=== PATIENT | male | born 1960 | race Caucasian/White ===

== ENCOUNTER 2024-02-22 17:42 | Inpatient (IN) | payer OTHER, SELFPAY ==
[2024-02-22] VITALS (59 sets, daily range): BP systolic 108–216; BP diastolic 56–121; PULSE 2–118; BMI 32.8; BMI 32.9
[2024-02-22 15:05] LABS: % Basophils 0.9 % (0-2); % Eosinophils 3.1 % (0-6); % Immature Granulocytes 0.3 % (0-0.5); % Lymphocytes 18.8 % (20.5-51.1); % Monocytes 10.2 % (1.7-9.3); % Neutrophils 66.7 % (42.2-75.2); Absolute Basophils 0.1 10^3/uL (0-0.2); Absolute Eosinophils 0.4 10^3/uL (0-0.7); Absolute Lymphocytes 2.4 10^3/uL (1.2-3.4); Absolute Monocytes 1.3 10^3/uL (0.1-0.6); Absolute Neutrophils 8.5 10^3/uL (1.4-6.5); Hematocrit 36.4 % (39.0-52.0); Hemoglobin 12.7 g/dL (13.0-18.0); Mean Corp Hgb Conc. 34.9 g/dL (33.0-37.0); Mean Corpuscular Hgb 29.1 pg (27.0-31.0); Mean Corpuscular Volume 83.3 fL (80.0-94.0); Mean Platelet Volume 10.8 fL (7.4-10.4); Nucleated Red Blood Cells % 0 % (-); Platelet Count 254 10^3/uL (130-400); Red Blood Cell Count 4.37 10^6/uL (4.70-6.10); Red Cell Dist. Width 13.8 % (11.5-14.5); White Blood Cell Count 12.8 10^3/uL (4.8-10.8)
[2024-02-22 15:17] LABS: D-Dimer 1.61 ug/mlFEU (0.00-0.50)
[2024-02-22 15:22] LABS: ALT (SGPT) 36 U/L (0-50); AST (SGOT) 43 U/L (17-59); Albumin 4.3 g/dl (3.5-5.0); Alkaline Phosphatase 93 U/L (38-126); Blood Urea Nitrogen 28 mg/dl (9-20); Calcium 9.1 mg/dl (8.4-10.2); Carbon Dioxide 27 mmol/L (22-30); Chloride 103 mmol/L (98-107); Glucose 140 mg/dl (70-99); Potassium 4.9 mmol/L (3.5-5.1); Sodium 142 mmol/L (135-145); Total Protein 6.9 g/dl (6.3-8.2); eGFR > 60.00
[2024-02-22 15:44] LABS: NT-proBNP 363 pg/ml; Troponin I 0.079 ng/ml
[2024-02-22] MEDS: LASIX 40 MG IV (15:50)
[2024-02-22] MEDS: NITROGLYCERIN PREMIX 250 IV (15:57)
--- NOTE | 2024-02-22 16:10 | ED.GENMED ---
History of Present Illness
General
Chief Complaint: Breathing Problem
Time Seen by Provider: 02/22/24 14:38
History of Present Illness
History of Present Illness:
63-year-old male presents to the emergency department for evaluation of sudden onset dyspnea that began this morning. States he was carrying groceries when he suddenly felt short of breath. Symptoms have worsened and he feels significant air
hunger. Denies any chest pain. No recent fevers or chills. Denies any recent coughing. Denies alcohol or tobacco use, denies illicit substance use. No leg swelling or unilateral calf pain. Did travel to [place] by car recently
Past History
Past History
ED Past Medical History: Arrthythmia (SVT), HTN, Hypercholesterolemia, NIDDM and Other (Kidney stone)
ED Past Surgical History: Cardiac (SVT ablation), Cholecystectomy, Orthopedic and Tonsilectomy
Social History
Tobacco: Non-smoker
Alcohol: Occasional
Personal:
Living: with family
Family History
Family History: Diabetes and Hypertension
Review of Systems
Review of Systems
Allergies reviewed?: Yes
All Other Systems: ROS reviewed and negative except as documented in HPI and ROS
Phy Exam
Physical Exam
Physical Exam:
GEN: Ill-appearing, in acute respiratory distress with conversational dyspnea
Eyes: PERRLA, EOMs intact, no scleral icterus
HENT: NCAT, oral mucosa moist, unable to assess for JVD secondary to body habitus
Lungs: Respiratory distress with conversational dyspnea, no obvious rhonchi or rales low-grade diminished bibasilar breath sounds noted
Cardiac: RRR, no M/R/G, no peripheral edema. Radial pulses 2+ bilat
Abdomen: S, NT, ND, NABS, no masses or hepatosplenomegaly
Neuro: AO x 3
MSK: No gross deformity or ecchymosis. No edema. No digital clubbing
Skin: No rashes, petechiae. Normal color, no pallor or jaundice.
Psych: Calm, cooperative, proper hygiene
Scores
Heart Failure Risk
Heart Failure Risk Score: Yes
History of Stroke or TIA: No
History of intubation for respiratory distress: No
Heart rate on ED arrival >/= 110: No
SaO2 <90% on arrival on room air: Yes
HR >/=110 during 3min walk test (or too ill to perform test): Yes
ECG has acute ischemic changes: No
Urea >/=12mmol/L (BUN 33.6mg/dL): No
Serum CO2>/=35mmol/L: No
Troponin I or T elevated to [place] Level (0.4mg/dL): Yes
NT-proBNP >/=5,000ng/L (5,000pg/ml): No
HF Risk Score: 5
Admission Status: VERY HIGH RISK 39.8% Consider admission to hospital
Course
Orders/Labs/Results
Orders:
Orders
02/22/24 14:30
Electrocardiogram (*1) Urgent
Reason for Study: Shortness of Breath
02/22/24 14:31
EKG- Treatment ONCE
02/22/24 14:50
CR Chest Portable - 1 View Urgent
Comment:
Reason For Exam: SOB
Reason Study Needs to be Portable: Patient Unstable
02/22/24 14:57
Complete Blood Count/With Diff Urgent
Comprehensive Metabolic Panel Urgent
D-Dimer Urgent
NT-proBNP Urgent
Troponin I Urgent
02/22/24 15:10
CT Chest Pe Study Urgent
Comment:
Reason For Exam: SOB
02/22/24 15:41
Furosemide [Lasix] 40 mg IV ONCE ONE
02/22/24 15:45
Nitroglycerin 100 mg/250 ml [Nitroglycerin Premix] 100 mg in 250 ml IV PER PROTOCOL
Initial dose in mcg/min, then titrate:: 40
Titrate to keep:: SBP < 160 mmHg
Titrate by mcg/min:: 5 mcg/min, may increase by 10 mcg/min if dose > 20 mcg/min
Frequency of titrations (minutes):: every 3-5 minutes
Maximum dose in mcg/min:: 200
Begin to taper infusion when:: Remained at goal for 2hrs
Taper by mcg/min:: 5 mcg/min
Frequency of taper (minutes) if patient maintains goal:: 30
Taper to off?: Yes
If infusion off & no longer maintaining goal:: Contact Provider
02/22/24 16:13
Arterial Blood Gas Urgent
%Oxygen/Room Air: 87
02/22/24 16:53
Admit/Transfer Patient As Directed
Co-Sign Provider:
Level of Care: Inpatient admission
Assign to:: IMU- Intermediate Care
Physician / Group: merna
Diagnosis: chf exacerbation
Reason for Hospitalization: chf exacerbation
Expected length of stay greater than two midnights?: Yes
ELOS- Estimated Length of Stay in days: 2
I certify the patient meets the requirements for IP care: Yes
PRN Pain Medication Management As Directed
May give lesser potent ordered pain med per pt: Yes
preference::
Protocol:: Medication orders for pain may be administered in a
manner that supports deferring to patient preference
when the pt is:
- Requesting an ordered lesser potent pain medication.
Least to most potent pain medications are defined
as: acetaminophen < NSAID < tramadol < opioids
(morphine, oxycodone, hydromorphone).
- Requesting a lesser dose of the same medication IF
ORDERED.
- Requesting a less intrusive route of administration
if both routes are prescribed by the provider (PO <
IV).
02/22/24 16:54
Code Status As Directed
Resuscitation Status: Full Code
02/22/24 17:00
Flush (0.9% Sodium Chloride) [Flush (Nss)] See Dose Instructions IV PER PROTOCOL
02/25/24 11:00
DC Protocol for Telemetry ONCE
Abnormal Lab Results
02/22/24 02/22/24
14:57 16:13
WBC 12.8 H 10^3/uL
(4.8-10.8)
RBC 4.37 L 10^6/uL
(4.70-6.10)
Hgb 12.7 L g/dL
(13.0-18.0)
Hct 36.4 L %
(39.0-52.0)
MPV 10.8 H fL
(7.4-10.4)
Absolute Neuts (auto) 8.5 H 10^3/uL
(1.4-6.5)
Absolute Monos (auto) 1.3 H 10^3/uL
(0.1-0.6)
Lymphocytes % 18.8 L %
(20.5-51.1)
Monocytes % 10.2 H %
(1.7-9.3)
D-Dimer 1.61 H ug/mlFEU
(0.00-0.50)
pO2 110 H mmHg
(83-108)
ABG O2 Sat (Measured) 99.3 H %
(94-98)
BUN 28 H mg/dl
(9-20)
Glucose 140 H mg/dl
(70-99)
Troponin I 0.079 H* ng/ml
02/22/24 14:57
02/22/24 14:57
Vital Signs
Initial and Last Documented VS:
Initial Vital Signs
Temp Pulse Resp BP Pulse Ox
97.9 F 91 18 181/85 89
02/22/24 14:25 02/22/24 14:25 02/22/24 14:25 02/22/24 14:25 02/22/24 14:25
Last Documented Vital Signs
Temp Pulse Resp BP Pulse Ox
97.9 F 95 22 159/84 92
02/22/24 14:25 02/22/24 16:30 02/22/24 16:30 02/22/24 16:30 02/22/24 16:30
MDM/Problems Addressed
MDM/Problems Addressed:
63-year-old male presents with acute respiratory distress. Required escalating amounts of supplemental oxygen, despite clear lungs his chest x-ray is suggestive of acute CHF. Sent for stat PE study due to clinical appearance and this showed no
evidence for acute PE. Despite his proBNP being somewhat normal I still suspect acute congestive heart failure based on his imaging appearance and clinical presentation. He was started on a nitro drip and ultimately due to worsening respiratory
function BiPAP was initiated. Suspect his troponin elevation is a nonmyocardial infarction elevation in the setting of hypoxia/CHF as he has no chest pain and nonischemic EKG. Patient will be admitted to the hospitalist service for further
management.
Comment
Comment:
EKG independently interpreted by me shows normal sinus rhythm at a rate of [address] changes concerning for ischemia, there is some patient motion artifact in the inferior leads however no gross ST changes are seen
*Critical Care Note
Total Time (30-74mins, 75-104mins- exclusive of procedures): 50 minutes
comment:
Critical care time: 50 minutes
Critical care time was exclusive of: Separately billable procedures, treating other patients, and teaching time
Critical care was necessary to treat or prevent imminent or life-threatening deterioration of the following conditions: Acute respiratory failure/CHF
Critical care time spent personally by me on the following activities:
[x] Review of old charts
[x] Obtaining history from patient or surrogate
[x] Ordering and review of the laboratory studies
[x] Ordering and review of radiographic studies
[x] Ordering and performing treatments and interventions
[x] Patient patient's response to treatment
[x] Development of treatment plan with patient or surrogate
Update Note
Update Note:
1601: Pt indicating severe air hunger despite 6L NC, sats low 90s. Respiratory contacted for ABG, will start bipap
ED Attending Note
-
Portions of this chart may have been created with voice recognition software.� Occasional wrong word or��sound alike� substitutions may have occurred due to the inherent limitations of voice recognition software.
Discharge Plan
Departure
Patient Disposition: Admit
Date of Disposition: 02/22/24
Time of Disposition: 16:31
Admit to: IMU
Presentation/result/management discussed w/ accepting MD/DO: Hospitalist
Discharge Problem:
Acute CHF
Prescriptions:
No Action
sitagliptin phosphate [Januvia] 100 MG tablet
100 mg PO DAILY
lisinopril 10 MG tablet
10 mg PO DAILY
diphenhydramine-acetaminophen [Tylenol PM Extra Strength] 1 EACH tablet
1 ea PO HS
propranolol 20 MG tablet
20 mg PO DAILY
eszopiclone [Lunesta] 3 MG tablet
3 mg PO HS
rotigotine [Neupro] 2 MG patch 24 hour
1 ea topical PRN PRN (Reason: restless leg)
insulin glargine U-300 conc [Toujeo SoloStar U-300 Insulin] 300 UNIT/ML insulin pen
132 unit SC DAILY
atorvastatin 10 MG tablet
40 mg PO DAILY@0800
metformin 500 MG tablet extended release 24 hr
1,000 mg PO BID
meloxicam 7.5 MG tablet
15 mg PO DAILY
duloxetine 60 MG capsule,delayed release(DR/EC)
60 mg PO HS
pregabalin 75 MG capsule
150 mg PO BID
multivitamin with folic acid [Tab-A-Christian] 1 TABLET tablet
1 tab PO DAILY
ketorolac 10 MG tablet
10 mg PO Q8HPRN PRN (Reason: Pain) Qty: 12 0RF
diazepam 5 MG tablet
5 mg PO TIDPRN PRN (Reason: Pain, spasm) Qty: 12 0RF
aspirin 81 MG tablet,delayed release (DR/EC)
81 mg PO DAILY
cyclobenzaprine 10 MG tablet
10 mg PO TIDPRN PRN (Reason: spasm) Qty: 9 0RF
prednisone 10 MG tablet
10 mg PO .TAPER Qty: 30 0RF
Rx Instructions:
Take 40mg daily x3days, 30mg daily x3days,
20mg daily x3days, 10mg daily x3days.
hydrocodone-acetaminophen 1 TABLET tablet
1 tab PO Q4HPRN PRN (Reason: pain) Qty: 8 0RF
prednisone 10 mg Tablet
See Rx Instructions .ROUTE .COMPLEX Qty: 45 0RF
Rx Instructions:
Take By Mouth:
50 mg daily x3 days, 40 mg daily x3 days,
30 mg daily x3 days, 20 mg daily x3 days,
10 mg daily x3 days
hydrocodone-acetaminophen 5-325 mg tablet
2 tab PO Q6H PRN (Reason: Pain) Qty: 14 0RF
Interventions
Interventions:
*Risk Screen - Suicide Last Done: 02/22/24 15:02
ED- Cardiac Assessment Last Done: 02/22/24 15:06
ED- Pulmonary Assessment Last Done: 02/22/24 15:02
Discharge Date and Time
Print Language: MARTINIQUAIS
[2024-02-22 16:21] LABS: O2 Saturation % 99.3 % (94-98); PCO2 42 mmHg (35-48); PO2 110 mmHg (83-108)
--- NOTE | 2024-02-22 17:02 | HPS.HSE ---
Family Physician
-
Family Physician: Alfie Marlow
Chief Complaint
-
shortness of breath
History of Present Illness
63-year-old male past medical history of SVT status post ablation, obstructive sleep apnea, hypertension, hypercholesteremia, diabetes, kidney stones, restless leg syndrome, presenting for sudden onset shortness of breath that started this morning.
He was carrying groceries when he suddenly felt shortness of breath. He feels significant air hunger. He denies chest pain. He denies fevers or chills. He denies any cough. He denies any leg swelling. He did recently travel to [place]
by car. He denies any history of CHF.
He has recently been taking Mounjaro so he lost significant amount of weight however he was having GI problems so Mounjaro was stopped and he was regaining weight.
Denies any history of smoking or alcohol use.
Medical History
Past Medical History
Past Medical History: Reports Other (SVT status post ablation, obstructive sleep apnea, hypertension, hypercholesteremia, diabetes, kidney stones, restless leg syndrome)
Past Surgical History: Reports Other (cardiac ablation, choley, tonsillectomy, left hand surgery, right elbow surgery, right shoulder surgery, right knee surgery, left knee surgery, sinus surgery, circumcision 2019, right eye surgery )
Social History
Tobacco: Non-smoker
Alcohol: None
Drug: None
Family History
Family History: Not pertinent
Allergies / Home Medications
Allergies reflects when Allergies were last updated in [employer].
Home Medications with original date entered in [employer]
Allergy/Medication List:
Allergies
Allergy/AdvReac Type Severity Reaction Status Date / Time
No Known Allergies Allergy Verified 04/13/23 11:27
Home Medications
sitagliptin phosphate 100 mg tablet (Januvia) 100 mg PO DAILY 06/30/12
atorvastatin 10 mg tablet 40 mg PO DAILY@0800 04/23/19
diphenhydramine 25 mg-acetaminophen 500 mg tablet (Tylenol PM Extra Strength) 1 ea PO HS 04/23/19
duloxetine 60 mg capsule,delayed release 60 mg PO HS 04/23/19
eszopiclone 3 mg tablet (Lunesta) 3 mg PO HS 04/23/19
insulin glargine U-300 conc 300 unit/mL (1.5 mL) subcutaneous pen (Toujeo SoloStar U-300 Insulin) 132 unit SC DAILY 04/23/19
lisinopril 10 mg tablet 10 mg PO DAILY 04/23/19
meloxicam 7.5 mg tablet 15 mg PO DAILY 04/23/19
metformin 500 mg tablet,extended release 24 hr 1,000 mg PO BID 04/23/19
multivitamin with folic acid 400 mcg tablet (Tab-A-Christian) 1 tab PO DAILY 04/23/19
pregabalin 75 mg capsule 150 mg PO BID 04/23/19
propranolol 20 mg tablet 20 mg PO DAILY 04/23/19
rotigotine 2 mg/24 hour transdermal 24 hour patch (Neupro) 1 ea topical PRN PRN restless leg 04/23/19
diazepam 5 mg tablet 5 mg PO TIDPRN PRN Pain, spasm #12 tabs 08/13/20
ketorolac 10 mg tablet 10 mg PO Q8HPRN PRN Pain #12 tabs 08/13/20
aspirin 81 mg tablet,delayed release 81 mg PO DAILY 08/18/20
cyclobenzaprine 10 mg tablet 10 mg PO TIDPRN PRN spasm #9 tabs 01/22/21
hydrocodone 5 mg-acetaminophen 325 mg tablet 1 tab PO Q4HPRN PRN pain #8 tabs 01/22/21
prednisone 10 mg tablet 10 mg PO .TAPER #30 tabs 01/22/21
hydrocodone 5 mg-acetaminophen 325 mg tablet 2 tab PO Q6H PRN Pain #14 tabs 04/13/23
prednisone 10 mg tablet See Rx Instructions .Route .COMPLEX #45 tabs 04/13/23
Review of Systems
-
History Source: Patient
A 12 point ROS was completed and negative except as noted: Yes
Constitutional: Reports No Symptoms
EENT: Reports No Symptoms
Respiratory: Reports See HPI
Cardiac: Reports See HPI
Abdomen/GI: Reports No Symptoms
: Reports No Symptoms
Musculoskeletal: Reports No Symptoms
Skin: Reports No Symptoms
Neurological: Reports No Symptoms
Endocrine: Reports No Symptoms
Hematologic/Lymphatic: Reports No Symptoms
Psych: Reports No Symptoms
Physical Exam
Vital Signs
Vital Signs
Temp Pulse Resp BP Pulse Ox
97.9 F 95 22 159/84 92
02/22/24 14:25 02/22/24 16:30 02/22/24 16:30 02/22/24 16:30 02/22/24 16:30
Physical Exam
General: Well Developed, Well Nourished and No Apparent Distress
HEENT: NormoCephalic, Moist mucous membranes and Atraumatic
Respiratory: Clear
Cardiac: S1/S2 and Regular Rhythm; No Murmur or Rub
GI: Soft, Non Tender, Non Distended and Normal Bowel Sounds; No Organomegaly
Rectal: Deferred by Provider
Musculoskeletal: No Clubbing, No Cyanosis and No Edema
Skin: No Rash
Neuro: Nonfocal/grossly intact
Laboratory Results
-
02/22/24 14:57
02/22/24 14:57
Laboratory Results
pH 7.40 (7.35-7.45) 02/22/24 16:13
pCO2 42 mmHg (35-48) 02/22/24 16:13
pO2 110 mmHg (83-108) H 02/22/24 16:13
HCO3 26.0 mmol/L (21-28) 02/22/24 16:13
Total Bilirubin 1.0 mg/dl (0.2-1.3) 02/22/24 14:57
AST 43 U/L (17-59) 02/22/24 14:57
ALT 36 U/L (0-50) 02/22/24 14:57
Alkaline Phosphatase 93 U/L (38-126) 02/22/24 14:57
Troponin I 0.079 ng/ml H* 02/22/24 14:57
Data Reviewed
-
Lab Data: Labs Reviewed by me
Old Records: Reviewed
Impression/Plan
-
IMPRESSION:
PLAN:
# Acute CHF exacerbation
# Hypertensive emergency
-CT chest shows no evidence of pulm embolism, findings suggesting mild pulm interstitial/alveolar edema, possible superimposed pneumonia in the bilateral upper lobes, small bilateral pleural effusions
-Cardiac BNP of 363 however obese
-Clinically no signs of pneumonia
-Check I's and O's, daily weights
-40 IV Lasix daily
-Nitroglycerin drip
-BiPAP started
-Check echocardiogram
-Continue prophylactic aspirin
-Cardiology consulted
SVT status post ablation
Obstructive sleep apnea
-Uses CPAP at night
Essential hypertension
-Continue lisinopril
Hypercholesterolemia
-Continue statin
Type 2 diabetes
-Hold metformin
-Insulin sliding scale
-Continue Lantus
History of kidney stones
Restless leg syndrome
-Continue diazepam, Neupro, pregabalin, cyclobenzaprine
Full code
DVT prophylaxis�heparin
Cardiac diet
--- NOTE | 2024-02-22 20:15 | PTCARENOTE ---
Pt arrived to floor on stretcher from ED. Ambulated to bed from stretcher with steady gait. Pt on BiPAP 10/5 and 10L O2, SpO2 ~ 96%. Pt denies SOB; Nitro gtts infusing into R wrist INT at 50mg/hr, BP = 153/73. BP at goal for > 2 hrs, will
start to wean if BP allows. AAO x 4; NSR on monitor; Skin C/D/I; Oriented to room, call bliss within reach. Will continue to monitor and assess.
[2024-02-22 21:40] LABS: Glucose - Point of Care 146 mg/dl (70-99)
[2024-02-22] MEDS: HEPARIN 5000 UNITS SC (22:01)
[2024-02-22 22:47] LABS: Troponin I 0.108 ng/ml
[2024-02-23] VITALS (40 sets, daily range): BP systolic 119–169; BP diastolic 49–97; PULSE 92; BMI 32.4
[2024-02-23 04:20] LABS: % Basophils 0.6 % (0-2); % Eosinophils 1.9 % (0-6); % Immature Granulocytes 0.5 % (0-0.5); % Lymphocytes 10.8 % (20.5-51.1); % Neutrophils 76.2 % (42.2-75.2); Absolute Basophils 0.1 10^3/uL (0-0.2); Absolute Eosinophils 0.2 10^3/uL (0-0.7); Absolute Immature Granulocytes 0.1 10^3/uL (0-0.05); Absolute Lymphocytes 1.4 10^3/uL (1.2-3.4); Absolute Monocytes 1.3 10^3/uL (0.1-0.6); Absolute Neutrophils 9.7 10^3/uL (1.4-6.5); Hematocrit 33.8 % (39.0-52.0); Hemoglobin 11.8 g/dL (13.0-18.0); Mean Corp Hgb Conc. 34.9 g/dL (33.0-37.0); Mean Corpuscular Hgb 28.9 pg (27.0-31.0); Mean Corpuscular Volume 82.6 fL (80.0-94.0); Mean Platelet Volume 10.7 fL (7.4-10.4); Nucleated Red Blood Cells % 0 % (-); Platelet Count 218 10^3/uL (130-400); Red Blood Cell Count 4.09 10^6/uL (4.70-6.10); Red Cell Dist. Width 13.6 % (11.5-14.5); White Blood Cell Count 12.8 10^3/uL (4.8-10.8)
[2024-02-23 04:49] LABS: ALT (SGPT) 32 U/L (0-50); AST (SGOT) 32 U/L (17-59); Albumin 3.9 g/dl (3.5-5.0); Alkaline Phosphatase 86 U/L (38-126); Blood Urea Nitrogen 25 mg/dl (9-20); Calcium 9.1 mg/dl (8.4-10.2); Carbon Dioxide 29 mmol/L (22-30); Chloride 99 mmol/L (98-107); Estimated Creatinine Clearance 94 ml/min; Glucose 237 mg/dl (70-99); Potassium 4.3 mmol/L (3.5-5.1); Sodium 138 mmol/L (135-145); Total Bilirubin 1.6 mg/dl (0.2-1.3); Total Protein 6.3 g/dl (6.3-8.2); eGFR > 60.00
[2024-02-23 04:57] LABS: Troponin I 0.075 ng/ml
[2024-02-23 08:07] LABS: Glycohemoglobin (HgbA1c) 6.1 % (4.0-5.6)
--- NOTE | 2024-02-23 08:35 | CON.CAR ---
Addendum entered and electronically signed by Jessica Miranda DO 02/23/24 16:22:
I saw and examined the patient.
The Immunology Specialist's note was reviewed and I agree with the note.
Comment: I had the pleasure to see Michael Wu for abnormal CTNI and SOB. He is accompanied by his at bedside. Michael is a 63-year-old male with past medical history of SVT status post ablation 1995, obstructive sleep apnea on CPAP,
hypertension, hyperlipidemia, diabetes mellitus, kidney stones, restless leg syndrome. He had previously followed with [place] [facility] years ago but has not seen a biodiesel production associate in over 20 years. He reports over the weekend that he ran out of
his long-acting insulin as well as his lisinopril; he does admit to having a salt rich meal on Friday evening. He has not been checking his blood pressures at home. Patient's and daughter report that he was wheezing Friday evening but he
denies URI symptoms, fevers or chest pain. He had an acute onset of shortness of breath while carrying groceries associated with diaphoresis and presented to the ER for further evaluation. He denies associated chest pain/pressure. He was found to
be hypertensive with BP 181/85 upon arrival and was started on a nitro drip. D-dimer was 1.61, chest CT was negative for PE with findings suggestive of mild interstitial and alveolar edema with possible pneumonia in bilateral upper lobes and small
bilateral pleural effusions. Chest x-ray also showed mild pulmonary interstitial edema/borderline CHF. proBNP was 363. Troponin 0.079�0 0.108�0.075, with fourth troponin pending. He required escalated amounts of supplemental oxygen with BiPAP
initiated. He received IV Lasix with improved symptoms; nitroglycerin drip was just turned off.
GEN: No distress, awake, Ox3
HEENT: mmm
LUNGS: CTA, no wheezes/rales
CV: Reg, S1/S2,no murmur
ABD: soft, BS+, NT/ND
EXT: No edema
NEURO: Gross non-focal
Plan:
HFpEF in the setting of hypertensive urgency
-Blood pressures improved now off nitroglycerin drip
-Lisinopril increased to 20 mg daily.
-Patient has been on propranolol due to an essential tremor and will continue at outpatient dose for now
-2D echocardiogram with vigorous LV size and systolic function and no significant valve disease although there is some mild hypokinesis of the apical septum
-IV Lasix another 24 hours; will likely not need continued IV Lasix
-Wean O2 as able
-Given exertional symptoms including diaphoresis and multiple cardiac risk factors, would pursue ischemic evaluation
-goal LDL <70 in setting of h/o DM
-DM mgmt per primary team
-History of obstructive sleep apnea on CPAP
Original Note:
Consultation
Consultation Request
Date/Time Consultation Requested: 02/22/2024, 5
Date/Time Consultation Performed: 02/23/2024, 08 40
Requesting Provider: Gordon Garvey MD
Performing Provider: HOSSEIN Villagran for Marcelo Miranda DO
Reason for Consultation: Heart failure
Medical History
-
Chief Complaint: Shortness of breath
History of Present Illness:
63-year-old male with past medical history of SVT status post ablation 1995, obstructive sleep apnea on CPAP, hypertension, hyperlipidemia, diabetes mellitus, kidney stones, restless leg syndrome who presented to ED yesterday after sudden onset
of shortness of breath when carrying groceries. No associated chest pain. No cough, fever, chills. He was found to be hypertensive with BP 181/85 upon arrival and was started on a nitro drip. D-dimer was 1.61, chest CT was negative for PE with
findings suggestive of mild interstitial and alveolar edema with possible pneumonia in bilateral upper lobes and small bilateral pleural effusions. Chest x-ray also showed mild pulmonary interstitial edema/borderline CHF. proBNP was 363. Troponin
0.079�0 0.108�0.075, with fourth troponin pending. He required escalated amounts of supplemental oxygen with BiPAP initiated.
He was started on furosemide 40 mg IV daily. An echocardiogram was ordered. Cardiology is consulted for further evaluation.
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 On Friday he had to walk 9.2 miles during his day at work, which was unusual. He did not have shortness of breath with walking. He did have leg fatigue. Over the weekend he had a cheese steak
but this is not an unusual diet for him.
He denies edema, PND, orthopnea. He has had no palpitations, lightheadedness, syncope. No recent illnesses. Had recent car ride to [place].
Past medical history:
SVT status post ablation 1995 at [place]
Hypertension on Lisinopril on propranolol
Hyperlipidemia
Diabetes mellitus-treated with metformin, insulin. Was previously on Mounjaro but stopped 1 month ago due to GI issues.
Obstructive sleep apnea on CPAP
Kidney stones
Restless leg syndrome
Past Medical History
Past Medical History: Other (As above)
Past Surgical History: Cholecystectomy and Orthopedic (multiple back surgeries 2021)
Social History
Tobacco: Non-Smoker
Alcohol: None
Personal:
Living: With Family
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
Family History
Family History: Reviewed & Not Pertinent
Allergies / Home Medications
Allergy/AdvReac Type Severity Reaction Status Date / Time
No Known Allergies Allergy Verified 04/13/23 11:27
�Medication �Instructions �Recorded �Confirmed �Type
diphenhydramine 25 1 ea PO HS Sleep 04/23/19 02/22/24 History
mg-acetaminophen 500 mg tablet
(Tylenol PM Extra Strength)
duloxetine 60 mg capsule,delayed 60 mg PO HS Depression 04/23/19 02/22/24 History
release
eszopiclone 3 mg tablet (Lunesta) 3 mg PO HS Sleep 04/23/19 02/22/24 History
insulin glargine U-300 conc 300 90 unit SC DAILY Diabetes 04/23/19 02/22/24 History
unit/mL (1.5 mL) subcutaneous pen
(Toucruzo SoloStar U-300 Insulin)
lisinopril 10 mg tablet 10 mg PO DAILY Blood Pressure 04/23/19 02/22/24 History
meloxicam 7.5 mg tablet 15 mg PO DAILY Pain 04/23/19 02/22/24 History
metformin 500 mg tablet,extended 1,000 mg PO BID Diabetes 04/23/19 02/22/24 History
release 24 hr
multivitamin with folic acid 400 1 tab PO DAILY Supplement 04/23/19 02/22/24 History
mcg tablet (Tab-A-Christian)
pregabalin 75 mg capsule 150 mg PO BID Neurological 04/23/19 02/22/24 History
Condition
propranolol 20 mg tablet 20 mg PO BID Blood Pressure 04/23/19 02/22/24 History
aspirin 81 mg tablet,delayed 81 mg PO DAILY Blood Clot 08/18/20 02/22/24 History
release Prevention/Tx
atorvastatin 40 mg tablet (Lipitor) 40 mg PO HS High Cholesterol 02/22/24 02/22/24 History
insulin aspart U-100 100 unit/mL 4 sliding scale dose SC AC Diabetes 02/22/24 02/22/24 History
subcutaneous cartridge (Novolog
PenFill U-100 Insulin aspart)
omeprazole 20 mg tablet,delayed 20 mg PO DAILY Gastrointestinal 02/22/24 02/22/24 History
release Issue
Review of Systems
-
History Source: Patient
All other systems: Negative unless noted
Physical Exam
Vital Signs
Temp Pulse Resp BP Pulse Ox
98.0 F 81 21 155/80 95
02/23/24 04:31 02/23/24 06:00 02/23/24 06:00 02/23/24 06:00 02/23/24 06:00
GEN: No distress, awake, Ox3
HEENT: supple, anicteric, mmm
LUNGS: CTA, no wheezes/rales
CV: Reg, S1/S2,no murmur
ABD: soft, BS+, NT/ND
EXT: No edema
NEURO: Gross non-focal
SKIN: No rash
Lab Results
02/23/24 03:59
02/23/24 03:59
Troponin I 0.075 ng/ml H* D 02/23/24 03:59
Wcp-B-Hnygnaxsdmd Pept 363 pg/ml 02/22/24 14:57
Impression / Plan
-
PCP:Alfie Cano
Previous biodiesel production associate: none
Impression:
Acute heart failure
Hypertensive emergency
Shortness of breath
Hypoxia
Elevated troponin
obstructive sleep apnea on CPAP
h/o HTN
Hyperlipidemia
SVT s/p ablation
EKG 02/22/2024: Normal sinus rhythm, normal ST segments
Echo 04/30/2019: Normal LV size, EF 60 to 65%, no valvular heart disease
Plan:
-restart outpt antihypertensives -he's on Lisinopril 10 mg daily and Propranolol 20 mg bid. Nitro gtt already weaning per parameters, hopefully to stop by mid-day 02/23/24. Outpt Lisinopril 10 mg daily not ordered yet this admission, will uptitrate
and start Lisinopril 20 mg now. Also, med rec from this hospitalization notes propranlol 20 mg daily. Checked ECW-per pt last note with PCP 02/06, he is on 20 mg bid. Ordered now dose to start this morning.
-troponin peaked at 0.108 and trending down. No chest pain, no ischemic EKG changes. Can cancel additional troponins. Troponin elevation likely non ischemic myocardial injury due to acute heart failure in setting of hypertensive emergency.
-continue diuresis with IV Lasix
-continue O2 as needed
-echo today - pending
-Telemetry personally reviewed by me: NSR HRs 70s-80s. No symptoms suggestive of recurrent SVT, continue telemetry
-goal LDL <70 in setting of h/o DM
-DM mgmt per primary team
Data Reviewed
-
EKG: Tracing Personally Visualized and interpreted
Labs: Labs Reviewed by me
[2024-02-23 08:45] LABS: Glucose - Point of Care 237 mg/dl (70-99)
--- NOTE | 2024-02-23 08:50 | PTCARENOTE ---
received pt from shift production supervisor. AAOx3. 95% on 3L. nitro gtt currently 30 mg running @ 4.5 mL/hr at change of shift. Titrating based on SBP (see worklist). resting in bed with call bliss in reach.
[2024-02-23] MEDS: HEPARIN 5000 UNITS SC ×2 (09:06→19:48)
[2024-02-23] MEDS: LASIX 40 MG IV (09:06)
[2024-02-23] MEDS: NOVOLOG FLEXPEN-LOW RESISTANCE 2 UNITS SC ×3 (09:22→18:24)
[2024-02-23] MEDS: ASPIR LOW (ENTERIC COATED) 81 MG PO (10:17)
[2024-02-23] MEDS: INDERAL 20 MG PO ×2 (10:17→19:48)
[2024-02-23] MEDS: ZESTRIL 20 MG PO (10:18)
[2024-02-23] MEDS: LANTUS 0.64 UNITS SC (10:18)
[2024-02-23 10:36] LABS: Procalcitonin < 0.05 ng/ml (0.0-0.25)
[2024-02-23] MEDS: NOVOLOG FLEXPEN 4 UNITS SC ×2 (11:14→18:25)
[2024-02-23 11:23] LABS: Glucose - Point of Care 238 mg/dl (70-99)
--- NOTE | 2024-02-23 15:08 | W.PN.HOSP.TC ---
Today's Communication/Plan
-
Monitor vital signs
see plan
Wean oxygen as tolerated
CPAP at night
Continue with IV Lasix
Assessment / Plan
Assessment / Plan
General: Well Developed, Well Nourished and No Apparent Distress
HEENT: NormoCephalic, Moist mucous membranes and Atraumatic
Respiratory: Clear
Cardiac: S1/S2 and Regular Rhythm; No Murmur or Rub
GI: Soft, Non Tender, Non Distended and Normal Bowel Sounds
Musculoskeletal: No Clubbing, No Cyanosis and No Edema
Skin: No Rash
Neuro: Nonfocal/grossly intact
Acute CHF exacerbation
# Hypertensive emergency
-CT chest shows no evidence of pulm embolism, findings suggesting mild pulm interstitial/alveolar edema, possible superimposed pneumonia in the bilateral upper lobes, small bilateral pleural effusions
-Cardiac BNP of 363 however obese
Continue with IV Lasix
Wean off nitro drip
Restart lisinopril, propranolol
Weaned off BiPAP and now on nasal cannula, CPAP at night
Echocardiogram with preserved EF
Aspirin
Cardiology follow
-Cardiology consulted
SVT status post ablation
Obstructive sleep apnea
-Uses CPAP at night
Essential hypertension
-Continue lisinopril
Hypercholesterolemia
-Continue statin
Type 2 diabetes
-Hold metformin
-Insulin sliding scale
-Continue Lantus
A1c 6.1
History of kidney stones
Restless leg syndrome
-Continue diazepam, Neupro, pregabalin, cyclobenzaprine
Full code
DVT prophylaxis�heparin
I spent a total of 52 minutes with the patient or on the floor. More than 50% of this time involved counseling and coordination of care.
Anticipated Discharge: 24 - 48 hours
Subjective/Interval History
-
Date of Service: February 23, 2024
Denies pain
Objective Data
-
Labs:
Laboratory Results
02/23/24
03:59
WBC 12.8 H
Hgb 11.8 L
Hct 33.8 L
Plt Count 218
Sodium 138
Potassium 4.3
Chloride 99
Carbon Dioxide 29
BUN 25 H
Creatinine 1.1
Glucose 237 H
Calcium 9.1
Total Bilirubin 1.6 H
AST 32
ALT 32
Alkaline Phosphatase 86
Vital Signs:
Vital Signs
Temp Pulse Resp BP Pulse Ox
98.4 F 73 29 129/64 94
02/23/24 11:50 02/23/24 12:00 02/23/24 12:00 02/23/24 12:00 02/23/24 12:00
I&O
02/22/24 02/23/24 02/24/24
06:59 06:59 06:59
Output Total 2049 300 / 300
Balance -2049 / -2049 -300 / -300
--- NOTE | 2024-02-23 17:12 | CM ---
Patient with Dx CHF, Hypertensive emergency. O2 4L. Per nurse, Nitro gtt weaned off. Receiving IV Lasix.
Met with patient and Paulette.
Th patient resides with his in a 1 story house with 1 [address] and stairs to laundry in basement.
The patient has been independent in ADLs and ambulation.
DME - CPAP, glucometer
VN - [facility]
SNF - none
PCP - Matt Marlow
Pharmacy - [facility]
Offered VN for HF Education and patient & declined.
Plan home.
[2024-02-23] MEDS: TYLENOL 650 MG PO (18:21)
[2024-02-23] MEDS: LYRICA 150 MG PO (19:48)
--- NOTE | 2024-02-23 20:57 | PTCARENOTE ---
Received pt from hubert SANTANA. Pt is AAOx3. NSR on the monitor. On 2L NC, lungs diminished, CPAP HS. Pt uses the urinal. Pt is laying in bed with call bliss in reach.
[2024-02-23 22:02] LABS: Glucose - Point of Care 142 mg/dl (70-99)
[2024-02-23] MEDS: NON-FORMULARY ITEM 3 MG PO (22:21)
[2024-02-23] MEDS: CYMBALTA DELAYED RELEASE 60 MG PO (22:23)
[2024-02-23] MEDS: LIPITOR 40 MG PO (22:23)
[2024-02-24] VITALS (12 sets, daily range): BP systolic 101–159; BP diastolic 61–87; BMI 31.9
[2024-02-24 04:50] LABS: % Basophils 0.7 % (0-2); % Eosinophils 3.2 % (0-6); % Immature Granulocytes 0.4 % (0-0.5); % Lymphocytes 19.3 % (20.5-51.1); % Monocytes 11.5 % (1.7-9.3); % Neutrophils 64.9 % (42.2-75.2); Absolute Basophils 0.1 10^3/uL (0-0.2); Absolute Eosinophils 0.4 10^3/uL (0-0.7); Absolute Lymphocytes 2.1 10^3/uL (1.2-3.4); Absolute Monocytes 1.3 10^3/uL (0.1-0.6); Hematocrit 37.8 % (39.0-52.0); Hemoglobin 13.4 g/dL (13.0-18.0); Mean Corp Hgb Conc. 35.4 g/dL (33.0-37.0); Mean Corpuscular Volume 84.6 fL (80.0-94.0); Mean Platelet Volume 10.4 fL (7.4-10.4); Nucleated Red Blood Cells % 0 % (-); Platelet Count 211 10^3/uL (130-400); Red Blood Cell Count 4.47 10^6/uL (4.70-6.10); Red Cell Dist. Width 13.2 % (11.5-14.5); White Blood Cell Count 10.9 10^3/uL (4.8-10.8)
[2024-02-24 05:14] LABS: ALT (SGPT) 30 U/L (0-50); AST (SGOT) 30 U/L (17-59); Alkaline Phosphatase 79 U/L (38-126); Blood Urea Nitrogen 25 mg/dl (9-20); Calcium 9.6 mg/dl (8.4-10.2); Carbon Dioxide 25 mmol/L (22-30); Chloride 99 mmol/L (98-107); Estimated Creatinine Clearance 102 ml/min; Glucose 158 mg/dl (70-99); Potassium 4.2 mmol/L (3.5-5.1); Sodium 140 mmol/L (135-145); Total Bilirubin 1.3 mg/dl (0.2-1.3); Total Protein 6.6 g/dl (6.3-8.2); eGFR > 60.00
[2024-02-24] MEDS: NOVOLOG FLEXPEN-LOW RESISTANCE 1 UNITS SC ×2 (09:54→17:49)
[2024-02-24] MEDS: ASPIR LOW (ENTERIC COATED) 81 MG PO (09:55)
[2024-02-24] MEDS: LYRICA 150 MG PO ×2 (09:55→20:59)
[2024-02-24] MEDS: NOVOLOG FLEXPEN 4 UNITS SC ×3 (09:55→17:49)
[2024-02-24] MEDS: HEPARIN 5000 UNITS SC ×2 (09:56→20:59)
[2024-02-24] MEDS: LASIX 40 MG IV (09:56)
[2024-02-24] MEDS: INDERAL 20 MG PO ×2 (09:56→20:59)
[2024-02-24] MEDS: NORVASC 5 MG PO (09:56)
[2024-02-24] MEDS: PROTONIX 20 MG PO (09:56)
[2024-02-24] MEDS: ZESTRIL 20 MG PO (09:56)
[2024-02-24 10:04] LABS: Glucose - Point of Care 161 mg/dl (70-99)
--- NOTE | 2024-02-24 10:11 | PTCARENOTE ---
Patient OOB to bathroom with supervision. Patient is ARVIZU, 2L NC 90-93% with ambulation. Patient sitting in chair, eating breakfast. Physician into see patient and patient is for a cardiac cath tomorrow 02/24. Patient has no c/o pain, call bliss in
reach.
[2024-02-24] MEDS: LANTUS 0.64 UNITS SC (10:25)
--- NOTE | 2024-02-24 11:14 | W.PN.CARDCBS ---
Addendum entered and electronically signed by Conrad Jaeger MD 02/24/24 12:06:
Check lipid profile
Addendum entered and electronically signed by Conrad Jaeger MD 02/24/24 12:04:
I saw and examined the patient.
The NOC ENGINEER or PA's note was reviewed and I agree with the note.
Comment: General: Well developed, well nourished in NAD.
Neck: Supple, no JVD, HJR, carotids +2 B/L, no bruits bilaterally.
Heart: Non displaced PMI, RRR, no murmurs, No S3, S4, no rubs.
Lungs: Scattered rhonchi
Extremities: No clubbing, cyanosis or edema bilaterally.
Neuro: Grossly nonfocal, awake, alert and oriented x3.
Continue IV Lasix for now. Blood pressure remains suboptimal and amlodipine has been added. For left heart catheterization in a.m. to further evaluate coronary arteries in light of elevated troponin and CHF with cardiac risk factors
Original Note:
Today's Communication / Plan
-
Left heart cath tomorrow, NPO after MN
Started amlodipine today for hypertension
Switch to oral Lasix tomorrow
Impression / Plan
-
PCP:Alfie Cano
Previous special needs nanny: none
Impression:
Acute heart failure preserved EF
Hypertensive emergency
Acute shortness of breath
Hypoxia
Elevated troponin
Diabetes mellitus
obstructive sleep apnea on CPAP
h/o HTN
Hyperlipidemia
SVT s/p ablation
essential tremor
EKG 02/22/2024: Normal sinus rhythm, normal ST segments
Echo 04/30/2019: Normal LV size, EF 60 to 65%, no valvular heart disease
Echo 02/23/2024: Vigorous LV systolic function with mild cLVH, EF 65 to 70%, mild hypokinesis of apical septum, normal RV size and systolic function
Plan:
-Echocardiogram 02/23/2024 normal LV size and function with mild hypokinesis of apical septum
-Continues IV diuretics, weight down 7 pounds since admission. Symptomatically feels shortness of breath has improved. Remains on oxygen, switch to oral Lasix tomorrow.
-Blood pressure remains elevated despite up titration of home lisinopril to 20 mg daily and restarting propranolol. BPs 150s/70s-80. Was started on amlodipine 5 mg daily, first dose today 02/24/2024. Continue to monitor blood pressure with
addition of amlodipine.
-troponin peaked at 0.108 and trending down. No chest pain, no ischemic EKG changes. Given risk factors for CAD (diabetes, hypertension), presenting symptoms of exertional diaphoresis and ARVIZU, as well as hypokinesis on echo, will proceed with
cardiac catheterization for ischemic evaluation. Scheduled for tomorrow. N.p.o. after midnight
-continue O2 as needed, currently on 2 L
-Telemetry personally reviewed by me: NSR HRs 70s-80s. No symptoms suggestive of recurrent SVT, continue telemetry
-goal LDL <70 in setting of h/o DM
-DM mgmt per primary team
-Continue CPAP
-discussed plan with pt and nurse
Progress Note - Brazing Machine Tender
Subjective
Date of Service: February 24, 2024
Out of bed in chair
Denies shortness of breath, weight down 7 pounds since admission on 02/22/2024
Off nitro drip, started amlodipine in addition to his usual lisinopril and propranolol
No chest pain
Objective
Labs:
02/24/24 04:41
02/24/24 04:41
Labs
Hgb 13.4 g/dL (13.0-18.0) 02/24/24 04:41
Hct 37.8 % (39.0-52.0) L 02/24/24 04:41
Plt Count 211 10^3/uL (130-400) 02/24/24 04:41
Sodium 140 mmol/L (135-145) 02/24/24 04:41
Potassium 4.2 mmol/L (3.5-5.1) 02/24/24 04:41
BUN 25 mg/dl (9-20) H 02/24/24 04:41
Creatinine 1.0 mg/dL (0.7-1.3) 02/24/24 04:41
Glucose 158 mg/dl (70-99) H 02/24/24 04:41
Troponins
02/22/24 02/22/24 02/23/24
14:57 22:04 03:59
Troponin I 0.079 H* 0.108 H* D 0.075 H* D
02/23/24 02/23/24
08:30 14:30
Troponin I Cancelled Cancelled
Vital Signs and I&O:
Vital Signs
Temp Pulse Resp BP Pulse Ox
97.5 F 70 20 157/72 94
02/24/24 07:50 02/24/24 06:00 02/24/24 06:00 02/24/24 06:00 02/24/24 06:00
Vital Signs
Temp Pulse Resp BP Pulse Ox
97.5 F 70 20 157/72 94
02/24/24 07:50 02/24/24 06:00 02/24/24 06:00 02/24/24 06:00 02/24/24 06:00
Intake & Output
02/22/24 02/23/24 02/24/24 02/25/24
06:59 06:59 06:59 06:59
Intake Total /
Output Total 2049 850 / 850 525 / 525
Balance -2049 -2049 40 40 -525 / -525
Physical Exam
Physical Exam
GEN: No distress, awake, Ox3
HEENT: supple, anicteric, mmm
LUNGS: CTA, no wheezes/rales
CV: Reg, S1/S2, no murmur
ABD: soft, BS+, NT/ND
EXT: No edema
NEURO: Gross non-focal
SKIN: No rash
--- NOTE | 2024-02-24 12:44 | W.PN.HOSP.TC ---
Today's Communication/Plan
-
Monitor vital signs see plan
Continue with Lasix
N.p.o. for cath tomorrow
Adjust insulin tomorrow
Wean oxygen as tolerated
CPAP at bedtime
Assessment / Plan
Assessment / Plan
General: Well Developed, Well Nourished and No Apparent Distress
HEENT: NormoCephalic, Moist mucous membranes and Atraumatic
Respiratory: Clear
Cardiac: S1/S2 and Regular Rhythm; No Murmur or Rub
GI: Soft, Non Tender, Non Distended and Normal Bowel Sounds
Musculoskeletal: No Clubbing, No Cyanosis and No Edema
Skin: No Rash
Neuro: Nonfocal/grossly intact
Acute CHF exacerbation
# Hypertensive emergency
-CT chest shows no evidence of pulm embolism, findings suggesting mild pulm interstitial/alveolar edema, possible superimposed pneumonia in the bilateral upper lobes, small bilateral pleural effusions
-Cardiac BNP of 363 however obese
Continue with IV Lasix
Weaned off nitro drip
Restart lisinopril, propranolol
Weaned off BiPAP and now on nasal cannula, CPAP at night
Echocardiogram with preserved EF
Aspirin
Cardiology following; plan for cath 02/24
SVT status post ablation
Obstructive sleep apnea
-Uses CPAP at night
Essential hypertension
-Continue lisinopril
Hypercholesterolemia
-Continue statin
Type 2 diabetes
-Hold metformin
-Insulin sliding scale
-Continue Lantus; lower the dose for tomorrow AM due to NPO for cath
A1c 6.1
History of kidney stones
Restless leg syndrome
-Continue diazepam, Neupro, pregabalin, cyclobenzaprine
Full code
DVT prophylaxis�heparin
I spent a total of 51 minutes with the patient or on the floor. More than 50% of this time involved counseling and coordination of care.
Anticipated Discharge: 24 - 48 hours
Subjective/Interval History
-
Date of Service: February 24, 2024
denies pain
Objective Data
-
Labs:
Laboratory Results
02/24/24
04:41
WBC 10.9 H
Hgb 13.4
Hct 37.8 L
Plt Count 211
Sodium 140
Potassium 4.2
Chloride 99
Carbon Dioxide 25
BUN 25 H
Creatinine 1.0
Glucose 158 H
Calcium 9.6
Total Bilirubin 1.3
AST 30
ALT 30
Alkaline Phosphatase 79
Vital Signs:
Vital Signs
Temp Pulse Resp BP Pulse Ox
97.5 F 67 22 101/87 90
02/24/24 07:50 02/24/24 12:00 02/24/24 12:00 02/24/24 12:00 02/24/24 12:00
I&O
02/23/24 02/24/24 02/25/24
06:59 06:59 06:59
Intake Total 890 / 890
Output Total 2049 850 / 850 525 / 525
Balance -2049 40 / 40 -525 / -525
[2024-02-24 13:25] LABS: Glucose - Point of Care 255 mg/dl (70-99)
[2024-02-24] MEDS: NOVOLOG FLEXPEN-LOW RESISTANCE 3 UNITS SC (13:28)
--- NOTE | 2024-02-24 15:29 | PTCARENOTE ---
Report given to 3W RN. Patient being transferred to room 337-1. Patient made aware of transfer.
[2024-02-24 16:21] LABS: Glucose - Point of Care 198 mg/dl (70-99)
[2024-02-24] MEDS: CYMBALTA DELAYED RELEASE 60 MG PO (21:00)
[2024-02-24] MEDS: LIPITOR 40 MG PO (21:00)
[2024-02-24] MEDS: NON-FORMULARY ITEM 3 MG PO (21:01)
[2024-02-24 21:13] LABS: Glucose - Point of Care 160 mg/dl (70-99)
[2024-02-25] VITALS (12 sets, daily range): BP systolic 112–139; BP diastolic 61–108; PULSE 64; BMI 31.5
[2024-02-25 05:39] LABS: % Eosinophils 4.2 % (0-6); % Immature Granulocytes 0.4 % (0-0.5); % Lymphocytes 23.3 % (20.5-51.1); % Monocytes 10.6 % (1.7-9.3); % Neutrophils 60.5 % (42.2-75.2); Absolute Basophils 0.1 10^3/uL (0-0.2); Absolute Eosinophils 0.5 10^3/uL (0-0.7); Absolute Lymphocytes 2.6 10^3/uL (1.2-3.4); Absolute Monocytes 1.2 10^3/uL (0.1-0.6); Absolute Neutrophils 6.7 10^3/uL (1.4-6.5); Hematocrit 39.4 % (39.0-52.0); Hemoglobin 13.7 g/dL (13.0-18.0); Mean Corp Hgb Conc. 34.8 g/dL (33.0-37.0); Mean Corpuscular Hgb 29.1 pg (27.0-31.0); Mean Corpuscular Volume 83.7 fL (80.0-94.0); Mean Platelet Volume 10.2 fL (7.4-10.4); Nucleated Red Blood Cells % 0 % (-); Platelet Count 248 10^3/uL (130-400); Red Blood Cell Count 4.71 10^6/uL (4.70-6.10); Red Cell Dist. Width 13.3 % (11.5-14.5); White Blood Cell Count 11.1 10^3/uL (4.8-10.8)
[2024-02-25 06:08] LABS: ALT (SGPT) 31 U/L (0-50); AST (SGOT) 32 U/L (17-59); Alkaline Phosphatase 79 U/L (38-126); Blood Urea Nitrogen 30 mg/dl (9-20); Calcium 9.5 mg/dl (8.4-10.2); Carbon Dioxide 29 mmol/L (22-30); Chloride 97 mmol/L (98-107); Estimated Creatinine Clearance 79 ml/min; Glucose 162 mg/dl (70-99); HDL Cholesterol 36 mg/dl; LDL Cholesterol, Calculated 73 mg/dl; Potassium 4.3 mmol/L (3.5-5.1); Sodium 140 mmol/L (135-145); Total Bilirubin 0.9 mg/dl (0.2-1.3); Total Cholesterol 142 mg/dl (50-199); Total Protein 6.6 g/dl (6.3-8.2); Triglyceride 165 mg/dl (10-149); Very Low Density Lipoprotein 33 mg/dl (0-30); eGFR > 60.00
[2024-02-25 06:26] LABS: Glucose - Point of Care 151 mg/dl (70-99)
[2024-02-25] MEDS: NOVOLOG FLEXPEN-LOW RESISTANCE 1 UNITS SC (06:41)
[2024-02-25] MEDS: NORVASC 5 MG PO (08:10)
[2024-02-25] MEDS: ASPIR LOW (ENTERIC COATED) 81 MG PO (08:10)
[2024-02-25] MEDS: PROTONIX 20 MG PO (08:10)
[2024-02-25] MEDS: LYRICA 150 MG PO ×2 (08:11→20:00)
[2024-02-25] MEDS: ZESTRIL 20 MG PO (08:11)
[2024-02-25] MEDS: INDERAL 20 MG PO ×2 (08:11→20:09)
[2024-02-25] MEDS: LASIX 40 MG PO (08:11)
[2024-02-25] MEDS: LANTUS 0.32 UNITS SC (08:15)
[2024-02-25] MEDS: HEPARIN SC (10:08)
[2024-02-25 11:22] LABS: ACT-LR - POC 263 Seconds (116-155)
[2024-02-25 11:35] LABS: ACT-LR - POC 332 Seconds (116-155)
--- NOTE | 2024-02-25 11:56 | W.PN.HOSP.TC ---
Today's Communication/Plan
-
Monitor vital signs see plan
CT surgery evaluation
Discussed with spouse at bedside
Continue aspirin
Lantus
Assessment / Plan
Assessment / Plan
General: Well Developed, Well Nourished and No Apparent Distress
HEENT: NormoCephalic, Moist mucous membranes and Atraumatic
Respiratory: Clear
Cardiac: S1/S2 and Regular Rhythm; No Murmur or Rub
GI: Soft, Non Tender, Non Distended and Normal Bowel Sounds
Musculoskeletal: No Clubbing, No Cyanosis and No Edema
Skin: No Rash
Neuro: Nonfocal/grossly intact
Acute CHF exacerbation
# Hypertensive emergency
-CT chest shows no evidence of pulm embolism, findings suggesting mild pulm interstitial/alveolar edema, possible superimposed pneumonia in the bilateral upper lobes, small bilateral pleural effusions
-Cardiac BNP of 363 however obese
Continue with IV Lasix
Weaned off nitro drip
lisinopril, propranolol
Weaned off BiPAP and now on nasal cannula, CPAP at night
Echocardiogram with preserved EF
Aspirin
Cardiology following; s/p cath 02/24 with significant multivessel coronary artery disease. CT surgery consulted.
SVT status post ablation
Obstructive sleep apnea
-Uses CPAP at night
Essential hypertension
-Continue lisinopril
Hypercholesterolemia
-Continue statin
Type 2 diabetes
-Hold metformin
-Insulin sliding scale
-cw lantus
A1c 6.1
History of kidney stones
Restless leg syndrome
-Continue diazepam, Neupro, pregabalin, cyclobenzaprine
Full code
DVT prophylaxis�heparin
I spent a total of 51 minutes with the patient or on the floor. More than 50% of this time involved counseling and coordination of care.
Anticipated Discharge: > 48 hours
Subjective/Interval History
-
Date of Service: February 25, 2024
Denies chest pain
Objective Data
-
Labs:
Laboratory Results
02/25/24
05:23
WBC 11.1 H
Hgb 13.7
Hct 39.4
Plt Count 248
Sodium 140
Potassium 4.3
Chloride 97 L
Carbon Dioxide 29
BUN 30 H
Creatinine 1.3
Glucose 162 H
Calcium 9.5
Total Bilirubin 0.9
AST 32
ALT 31
Alkaline Phosphatase 79
Vital Signs:
Vital Signs
Temp Pulse Resp BP Pulse Ox
97.9 F 80 16 139/64 95
02/25/24 07:39 02/25/24 07:39 02/25/24 07:39 02/25/24 07:39 02/25/24 07:39
I&O
02/24/24 02/25/24 02/26/24
06:59 06:59 06:59
Intake Total 890 / 890 240 / 240
Output Total 850 / 850 1525 / 1525
Balance 40 / 40 -1285 / -1285
--- NOTE | 2024-02-25 12:01 | CM ---
CM continues to follow for discharge planning needs. VN has been declined by patient and .
Plan: Return home with no needs.
[2024-02-25 12:24] LABS: Glucose - Point of Care 143 mg/dl (70-99)
--- NOTE | 2024-02-25 12:51 | CONSULT.CT ---
Consultation
-
Date/Time Consultation Requested: 02/25/24
Date/Time Consultation Performed: 02/25/24
Requesting Provider: Jenny Gatica
Performing Provider: Charu CATALAN for Dr. Kaushal Rodriguez
Reason for Consultation: CABG evaluation
Patient History
Physicians
Family Physician: Alfie Gandhi
Outpatient Medical Dir: none
Inpatient Medical Dir: Jenny Gatica
History of Present Illness
63-year-old , right hand dominant male, with past medical history significant for SVT s/p ablation 1995, obstructive sleep apnea on CPAP, hypertension, hyperlipidemia, diabetes mellitus, kidney stones, restless leg syndrome, presented to
[facility] ED on 02/21 for acute onset of exertional dyspnea. Patient experienced acute shortness of breath, associated with diaphoresis while carry groceries from a truck to house on a surface. Patient recounts an earlier episode of
shortness of breath that morning when bending over to tie his shoes. Denied chest pressure. Nitroglycerin infusion was initiated for BP 185/85 and troponins 0.07>0.108>0.075. CT was negative for PE with findings suggestive of mild interstitial and
alveolar edema with possible pneumonia in bilateral upper lobes and small bilateral pleural effusions. Chest x-ray also showed mild pulmonary interstitial edema/borderline CHF. proBNP was 363. O2 sat 89%, required BiPAP and IV Lasix with symptom
improvement. Patient was initially followed by [facility] after his ablation in 1995, but has not seen a software development engineer in over 20 years. Of note, patient had been taking Mounjaro but stopped approximately 3 weeks ago after experiencing
recurrent diarrhea and reflux. He reports over the weekend that he ran out of his long-acting insulin as well as his lisinopril.
TTE on 02/22 reported an EF of 65-70% and mild mitral regurgitation
[facility] 02/24 (R radial):
LEFT MAIN: Mild diffuse atherosclerotic plaque.
LEFT ANTERIOR DESCENDIN-70% proximal LAD. Verrata wire was then carefully manipulated across the stenosis in the proximal LAD with the iFR below the ischemic threshold serially measuring 0.80, 0.80, 0.82
CIRCUMFLEX: OM1 has an ostial 60 to 70% stenosis and is small to medium in caliber. OM 2 is medium in caliber. There are 3 serial lesions in the mid left circumflex extending into proximal portion of OM 2 up to 90%.
RIGHT CORONARY ARTERY (Dominant): 70% focal proximal and up to 80% mid RCA stenosis.
Past Medical History
Past Medical History: Arrhythmias (SVT), HTN, Hypercholesterolemia, NIDDM (dx'd age 41 on insulin), COLE, Psychiatric (anxiety/depression) and Other (nephrolithiasis-remote, restless leg syndrome, B/L carpel tunnel, L Dupuytren's contracture,
cervical herniated disc)
Past Surgical History
Past Surgical History: Cholecystectomy, Orthopedic (B/L knee, R shoulder, R elbow arthroscopies, L carpal tunnel release, L Dupuytren's contracture release, cervical fusion), Tonsilectomy, Urological (remote ureteral stent-removed) and Other (sinus
surgery, SVT ablation 1995)
Family History
Mother: at Age (87 (3 weeks ago)-CVA, hx PAD)
Social History
Alcohol: Occasional
Drug: None
Tobacco: Non-Smoker
Personal:
Living: With Spouse
Employment: Retired
Covid Vaccination History:
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
Allergies
Allergy/AdvReac Type Severity Reaction Status Date / Time
No Known Allergies Allergy Verified 04/13/23 11:27
Home Medications
�Medication �Instructions �Recorded �Confirmed �Type
diphenhydramine 25 1 ea PO HS Sleep 04/23/19 02/22/24 History
mg-acetaminophen 500 mg tablet
(Tylenol PM Extra Strength)
duloxetine 60 mg capsule,delayed 60 mg PO HS Depression 04/23/19 02/22/24 History
release
eszopiclone 3 mg tablet (Lunesta) 3 mg PO HS Sleep 04/23/19 02/22/24 History
insulin glargine U-300 conc 300 90 unit SC DAILY Diabetes 04/23/19 02/22/24 History
unit/mL (1.5 mL) subcutaneous pen
(Toujeo SoloStar U-300 Insulin)
lisinopril 10 mg tablet 10 mg PO DAILY Blood Pressure 04/23/19 02/22/24 History
meloxicam 7.5 mg tablet 15 mg PO DAILY Pain 04/23/19 02/22/24 History
metformin 500 mg tablet,extended 1,000 mg PO BID Diabetes 04/23/19 02/22/24 History
release 24 hr
multivitamin with folic acid 400 1 tab PO DAILY Supplement 04/23/19 02/22/24 History
mcg tablet (Tab-A-Christian)
pregabalin 75 mg capsule 150 mg PO BID Neurological 04/23/19 02/22/24 History
Condition
propranolol 20 mg tablet 20 mg PO BID Blood Pressure 04/23/19 02/22/24 History
aspirin 81 mg tablet,delayed 81 mg PO DAILY Blood Clot 08/18/20 02/22/24 History
release Prevention/Tx
atorvastatin 40 mg tablet (Lipitor) 40 mg PO HS High Cholesterol 02/22/24 02/22/24 History
insulin aspart U-100 100 unit/mL 4 sliding scale dose SC AC Diabetes 02/22/24 02/22/24 History
subcutaneous cartridge (Novolog
PenFill U-100 Insulin aspart)
omeprazole 20 mg tablet,delayed 20 mg PO DAILY Gastrointestinal 02/22/24 02/22/24 History
release Issue
Review of Systems
-
History Source: Patient
HEENT: Reports No Symptoms
Respiratory: Reports ARVIZU
Cardiac: Reports No Symptoms
Abdomen/GI: Reports No Symptoms
: Reports No Symptoms
Musculoskeletal: Reports No Symptoms
Skin: Reports No Symptoms
Neurological: Reports No Symptoms
Vascular: Reports No Symptoms
Physical Exam
Vital Signs
Temp 97.9 F 02/25/24 07:39
Temp route: Oral 02/25/24 07:39
Pulse 80 02/25/24 07:39
Rhythm: Normal sinus rhythm 02/25/24 09:43
With- Sinus tachycardia 02/23/24 11:50
Resp Rate 16 02/25/24 07:39
Blood pressure 139/64 02/25/24 07:39
Blood pressure extremity used: Left upper arm 02/25/24 07:39
Position: Lying 02/25/24 07:39
MAP (cuff-Stephen Monitor) 89 02/24/24 14:00
SaO2 95 02/25/24 07:39
Nasal Cannula flow liters per minute 2 02/24/24 07:45
Oxygen Mode of Delivery Room air 02/25/24 07:39
Flow liters per minute # 10 02/23/24 05:59
Acceptable pain level during hospitalization? 0 02/22/24 14:25
Can the patient verbally communicate their pain? Yes 02/25/24 09:43
Pain scale ratin 02/23/24 19:21
Actual Weight 111.187 kg 02/25/24 06:00
Body Mass Index (BMI) 31.5 02/25/24 06:00
Labs
02/25/24 05:23
02/25/24 05:23
Hemoglobin A1c 6.1 % (4.0-5.6) H 02/23/24 03:59
Troponin I Cancelled 02/23/24 14:30
Fvy-C-Qacsmoztqhf Pept 363 pg/ml 02/22/24 14:57
Arterial Blood Gases
pH 7.40 (7.35-7.45) 02/22/24 16:13
pCO2 42 mmHg (35-48) 02/22/24 16:13
pO2 110 mmHg (83-108) H 02/22/24 16:13
HCO3 26.0 mmol/L (21-28) 02/22/24 16:13
Base Excess 1.0 mmol/L 02/22/24 16:13
ABG O2 Sat (Measured) 99.3 % (94-98) H 02/22/24 16:13
O2 Delivery Level 02/22/24 16:13
Exam
General: Well Developed, Well Nourished and Comfortable
HEENT: Normocephalic, Anicteric, Moist Mucous Membranes and PERRLA
Neck: Trachea Midline
Respiratory: Clear
Cardiac: S1/S2 and Regular Rhythm
GI: Soft, Non Tender and Normal Bowel Sounds
Rectal: Deferred by Provider
Skin: Warm and Dry
Neuro: AO x 3, No Motor Deficits and Nonfocal/Grossly Intact
Extremities: Pulses (+2/4 B/L DP pulses) and Other (R radial TR band intact w/o bleeding)
Lymph: No Lymphadenopathy
Psych: Calm
Assessment / Plan
-
63 year old male admitted with hypertensive urgency, and anginal equivalent dyspnea due to triple-vessel coronary disease
Surgeon to review diagnostic testing and discuss risk-benefit of surgical procedure, and expected recovery trajectory with patient and his
Preop diagnostic testing ordered
JOSE to be held 2 days prior to surgery
Metformin to be held 48 hours after heart catheterization
Data Reviewed
-
EKG: Report Reviewed by me and Discussed with Physician
Civil Engineer In Training: Report Reviewed by me and Discussed with Physician
Echo: Report Reviewed by me and Discussed with Physician
Radiology: Report Reviewed by me and Discussed with Physician
CT Scan: Report Reviewed by me and Discussed with Physician
Labs: Labs Reviewed by me and Discussed with Physician
--- NOTE | 2024-02-25 13:39 | ITS.CL.CATH ---
Healthcare Project Manager - Catheterization
Cardiac Catheterization
Procedure Report:
LEFT HEART CATHETERIZATION
Date of Procedure: February 25, 2024
Referring: Jessica Miranda
PROCEDURES:
1. Left heart catheterization, coronary angiogram.
2. Ultrasound-guided access.
3. Functional physiologic testing with IFR of mid LAD
INDICATION: Concern for NSTEMI in the setting of hypertensive emergency, history of type 2 diabetes mellitus, morbid obesity and hyperlipidemia.
ACCESS: Right radial artery, 6 Frisian sheath, under ultrasound guidance
HEMODYNAMICS : (mmHg)
AO (s/d) : 103/61
LV (s/d) : 106/9
LVEDP : 20
CORONARY FINDINGS
DOMINANCE: Right
LEFT MAIN: Left main artery is a large-caliber vessel which gives rise to the left anterior descending artery and the left circumflex artery. There is mild diffuse atherosclerotic plaque.
LEFT ANTERIOR DESCENDING: The left anterior descending artery is a medium caliber vessel which gives rise to multiple small diagonal branches as it courses to the anterior interventricular groove and wraps around the apex. Proximal LAD has diffuse
up to 60-70 percent stenosis, IFR was performed here which was abnormal at 0.80.
CIRCUMFLEX: The left circumflex artery is a medium caliber vessel which gives rise to 2 major obtuse marginal branches. OM1 has an ostial 60 to 70% stenosis and is small to medium in caliber. OM 2 is medium in caliber. There are 3 serial lesions
in the mid left circumflex extending into proximal portion of OM 2 up to 90%.
RIGHT CORONARY ARTERY: The right coronary artery is a medium caliber, dominant vessel which gives rise to the right posterior descending artery and the right posterolateral system. There is a 70% proximal RCA stenosis which is focal. Mid RCA has
diffuse up to 80% stenosis.
HEMODYNAMIC ASSESSMENT OF THE PROXIMAL LAD WITH A VERRATA WIRE: The origin of the left coronary artery was cannulated with a 5 Fr JL 4 guide catheter. Intravenous heparin was administered and the ACT was followed during the procedure. Two hundred
micrograms of intracoronary nitroglycerin was given through the guide catheter. A Verrata wire was advanced to the guide catheter tip and normalized just outside the guide catheter tip. The Verrata wire was then carefully manipulated across the
stenosis in the proximal LAD with the iFR below the ischemic threshold serially measuring 0.80, 0.80, 0.82. The Verrata wire was then pulled back to the guide catheter where the Pd/Pa measured 1.0 confirming no baseline drift in pressure readings
SEDATION: 72 minutes of procedural sedation was utilized. An independent chief medical director was present to assist with and help manage the patient's level of consciousness and physiologic status.
RADIATION SUMMARY: Fluoro Time (min): 7.9, Dose (mGy): 644.57 DAP (Gy.cm2) : 43.7
Closure Device: Vascular band over right radial artery, 10 cc of air.
CONCLUSIONS
1. Significant multivessel coronary artery disease.
2. Elevated LVEDP at 20 mmHg.
RECOMMENDATIONS
1. Consult CT surgery for consideration for coronary artery bypass grafting with bypass grafts to LAD, OM2, possible to OM1 if feasible, and RPDA
2. Optimization of medical therapy and aggressive management of cardiovascular risk factors.
3. Wean radial band per protocol.
4. Eventual outpatient referral for cardiac rehab.
Copy to: Jessica Miranda
Jenny Gatica MD, FACC, [facility]
[2024-02-25] MEDS: NOVOLOG FLEXPEN-LOW RESISTANCE SC ×2 (13:46→18:06)
--- NOTE | 2024-02-25 14:22 | CM ---
Chart reviewed. Patient is independent of ADLS, lives with his in a 1 STH, 1 SUSIE, 0 DME. Patient received a [facility] with MVD. Consult placed to CT Surgery. CM to follow plan of care.
[2024-02-25 18:06] LABS: Glucose - Point of Care 114 mg/dl (70-99)
[2024-02-25] MEDS: NOVOLOG FLEXPEN 4 UNITS SC (18:09)
[2024-02-25] MEDS: HEPARIN 5000 UNITS SC (20:01)
[2024-02-25] MEDS: CYMBALTA DELAYED RELEASE 60 MG PO (22:25)
[2024-02-25] MEDS: LIPITOR 40 MG PO (22:25)
[2024-02-25] MEDS: NON-FORMULARY ITEM 3 MG PO (22:25)
[2024-02-26] VITALS (8 sets, daily range): BP systolic 104–148; BP diastolic 56–72; PULSE 65–70; BMI 31.2
[2024-02-26] MEDS: NOVOLOG FLEXPEN-LOW RESISTANCE SC ×3 (01:04→17:59)
--- NOTE | 2024-02-26 03:16 | PTCARENOTE ---
Pt received start of shift, HR SR. Pt ambulating independently in room. Educated pt on parts of what is to come in terms of open heart, post-op recovery, preop prep, and cardiac rehab. Pt also interested in heart failure and how long he will have to
be on lasix asfter discharge. Pt states they look forward to speaking to his surgeon more in-depth about the procedure. Pt denies any CP, SOB, or lightheadedness/dizziness. Informed to notify RN if any changes, call bliss within reach.
[2024-02-26 04:44] LABS: % Basophils 1.1 % (0-2); % Eosinophils 4.8 % (0-6); % Immature Granulocytes 0.3 % (0-0.5); % Lymphocytes 29.3 % (20.5-51.1); % Monocytes 9.2 % (1.7-9.3); % Neutrophils 55.3 % (42.2-75.2); Absolute Basophils 0.1 10^3/uL (0-0.2); Absolute Eosinophils 0.5 10^3/uL (0-0.7); Absolute Monocytes 0.9 10^3/uL (0.1-0.6); Absolute Neutrophils 5.7 10^3/uL (1.4-6.5); Hematocrit 39.2 % (39.0-52.0); Hemoglobin 13.8 g/dL (13.0-18.0); Mean Corp Hgb Conc. 35.2 g/dL (33.0-37.0); Mean Corpuscular Volume 85.2 fL (80.0-94.0); Mean Platelet Volume 10.3 fL (7.4-10.4); Nucleated Red Blood Cells % 0 % (-); Platelet Count 270 10^3/uL (130-400); Red Cell Dist. Width 13.3 % (11.5-14.5); White Blood Cell Count 10.2 10^3/uL (4.8-10.8)
[2024-02-26 05:01] LABS: ALT (SGPT) 38 U/L (0-50); AST (SGOT) 36 U/L (17-59); Alkaline Phosphatase 82 U/L (38-126); Blood Urea Nitrogen 30 mg/dl (9-20); Calcium 9.3 mg/dl (8.4-10.2); Carbon Dioxide 28 mmol/L (22-30); Chloride 98 mmol/L (98-107); Estimated Creatinine Clearance 78 ml/min; Glucose 121 mg/dl (70-99); Potassium 4.2 mmol/L (3.5-5.1); Sodium 139 mmol/L (135-145); Total Protein 6.7 g/dl (6.3-8.2); eGFR > 60.00
[2024-02-26 08:16] LABS: Glucose - Point of Care 148 mg/dl (70-99)
--- NOTE | 2024-02-26 08:45 | W.PN.UPDATE ---
Update Note
Progress Note Update
STS RISK SCORE
Procedure Type:�Isolated CABG
PERIOPERATIVE OUTCOME ESTIMATE %
Operative Mortality 0.787%
Morbidity & Mortality 5.05%
Stroke 0.886%
Renal Failure 1.1%
Reoperation 1.56%
Prolonged Ventilation 2.26%
Deep Sternal Wound Infection 0.298%
Long Hospital Stay (>14 days) 2.86%
Short Hospital Stay (<6 days)* 55.4%
Clinical Summary
Planned Surgery: Isolated CABG, Urgent, First cardiovascular surgery
Demographics: 63 year old, White, male, 110kg, 188cm, BMI: 31.1 kg/m�
Lab Values: Creatinine: 1.3 mg/dL, Hematocrit: 39.2%, WBC Count: 10.2 10�/�L, Platelet Count: 063335 cells/�L
PreOp Medications: Insulin diabetes control
Substance Abuse: Never smoker
Risk Factors / Comorbidities: Insulin-dependent Diabetes Mellitus, Hypertension
Cardiac Status: NYHA Class II, Ejection Fraction = 67%
Coronary Artery Disease: 3 vessels diseased, Unstable Angina
Valve Disease: Mild MR
[2024-02-26] MEDS: INDERAL 20 MG PO ×2 (09:40→20:28)
[2024-02-26] MEDS: PROTONIX 20 MG PO (09:40)
[2024-02-26] MEDS: HEPARIN 5000 UNITS SC ×2 (09:41→20:28)
[2024-02-26] MEDS: NORVASC 5 MG PO (09:41)
[2024-02-26] MEDS: ASPIR LOW (ENTERIC COATED) 81 MG PO (09:41)
[2024-02-26] MEDS: LANTUS 0.64 UNITS SC (09:41)
[2024-02-26] MEDS: LYRICA 150 MG PO ×2 (09:41→20:28)
[2024-02-26] MEDS: NOVOLOG FLEXPEN 4 UNITS SC ×3 (09:42→18:05)
--- NOTE | 2024-02-26 10:38 | W.PN.UPDATE ---
Update Note
Progress Note Update
Pt seen and examined
present by phone
Cath and CT scan reviewed
Pleasant 62 y/o admitted with ARVIZU, +enzymes for nstemi
hypertensive in the ED
Cath with 3vcad
Echo with preserved EF
I agree cabg with grafts to lad/ramus/om/pda would offer benefit in this pt with diabetes
Risks, complications, benefits and alternatives reveiwed in detail. Risks not limited to mortality, organ failure, bleeding, infection
Pt and family appear to understand and wish to proceed with cabg
All questions answered.
Plan cabg in am
--- NOTE | 2024-02-26 12:13 | W.PN.CARDCBS ---
Addendum entered and electronically signed by Khris Hernandez DO 02/26/24 13:38:
General: No acute distress, AAOX3
Neck: Negative JVD
Heart: Regular, Negative S3 positive S1/S2, Negative S4, No murmur
Lungs: CTA b/l, negative wheezes/rales/rhonchi
Abd: Positive BS, NT/ND, neg rebound/rigidity/guarding
Ext: Negative cyanosis/clubbing/edema
Neuro: nonfocal
Addendum entered and electronically signed by Khris Hernandez DO 02/26/24 12:46:
I saw and examined the patient.
The Tension Machine Operator's note was reviewed and I agree with the note.
Comment:
Plan:
Reviewed hosptial course, echo and cath with pt and son
Appreciate CT surgical input.
CABG tomorrow
Cont IV diuresis.
Hold ACEI in anticipation of CABG
Cont CPAP for COLE
Original Note:
Today's Communication / Plan
-
CABG tomorrow
JOSE-I on hold
NPO after midnight
Impression / Plan
-
PCP:Alfie Cano
Previous underwriting operations manager: none
Impression:
Acute heart failure preserved EF
Hypertensive emergency
CAD
Acute shortness of breath
Hypoxia
Elevated troponin
Diabetes mellitus
obstructive sleep apnea on CPAP
h/o HTN
Hyperlipidemia
SVT s/p ablation
essential tremor
EKG 02/22/2024: Normal sinus rhythm, normal ST segments
Echo 04/30/2019: Normal LV size, EF 60 to 65%, no valvular heart disease
Echo 02/23/2024: Vigorous LV systolic function with mild cLVH, EF 65 to 70%, mild hypokinesis of apical septum, normal RV size and systolic function
Cardiac catheterization: 02/25/2024: Left main: Mild diffuse plaque; LAD: Proximal 60-70% IFR 0.08; circumflex: OM1 ostial 60-70%, 3 serial lesions in mid circumflex extending into proximal OM 2 up to 90%; RCA: 70% proximal, 80% mid
Plan:
cardiac cath 02/25/24 showed significant CAD, CT surgery has been consulted and advises CABG 02/27/2024
-diuresing well, weight down 13 pounds since admission. Symptomatically feels shortness of breath has improved. Off oxygen. creatinine remains normal 1.3
-Blood pressure improved with uptitration of antihypertensives. Lisinopril on hold pre-op. Remains on amlodipine 5 mg daily and propranolol 20 mg bid.
-Telemetry personally reviewed by me: NSR HRs 60s-70s.
-goal LDL <70 in setting of h/o DM
-DM mgmt per primary team
-Continue CPAP-
cardiac rehab upon discharge
Progress Note - [employer]
Subjective
Date of Service: February 26, 2024
for CABG tomorrow
diuresing well
BPs better controlled
Objective
Labs:
02/26/24 04:17
02/26/24 04:17
Labs
Hgb 13.8 g/dL (13.0-18.0) 02/26/24 04:17
Hct 39.2 % (39.0-52.0) 02/26/24 04:17
Plt Count 270 10^3/uL (130-400) 02/26/24 04:17
Sodium 139 mmol/L (135-145) 02/26/24 04:17
Potassium 4.2 mmol/L (3.5-5.1) 02/26/24 04:17
BUN 30 mg/dl (9-20) H 02/26/24 04:17
Creatinine 1.3 mg/dL (0.7-1.3) 02/26/24 04:17
Glucose 121 mg/dl (70-99) H 02/26/24 04:17
Troponins
02/23/24 02/23/24
08:30 14:30
Troponin I Cancelled Cancelled
Vital Signs and I&O:
Vital Signs
Temp Pulse Resp BP Pulse Ox
98.8 F 69 18 104/56 96
02/26/24 11:33 02/26/24 08:08 02/26/24 11:33 02/26/24 08:08 02/26/24 11:33
Vital Signs
Temp Pulse Resp BP Pulse Ox
98.8 F 69 18 104/56 96
02/26/24 11:33 02/26/24 08:08 02/26/24 11:33 02/26/24 08:08 02/26/24 11:33
Intake & Output
02/24/24 02/25/24 02/26/24 02/27/24
06:59 06:59 06:59 06:59
Intake Total 890 / 890 240 / 240 960 / 960
Output Total 850 / 850 1525 / 1525 800 / 800
Balance 40 / 40 -1285 / -1285 160 / 160
[2024-02-26 12:51] LABS: Glucose - Point of Care 170 mg/dl (70-99)
--- NOTE | 2024-02-26 12:53 | CM ---
Preoperative teaching done with the patient. Reviewed preoperative and postoperative instructions and restrictions, along with showering guidelines. Patient is agreeable to a home visit by CT Transitional RN. Plan is for the patient to return
home by CT Transitional RN. CM to follow
--- NOTE | 2024-02-26 12:58 | W.PN.HOSP.TC ---
Today's Communication/Plan
-
monitor vitals
see plan
in anticipation of possible CABG 02/26, will decrease Lantus to 32 units tomorrow
carotid US
cw lasix
Assessment / Plan
Assessment / Plan
General: Well Developed, Well Nourished and No Apparent Distress
HEENT: NormoCephalic, Moist mucous membranes and Atraumatic
Respiratory: Clear
Cardiac: S1/S2 and Regular Rhythm; No Murmur or Rub
GI: Soft, Non Tender, Non Distended and Normal Bowel Sounds
Musculoskeletal: No Clubbing, No Cyanosis and No Edema
Skin: No Rash
Neuro: Nonfocal/grossly intact
Acute CHF exacerbation
# Hypertensive emergency
-CT chest shows no evidence of pulm embolism, findings suggesting mild pulm interstitial/alveolar edema, possible superimposed pneumonia in the bilateral upper lobes, small bilateral pleural effusions
-Cardiac BNP of 363 however obese
Continue with IV Lasix
Weaned off nitro drip
lisinopril, propranolol
Weaned off BiPAP and now on nasal cannula, CPAP at night
Echocardiogram with preserved EF
Aspirin
Cardiology following; s/p cath 02/24 with significant multivessel coronary artery disease. CT surgery consulted. Hopeful plan for CABG 02/26. preop imaging pending
SVT status post ablation
Obstructive sleep apnea
-Uses CPAP at night
Essential hypertension
-Continue lisinopril
Hypercholesterolemia
-Continue statin
Type 2 diabetes
-Hold metformin
-Insulin sliding scale
-cw lantus; in anticipation of possible CABG 02/26, will decrease Lantus to 32 units tomorrow
A1c 6.1
History of kidney stones
Restless leg syndrome
-Continue diazepam, Neupro, pregabalin, cyclobenzaprine
Full code
DVT prophylaxis�heparin
I spent a total of 51 minutes with the patient or on the floor. More than 50% of this time involved counseling and coordination of care.
Anticipated Discharge: > 48 hours
Subjective/Interval History
-
Date of Service: February 26, 2024
denies pain
Objective Data
-
Labs:
Laboratory Results
02/26/24
04:17
WBC 10.2
Hgb 13.8
Hct 39.2
Plt Count 270
Sodium 139
Potassium 4.2
Chloride 98
Carbon Dioxide 28
BUN 30 H
Creatinine 1.3
Glucose 121 H
Calcium 9.3
Total Bilirubin 1.0
AST 36
ALT 38
Alkaline Phosphatase 82
Vital Signs:
Vital Signs
Temp Pulse Resp BP Pulse Ox
98.8 F 64 18 124/64 96
02/26/24 11:33 02/26/24 12:00 02/26/24 11:33 02/26/24 11:37 02/26/24 11:33
I&O
02/25/24 02/26/24 02/27/24
06:59 06:59 06:59
Intake Total 240 / 240 960 / 960
Output Total 1525 / 1525 800 / 800
Balance -1285 / -1285 160 / 160
[2024-02-26] MEDS: NOVOLOG FLEXPEN-LOW RESISTANCE 1 UNITS SC (13:14)
[2024-02-26] MEDS: LASIX 40 MG IV (14:46)
[2024-02-26] MEDS: FLUSH (NSS) 2 FLUSH IV (14:47)
[2024-02-26 14:50] LABS: Urine Albumin Trace (Neg - Trace); Urine Bilirubin 1+ (Negative); Urine Character Clear (Clear); Urine Color Yellow; Urine Glucose Negative (Negative); Urine Ketone Trace (Negative); Urine Leukocyte Negative (Negative); Urine Nitrite Negative (Negative); Urine Occult Blood Negative (Negative); Urine Urobilinogen 1+ (Neg - 1+)
[2024-02-26 17:49] LABS: Glucose - Point of Care 128 mg/dl (70-99)
[2024-02-26 21:20] LABS: Glucose - Point of Care 181 mg/dl (70-99)
[2024-02-26] MEDS: NON-FORMULARY ITEM 3 MG PO (22:04)
[2024-02-26] MEDS: LIPITOR 40 MG PO (22:04)
[2024-02-26] MEDS: CYMBALTA DELAYED RELEASE 60 MG PO (22:04)
--- NOTE | 2024-02-26 23:52 | PTCARENOTE ---
CVOR prep completed. clipped/CHG shower. independent in the room. denies any cp/sob. SR on tele 60s. bp stable. answered all questions. reviewed plan of care with patient and verbalized understanding. call bliss within reach.
[2024-02-27] VITALS (10 sets, daily range): BP systolic 123–150; BP diastolic 66–71; PULSE 77; BMI 31.0
[2024-02-27 04:12] LABS: % Basophils 1.2 % (0-2); % Immature Granulocytes 0.1 % (0-0.5); % Lymphocytes 29.9 % (20.5-51.1); % Monocytes 10.3 % (1.7-9.3); % Neutrophils 54.5 % (42.2-75.2); Absolute Basophils 0.1 10^3/uL (0-0.2); Absolute Eosinophils 0.4 10^3/uL (0-0.7); Absolute Lymphocytes 2.9 10^3/uL (1.2-3.4); Absolute Neutrophils 5.2 10^3/uL (1.4-6.5); Hematocrit 38.3 % (39.0-52.0); Hemoglobin 13.4 g/dL (13.0-18.0); Mean Corpuscular Hgb 29.9 pg (27.0-31.0); Mean Corpuscular Volume 85.5 fL (80.0-94.0); Mean Platelet Volume 10.2 fL (7.4-10.4); Nucleated Red Blood Cells % 0 % (-); Platelet Count 259 10^3/uL (130-400); Red Blood Cell Count 4.48 10^6/uL (4.70-6.10); Red Cell Dist. Width 13.2 % (11.5-14.5); White Blood Cell Count 9.6 10^3/uL (4.8-10.8)
[2024-02-27 04:31] LABS: ALT (SGPT) 34 U/L (0-50); AST (SGOT) 32 U/L (17-59); Alkaline Phosphatase 82 U/L (38-126); Blood Urea Nitrogen 37 mg/dl (9-20); Calcium 9.3 mg/dl (8.4-10.2); Carbon Dioxide 28 mmol/L (22-30); Chloride 98 mmol/L (98-107); Estimated Creatinine Clearance 72 ml/min; Glucose 139 mg/dl (70-99); Sodium 140 mmol/L (135-145); Total Bilirubin 0.7 mg/dl (0.2-1.3); Total Protein 6.7 g/dl (6.3-8.2); eGFR 56.83
[2024-02-27] MEDS: LOPRESSOR 25 MG PO (06:03)
[2024-02-27] MEDS: MAGNESIUM OXIDE 500 MG PO (06:03)
[2024-02-27] MEDS: PROTONIX 40 MG PO (06:03)
[2024-02-27] MEDS: BACTROBAN 2% OINTMENT 1 APPLIC NASAL (06:04)
[2024-02-27 06:08] LABS: Glucose - Point of Care 139 mg/dl (70-99)
--- NOTE | 2024-02-27 07:09 | W.PN.UPDATE ---
Update Note
Progress Note Update
pt without complaints
vss
lab work this am reveals Creat of 1.4
Trend is continuing up from admission of 0.9
Unfortunately his surgery will be delayed until this trend reverses
Fortunately he is stable and can wait
Long discussion with family this am
Will reschedule for early next week
Consideration for discharge and readmit
--- NOTE | 2024-02-27 08:00 | PTCARENOTE ---
Assumed care of pt from prev nsg shift; Pt AAox3 w/no c/o CP or SOB. Pt states he 'is disappointed, but understands why his surgery was postponed this AM'. Emotional support provided by this RN. Pt's VS stable w/HR in the 60's BP this AM 128/65. Pt
is SR w/1st deg AVB on telemetry monitoring. Pt w/spouse at bedside & no addtl needs at this time. Plan of care ongoing.
[2024-02-27] MEDS: NORVASC 5 MG PO (09:19)
[2024-02-27] MEDS: INDERAL 20 MG PO ×2 (09:19→19:36)
[2024-02-27] MEDS: ASPIR LOW (ENTERIC COATED) 81 MG PO (09:19)
[2024-02-27] MEDS: HEPARIN 5000 UNITS SC ×2 (09:19→19:36)
[2024-02-27] MEDS: PROTONIX 20 MG PO (09:19)
[2024-02-27] MEDS: LYRICA 150 MG PO ×2 (09:20→19:36)
--- NOTE | 2024-02-27 10:01 | W.PN.CARDCBS ---
Addendum entered and electronically signed by Silverio Shanks MD 02/27/24 12:39:
I saw and examined the patient.
The Wafer Polishing Lead Worker's note was reviewed and I agree with the note.
Comment:
GEN: No distress, awake, Ox3
HEENT: supple, anicteric, mmm
LUNGS: CTA, no wheezes/rales
CV: Reg, S1/S2, 1/6 syst LSB, no gallop
ABD: soft, BS+, NT/ND
EXT: No edema
NEURO: Gross non-focal
SKIN: No rash
plan:
Creatinine up to 1.4. CABG postponed to early next week.
Continue to hold Lasix and lisinopril.
Continue medical therapy for multivessel coronary artery disease.
Cont ASA, Atorvastatin, Propranolol, amlodipine.
Original Note:
Today's Communication / Plan
-
-hold Lasix
-monitor wts/ creatinine
-CABG postponed to 03/02/24
Impression / Plan
-
PCP:Alfie Cano
Previous fire management specialist: none
Impression:
Acute heart failure preserved EF
Hypertensive emergency
multivessel CAD
acute kidney injury
Acute shortness of breath
Hypoxia
Elevated troponin
Diabetes mellitus
obstructive sleep apnea on CPAP
h/o HTN
Hyperlipidemia
SVT s/p ablation
essential tremor
EKG 02/22/2024: Normal sinus rhythm, normal ST segments
Echo 04/30/2019: Normal LV size, EF 60 to 65%, no valvular heart disease
Echo 02/23/2024: Vigorous LV systolic function with mild cLVH, EF 65 to 70%, mild hypokinesis of apical septum, normal RV size and systolic function
Cardiac catheterization: 02/25/2024: Left main: Mild diffuse plaque; LAD: Proximal 60-70% IFR 0.08; circumflex: OM1 ostial 60-70%, 3 serial lesions in mid circumflex extending into proximal OM 2 up to 90%; RCA: 70% proximal, 80% mid
Plan:
-CABG scheduled for today has been postponed due to bump in creatinine to 1.4. Creatinine 1.1 on admission 02/23/2024. CABG now scheduled for 03/02/2024. Patient will remain inpatient over weekend.
-cardiac cath 02/25/24 showed significant CAD, pt without anginal symptoms
-diuresed 15 pounds since admission. Off oxygen. Stopping Lasix.
-Blood pressure improved with uptitration of antihypertensives. Lisinopril on hold pre-op. Remains on amlodipine 5 mg daily and propranolol 20 mg bid.
-Telemetry personally reviewed by me: NSR HRs 50-60s
-goal LDL <70 in setting of h/o DM
-DM mgmt per primary team
-Continue CPAP-
cardiac rehab upon discharge
Progress Note - Inside Sales Associate
Subjective
Date of Service: February 27, 2024
-CABG postponed today due to bump in creatinine to 1.4, rescheduled for 03/02/24.
-feels well - no SOB, CP, edema, palpitations, lightheadedness
-BPs controlled
-NSR on telemetry
Objective
Labs:
02/27/24 03:50
02/27/24 03:50
Labs
Hgb 13.4 g/dL (13.0-18.0) 02/27/24 03:50
Hct 38.3 % (39.0-52.0) L 02/27/24 03:50
Plt Count 259 10^3/uL (130-400) 02/27/24 03:50
Sodium 140 mmol/L (135-145) 02/27/24 03:50
Potassium 4.0 mmol/L (3.5-5.1) 02/27/24 03:50
BUN 37 mg/dl (9-20) H 02/27/24 03:50
Creatinine 1.4 mg/dL (0.7-1.3) H 02/27/24 03:50
Glucose 139 mg/dl (70-99) H 02/27/24 03:50
Vital Signs and I&O:
Vital Signs
Temp Pulse Resp BP Pulse Ox
97.8 F 56 20 128/66 95
02/27/24 07:50 02/27/24 08:00 02/27/24 07:50 02/27/24 07:52 02/27/24 07:50
Vital Signs
Temp Pulse Resp BP Pulse Ox
97.8 F 56 20 128/66 95
02/27/24 07:50 02/27/24 08:00 02/27/24 07:50 02/27/24 07:52 02/27/24 07:50
Intake & Output
02/25/24 02/26/24 02/27/24 02/28/24
06:59 06:59 06:59 06:59
Intake Total 240 / 240 960 / 960 960 / 960
Output Total 1525 / 1525 800 / 800 1700 / 1700
Balance -1285 / -1285 160 / 160 -740 / -740
Physical Exam
Physical Exam
GEN: No distress, awake, Ox3
HEENT: supple, anicteric, mmm
LUNGS: CTA, no wheezes/rales
CV: Reg, S1/S2, no murmur
ABD: soft, BS+, NT/ND
EXT: No edema
NEURO: Gross non-focal
SKIN: No rash
[2024-02-27] MEDS: LANTUS 0.64 UNITS SC (10:25)
[2024-02-27 10:26] LABS: Glucose - Point of Care 142 mg/dl (70-99)
[2024-02-27] MEDS: NOVOLOG FLEXPEN-LOW RESISTANCE SC ×2 (10:26→17:01)
[2024-02-27] MEDS: NOVOLOG FLEXPEN 4 UNITS SC ×3 (10:26→16:59)
--- NOTE | 2024-02-27 11:04 | CM ---
Chart reviewed. Patient is independent of ADLS, lives with his in a [address], 1 [facility], 0 DME. CABG has been postponed until 03/02. Plan is for the patient to return home with CT Transitional RN. CM to follow
[2024-02-27 13:36] LABS: Glucose - Point of Care 172 mg/dl (70-99)
--- NOTE | 2024-02-27 13:41 | W.PN.HOSP.TC ---
Today's Communication/Plan
-
Monitor vital signs
see plan
Continue to monitor renal function closely
CABG now early next week
Hold Lasix, lisinopril
Assessment / Plan
Assessment / Plan
General: Well Developed, Well Nourished and No Apparent Distress
HEENT: NormoCephalic, Moist mucous membranes and Atraumatic
Respiratory: Clear
Cardiac: S1/S2 and Regular Rhythm; No Murmur or Rub
GI: Soft, Non Tender, Non Distended and Normal Bowel Sounds
Musculoskeletal: No Clubbing, No Cyanosis and No Edema
Skin: No Rash
Neuro: Nonfocal/grossly intact
Acute CHF exacerbation
# Hypertensive emergency
-CT chest shows no evidence of pulm embolism, findings suggesting mild pulm interstitial/alveolar edema, possible superimposed pneumonia in the bilateral upper lobes, small bilateral pleural effusions
-Cardiac BNP of 363 however obese
Now Lasix on hold
Weaned off nitro drip
lisinopril, propranolol
Weaned off BiPAP and now on nasal cannula, CPAP at night
Echocardiogram with preserved EF
Aspirin
Cardiology following; s/p cath 02/24 with significant multivessel coronary artery disease. CT surgery consulted. Initial plan was for CABG 02/26 which is now postponed to next week due to elevated creatinine.
SVT status post ablation
NIRANJAN likely secondary to overdiuresis
Hold Lasix and lisinopril
Continue to monitor
UA without UTI
Obstructive sleep apnea
-Uses CPAP at night
Essential hypertension
-Hold lisinopril due to elevated creatinine
Hypercholesterolemia
-Continue statin
Type 2 diabetes
-Hold metformin
-Insulin sliding scale
-Lantus 64 units
A1c 6.1
History of kidney stones
Restless leg syndrome
-Continue diazepam, Neupro, pregabalin, cyclobenzaprine
Full code
DVT prophylaxis�heparin
Anticipated Discharge: > 48 hours
Subjective/Interval History
-
Date of Service: February 27, 2024
denies pain
Objective Data
-
Labs:
Laboratory Results
02/27/24
03:50
WBC 9.6
Hgb 13.4
Hct 38.3 L
Plt Count 259
Sodium 140
Potassium 4.0
Chloride 98
Carbon Dioxide 28
BUN 37 H
Creatinine 1.4 H
Glucose 139 H
Calcium 9.3
Total Bilirubin 0.7
AST 32
ALT 34
Alkaline Phosphatase 82
Vital Signs:
Vital Signs
Temp Pulse Resp BP Pulse Ox
98.4 F 62 20 123/68 97
02/27/24 10:59 02/27/24 11:02 02/27/24 10:59 02/27/24 11:02 02/27/24 10:59
I&O
02/26/24 02/27/24 02/28/24
06:59 06:59 06:59
Intake Total 960 / 960 960 / 960
Output Total 800 / 800 1700 / 1700
Balance 160 / 160 -740 / -740
[2024-02-27] MEDS: NOVOLOG FLEXPEN-LOW RESISTANCE 1 UNITS SC (13:53)
[2024-02-27 16:59] LABS: Glucose - Point of Care 131 mg/dl (70-99)
[2024-02-27 21:09] LABS: Glucose - Point of Care 135 mg/dl (70-99)
--- NOTE | 2024-02-27 21:28 | PTCARENOTE ---
Pt received start of shift, HR SR. Pt appears in good spirits despite having surgery moved back. Pt states understanding as to why surgery was delayed. Pt ambulating in unit hallways and in room. Pt remains CP free and denies any SOB. Informed to
notify RN if any changes, call bliss within reach.
[2024-02-27] MEDS: LIPITOR 40 MG PO (22:27)
[2024-02-27] MEDS: CYMBALTA DELAYED RELEASE 60 MG PO (22:28)
[2024-02-27] MEDS: NON-FORMULARY ITEM 3 MG PO (22:28)
[2024-02-28] VITALS (8 sets, daily range): BP systolic 127–148; BP diastolic 66–80; PULSE 79–85; BMI 31.0
--- NOTE | 2024-02-28 01:02 | W.PN.CT ---
Today's Communication / Plan
-
Plan:
-No chest pain/SOB overnight
-Cont. to hold Lisinopril
-Will place Norvasc on future hold, hold 48hrs prior to OR
-Creatinine improving, 1.2 today, was 1.4 yesterday
-May need to hold Lyrica if NIRANJAN continues
-Lasix is on hold
-Ongoing preop optimization
-For CABG by Dr. Rodriguez likely Friday 03/02
-Will cont. to closely monitor
Assessment / Plan
-
Assessment:
-Severe 3v CAD
-NSTEMI (peak trop 0.108)
-Exertional angina
-Acute diastolic CHF
-LVEF 65-70% per echo 02/23/24
-Preop NIRANJAN (cr 1.4 from 0.9)
-Hypertensive emergency
-Hyperlipidemia
-T2DM (A1C 6.1)
-Class 1 obesity (BMI 30.9)
-COLE (uses CPAP)
-Renal calculi
-Restless leg syndrome (on Lyrica)
-Anxiety/Depression
-SVT S/P , 1995
-S/p B/L knee surgery
-S/p R shoulder surgery
-S/P R elbow arthroscopies
-S/P L carpal tunnel release
-S/P L Dupuytren's contracture release
-S/P cervical spine fusion
-S/P Ureteral stent
-S/P B/L carpal tunnel
-S/P Tonsillectomy
-S/P Cholecystectomy
Discussed patient care with: Cardiology, Nursing, Respiratory Therapy, Pharmacy and Care Team
Subjective
-
Date of Service: February 28, 2024
No major issues overnight. Denies CP/SOB
Objective Data
Vital Signs
Vital Signs
Temp Pulse Resp BP Pulse Ox
98.4 F 63 18 136/71 94
02/27/24 22:27 02/27/24 22:27 02/27/24 22:27 02/27/24 22:27 02/27/24 22:27
CT Intake/Output/Weight
02/27/24 02/27/24 02/28/24
06:59 18:59 06:59
Intake Total 960 / 1440 480 / 1440
Output Total 600 / 1700
Balance -600 / -740 960 / 1440 480 / 1440
SaO2: 94 (RA)
Physical Exam
-
General: Awake and AOx3
Cardiovascular: Regular rate & rhythm and No Murmurs
Respiratory: Clear
Extremities: No Edema
Data Reviewed
-
Lab Results: Results Reviewed
Medications: Active Meds Reviewed
Chest X-Ray: Report Reviewed and Image Reviewed
ECG: Report Reviewed and Image Reviewed
[2024-02-28 05:16] LABS: % Basophils 1.4 % (0-2); % Eosinophils 3.9 % (0-6); % Immature Granulocytes 0.3 % (0-0.5); % Lymphocytes 28.9 % (20.5-51.1); % Monocytes 8.5 % (1.7-9.3); Absolute Basophils 0.1 10^3/uL (0-0.2); Absolute Eosinophils 0.4 10^3/uL (0-0.7); Absolute Lymphocytes 2.9 10^3/uL (1.2-3.4); Absolute Monocytes 0.8 10^3/uL (0.1-0.6); Absolute Neutrophils 5.6 10^3/uL (1.4-6.5); Hematocrit 40.4 % (39.0-52.0); Hemoglobin 14.3 g/dL (13.0-18.0); Mean Corp Hgb Conc. 35.4 g/dL (33.0-37.0); Mean Corpuscular Hgb 29.3 pg (27.0-31.0); Mean Corpuscular Volume 82.8 fL (80.0-94.0); Mean Platelet Volume 9.9 fL (7.4-10.4); Nucleated Red Blood Cells % 0 % (-); Platelet Count 280 10^3/uL (130-400); Red Blood Cell Count 4.88 10^6/uL (4.70-6.10); Red Cell Dist. Width 13.1 % (11.5-14.5); White Blood Cell Count 9.9 10^3/uL (4.8-10.8)
[2024-02-28 05:39] LABS: ALT (SGPT) 47 U/L (0-50); AST (SGOT) 43 U/L (17-59); Albumin 4.3 g/dl (3.5-5.0); Alkaline Phosphatase 89 U/L (38-126); Blood Urea Nitrogen 33 mg/dl (9-20); Calcium 9.8 mg/dl (8.4-10.2); Carbon Dioxide 27 mmol/L (22-30); Chloride 99 mmol/L (98-107); Estimated Creatinine Clearance 84 ml/min; Glucose 123 mg/dl (70-99); Potassium 4.5 mmol/L (3.5-5.1); Sodium 140 mmol/L (135-145); Total Bilirubin 0.9 mg/dl (0.2-1.3); Total Protein 7.1 g/dl (6.3-8.2); eGFR > 60.00
[2024-02-28 08:25] LABS: Glucose - Point of Care 147 mg/dl (70-99)
[2024-02-28] MEDS: NOVOLOG FLEXPEN-LOW RESISTANCE SC ×2 (08:36→17:01)
[2024-02-28] MEDS: INDERAL 20 MG PO ×2 (08:37→19:21)
[2024-02-28] MEDS: ASPIR LOW (ENTERIC COATED) 81 MG PO (08:37)
[2024-02-28] MEDS: NORVASC 5 MG PO (08:37)
[2024-02-28] MEDS: PROTONIX 20 MG PO (08:37)
[2024-02-28] MEDS: LYRICA 150 MG PO ×2 (08:37→19:22)
[2024-02-28] MEDS: LANTUS 0.64 UNITS SC (08:38)
[2024-02-28] MEDS: HEPARIN 5000 UNITS SC ×2 (08:38→19:22)
[2024-02-28] MEDS: NOVOLOG FLEXPEN 4 UNITS SC ×3 (08:39→17:12)
--- NOTE | 2024-02-28 10:22 | W.PN.CARDCBS ---
Today's Communication / Plan
-
CABG postponed due to bump in creatinine to 1.4. Creatinine 1.1 on admission 02/23/2024. Cr improved on Feb 28 2024.
CABG now scheduled for 03/02/2024. Patient will remain inpatient over weekend.
He has diuresed 15 pounds since admission. Lasix stopped
Blood pressure improved with uptitration of antihypertensives.
Lisinopril on hold pre-op.
Remains on amlodipine 5 mg daily and propranolol 20 mg bid.
goal LDL <70 in setting of h/o DM and CAD
DM mgmt per primary team
Impression / Plan
-
.
PCP:Alfie Cano
Previous caterpillar operator: none
Impression:
Acute heart failure preserved EF
Hypertensive emergency
multivessel CAD
acute kidney injury
Acute shortness of breath
Hypoxia
Elevated troponin
Diabetes mellitus
obstructive sleep apnea on CPAP
h/o HTN
Hyperlipidemia
SVT s/p ablation
essential tremor
EKG 02/22/2024: Normal sinus rhythm, normal ST segments
Echo 04/30/2019: Normal LV size, EF 60 to 65%, no valvular heart disease
Echo 02/23/2024: Vigorous LV systolic function with mild cLVH, EF 65 to 70%, mild hypokinesis of apical septum, normal RV size and systolic function
Cardiac catheterization: 02/25/2024: Left main: Mild diffuse plaque; LAD: Proximal 60-70% IFR 0.08; circumflex: OM1 ostial 60-70%, 3 serial lesions in mid circumflex extending into proximal OM 2 up to 90%; RCA: 70% proximal, 80% mid
Plan:
CABG postponed due to bump in creatinine to 1.4. Creatinine 1.1 on admission 02/23/2024. Cr improved on Feb 28 2024.
CABG now scheduled for 03/02/2024. Patient will remain inpatient over weekend.
He has diuresed 15 pounds since admission. Lasix stopped
Blood pressure improved with uptitration of antihypertensives.
Lisinopril on hold pre-op.
Remains on amlodipine 5 mg daily and propranolol 20 mg bid.
goal LDL <70 in setting of h/o DM and CAD
DM mgmt per primary team
Continue CPAP
Discussed with family, Matthew at bedside.
Progress Note - Press Operator
Subjective
Date of Service: February 28, 2024
Pt seen and examined. No complaints. No chest pain or shortness of breath.
Objective
Labs:
02/28/24 04:51
02/28/24 04:51
Labs
Hgb 14.3 g/dL (13.0-18.0) 02/28/24 04:51
Hct 40.4 % (39.0-52.0) 02/28/24 04:51
Plt Count 280 10^3/uL (130-400) 02/28/24 04:51
Sodium 140 mmol/L (135-145) 02/28/24 04:51
Potassium 4.5 mmol/L (3.5-5.1) 02/28/24 04:51
BUN 33 mg/dl (9-20) H 02/28/24 04:51
Creatinine 1.2 mg/dL (0.7-1.3) 02/28/24 04:51
Glucose 123 mg/dl (70-99) H 02/28/24 04:51
Vital Signs and I&O:
Vital Signs
Temp Pulse Resp BP Pulse Ox
98.2 F 60 18 127/73 98
02/28/24 09:04 02/28/24 08:37 02/28/24 09:04 02/28/24 08:37 02/28/24 09:04
Vital Signs
Temp Pulse Resp BP Pulse Ox
98.2 F 60 18 127/73 98
02/28/24 09:04 02/28/24 08:37 02/28/24 09:04 02/28/24 08:37 02/28/24 09:04
Intake & Output
02/26/24 02/27/24 02/28/24 02/29/24
06:59 06:59 06:59 06:59
Intake Total 960 / 960 960 / 960 1440 / 1440
Output Total 800 / 800 1700 / 1700 1250 / 1250 350 / 350
Balance 160 / 160 -740 / -740 190 / 190 -350 / -350
Physical Exam
Physical Exam
General: No acute distress, AAOX3
Neck: Negative JVD
Heart: Regular, Negative S3 positive S1/S2, Negative S4, No murmur
Lungs: CTA b/l, negative wheezes/rales/rhonchi
Abd: Positive BS, NT/ND, neg rebound/rigidity/guarding
Ext: Negative cyanosis/clubbing/edema
Neuro: nonfocal
[2024-02-28 12:47] LABS: Glucose - Point of Care 201 mg/dl (70-99)
[2024-02-28] MEDS: NOVOLOG FLEXPEN-LOW RESISTANCE 2 UNITS SC (12:54)
--- NOTE | 2024-02-28 13:16 | W.PN.HOSP.TC ---
Today's Communication/Plan
-
Pain monitor vital signs
see plan
Continue to hold lisinopril
Monitor renal function
Continue insulin
Plan for CABG Friday
Assessment / Plan
Assessment / Plan
General: Well Developed, Well Nourished and No Apparent Distress
HEENT: NormoCephalic, Moist mucous membranes and Atraumatic
Respiratory: Clear
Cardiac: S1/S2 and Regular Rhythm; No Murmur or Rub
GI: Soft, Non Tender, Non Distended and Normal Bowel Sounds
Musculoskeletal: No Clubbing, No Cyanosis and No Edema
Skin: No Rash
Neuro: Nonfocal/grossly intact
Acute CHF exacerbation
# Hypertensive emergency
-CT chest shows no evidence of pulm embolism, findings suggesting mild pulm interstitial/alveolar edema, possible superimposed pneumonia in the bilateral upper lobes, small bilateral pleural effusions
-Cardiac BNP of 363 however obese
Now Lasix on hold
Weaned off nitro drip
hold lisinopril, cw propranolol
Weaned off BiPAP and now on nasal cannula, CPAP at night
Echocardiogram with preserved EF
Aspirin
Cardiology following; s/p cath 02/24 with significant multivessel coronary artery disease. CT surgery consulted. Initial plan was for CABG 02/26 which is now postponed to next week due to elevated creatinine.
SVT status post ablation
NIRANJAN likely secondary to overdiuresis
cr 1.2 today; baseline around 1
Hold Lasix and lisinopril
Continue to monitor
UA without UTI
Obstructive sleep apnea
-Uses CPAP at night
Essential hypertension
-Hold lisinopril due to elevated creatinine
Hypercholesterolemia
-Continue statin
Type 2 diabetes
-Hold metformin
-Insulin sliding scale
-Lantus 64 units
A1c 6.1
History of kidney stones
Restless leg syndrome
-Continue diazepam, Neupro, pregabalin, cyclobenzaprine
Full code
DVT prophylaxis�heparin
Anticipated Discharge: > 48 hours
Subjective/Interval History
-
Date of Service: February 28, 2024
Denies chest pain
Objective Data
-
Labs:
Laboratory Results
02/28/24
04:51
WBC 9.9
Hgb 14.3
Hct 40.4
Plt Count 280
Sodium 140
Potassium 4.5
Chloride 99
Carbon Dioxide 27
BUN 33 H
Creatinine 1.2
Glucose 123 H
Calcium 9.8
Total Bilirubin 0.9
AST 43
ALT 47
Alkaline Phosphatase 89
Vital Signs:
Vital Signs
Temp Pulse Resp BP Pulse Ox
97.8 F 60 18 127/73 94
02/28/24 12:42 02/28/24 08:37 02/28/24 12:42 02/28/24 08:37 02/28/24 12:42
I&O
02/27/24 02/28/24 02/29/24
06:59 06:59 06:59
Intake Total 960 / 960 1440 / 1440
Output Total 1700 / 1700 1250 / 1250 350 / 350
Balance -740 / -740 190 / 190 -350 / -350
[2024-02-28 16:58] LABS: Glucose - Point of Care 118 mg/dl (70-99)
--- NOTE | 2024-02-28 17:16 | PTCARENOTE ---
Patient in the chair most of day. NSR on tele, denies pain, VSS, call bliss in reach
[2024-02-28 21:34] LABS: Glucose - Point of Care 180 mg/dl (70-99)
[2024-02-28] MEDS: NON-FORMULARY ITEM 3 MG PO (22:26)
[2024-02-28] MEDS: CYMBALTA DELAYED RELEASE 60 MG PO (22:26)
[2024-02-28] MEDS: LIPITOR 40 MG PO (22:26)
[2024-02-29] VITALS (8 sets, daily range): BP systolic 124–144; BP diastolic 70–87; PULSE 78–80; BMI 30.9
--- NOTE | 2024-02-29 02:21 | PTCARENOTE ---
Pt received start of shift, HR SB/SR w/ occasional PVCs. VSS. Pt continues to deny CP or SOB. Pt continues to use CPAP at night. Pt remains in good spirits.
[2024-02-29 05:42] LABS: Blood Urea Nitrogen 32 mg/dl (9-20); Carbon Dioxide 30 mmol/L (22-30); Chloride 98 mmol/L (98-107); Estimated Creatinine Clearance 84 ml/min; Glucose 124 mg/dl (70-99); Magnesium 2.1 mg/dl (1.6-2.3); Potassium 4.5 mmol/L (3.5-5.1); Sodium 139 mmol/L (135-145); eGFR > 60.00
--- NOTE | 2024-02-29 06:33 | W.PN.CT ---
Today's Communication / Plan
-
Plan:
-No chest pain/SOB overnight
-Cont. to hold Lisinopril
-Will place Norvasc on future hold, hold 48hrs prior to OR
-Creatinine improved, 1.4 -> 1.2 ->1.2 today
-May need to hold Lyrica if NIRANJAN continues
-Lasix is on hold
-Ongoing preop optimization
-For CABG by Dr. Rodriguez likely Friday 03/02
-Will cont. to closely monitor
Assessment / Plan
-
Assessment:
-Severe 3v CAD
-NSTEMI (peak trop 0.108)
-Exertional angina
-Acute diastolic CHF
-LVEF 65-70% per echo 02/23/24
-Preop NIRANJAN (cr 1.4 from 0.9)
-Hypertensive emergency
-Hyperlipidemia
-T2DM (A1C 6.1)
-Class 1 obesity (BMI 30.9)
-COLE (uses CPAP)
-Renal calculi
-Restless leg syndrome (on Lyrica)
-Anxiety/Depression
-SVT S/P , 1995
-S/p B/L knee surgery
-S/p R shoulder surgery
-S/P R elbow arthroscopies
-S/P L carpal tunnel release
-S/P L Dupuytren's contracture release
-S/P cervical spine fusion
-S/P Ureteral stent
-S/P B/L carpal tunnel
-S/P Tonsillectomy
-S/P Cholecystectomy
Discussed patient care with: Cardiology, Nursing, Pharmacy and Care Team
Subjective
-
Date of Service: February 29, 2024
No CP/SOB overnight
Objective Data
-
Lab Results
02/28/24 04:51
02/29/24 05:00
Vital Signs
Vital Signs
Temp Pulse Resp BP Pulse Ox
97.7 F 62 20 124/87 97
02/29/24 04:56 02/29/24 04:56 02/29/24 04:56 02/29/24 04:56 02/29/24 04:[address]
CT Intake/Output/Weight
02/28/24 02/28/24 02/29/24
06:59 18:59 06:59
Intake Total 480 / 1440 900 / 900
Output Total 1250 / 1250 350 / 1725 1375 / 1725
Balance -770 / 190 550 / -825 -1375 / -825
SaO2: 97 (RA)
Physical Exam
-
General: Awake, Oriented and AOx3
Cardiovascular: Regular rate & rhythm and No Murmurs
Respiratory: Clear
Extremities: No Edema
Data Reviewed
-
Lab Results: Results Reviewed
Medications: Active Meds Reviewed
Chest X-Ray: Report Reviewed and Image Reviewed
ECG: Report Reviewed and Image Reviewed
[2024-02-29 07:24] LABS: Glucose - Point of Care 119 mg/dl (70-99)
[2024-02-29] MEDS: PROTONIX 20 MG PO (08:58)
[2024-02-29] MEDS: INDERAL 20 MG PO ×2 (08:58→19:18)
[2024-02-29] MEDS: LYRICA 150 MG PO ×2 (08:59→19:19)
[2024-02-29] MEDS: LANTUS 0.64 UNITS SC (08:59)
[2024-02-29] MEDS: ASPIR LOW (ENTERIC COATED) 81 MG PO (08:59)
[2024-02-29] MEDS: FLUSH (NSS) 1 FLUSH IV (09:00)
[2024-02-29] MEDS: NOVOLOG FLEXPEN-LOW RESISTANCE SC ×2 (09:01→17:54)
[2024-02-29] MEDS: NOVOLOG FLEXPEN 4 UNITS SC ×3 (09:01→17:55)
[2024-02-29] MEDS: HEPARIN 5000 UNITS SC ×2 (09:08→19:18)
--- NOTE | 2024-02-29 09:41 | PTCARENOTE ---
Received patient at change of shift. Patient awake, alert, and oriented. Right radial site intact and open to air. Extremity warm and pink, palpable pulse. BP 132/71, BS-NSR 50s-60s, 97% on room air. Patient ambulating around room and to bathroom.
Discussed care plan and patient verbalized understanding. Call bliss within reach.
--- NOTE | 2024-02-29 10:06 | W.PN.CARDCBS ---
Today's Communication / Plan
-
CABG postponed due to bump in creatinine to 1.4. Creatinine 1.1 on admission 02/23/2024. Cr improved on Feb 28 2024 and remains stable.
CABG now scheduled for 03/02/2024.
He has diuresed 15 pounds since admission. Lasix stopped
Blood pressure improved with uptitration of antihypertensives.
Lisinopril on hold pre-op.
Remains on amlodipine 5 mg daily and propranolol 20 mg bid.
Impression / Plan
-
.
PCP:Alfie Cano
Previous youth services specialist: none
Impression:
Acute heart failure preserved EF
Hypertensive emergency
multivessel CAD
acute kidney injury
Acute shortness of breath
Hypoxia
Elevated troponin
Diabetes mellitus
obstructive sleep apnea on CPAP
h/o HTN
Hyperlipidemia
SVT s/p ablation
essential tremor
EKG 02/22/2024: Normal sinus rhythm, normal ST segments
Echo 04/30/2019: Normal LV size, EF 60 to 65%, no valvular heart disease
Echo 02/23/2024: Vigorous LV systolic function with mild cLVH, EF 65 to 70%, mild hypokinesis of apical septum, normal RV size and systolic function
Cardiac catheterization: 02/25/2024: Left main: Mild diffuse plaque; LAD: Proximal 60-70% IFR 0.08; circumflex: OM1 ostial 60-70%, 3 serial lesions in mid circumflex extending into proximal OM 2 up to 90%; RCA: 70% proximal, 80% mid
Plan:
CABG postponed due to bump in creatinine to 1.4. Creatinine 1.1 on admission 02/23/2024. Cr improved on Feb 28 2024 and remains stable.
CABG now scheduled for 03/02/2024.
He has diuresed 15 pounds since admission. Lasix stopped
Blood pressure improved with uptitration of antihypertensives.
Lisinopril on hold pre-op.
Remains on amlodipine 5 mg daily and propranolol 20 mg bid.
goal LDL <70 in setting of h/o DM and CAD
DM mgmt per primary team
Continue CPAP
Progress Note - Autoglazier
Subjective
Date of Service: February 29, 2024
Pt seen and examined. No complaints. No chest pain or shortness of breath.
Objective
Labs:
02/28/24 04:51
02/29/24 05:00
Labs
Hgb 14.3 g/dL (13.0-18.0) 02/28/24 04:51
Hct 40.4 % (39.0-52.0) 02/28/24 04:51
Plt Count 280 10^3/uL (130-400) 02/28/24 04:51
Sodium 139 mmol/L (135-145) 02/29/24 05:00
Potassium 4.5 mmol/L (3.5-5.1) 02/29/24 05:00
BUN 32 mg/dl (9-20) H 02/29/24 05:00
Creatinine 1.2 mg/dL (0.7-1.3) 02/29/24 05:00
Glucose 124 mg/dl (70-99) H 02/29/24 05:00
Vital Signs and I&O:
Vital Signs
Temp Pulse Resp BP Pulse Ox
97.9 F 59 20 132/71 97
02/29/24 07:50 02/29/24 08:00 02/29/24 07:50 02/29/24 08:58 02/29/24 07:50
Vital Signs
Temp Pulse Resp BP Pulse Ox
97.9 F 59 20 132/71 97
02/29/24 07:50 02/29/24 08:00 02/29/24 07:50 02/29/24 08:58 02/29/24 07:50
Intake & Output
02/27/24 02/28/24 02/29/24 03/01/24
06:59 06:59 06:59 06:59
Intake Total 960 / 960 1440 / 1440 900 / 900
Output Total 1700 / 1700 1250 / 1250 1725 / 1725 275 / 275
Balance -740 / -740 190 / 190 -825 / -825 -275 / -275
Physical Exam
Physical Exam
General: No acute distress, AAOX3
Neck: Negative JVD
Heart: Regular, Negative S3 positive S1/S2, Negative S4, No murmur
Lungs: CTA b/l, negative wheezes/rales/rhonchi
Abd: Positive BS, NT/ND, neg rebound/rigidity/guarding
Ext: Negative cyanosis/clubbing/edema
Neuro: nonfocal
--- NOTE | 2024-02-29 12:29 | W.PN.HOSP.TC ---
Today's Communication/Plan
-
Monitor vital signs
see plan
Plan for CABG Friday
Monitor renal function
Continue to hold lisinopril
Assessment / Plan
Assessment / Plan
General: Well Developed, Well Nourished and No Apparent Distress
HEENT: NormoCephalic, Moist mucous membranes and Atraumatic
Respiratory: Clear
Cardiac: S1/S2 and Regular Rhythm; No Murmur or Rub
GI: Soft, Non Tender, Non Distended and Normal Bowel Sounds
Musculoskeletal: No Clubbing, No Cyanosis and No Edema
Skin: No Rash
Neuro: Nonfocal/grossly intact
Acute CHF exacerbation
# Hypertensive emergency
-CT chest shows no evidence of pulm embolism, findings suggesting mild pulm interstitial/alveolar edema, possible superimposed pneumonia in the bilateral upper lobes, small bilateral pleural effusions
-Cardiac BNP of 363 however obese
Now Lasix on hold
Weaned off nitro drip
hold lisinopril, cw propranolol
Weaned off BiPAP and now on nasal cannula, CPAP at night
Echocardiogram with preserved EF
Aspirin
Cardiology following; s/p cath 02/24 with significant multivessel coronary artery disease. CT surgery consulted. Initial plan was for CABG 02/26 which is now postponed to friday due to elevated creatinine
SVT status post ablation
NIRANJAN likely secondary to overdiuresis
cr 1.2 today; baseline around 1
Hold Lasix and lisinopril
Continue to monitor
UA without UTI
Obstructive sleep apnea
-Uses CPAP at night
Essential hypertension
-Hold lisinopril due to elevated creatinine
Hypercholesterolemia
-Continue statin
Type 2 diabetes
-Hold metformin
-Insulin sliding scale
-cw Lantus 64 units
A1c 6.1
History of kidney stones
Restless leg syndrome
-Continue diazepam, Neupro, pregabalin, cyclobenzaprine
Full code
DVT prophylaxis�heparin
Anticipated Discharge: > 48 hours
Subjective/Interval History
-
Date of Service: February 29, 2024
Denies pain
Objective Data
-
Labs:
Laboratory Results
02/29/24
05:00
Sodium 139
Potassium 4.5
Chloride 98
Carbon Dioxide 30
BUN 32 H
Creatinine 1.2
Glucose 124 H
Calcium 10.0
Vital Signs:
Vital Signs
Temp Pulse Resp BP Pulse Ox
98.4 F 65 20 131/70 98
02/29/24 10:50 02/29/24 10:52 02/29/24 10:50 02/29/24 10:52 02/29/24 10:50
I&O
02/28/24 02/29/24 03/01/24
06:59 06:59 06:59
Intake Total 1440 / 1440 900 / 900
Output Total 1250 / 1250 1725 / 1725 400 / 400
Balance 190 / 190 -825 / -825 -400 / -400
[2024-02-29 12:36] LABS: Glucose - Point of Care 161 mg/dl (70-99)
[2024-02-29] MEDS: NOVOLOG FLEXPEN-LOW RESISTANCE 1 UNITS SC (12:46)
[2024-02-29 17:59] LABS: Glucose - Point of Care 111 mg/dl (70-99)
[2024-02-29 21:20] LABS: Glucose - Point of Care 141 mg/dl (70-99)
[2024-02-29] MEDS: LIPITOR 40 MG PO (22:06)
[2024-02-29] MEDS: NON-FORMULARY ITEM 3 MG PO (22:06)
[2024-02-29] MEDS: CYMBALTA DELAYED RELEASE 60 MG PO (22:06)
[2024-03-01] VITALS (8 sets, daily range): BP systolic 123–150; BP diastolic 69–82; PULSE 81; BMI 30.7
--- NOTE | 2024-03-01 05:24 | PTCARENOTE ---
Pt HR SR/SB. CP free overnight. Denies SOB. Pt ambulating in room and unit hallways. Incentive spirometer given to pt.
[2024-03-01 05:45] LABS: Hematocrit 42.6 % (39.0-52.0); Hemoglobin 14.8 g/dL (13.0-18.0); Mean Corp Hgb Conc. 34.7 g/dL (33.0-37.0); Mean Corpuscular Hgb 29.7 pg (27.0-31.0); Mean Corpuscular Volume 85.4 fL (80.0-94.0); Mean Platelet Volume 10.4 fL (7.4-10.4); Platelet Count 289 10^3/uL (130-400); Red Blood Cell Count 4.99 10^6/uL (4.70-6.10); Red Cell Dist. Width 12.9 % (11.5-14.5); White Blood Cell Count 11.5 10^3/uL (4.8-10.8)
[2024-03-01 06:03] LABS: Blood Urea Nitrogen 32 mg/dl (9-20); Calcium 9.9 mg/dl (8.4-10.2); Carbon Dioxide 31 mmol/L (22-30); Chloride 96 mmol/L (98-107); Estimated Creatinine Clearance 84 ml/min; Glucose 140 mg/dl (70-99); Potassium 4.6 mmol/L (3.5-5.1); Sodium 139 mmol/L (135-145); eGFR > 60.00
--- NOTE | 2024-03-01 06:06 | W.PN.CT ---
Today's Communication / Plan
-
Plan:
-No chest pain/SOB overnight
-Cont. to hold Lisinopril/Norvasc
-Creatinine improved, 1.4 -> 1.2 ->1.2 today
-May need to hold Lyrica if NIRANJAN continues
-Lasix is on hold
-Ongoing preop optimization
-For CABG by Dr. Rodriguez Friday 03/02
-Will cont. to closely monitor
Assessment / Plan
-
Assessment:
-Severe 3v CAD
-NSTEMI (peak trop 0.108)
-Exertional angina
-Acute diastolic CHF
-LVEF 65-70% per echo 02/23/24
-Preop NIRANJAN (cr 1.4 from 0.9)
-Hypertensive emergency
-Hyperlipidemia
-T2DM (A1C 6.1)
-Class 1 obesity (BMI 30.9)
-COLE (uses CPAP)
-Renal calculi
-Restless leg syndrome (on Lyrica)
-Anxiety/Depression
-SVT S/P , 1995
-S/p B/L knee surgery
-S/p R shoulder surgery
-S/P R elbow arthroscopies
-S/P L carpal tunnel release
-S/P L Dupuytren's contracture release
-S/P cervical spine fusion
-S/P Ureteral stent
-S/P B/L carpal tunnel
-S/P Tonsillectomy
-S/P Cholecystectomy
Discussed patient care with: Cardiology, Nursing, Pharmacy and Care Team
Subjective
-
Date of Service: March 01, 2024
No issues overnight. Denies CP/SOB
Objective Data
-
Lab Results
03/01/24 05:07
03/01/24 05:07
Vital Signs
Vital Signs
Temp Pulse Resp BP Pulse Ox
97.7 F 72 16 150/82 99
03/01/24 05:01 03/01/24 05:01 03/01/24 05:01 03/01/24 05:01 03/01/24 05:01
CT Intake/Output/Weight
02/29/24 02/29/24 03/01/24
06:59 18:59 06:59
Output Total 1375 / 1725 400 / 1750 1350 / 1750
Balance -1375 / -825 -400 / -1750 -1350 / -1750
SaO2: 99 (RA)
Physical Exam
-
General: Awake and AOx3
Cardiovascular: Regular rate & rhythm, No Murmurs and No Gallop
Respiratory: Clear
Extremities: No Edema
Data Reviewed
-
Lab Results: Results Reviewed
Medications: Active Meds Reviewed
Chest X-Ray: Report Reviewed and Image Reviewed
ECG: Report Reviewed and Image Reviewed
[2024-03-01 07:41] LABS: Glucose - Point of Care 124 mg/dl (70-99)
[2024-03-01] MEDS: PROTONIX 20 MG PO (07:44)
[2024-03-01] MEDS: ASPIR LOW (ENTERIC COATED) 81 MG PO (07:44)
[2024-03-01] MEDS: INDERAL 20 MG PO ×2 (07:44→19:19)
[2024-03-01] MEDS: LYRICA 150 MG PO ×2 (07:44→19:19)
[2024-03-01] MEDS: HEPARIN 5000 UNITS SC (07:45)
[2024-03-01] MEDS: LANTUS 0.64 UNITS SC (07:45)
[2024-03-01] MEDS: NOVOLOG FLEXPEN-LOW RESISTANCE SC ×2 (07:46→17:55)
[2024-03-01] MEDS: NOVOLOG FLEXPEN 4 UNITS SC ×3 (08:58→17:55)
--- NOTE | 2024-03-01 09:27 | W.PN.HOSP.TC ---
Today's Communication/Plan
-
pending CABG
Assessment / Plan
Assessment / Plan
63yo M with PMHx of SVT s/p ablasion @1999, HLD, insomnia, DM, HTN, GERD came with sudden onset of SOB overnight, found in CHF exacerbation, HTN emergency and NSTEMI, had cardiac cath on 02/25/24 with multivessel disease, started on diuresis and lost
15lbs, however developed elevation of Cr, so planned CABG was postponed to 03/02/24
A/P:
#Dyspnea 2/2 acute HFpEF exacerbation
#NSTEMI
#HTN emergency on admission
#Hx of SVT s/p ablation
Echo with preserved EF
s/p cardiac cath, CTS planning for CABG
Lasix and ACEi on hold 2/2 NIRAJNAN
daily weight and follow electrolytes
#NIRANJAN
Cr baseline 0.9
most likely 2/2 diuresis
improving off ACEi and Lasixx
#DM type 2 with neuropathy
Insulin SS, basal/bolus, accuchecks, DM diet
hold metformin
#RLS
#COLE on CPAP
#HLD
cont home meds
DVT ppx on hep
FUll code
I have spent at least 37min reviewing chart, test results, communication with consultants and direct patient care
Anticipated Discharge: > 48 hours
Subjective/Interval History
-
Date of Service: March 01, 2024
Objective Data
-
Labs:
Laboratory Results
03/01/24
05:07
WBC 11.5 H
Hgb 14.8
Hct 42.6
Plt Count 289
Sodium 139
Potassium 4.6
Chloride 96 L
Carbon Dioxide 31 H
BUN 32 H
Creatinine 1.2
Glucose 140 H
Calcium 9.9
Vital Signs:
Vital Signs
Temp Pulse Resp BP Pulse Ox
97.9 F 64 16 148/76 95
03/01/24 07:30 03/01/24 08:00 03/01/24 07:30 03/01/24 07:44 03/01/24 09:18
I&O
02/29/24 03/01/24 03/02/24
06:59 06:59 06:59
Intake Total 900 / 900
Output Total 1725 / 1725 1750 / 1750
Balance -825 / -825 -1750 / -1750
Review of Systems
-
History Source: Patient
All other systems: Reviewed and negative
Physical Exam
-
General: No Apparent Distress
HEENT: Normocephalic
Respiratory: Clear to Auscultation
Cardiac: Regular Rhythm
GI: Soft, Nontender and Nondistended
Musculoskeletal: No Clubbing, No Cyanosis and No Edema
Neuro: Awake, Alert, Oriented and AO x 3
Psych: Calm
--- NOTE | 2024-03-01 11:27 | W.PN.CARDCBS ---
Addendum entered and electronically signed by Khris Hernandez DO 03/01/24 12:35:
I saw and examined the patient.
The Envelope Folding Machine Adjuster's note was reviewed and I agree with the note.
Comment:
Plan:
Cr stable
He has diuresed 17 pounds since admission. Lasix stopped. Wt stable and continues to trend down.
For CABG tomorrow
HR and bp stable.
Original Note:
Today's Communication / Plan
-
-creatinine stable at 1.2
-for CABG 03/02/24
Impression / Plan
-
.
PCP:Alfie Cano
Previous fryline attendant: none
Impression:
Multivessel CAD
Acute heart failure preserved EF
Hypertensive emergency
acute kidney injury-creatinine to 1.4 after IV diuresis, creatinine 1.2 since 02/28/24
Acute shortness of breath
Hypoxia
Elevated troponin
Diabetes mellitus
obstructive sleep apnea on CPAP
h/o HTN
Hyperlipidemia
SVT s/p ablation
essential tremor
EKG 02/22/2024: Normal sinus rhythm, normal ST segments
Echo 04/30/2019: Normal LV size, EF 60 to 65%, no valvular heart disease
Echo 02/23/2024: Vigorous LV systolic function with mild cLVH, EF 65 to 70%, mild hypokinesis of apical septum, normal RV size and systolic function
Cardiac catheterization: 02/25/2024: Left main: Mild diffuse plaque; LAD: Proximal 60-70% IFR 0.08; circumflex: OM1 ostial 60-70%, 3 serial lesions in mid circumflex extending into proximal OM 2 up to 90%; RCA: 70% proximal, 80% mid
telemetry personally reviewed: NSR 60-80s, occ PVC
Plan:
CABG postponed due to bump in creatinine to 1.4. Creatinine 1.1 on admission 02/23/2024. Cr improved on Feb 28 2024 and remains stable at 1.2.
CABG now scheduled for 03/02/2024.
He has diuresed 17 pounds since admission. Lasix stopped. Wt stable and continues to trend down.
Blood pressure improved since admission with uptitration of antihypertensives.
Lisinopril on hold pre-op.
Remains on amlodipine 5 mg daily and propranolol 20 mg bid.
goal LDL <70 in setting of h/o DM and CAD
DM mgmt per primary team
Continue CPAP
Progress Note - Animal Shelter Clerk
Subjective
Date of Service: March 01, 2024
No complaints
walking in hallway without SOB/CP
for CABG 03/02/24
Objective
Labs:
03/01/24 05:07
03/01/24 05:07
Labs
Hgb 14.8 g/dL (13.0-18.0) 03/01/24 05:07
Hct 42.6 % (39.0-52.0) 03/01/24 05:07
Plt Count 289 10^3/uL (130-400) 03/01/24 05:07
Sodium 139 mmol/L (135-145) 03/01/24 05:07
Potassium 4.6 mmol/L (3.5-5.1) 03/01/24 05:07
BUN 32 mg/dl (9-20) H 03/01/24 05:07
Creatinine 1.2 mg/dL (0.7-1.3) 03/01/24 05:07
Glucose 140 mg/dl (70-99) H 03/01/24 05:07
Vital Signs and I&O:
Vital Signs
Temp Pulse Resp BP Pulse Ox
97.9 F 64 16 148/76 97
03/01/24 07:30 03/01/24 08:00 03/01/24 07:30 03/01/24 07:44 03/01/24 09:25
Vital Signs
Temp Pulse Resp BP Pulse Ox
97.9 F 64 16 148/76 97
03/01/24 07:30 03/01/24 08:00 03/01/24 07:30 03/01/24 07:44 03/01/24 09:25
Intake & Output
02/28/24 02/29/24 03/01/24 03/02/24
06:59 06:59 06:59 06:59
Intake Total 1440 / 1440 900 / 900 240 / 240
Output Total 1250 / 1250 1725 / 1725 1750 / 1750
Balance 190 / 190 -825 / -825 -1750 / -1750 240 / 240
Physical Exam
Physical Exam
GEN: No distress, awake, Ox3
HEENT: supple, anicteric, mmm
LUNGS: CTA, no wheezes/rales
CV: Reg, S1/S2, no murmur
ABD: soft, BS+, NT/ND
EXT: No edema
NEURO: Gross non-focal
SKIN: No rash
[2024-03-01 11:59] LABS: Glucose - Point of Care 165 mg/dl (70-99)
--- NOTE | 2024-03-01 12:30 | PTCARENOTE ---
Rec'd pt at change of shift. Pt on TELE monitor in NSR with bradycardic periods, VSS, and AAAO*3. Pt aware of CABG preparation and NPO status tomorrow morning. Pt denies pain or discomfort and sitting at bedside with call bliss in reach.
[2024-03-01] MEDS: NOVOLOG FLEXPEN-LOW RESISTANCE 1 UNITS SC (12:34)
[2024-03-01 17:22] LABS: Glucose - Point of Care 107 mg/dl (70-99)
--- NOTE | 2024-03-01 20:51 | PTCARENOTE ---
Pt. received at change of shift. Pt. seen and assessed in room. VS WNL. Tele reading NSR. Pt. verbalizes understanding of plan of care. Pt. scheduled for CABG 03/[address] Rodriguez. CABG prep initiated.
[2024-03-01] MEDS: LIPITOR 40 MG PO (22:32)
[2024-03-01] MEDS: CYMBALTA DELAYED RELEASE 60 MG PO (22:32)
[2024-03-01] MEDS: NON-FORMULARY ITEM 3 MG PO (22:32)
[2024-03-01 22:33] LABS: Glucose - Point of Care 142 mg/dl (70-99)
[2024-03-02] VITALS (8 sets, daily range): BP systolic 107–148; BP diastolic 66–76; PULSE 90; BMI 30.5
[2024-03-02 04:05] LABS: % Basophils 1.2 % (0-2); % Eosinophils 2.3 % (0-6); % Immature Granulocytes 0.2 % (0-0.5); % Lymphocytes 30.1 % (20.5-51.1); % Monocytes 8.8 % (1.7-9.3); % Neutrophils 57.4 % (42.2-75.2); Absolute Basophils 0.1 10^3/uL (0-0.2); Absolute Eosinophils 0.3 10^3/uL (0-0.7); Absolute Lymphocytes 3.3 10^3/uL (1.2-3.4); Absolute Neutrophils 6.4 10^3/uL (1.4-6.5); Hematocrit 43.1 % (39.0-52.0); Hemoglobin 15.3 g/dL (13.0-18.0); Mean Corp Hgb Conc. 35.5 g/dL (33.0-37.0); Mean Corpuscular Hgb 30.2 pg (27.0-31.0); Mean Corpuscular Volume 85.2 fL (80.0-94.0); Mean Platelet Volume 10.2 fL (7.4-10.4); Nucleated Red Blood Cells % 0 % (-); Platelet Count 302 10^3/uL (130-400); Red Blood Cell Count 5.06 10^6/uL (4.70-6.10); Red Cell Dist. Width 12.9 % (11.5-14.5); White Blood Cell Count 11.1 10^3/uL (4.8-10.8)
[2024-03-02] MEDS: BACTROBAN 2% OINTMENT 1 APPLIC NASAL ×2 (05:12→20:07)
[2024-03-02] MEDS: LOPRESSOR 25 MG PO (05:12)
[2024-03-02] MEDS: MAGNESIUM OXIDE 500 MG PO (05:13)
[2024-03-02] MEDS: PROTONIX 40 MG PO (05:13)
--- NOTE | 2024-03-02 06:33 | W.CVOR.SURPR ---
CVOR Surgeon Immed Pre Op
-
I have examined this patient prior to performance of the scheduled procedure.
The patient's condition is unchanged from the time of the dictated/written History and
Physical and the patient is able to undergo the scheduled procedure.
[2024-03-02 07:48] LABS: ACT+ - POC 96 Seconds (82-134)
[2024-03-02 08:17] LABS: Urine Albumin Negative (Neg - Trace); Urine Bilirubin 1+ (Negative); Urine Character Clear (Clear); Urine Color Yellow; Urine Glucose Negative (Negative); Urine Ketone Negative (Negative); Urine Leukocyte Negative (Negative); Urine Nitrite Negative (Negative); Urine Occult Blood Negative (Negative); Urine Specific Gravity 1.015 (<1.030); Urine Urobilinogen Negative (Neg - 1+)
[2024-03-02 10:48] LABS: B.E. - POC 1.7 mmol/L; Glucose - POC 134 mg/dl (70-99); HCO3 - POC 27 mmol/L (21-29); Hematocrit - POC 43 % PCV (42-52); Hemodilution- POC No; Hemoglobin Calculated - POC 14.7; Ionized Calcium - POC 1.23 mmol/L (1.12-1.27); PCO2 - POC 43 mmHg (35-45); PO2 - POC 91 mmHg (80-100); POC Comment PRE; Potassium - POC 4.3 mmol/L (3.6-5.0); Sodium - POC 138 mmol/L (135-145)
[2024-03-02 11:03] LABS: ACT+ - POC 533 Seconds (82-134)
[2024-03-02 11:25] LABS: B.E. - POC 2.4 mmol/L; Glucose - POC 126 mg/dl (70-99); HCO3 - POC 27 mmol/L (21-29); Hematocrit - POC 33 % PCV (42-52); Hemodilution- POC Yes; Hemoglobin Calculated - POC 11.3; Ionized Calcium - POC 0.99 mmol/L (1.12-1.27); PCO2 - POC 43 mmHg (35-45); PO2 - POC 375 mmHg (80-100); POC Comment CPB; Potassium - POC 6.9 mmol/L (3.6-5.0); Sodium - POC 136 mmol/L (135-145); pH - POC 7.41 (7.35-7.45)
--- NOTE | 2024-03-02 11:28 | CM ---
Chart reviewed. Patient is in the OR today. Patient is independent of ADLS, lives with his in a 1 STH, 1 SUSIE, 0 DME. Plan is for the patient to return home with CT Transitional RN. CM to follow
[2024-03-02 11:35] LABS: ACT+ - POC 612 Seconds (82-134)
[2024-03-02 11:43] LABS: B.E. - POC 3.8 mmol/L; Glucose - POC 223 mg/dl (70-99); HCO3 - POC 29 mmol/L (21-29); Hematocrit - POC 35 % PCV (42-52); Hemodilution- POC Yes; Hemoglobin Calculated - POC 11.8; Ionized Calcium - POC 1.03 mmol/L (1.12-1.27); O2 Saturation %Calculated-POC 99.9 5 (92-96); PCO2 - POC 46 mmHg (35-45); PO2 - POC 325 mmHg (80-100); POC Comment CPB; Potassium - POC 6.9 mmol/L (3.6-5.0); Sodium - POC 134 mmol/L (135-145); pH - POC 7.41 (7.35-7.45)
[2024-03-02 11:56] LABS: ACT+ - POC 641 Seconds (82-134)
[2024-03-02 12:01] LABS: ACT+ - POC > 1003 Seconds (82-134)
[2024-03-02 12:13] LABS: B.E. - POC 2.8 mmol/L; Glucose - POC 188 mg/dl (70-99); HCO3 - POC 29 mmol/L (21-29); Hematocrit - POC 34 % PCV (42-52); Hemodilution- POC Yes; Hemoglobin Calculated - POC 11.6; Ionized Calcium - POC 1.08 mmol/L (1.12-1.27); O2 Saturation %Calculated-POC 99.6 5 (92-96); PCO2 - POC 50 mmHg (35-45); PO2 - POC 182 mmHg (80-100); POC Comment WARM; Potassium - POC 5.9 mmol/L (3.6-5.0); Sodium - POC 138 mmol/L (135-145); pH - POC 7.37 (7.35-7.45)
[2024-03-02 12:19] LABS: ACT+ - POC 96 Seconds (82-134)
[2024-03-02 12:28] LABS: B.E. - POC -0.6 mmol/L; Glucose - POC 140 mg/dl (70-99); HCO3 - POC 24 mmol/L (21-29); Hematocrit - POC 32 % PCV (42-52); Hemodilution- POC Yes; Hemoglobin Calculated - POC 10.8; Ionized Calcium - POC 1.35 mmol/L (1.12-1.27); O2 Saturation %Calculated-POC 97.2 5 (92-96); PCO2 - POC 40 mmHg (35-45); PO2 - POC 94 mmHg (80-100); POC Comment POST; Potassium - POC 4.7 mmol/L (3.6-5.0); Sodium - POC 139 mmol/L (135-145); pH - POC 7.39 (7.35-7.45)
[2024-03-02] MEDS: NOVOLOG FLEXPEN-LOW RESISTANCE SC ×2 (12:28)
[2024-03-02] MEDS: INDERAL PO (12:28)
[2024-03-02] MEDS: ASPIR LOW (ENTERIC COATED) PO (12:28)
[2024-03-02] MEDS: NOVOLOG FLEXPEN SC ×4 (12:28→16:40)
[2024-03-02] MEDS: LANTUS SC (12:29)
[2024-03-02] MEDS: PROTONIX PO (12:29)
[2024-03-02] MEDS: LYRICA PO (12:29)
--- NOTE | 2024-03-02 13:02 | W.PN.CT.SURG ---
CT Surgery Operative Note
-
Pre-op Diagnosis: nstemi
CAD
hx/o svt
Post-op Diagnosis: Same
Procedure: Cabg x 5
pearce - lad
palomo- ramus/om
ao-svg- pvbr/pda
revh
jessi #40 clip
rsf
Primary Surgeon: Jennifer
Assisting Surgeons: MD Jin - [facility] fellow
Pack - endo vein harvest, assist at chest closure
Specimen: None
Cultures: None
Complications / Blood Loss: None
Findings: Umair with preserved hypertrophic LV
No new wma
Jessi without clot, completely occluded post clip
good conduits
fair targets
--- NOTE | 2024-03-02 13:05 | W.PN.HOSP.TC ---
Today's Communication/Plan
-
for CABG
Assessment / Plan
Assessment / Plan
63yo M with PMHx of SVT s/p ablasion @1999, HLD, insomnia, DM, HTN, GERD came with sudden onset of SOB overnight, found in CHF exacerbation, HTN emergency and NSTEMI, had cardiac cath on 02/25/24 with multivessel disease, started on diuresis and lost
15lbs, however developed elevation of Cr, so planned CABG was postponed to 03/02/24
A/P:
#Dyspnea 2/2 acute HFpEF exacerbation
#NSTEMI
#HTN emergency on admission
#Hx of SVT s/p ablation
Echo with preserved EF
s/p cardiac cath, CTS planning for CABG
Lasix and ACEi on hold 2/2 NIRANJAN
daily weight and follow electrolytes
#NIRANJAN
Cr baseline 0.9
most likely 2/2 diuresis
improving off ACEi and Lasixx
#DM type 2 with neuropathy
Insulin SS, basal/bolus, accuchecks, DM diet
hold metformin
#RLS
#COLE on CPAP
#HLD
cont home meds
DVT ppx on hep
FUll code
I have spent at least 37min reviewing chart, test results, communication with consultants and direct patient care
Anticipated Discharge: > 48 hours
Subjective/Interval History
-
Date of Service: March 02, 2024
Objective Data
-
Labs:
Laboratory Results
03/02/24 03/02/24 03/02/24
03:37 12:46 16:45
WBC 11.1 H
Hgb 15.3 Pending Pending
Hct 43.1 Pending Pending
Plt Count 302 Pending Pending
PT Pending
INR Pending
APTT Pending
HCO3 Pending
BUN Pending
Creatinine Pending
Glucose Pending
Vital Signs:
Vital Signs
Temp Pulse Resp BP Pulse Ox
98.6 F 60 18 143/66 96
03/01/24 23:07 03/02/24 06:00 03/01/24 19:34 03/02/24 05:12 03/01/24 23:07
I&O
03/01/24 03/02/24 03/03/24
06:59 06:59 06:59
Intake Total 440 / 440 0 / 0
Output Total 1750 / 1750 1725 / 1725
Balance -1750 / -1750 -1285 / -1285 0 / 0
Review of Systems
-
History Source: Patient
All other systems: Reviewed and negative
Physical Exam
-
General: No Apparent Distress
HEENT: Normocephalic
Neuro: Awake, Alert, Oriented and AO x 3
Psych: Calm
[2024-03-02 13:30] LABS: Glucose - Point of Care 114 mg/dl (70-99)
--- NOTE | 2024-03-02 13:30 | PTCARENOTE ---
received pt from CVOR. pt intubated and sedated, afebrile, NSR per tele, palpable radial and DP pulse, no edema, V wire set to VVI 50 3 3, +rub, BP supported by Levophed, pt intubated with 8.0 at 23 cm, SIMV TV 550 FiO2 60% RR 10 PEEP 5, pox 94%,
CTx3 1 med, L&R pleural, no air leak/tidaling/crepitus, to -20 suction draining red blood, oral suction with thin clear secretions, hypoactive bs, garsia draining clear yellow urine, sternal incision approx. with surgical skin glue marsha, R groin
approx. with surgical skin glue continuous process rotary drum tanner, R medial knee incision approx. surgical skin glue with JOSE bandage. RIJ cordis infusing KVO, RIJ Slic infusing NSS VIP, L radial A-line, #20 L AC infusing insulin, post op EKG, labs, CXR obtained. see MAR for
medication administration
--- NOTE | 2024-03-02 13:32 | CON.INTV ---
Consultation
Consultation Request
Date/Time Consultation Requested: 03/02/2024-1 40 5 PM
Date/Time Consultation Performed: 03/02/2024-2 PM
Requesting Provider: Cardiovascular surgery
Performing Provider: Dr. Cotton
Reason for Consultation: Postoperative ventilator/critical care management
Medical History
-
Chief Complaint: CAD
History of Present Illness:
63-year-old male with history of hypertension, hyperlipidemia, COLE, SVT status post ablation, diabetes, renal calculi and restless leg syndrome presented with sudden onset shortness of breath with workup revealing significant CAD and underwent
CABG-testing projects administrator consulted for postoperative ventilator/critical care management 03/02/2024.Patient is seen postoperatively on a ventilator sedated and review of systems was unobtainable. Operative records were reviewed.
Past Medical History
Past Medical History: None (Hypertension. Hyperlipidemia. COLE. Diabetes. Renal calculi. SVT/ablation. Restless leg syndrome. Cholecystectomy. Tonsillectomy. Left hand surgery. Right elbow surgery. Right shoulder surgery. Right knee
surgery. Sinus surgery. Circumcision. Right eye surgery.)
Social History
Tobacco: Non-smoker
Alcohol: None
Drug: None
Living: With Family
Occupational Exposures: No known asbestos exposure
Environmental Exposures: No known tuberculosis exposure
Family History
Family History: Reviewed & Not Pertinent
Allergies / Home Medications
Allergies
Allergy/AdvReac Type Severity Reaction Status Date / Time
No Known Allergies Allergy Verified 04/13/23 11:27
Home Medications
�Medication �Instructions �Recorded �Confirmed �Last Taken �Type
diphenhydramine 25 1 ea PO HS Sleep 04/23/19 02/22/24 02/21/24 History
mg-acetaminophen 500 mg tablet
(Tylenol PM Extra Strength)
duloxetine 60 mg capsule,delayed 60 mg PO HS Depression 04/23/19 02/22/24 02/21/24 History
release
eszopiclone 3 mg tablet (Lunesta) 3 mg PO HS Sleep 04/23/19 02/22/24 02/21/24 History
insulin glargine U-300 conc 300 90 unit SC DAILY Diabetes 04/23/19 02/22/24 02/19/24 History
unit/mL (1.5 mL) subcutaneous pen
(Toujeo SoloStar U-300 Insulin)
lisinopril 10 mg tablet 10 mg PO DAILY Blood Pressure 04/23/19 02/22/24 02/22/24 History
meloxicam 7.5 mg tablet 15 mg PO DAILY Pain 04/23/19 02/22/24 02/22/24 History
metformin 500 mg tablet,extended 1,000 mg PO BID Diabetes 04/23/19 02/22/24 02/22/24 History
release 24 hr
multivitamin with folic acid 400 1 tab PO DAILY Supplement 04/23/19 02/22/24 02/22/24 History
mcg tablet (Tab-A-Christian)
pregabalin 75 mg capsule 150 mg PO BID Neurological 04/23/19 02/22/24 02/22/24 History
Condition
propranolol 20 mg tablet 20 mg PO BID Blood Pressure 04/23/19 02/22/24 02/22/24 History
aspirin 81 mg tablet,delayed 81 mg PO DAILY Blood Clot 08/18/20 02/22/24 02/22/24 History
release Prevention/Tx
atorvastatin 40 mg tablet (Lipitor) 40 mg PO HS High Cholesterol 02/22/24 02/22/24 02/21/24 History
insulin aspart U-100 100 unit/mL 4 sliding scale dose SC AC Diabetes 02/22/24 02/22/24 02/21/24 History
subcutaneous cartridge (Novolog
PenFill U-100 Insulin aspart)
omeprazole 20 mg tablet,delayed 20 mg PO DAILY Gastrointestinal 02/22/24 02/22/24 02/22/24 History
release Issue
Review of Systems
-
Unable to Obtain full review of systems at this time due to: Patient Intubation
Vitals / Labs / Diagnostic Testing
Vital Signs
Temp Pulse Resp BP Pulse Ox
98.6 F 60 18 143/66 96
03/01/24 23:07 03/02/24 06:00 03/01/24 19:34 03/02/24 05:12 03/01/24 23:07
Diagnostic Testing:
Physical Exam
-
Exam:
Well-nourished and well-developed in no apparent distress
HEENT-atraumatic, normocephalic, oral tracheal intubation
Heart-regular rate and rhythm-no murmurs, rubs or gallops
Chest-clear to auscultation, no wheezes, crackles, median sternotomy bandage is not removed
Abdomen soft nondistended
Extremities-no cyanosis, clubbing, edema and good peripheral pulses
Integument-intact, no rashes, lesions or ecchymosis
Neurologically not alert, not oriented, not moving any of his extremities sedated on a ventilator
Assessment
-
63-year-old male with history of hypertension, hyperlipidemia, COLE, SVT status post ablation, diabetes, renal calculi and restless leg syndrome presented with sudden onset shortness of breath with workup revealing NSTEMI and significant CAD and
underwent CABG-testing projects administrator consulted for postoperative ventilator/critical care management 03/02/2024.
CAD-multivessel
Status post CABG x 5-REEVES-LAD, KELY-ramus/OM, ao-SVG-PVR/PDA-Dr. Rodriguez 03/02/2024
Mild leukocytosis-WBC 11.1
Mild hyperglycemia
Acute CHF with preserved EF
NIRANJAN after diuresis
Conditions present prior to admission:
Hypertension.
Hyperlipidemia.
COLE-compliant with CPAP
Insomnia on Eszopiclone 3 mg at night
Diabetes.
Renal calculi.
SVT/ablation.
Restless leg syndrome.
Essential tremor
Cholecystectomy. Tonsillectomy. Left hand surgery. Right elbow surgery. Right shoulder surgery. Right knee surgery. Sinus surgery. Circumcision. Right eye surgery.
Plan
Ventilator settings reviewed
FiO2 will be weaned
Minute ventilation will be adjusted
Arterial blood gases will be monitored
Spontaneous breathing trial will be attempted with hopeful extubation after anesthesia/sedation wear off
Pulmonary artery catheter parameters will be followed
Pressors/antihypertensive/inotropes/diuretics will be provided as needed
Monitor chest tube output
Monitor hemoglobin
Monitor platelet count and coags
Transfuse blood product if needed
CT surgery following chest tubes
Monitor blood sugar
Insulin drip per protocol
Aspiration precautions
VAP prevention protocol
DVT prophylaxis
Early nutrition
Early mobilization
The patient was last seen in the pulmonary office by Sharon Lombardi NP/ Dr Martinez 01/30/2023 for COLE/CPAP compliance-told to follow-up in 1 year
Critical care statement: A total of 50 minutes of critical care time was provided for this patient today. This includes management of ventilator, spontaneous breathing trial, arterial blood gases, pressors, of unstable vital signs, evaluation of the
patient at bedside, reviewing the patient's pertinent medical records including radiographs, microbiology, laboratory evaluations, and discussion with primary team and critical care nursing.
Diagnostic data:
Chest x-ray 02/22/2024-mild CHF
CT chest 02/22/2024-no evidence for pulm embolism, mild interstitial alveolar edema, possible superimposed pneumonia in the upper lobes
Echocardiogram 02/23/2024-EF 65-70%, no valvular disease
Cardiac catheterization 02/25/2024-Significant multivessel CAD, elevated left ventricular end-diastolic pressure 20
Sleep study 2012-[facility]I 40-120, desaturation lisha 91%
Data Reviewed
-
EKG: Report reviewed by me
Radiology: Report reviewed by me
CT Scan: Report reviewed by me
Medical Tests (Nuc Med, Echo etc): Report reviewed by me
Labs: Labs reviewed by me
Old Records: Reviewed
Critical Care Time (in minutes): 50
[2024-03-02 13:35] LABS: Hematocrit 37.3 % (39.0-52.0); Hemoglobin 13.1 g/dL (13.0-18.0); Platelet Count 258 10^3/uL (130-400)
[2024-03-02 13:37] LABS: B.E. -1.2 mmol/L; HCO3 25.7 mmol/L (21-28); Ionized Calcium 1.16 mMOL/L (1.15-1.33); O2 Saturation % 94.5 % (94-98); PCO2 51 mmHg (35-48); PO2 71 mmHg (83-108); Potassium 4.6 mMOL/L (3.5-5.1); Sodium 134 mMOL/L (136-145); pH 7.31 (7.35-7.45)
[2024-03-02 13:49] LABS: Blood Urea Nitrogen 25 mg/dl (9-20); Estimated Creatinine Clearance 83 ml/min; Glucose 120 mg/dl (70-99); Magnesium 2.4 mg/dl (1.6-2.3)
[2024-03-02 13:54] LABS: INR 1.44; PT 17.3 Sec (11.4-14.6)
[2024-03-02 13:55] LABS: APTT 32.6 Sec (23.4-35.0)
[2024-03-02] MEDS: ANCEF 10 IV ×2 (14:15→14:16)
[2024-03-02] MEDS: NSS 500 IV (14:16)
[2024-03-02] MEDS: CALCIUM CHLORIDE 10% SYRINGE 50 MG IV (14:16)
[2024-03-02] MEDS: CALCIUM CHLORIDE 10% SYRINGE 50 ML IV (14:16)
[2024-03-02] MEDS: TYLENOL PO (14:16)
[2024-03-02 14:28] LABS: Hepatitis B Surface Antigen Negative (Negative)
[2024-03-02 14:30] LABS: HIV Combo Negative (Negative)
[2024-03-02 14:45] LABS: Hepatitis B Surface Antibody Negative; Hepatitis C Antibody Negative (Negative)
--- NOTE | 2024-03-02 14:45 | PTCARENOTE ---
per CT WELT TRIMMING MACHINE OPERATOR not to draw ABGS with vent changes until CPAP ABG
--- NOTE | 2024-03-02 14:45 | W.PN.CARDCBS ---
Addendum entered and electronically signed by Conrad Jaeger MD 03/02/24 15:38:
I saw and examined the patient.
The LEAD DATA ARCHITECT or PA's note was reviewed and I agree with the note.
Comment: General: Sedate on the ventilator
Neck: Supple, no JVD, HJR, carotids +2 B/L, no bruits bilaterally.
Heart: Non displaced PMI, RRR, no murmurs, No S3, S4, no rubs.
Lungs: Scattered rhonchi
Extremities: No clubbing, cyanosis or edema bilaterally.
Neuro: Sedate on the ventilator
Patient seen immediately postop status post CABG. On low-dose Levophed at 2 mcg. Remains in sinus rhythm. Continue supportive care. Discussed with nursing. ECG sinus rhythm
Original Note:
Today's Communication / Plan
-
continue supportive post op care
Impression / Plan
-
.
PCP:Alfie Cano
Previous leather belt shaper: none
Impression:
Multivessel CAD s/p CABG x 5, REEVES�LAD, KELY�ramus/OM, aorta- SVG - PVBR/PDA, POD 0
Acute heart failure preserved EF
Hypertensive emergency
acute kidney injury-creatinine to 1.4 after IV diuresis (from baseline 1.0), creatinine 1.2 since 02/28/24, 1.2 03/02/24 postop
Acute shortness of breath
Hypoxia
Elevated troponin
Diabetes mellitus
obstructive sleep apnea on CPAP
h/o HTN
Hyperlipidemia
SVT s/p ablation
essential tremor
EKG 03/02/2024, 13:18: Normal sinus rhythm, normal ST segments
Echo 04/30/2019: Normal LV size, EF 60 to 65%, no valvular heart disease
Echo 02/23/2024: Vigorous LV systolic function with mild cLVH, EF 65 to 70%, mild hypokinesis of apical septum, normal RV size and systolic function
Cardiac catheterization: 02/25/2024: Left main: Mild diffuse plaque; LAD: Proximal 60-70% IFR 0.08; circumflex: OM1 ostial 60-70%, 3 serial lesions in mid circumflex extending into proximal OM 2 up to 90%; RCA: 70% proximal, 80% mid
telemetry personally reviewed 03/02/24: NSR 70s
Plan:
s/p CABG x 5 03/02/24
no blood products intraoperatively
on Levo 2 mcg/min
EKG 03/02/24 Normal sinus rhythm
remained intubated, sedated
creatinine 1.2-stable
Hgb 13.7
supportive postop care
wean as tolerated
eventual statin, beta martha
goal LDL <70 in setting of h/o DM and CAD
DM mgmt per primary team
Progress Note - Scientific Publications Editor
Subjective
Date of Service: March 02, 2024
s/p CABG x5
intubated, sedated
no blood products intaop
on Levo 2 mcg/min
in normal sinus rhythm
Objective
Labs:
03/02/24 13:25
Labs
Hgb 13.1 g/dL (13.0-18.0) 03/02/24 13:25
Hct 37.3 % (39.0-52.0) L 03/02/24 13:25
Plt Count 258 10^3/uL (130-400) 03/02/24 13:25
PT 17.3 Sec (11.4-14.6) H 03/02/24 13:25
INR 1.44 03/02/24 13:25
APTT 32.6 Sec (23.4-35.0) 03/02/24 13:25
Sodium 139 mmol/L (135-145) 03/01/24 05:07
Potassium 4.6 mmol/L (3.5-5.1) 03/01/24 05:07
BUN 25 mg/dl (9-20) H 03/02/24 13:25
Creatinine 1.2 mg/dL (0.7-1.3) 03/02/24 13:25
Glucose 120 mg/dl (70-99) H 03/02/24 13:25
Vital Signs and I&O:
Vital Signs
Temp Pulse Resp BP Pulse Ox
98.3 F 69 16 143/66 96
03/02/24 14:00 03/02/24 14:05 03/02/24 14:00 03/02/24 05:12 03/02/24 14:07
Vital Signs
Temp Pulse Resp BP Pulse Ox
98.3 F 69 16 143/66 96
03/02/24 14:00 03/02/24 14:05 03/02/24 14:00 03/02/24 05:12 03/02/24 14:07
Intake & Output
02/29/24 03/01/24 03/02/24 03/03/24
06:59 06:59 06:59 06:59
Intake Total 900 / 900 440 / 440 94.2 / 94.2
Output Total 1725 / 1725 1750 / 1750 1725 / 1725 340 / 340
Balance -825 / -825 -1750 / -1750 -1285 / -1285 -245.8 / -245.8
Physical Exam
Physical Exam
GEN: intubated, sedate
HEENT: supple, anicteric, mmm
LUNGS:
CV: Reg, S1/S2,+ rub
ABD: soft, BS+, NT/ND
EXT: No edema, LEs cool
SKIN: sternal incision well approximated
[2024-03-02 14:49] LABS: Glucose - Point of Care 143 mg/dl (70-99)
[2024-03-02 15:49] LABS: Glucose - Point of Care 141 mg/dl (70-99)
[2024-03-02 15:54] LABS: B.E. -0.6 mmol/L; HCO3 23.2 mmol/L (21-28); Ionized Calcium 1.26 mMOL/L (1.15-1.33); O2 Saturation % 98.2 % (94-98); PCO2 35 mmHg (35-48); PO2 103 mmHg (83-108); Potassium 5.2 mMOL/L (3.5-5.1); pH 7.43 (7.35-7.45)
--- NOTE | 2024-03-02 16:02 | PTCARENOTE ---
pt extubated by RT as per CT NEEDLE MAKER to CPAP 4L. pt able to state name and , drowsy but oriented x4. pt tolerated pox 94%
--- NOTE | 2024-03-02 16:07 | RESPNOTE ---
Respiratory: patient extubated to CPAP +11 cmH2O and oxygen 4 LPM, without incident @1602 no stridor no wheezes. SpO2 95%.
[2024-03-02] MEDS: PACERONE PO (16:40)
--- NOTE | 2024-03-02 17:00 | PTCARENOTE ---
Pt reassessed. Pt resting with cpap in place. Remains oriented, denies pain and nausea. NSR on tele with rates in the 60s. BP stable off levophed 122/57. POX 93% with 4L with cpap. Surgical sites stable. CT output WNL. All lines remain intact. Urine
output adequate. No other acute changes from previous assessment.
[2024-03-02 17:05] LABS: Glucose - Point of Care 129 mg/dl (70-99)
[2024-03-02 17:41] LABS: Hematocrit 38.1 % (39.0-52.0); Hemoglobin 13.4 g/dL (13.0-18.0); Platelet Count 263 10^3/uL (130-400)
[2024-03-02 18:10] LABS: Glucose - Point of Care 100 mg/dl (70-99)
[2024-03-02] MEDS: LOW STRENGTH ASPIRIN 81 MG PO (18:14)
[2024-03-02] MEDS: DILAUDID 0.25 MG IV (18:20)
--- NOTE | 2024-03-02 20:00 | PTCARENOTE ---
assumed care of pt from previous RN. pt drowsy, oriented x4. SR on tele-monitor. temp epicardial v-wires w/ backup settings 50/3/3. POX 91-94% on 4 L NC. CTx3 (mediastinal, R & L pleural) to -20cm wall suction, draining sanguineous drainage. no air
leaks noted. abd s/n, round. hypoactive BS. no c/o nausea. garsia catheter draining clear, yellow urine. all surgical sites stable. R IJ cordis w/ SLIC. L radial a-line. all lines leveled, zeroed, flushed. PIV intact. see worklist for complete
nursing assessment, interventions, VS, and I&Os.
[2024-03-02] MEDS: ANCEF 5 IV (20:07)
[2024-03-02] MEDS: LYRICA 150 MG PO (20:07)
[2024-03-02] MEDS: SENOKOT-S 1 TABLET PO (20:07)
[2024-03-02 20:21] LABS: Glucose - Point of Care 99 mg/dl (70-99)
[2024-03-02] MEDS: ROXICODONE 5 MG PO (20:22)
[2024-03-02 22:11] LABS: Glucose - Point of Care 112 mg/dl (70-99)
[2024-03-02] MEDS: PACERONE 200 MG PO (22:14)
[2024-03-02] MEDS: LIPITOR 40 MG PO (22:14)
[2024-03-02] MEDS: CYMBALTA DELAYED RELEASE 60 MG PO (22:14)
[2024-03-02] MEDS: TYLENOL 1000 MG PO (22:14)
[2024-03-02] MEDS: DILAUDID 0.5 MG IV (22:15)
[2024-03-03] VITALS (27 sets, daily range): BP systolic 89–149; BP diastolic 54–117; PULSE 69–86; O2SAT 95–99; BMI 31.1
--- NOTE | 2024-03-03 | PTCARENOTE ---
assessment remains unchanged. VSS. pt placed on CPAP w/ 6 L O2 by RT [place]. CT drainage WNL.
[2024-03-03 00:05] LABS: Glucose - Point of Care 99 mg/dl (70-99)
--- NOTE | 2024-03-03 00:55 | W.PN.CT ---
Today's Communication / Plan
-
Plan:
-No major issues overnight. Hemodynamically and neurologically intact
-Successfully extubated on 03/02/24 @ 2330
-Weaned of Levophed gtt, remains on insulin gtt per protocol
-U/O since OR 1015mL
-Monitor chest tube output: 2 meds 60/170, R/L pleurals 60/130. Will likely d/c med CTs and transition Pleurals to bulb suction
-Cont. current meds (ASA, Lipitor, Amiodarone, Lopressor; will add Plavix for vein graft)
-Telemetry phase tomorrow once of insulin gtt
-D/C'd a-line and [facility] this AM @ 0530
-No [place]
-D/C'd garsia this AM @ 0600
-Maintain temporary PW (will cut before d/c home), will insulate
-Maintain cordis (will d/c on POD#3)
-Wean off of O2 as tolerated
-Encourage use of IS
-OOB into chair/Ambulate
Assessment / Plan
-
Assessment:
-S/P Cabg x 5 (pearce - lad, palomo- ramus/om,ao-svg- pvbr/pda)/revh/ jessi (#40 clip)/rsf, by Dr. Rodriguez, 03/02/24, pod#1
-Severe 3v CAD
-NSTEMI (peak trop 0.108)
-Exertional angina
-Acute diastolic CHF
-LVEF 65-70% per echo 02/23/24
-Preop NIRANJAN (cr 1.4 from 0.9)
-Hypertensive emergency
-Hyperlipidemia
-T2DM (A1C 6.1)
-Class 1 obesity (BMI 30.9)
-COLE (uses CPAP)
-Renal calculi
-Restless leg syndrome (on Lyrica)
-Anxiety/Depression
-SVT S/P ablation, 1995
-S/p B/L knee surgery
-S/p R shoulder surgery
-S/P R elbow arthroscopies
-S/P L carpal tunnel release
-S/P L Dupuytren's contracture release
-S/P cervical spine fusion
-S/P Ureteral stent
-S/P B/L carpal tunnel
-S/P Tonsillectomy
-S/P Cholecystectomy
-Acute postop blood loss/anemia (stable without transfusion)
-Acute postop atelectasis
-Acute postop hypovolemia with subsequent hypervolemia
Discussed patient care with: Cardiology, Nursing, Respiratory Therapy, Pharmacy and Care Team
Subjective
Procedure
S/P Cabg x 5 (pearce - lad, palomo- ramus/om,ao-svg- pvbr/pda)/revh/ jessi (#40 clip)/rsf, by Dr. Rodriguez, 03/02/24
-
Date of Service: March 03, 2024
pt c/o incisional pain, otherwise feels well
Objective Data
-
PT 17.3 Sec (11.4-14.6) H 03/02/24 13:25
INR 1.44 03/02/24 13:25
APTT 32.6 Sec (23.4-35.0) 03/02/24 13:25
Vital Signs
Vital Signs
Temp Pulse Resp BP Pulse Ox
96.9 F L 70 20 119/73 91
03/03/24 00:00 03/03/24 00:30 03/03/24 00:30 03/03/24 00:00 03/03/24 00:30
CT Intake/Output/Weight
03/02/24 03/02/24 03/03/24
06:59 18:59 06:59
Intake Total 200 / 440 266.7 / 373.7 107.0 / 373.7
Output Total 750 / 1725 765 / 1045 280 / 1045
Balance -550 / -1285 -498.3 / -671.3 -173.0 / -671.3
SaO2: 92 (6L)
Physical Exam
-
General: Awake, Oriented and AOx3
Cardiovascular: Regular rate & rhythm, Rub and No Gallop
Respiratory: Decreased Breath Sounds
Sternum: Stable
Incision: Clean, Dry, Intact and Dressing Intact
Extremities: No Edema
Data Reviewed
-
Lab Results: Results Reviewed
Medications: Active Meds Reviewed
Chest X-Ray: Report Reviewed and Image Reviewed
ECG: Report Reviewed and Image Reviewed
[2024-03-03] MEDS: ANCEF 5 IV ×2 (04:05→12:26)
[2024-03-03 04:17] LABS: Glucose - Point of Care 103 mg/dl (70-99)
[2024-03-03 04:50] LABS: Hematocrit 35.6 % (39.0-52.0); Hemoglobin 12.5 g/dL (13.0-18.0); Mean Corp Hgb Conc. 35.1 g/dL (33.0-37.0); Mean Corpuscular Volume 82.6 fL (80.0-94.0); Mean Platelet Volume 10.7 fL (7.4-10.4); Platelet Count 289 10^3/uL (130-400); Red Blood Cell Count 4.31 10^6/uL (4.70-6.10); Red Cell Dist. Width 13.1 % (11.5-14.5); White Blood Cell Count 25.8 10^3/uL (4.8-10.8)
[2024-03-03 04:54] LABS: ALT (SGPT) 44 U/L (0-50); AST (SGOT) 78 U/L (17-59); Albumin 3.6 g/dl (3.5-5.0); Alkaline Phosphatase 65 U/L (38-126); Blood Urea Nitrogen 34 mg/dl (9-20); Calcium 9.2 mg/dl (8.4-10.2); Carbon Dioxide 22 mmol/L (22-30); Chloride 105 mmol/L (98-107); Estimated Creatinine Clearance 83 ml/min; Glucose 105 mg/dl (70-99); Magnesium 2.1 mg/dl (1.6-2.3); Potassium 5.1 mmol/L (3.5-5.1); Sodium 138 mmol/L (135-145); Total Bilirubin 1.2 mg/dl (0.2-1.3); Total Protein 6.1 g/dl (6.3-8.2); eGFR > 60.00
[2024-03-03 05:01] LABS: % Basophils 0.2 % (0-2); % Immature Granulocytes 0.8 % (0-0.5); % Lymphocytes 5.7 % (20.5-51.1); % Monocytes 8.4 % (1.7-9.3); % Neutrophils 84.9 % (42.2-75.2); Absolute Basophils 0.1 10^3/uL (0-0.2); Absolute Immature Granulocytes 0.2 10^3/uL (0-0.05); Absolute Lymphocytes 1.5 10^3/uL (1.2-3.4); Absolute Monocytes 2.2 10^3/uL (0.1-0.6); Absolute Neutrophils 21.9 10^3/uL (1.4-6.5); Nucleated Red Blood Cells % 0 % (-)
[2024-03-03] MEDS: TYLENOL 1000 MG PO ×3 (05:53→21:58)
[2024-03-03] MEDS: FLEXERIL 5 MG PO ×2 (05:54→16:59)
[2024-03-03] MEDS: ROXICODONE 5 MG PO ×3 (06:20→19:55)
[2024-03-03 06:23] LABS: Glucose - Point of Care 100 mg/dl (70-99)
--- NOTE | 2024-03-03 07:37 | W.PN.INTV ---
Today's Communication / Plan
Recommendations
Tolerated extubation
Wean FiO2
Wean norepinephrine
Continues on insulin drip-remains in ICU
Increase activity
Outpatient pulmonary follow-up
Assessment
-
63-year-old male with history of hypertension, hyperlipidemia, COLE, SVT status post ablation, diabetes, renal calculi and restless leg syndrome presented with sudden onset shortness of breath with workup revealing NSTEMI and significant CAD and
underwent CABG-tool adjuster consulted for postoperative ventilator/critical care management 03/02/2024.
CAD-multivessel
Status post CABG x 5-REEVES-LAD, KELY-ramus/OM, ao-SVG-PVR/PDA-Dr. Rodriguez 03/02/2024
Mild leukocytosis-WBC 11.1
Mild hyperglycemia
Acute CHF with preserved EF
NIRANJAN after diuresis
Conditions present prior to admission:
Hypertension.
Hyperlipidemia.
COLE-compliant with CPAP
Insomnia on Eszopiclone 3 mg at night
Diabetes.
Renal calculi.
SVT/ablation.
Restless leg syndrome.
Essential tremor
Cholecystectomy. Tonsillectomy. Left hand surgery. Right elbow surgery. Right shoulder surgery. Right knee surgery. Sinus surgery. Circumcision. Right eye surgery.
Plan
Tolerated extubation
Wean FiO2
Encourage incentive spirometry
Increase activity
Aspiration precautions
Pulmonary artery catheter and arterial line will be removed
Pressors have been weaned
Continue to monitor chest tube output
Follow hemoglobin
Continue to follow platelet count and coags
Transfuse blood product as needed
CT surgery following chest tubes as well
Follow blood sugar
Insulin supplementation continues as needed
Early nutrition
Early mobilization
DVT prophylaxis
The patient was last seen in the pulmonary office by Sharon Lombardi JACK SETTER/ Dr Martinez 01/30/2023 for COLE/CPAP compliance-told to follow-up in 1 year
Patient will be transferred to telemetry phase-call pulmonary if respiratory issues arise
Reviewed the patient's pertinent medical records including radiographs, microbiology, laboratory evaluations, and discussion with primary team, and critical care nursing.
Diagnostic data:
Chest x-ray 02/22/2024-mild CHF
CT chest 02/22/2024-no evidence for pulm embolism, mild interstitial alveolar edema, possible superimposed pneumonia in the upper lobes
Echocardiogram 02/23/2024-EF 65-70%, no valvular disease
Cardiac catheterization 02/25/2024-Significant multivessel CAD, elevated left ventricular end-diastolic pressure 20
Sleep study 2012-AHI 40-120, desaturation lisha 91%
Subjective Dataa
Subjective Data
Date of Service:
Date of Service: March 03, 2024
Chief Complaint: Electromechanic Follow Up, Pulmonary Follow Up and Vent Management Follow Up
Subjective:
Tolerated extubation, no complaints of shortness of breath, no chest pain, abdominal pain or leg swelling
Review of Systems
General: Other (Per HPI)
Objective Data
Data Reviewed
Vital Signs / I&O / Oxygen:
Vital Signs
Temp Pulse Resp BP Pulse Ox
97.6 F 77 15 121/64 91
03/03/24 05:00 03/03/24 07:00 03/03/24 05:00 03/03/24 07:00 03/03/24 07:00
Intake and Output
03/02/24 03/03/24 03/04/24
06:59 06:59 06:59
Intake Total 440 / 440 501.1 / 501.1
Output Total 1725 / 1725 1315 / 1315
Balance -1285 / -1285 -813.9 / -813.9
SaO2 [CPAP/PSV] 97
SaO2 [SIMV] 96
SaO2 91
Nasal Cannula flow liters per 6
minute
Physical Exam
General: Respiratory Distress (n) and Comfortable
HEENT: Normocephalic, Anicteric and Moist Mucous Membranes
Cardiovascular: Regular Rhythm
Respiratory: Crackles (n), Rhonchi (n), Non-Labored Respirations, Accessory Resp Muscle Use (n) and Stridor
GI: Soft, Non Distended and Non Tender
Neurology: Awake, Alert and No Motor Deficits
Skin: Warm, Good Color, Cyanosis (n), Jaundice (n) and Rash (n)
Labs/Micro/Reports
Lab Data
03/03/24 04:16
03/03/24 04:16
Laboratory Results
03/02/24 03/02/24 03/02/24
13:25 14:25 15:45
PT 17.3 H
INR 1.44
APTT 32.6
pH 7.31 L Cancelled 7.43
pCO2 51 H Cancelled 35
pO2 71 L Cancelled 103
HCO3 25.7 Cancelled 23.2
O2 Delivery Level Cancelled
[2024-03-03 07:48] LABS: Glucose - Point of Care 113 mg/dl (70-99)
[2024-03-03 07:48] LABS: Glucose - Point of Care 108 mg/dl (70-99)
--- NOTE | 2024-03-03 07:51 | W.PN.ANS.POP ---
Anesthesia Post Operative
- Anesthesia Post Op Note
Vital Signs Stable-See Nursing Note: Yes
Airway Patent: Yes
Adequate Pain Control: Yes
Change in Mental Status: No
Current Postoperative Nausea & Vomiting: No
Anesthesia Complications: No
General Anesthetic Recall: No
Unplanned Admission: No
Post Op Hydration Adequate: Yes
[2024-03-03] MEDS: NOVOLOG FLEXPEN SC (07:55)
--- NOTE | 2024-03-03 08:00 | PTCARENOTE ---
Patient received from night baker resting oob in chair, AAO X 3. NSR via cm, SaO2 @ 94% on 4lnc. RIJ Cordis w/kvo infusing. Epicardial V-wire to pulse generator, no spikes noted. Mediastinal, L and R pleural chest tubes (to separate pleurevacs) to
-20cm suction, no air leaks noted. Insulin infusing peripherally, titrating per glycemic protocol. All procedural sites stable. Patient updated to plan of care for the day, in agreement. See work list for full assessment and interventions performed.
[2024-03-03] MEDS: TORADOL 15 MG IV (08:27)
[2024-03-03] MEDS: PLAVIX 75 MG PO (08:30)
[2024-03-03] MEDS: PROTONIX 40 MG PO (08:30)
[2024-03-03] MEDS: LOW STRENGTH ASPIRIN 81 MG PO (08:30)
[2024-03-03] MEDS: LOPRESSOR 12.5 MG PO (08:31)
[2024-03-03] MEDS: SENOKOT-S 1 TABLET PO ×2 (08:31→19:55)
[2024-03-03] MEDS: LYRICA 150 MG PO ×2 (08:31→19:55)
[2024-03-03] MEDS: MAGNESIUM OXIDE 500 MG PO ×2 (08:31→19:55)
[2024-03-03] MEDS: PACERONE 200 MG PO ×3 (08:31→21:58)
[2024-03-03] MEDS: BACTROBAN 2% OINTMENT 1 APPLIC NASAL ×2 (08:32→19:56)
--- NOTE | 2024-03-03 09:25 | W.PN.CARDCBS ---
Addendum entered and electronically signed by Gab Albert MD 03/03/24 14:14:
I saw and examined the patient.
The Side Show Entertainer's note was reviewed and I agree with the note.
Comment: Briefly, 63-year-old man presenting with hypertensive emergency which precipitated decompensated heart failure and patient subsequently ruled in for NSTEMI with low level rising troponin.
Invasive coronary angiography revealed multivessel coronary disease and he underwent CABG x 5 on 03/02/2024.
Hemodynamically stable, not requiring inotrope or pressor support
Underwent IV diuresis with improvement in his volume status leading up to the OR. Appears euvolemic on exam today.
ST elevations noted on ECG, would monitor for symptoms of pericarditis
Agree with current cardiac meds
We will continue to follow
Original Note:
Today's Communication / Plan
-
continue post op care
in SR
Impression / Plan
-
.
PCP:Alfie Cano
Previous caseworker protective services: none
Impression:
Multivessel CAD s/p CABG x 5, REEVES�LAD, KELY�ramus/OM, aorta- SVG - PVBR/PDA 03/02/24
NSTEMI, peak trop 0.108
Acute heart failure preserved EF
Hypertensive emergency
acute kidney injury-creatinine to 1.4 after IV diuresis (from baseline 1.0), creatinine 1.2 since 02/28/24, 1.2 03/02/24 postop
Shortness of breath
Hypoxia
Diabetes mellitus
obstructive sleep apnea on CPAP
h/o HTN
Hyperlipidemia
SVT s/p ablation
essential tremor
EKG 03/02/2024, 13:18: Normal sinus rhythm, normal ST segments
Echo 04/30/2019: Normal LV size, EF 60 to 65%, no valvular heart disease
Echo 02/23/2024: Vigorous LV systolic function with mild cLVH, EF 65 to 70%, mild hypokinesis of apical septum, normal RV size and systolic function
Cardiac catheterization: 02/25/2024: Left main: Mild diffuse plaque; LAD: Proximal 60-70% IFR 0.08; circumflex: OM1 ostial 60-70%, 3 serial lesions in mid circumflex extending into proximal OM 2 up to 90%; RCA: 70% proximal, 80% mid
telemetry personally reviewed 03/02/24: NSR 70s
Plan:
-s/p CABG x 5 03/02/24
-off pressors
-post op EKG reviewed, SR with NSSTS
-wean supp O2
-hgb 12.5. on asa. plavix added today for VG
-continue statin. goal LDL <70
-OOB/IS as able
-pre-admission patient was on lisinopril 10mg daily and propranolol 20mg BID
-DM mgmt
-d/w nursing
Progress Note - Deicer Element Winder Machine
Subjective
Date of Service: March 03, 2024
reports pain controlled. some pain with deep breaths
Objective
Labs:
03/03/24 04:16
03/03/24 04:16
Labs
Hgb 12.5 g/dL (13.0-18.0) L 03/03/24 04:16
Hct 35.6 % (39.0-52.0) L 03/03/24 04:16
Plt Count 289 10^3/uL (130-400) 03/03/24 04:16
PT 17.3 Sec (11.4-14.6) H 03/02/24 13:25
INR 1.44 03/02/24 13:25
APTT 32.6 Sec (23.4-35.0) 03/02/24 13:25
Sodium 138 mmol/L (135-145) 03/03/24 04:16
Potassium 5.1 mmol/L (3.5-5.1) 03/03/24 04:16
BUN 34 mg/dl (9-20) H 03/03/24 04:16
Creatinine 1.2 mg/dL (0.7-1.3) 03/03/24 04:16
Glucose 105 mg/dl (70-99) H 03/03/24 04:16
Vital Signs and I&O:
Vital Signs
Temp Pulse Resp BP Pulse Ox
97.6 F 75 15 144/65 94
03/03/24 05:00 03/03/24 08:31 03/03/24 08:00 03/03/24 08:31 03/03/24 08:39
Vital Signs
Temp Pulse Resp BP Pulse Ox
97.6 F 75 15 144/65 94
03/03/24 05:00 03/03/24 08:31 03/03/24 08:00 03/03/24 08:31 03/03/24 08:39
Intake & Output
03/01/24 03/02/24 03/03/24 03/04/24
07:59 07:59 07:59 07:59
Intake Total 440 / 440 501.1 / 524.5 23.4 / 23.4
Output Total 1750 / 1750 1725 / 1725 1315 / 1335 20 / 20
Balance -1750 / -1750 -1285 / -1285 -813.9 / -810.5 3.4 / 3.4
Physical Exam
Physical Exam
GEN: No distress, awake, alert, oriented x3. sitting in chair. on supp O2
HEENT: supple, anicteric, mmm, eomi
LUNGS: Decreased BS B/L, no wheezes
CV: Reg, S1/S2, no murmur, +rub
ABD: soft, NT/ND
EXT: No cyanosis, clubbing, edema. RLE with kamran wrap in place
NEURO: Gross non-focal
SKIN: Warm, pink, dry. No rash. Sternotomy incision c/d/i. CTs in place. temp wire in place
[2024-03-03 10:14] LABS: Glucose - Point of Care 145 mg/dl (70-99)
--- NOTE | 2024-03-03 10:46 | PN.DE.MGMTRT ---
Insulin Management
- -
03/03/2024 Diabetes Management Consult
Patient admitted 02/21 sudden onset dyspnea, cardiac cath 02/24, OR 03/02 for CABG x 5. PMH SVT, HTN, HCL, diabetes. Patient did attend outpatient diabetes classes ~ 20 years ago. Prior to admission states he was taking 90 units of Toujeo in AM with
a sliding scale of insulin for meals (sliding scale starts at 70 to 99 = 14 units up to 399 = 29 units). A1C on admission 6.1% cr 1.2, eGFR > 60. Routinely sees Anjel Miller PA-C at [facility].
Since admission patient has received 64 units lantus in AM with novolog 4 units AC, with corrective insulin.
Patient is awake alert and oriented oob in chair, at bedside also. Able to discuss diabetes management. Patient states he did use DexCom but he felt it was too expensive now pricks his finger, not sure of name of meter. will research
insurance coverage to resume DexCom.
POD 1 s/p CABG x 5. Currently on glycemic protocol requiring 1.3 to 3 units of insulin per hour. Will remain on glycemic protocol today, assess for readiness to transition back to insulin with metformin and SGLT2 if affordable.
and patient request dietary consult to 'start Fresh'.
Discussed starting Farxiga or Jardiance, whichever is covered by insurance patient is agreeable to have CM check stanley.
Diabetes History
- -
Type of Diabetes: 2 requiring insulin
Pre-Admission Diabetes Regimen
03/02/24 03/03/24
13:25 04:16
Creatinine 1.2 1.2
Lab Results
Hemoglobin A1c 6.1 % (4.0-5.6) H 02/23/24 03:59
Insulin Pump Settings
IP Diabetes Regimen
03/02/24 03/02/24 03/02/24
13:24 13:25 14:48
Glucose 120 H
POC Glucose 114 H 143 H
03/02/24 03/02/24 03/02/24
15:47 17:04 18:09
Glucose
POC Glucose 141 H 129 H 100 H
03/02/24 03/02/24 03/03/24
20:19 22:09 00:05
Glucose
POC Glucose 99 112 H 99
03/03/24 03/03/24 03/03/24
02:06 04:15 04:16
Glucose 105 H
POC Glucose 108 H 103 H
03/03/24 03/03/24 03/03/24
06:22 07:47 10:12
Glucose
POC Glucose 100 H 113 H 145 H
Meal type: Breakfast
Amount consumed: 100%
Patient Education
--- NOTE | 2024-03-03 10:57 | CM ---
Addendum entered by Marily Whitaker RN 03/03/24 12:18:
Patient qualifies for the free copay card. I placed a $0 co pay card in the patient's red discharge folder.
Original Note:
Pricing on Farxiga 10mg for a 30 day supply is $25 a month
Jardiance 10mg for a 30 day supply is $35 a month.
Licensed Architect is placing patient on Farxiga, free 30 day coupon placed in patient's red discharge folder.
[2024-03-03 12:00] LABS: Glucose - Point of Care 123 mg/dl (70-99)
[2024-03-03] MEDS: NOVOLOG FLEXPEN 4 UNITS SC ×2 (12:00→17:33)
--- NOTE | 2024-03-03 12:05 | PTCARENOTE ---
VS obtained, assessment unchanged. Patient resting oob in recliner.
[2024-03-03] MEDS: NSS IV (12:06)
--- NOTE | 2024-03-03 12:19 | CM ---
Jenny reviewed. Patient is independent of ADLS, lives with his in a 1 S[address], 1 SUSIE, 0 DME. Plan is for the patient to return home with CT Transitional RN.
[2024-03-03 14:00] LABS: Glucose - Point of Care 164 mg/dl (70-99)
[2024-03-03 16:01] LABS: Glucose - Point of Care 167 mg/dl (70-99)
--- NOTE | 2024-03-03 16:05 | PTCARENOTE ---
VS obtained, assessment stable. Patient remains oob in chair, resting comfortably.
[2024-03-03 17:05] LABS: Glucose - Point of Care 148 mg/dl (70-99)
[2024-03-03 18:05] LABS: Glucose - Point of Care 125 mg/dl (70-99)
[2024-03-03 18:59] LABS: Glucose - Point of Care 230 mg/dl (70-99)
[2024-03-03] MEDS: LOPRESSOR 25 MG PO (19:55)
[2024-03-03 20:06] LABS: Glucose - Point of Care 174 mg/dl (70-99)
--- NOTE | 2024-03-03 21:00 | PTCARENOTE ---
Assumed care of pt from dayshift RN. Walking rounds completed. Pt AAOx3. SR on the tele monitor. HR 80s. Temporary epicardial v-wire intact and insulated. +Rub. Palpable pulses throughout. Trace edema. Pt on 3 L NC. POX 94%. Lung sounds diminished.
Deep breathing and IS encouraged. L/R pleural CT to -20 suction, no air-leak noted at this time, and output WNL. Abdomen round/nontender. +BS. Denies nausea. Pt was DTV post Espinal catheter removal. Pt able to stand and void 400 mL yellow urine in
the urinal w/o issue. Sternal incision approximated w/ surgical adhesive and and ENVIRONMENTAL SUSTAINABILITY MANAGER. Right leg SVG site approximated w/ surgical adhesive and ALCON. Left AC PIV and right IJ cordis CDI. Glycemic protocol followed. See MAR for pain med administration.
Pt assisted out of the chair w/ assist x2 and into the bathroom. Pt then repositioned in bed. See worklist for full nursing assessment and interventions. Call bliss within reach.
[2024-03-03 21:58] LABS: Glucose - Point of Care 156 mg/dl (70-99)
[2024-03-03] MEDS: LIPITOR 40 MG PO (21:58)
[2024-03-03] MEDS: CYMBALTA DELAYED RELEASE 60 MG PO (21:58)
[2024-03-04] VITALS (26 sets, daily range): BP systolic 108–186; BP diastolic 56–99; PULSE 76–80; O2SAT 90–96; BMI 31.7
[2024-03-04 00:10] LABS: Glucose - Point of Care 152 mg/dl (70-99)
--- NOTE | 2024-03-04 00:55 | PTCARENOTE ---
Previous assessment unchanged. Pt SR on the tele monitor. HR 80s. BP stable. Pt using CPAP machine. POX 92-94%. CT assessment unchanged from previous. All surgical sites stable. Glycemic protocol followed. Pt repositioned in bed. Call bliss within
reach.
[2024-03-04 01:07] LABS: Glucose - Point of Care 124 mg/dl (70-99)
[2024-03-04 02:05] LABS: Glucose - Point of Care 127 mg/dl (70-99)
[2024-03-04] MEDS: NOVOLIN R INSULIN INFUSION 100 IV (03:08)
[2024-03-04 03:17] LABS: Glucose - Point of Care 95 mg/dl (70-99)
--- NOTE | 2024-03-04 03:31 | PTCARENOTE ---
Pt reassessed. Remains SR on the tele monitor. HR 70s-80s. BP stable. Pt using CPAP machine. POX 97%. All surgical sites stable. CT assessment unchanged and output appropriate. Glycemic protocol followed. Labs drawn and sent. Pt states pain is
controlled at this time. Pt repositioned. Call bliss within reach.
[2024-03-04 03:54] LABS: Hematocrit 29.9 % (39.0-52.0); Hemoglobin 10.6 g/dL (13.0-18.0); Mean Corp Hgb Conc. 35.5 g/dL (33.0-37.0); Mean Corpuscular Hgb 29.4 pg (27.0-31.0); Mean Corpuscular Volume 83.1 fL (80.0-94.0); Mean Platelet Volume 11.1 fL (7.4-10.4); Platelet Count 249 10^3/uL (130-400); Red Cell Dist. Width 13.2 % (11.5-14.5); White Blood Cell Count 22.4 10^3/uL (4.8-10.8)
[2024-03-04 04:14] LABS: Glucose - Point of Care 101 mg/dl (70-99)
[2024-03-04 04:18] LABS: Blood Urea Nitrogen 48 mg/dl (9-20); Calcium 8.9 mg/dl (8.4-10.2); Carbon Dioxide 25 mmol/L (22-30); Chloride 98 mmol/L (98-107); Estimated Creatinine Clearance 72 ml/min; Glucose 93 mg/dl (70-99); Magnesium 2.2 mg/dl (1.6-2.3); Potassium 4.7 mmol/L (3.5-5.1); Sodium 135 mmol/L (135-145); eGFR 56.83
[2024-03-04] MEDS: TYLENOL 1000 MG PO ×3 (05:26→21:59)
--- NOTE | 2024-03-04 05:34 | W.PN.CT ---
Today's Communication / Plan
-
-pod #2
-no issues overnight
-drips: insulin
-CT output: b/l pleur 60/110 in 12/24 hrs
-continue current meds
-takes Lunesta and Cymbalta at night for over 10 yrs. Held Lunesta while getting narcotics
-encourage IS, OOB
Assessment / Plan
-
Assessment:
-S/P Cabg x 5 (pearce - lad, palomo- ramus/om,ao-svg- pvbr/pda)/revh/ jessi (#40 clip)/rsf, by Dr. Rodriguez, 03/02/24, pod#2
-Severe 3v CAD
-NSTEMI (peak trop 0.108)
-Exertional angina
-Acute diastolic CHF
-LVEF 65-70% per echo 02/23/24
-Preop NIRANJAN (cr 1.4 from 0.9)
-Hypertensive emergency
-Hyperlipidemia
-T2DM (A1C 6.1)
-Class 1 obesity (BMI 30.9)
-COLE (uses CPAP)
-Renal calculi
-Restless leg syndrome (on Lyrica)
-Anxiety/Depression
-SVT S/P ablation, 1995
-S/p B/L knee surgery
-S/p R shoulder surgery
-S/P R elbow arthroscopies
-S/P L carpal tunnel release
-S/P L Dupuytren's contracture release
-S/P cervical spine fusion
-S/P Ureteral stent
-S/P B/L carpal tunnel
-S/P Tonsillectomy
-S/P Cholecystectomy
-Acute postop blood loss/anemia (stable without transfusion)
-Acute postop atelectasis
-Acute postop hypovolemia with subsequent hypervolemia
Discussed patient care with: Nursing and Care Team
Subjective
Procedure
S/P Cabg x 5 (pearce - lad, palomo- ramus/om,ao-svg- pvbr/pda)/revh/ jessi (#40 clip)/rsf, by Dr. Rodriguez, 03/02/24
-
Date of Service: March 04, 2024
Objective Data
-
Lab Results
03/04/24 03:21
03/04/24 03:21
PT 17.3 Sec (11.4-14.6) H 03/02/24 13:25
INR 1.44 03/02/24 13:25
APTT 32.6 Sec (23.4-35.0) 03/02/24 13:25
Vital Signs
Vital Signs
Temp Pulse Resp BP Pulse Ox
98.5 F 78 20 128/69 94
03/04/24 04:00 03/04/24 05:00 03/04/24 05:00 03/04/24 05:00 03/04/24 05:00
CT Intake/Output/Weight
03/03/24 03/03/24 03/04/24
06:59 18:59 06:59
Intake Total 234.4 / 501.1 1045.1 / 1214.9 169.8 / 1214.9
Output Total 550 / 1315 60 / 870 810 / 870
Balance -315.6 / -813.9 985.1 / 344.9 -640.2 / 344.9
SaO2: 94
[2024-03-04 06:40] LABS: Glucose - Point of Care 105 mg/dl (70-99)
--- NOTE | 2024-03-04 07:35 | W.PN.INTV ---
Today's Communication / Plan
Recommendations
Wean oxygen
Increase activity
Monitor chest tube output
Insulin drip likely will be converted
Diabetic nurse practitioner following
Likely transferred to telemetry-sole tacker will sign off-call pulmonary if respiratory issues arise
Outpatient sleep disorders follow-up yearly-reminder placed on chart
Assessment
-
63-year-old male with history of hypertension, hyperlipidemia, COLE, SVT status post ablation, diabetes, renal calculi and restless leg syndrome presented with sudden onset shortness of breath with workup revealing NSTEMI and significant CAD and
underwent CABG-sole tacker consulted for postoperative ventilator/critical care management 03/02/2024.
CAD-multivessel
Status post CABG x 5-REEVES-LAD, KELY-ramus/OM, ao-SVG-PVR/PDA-Dr. Rodriguez 03/02/2024
Mild leukocytosis-WBC 11.1
Mild hyperglycemia
Acute CHF with preserved EF
NIRANJAN after diuresis
Conditions present prior to admission:
Hypertension.
Hyperlipidemia.
COLE-compliant with CPAP
Insomnia on Eszopiclone 3 mg at night
Diabetes.
Renal calculi.
SVT/ablation.
Restless leg syndrome.
Essential tremor
Cholecystectomy. Tonsillectomy. Left hand surgery. Right elbow surgery. Right shoulder surgery. Right knee surgery. Sinus surgery. Circumcision. Right eye surgery.
Plan
Respiratory and hemodynamic status stable
Wean FiO2 to room air if possible
Encourage incentive spirometry
Increase activity
Aspiration precautions
On CPAP at home
Also takes Lunesta at home-on hold while on narcotics
Patient has been declined and pressors are weaned
Continue to monitor chest tube output
Follow hemoglobin
Continue to follow platelet count and coags
Transfuse blood product as needed
CT surgery following chest tubes as well
Follow blood sugar
Insulin drip likely converted today
Diabetic nurse practitioner following-correspondence reviewed-possibly starting Farxiga or Jardiance
Early nutrition
Early mobilization
DVT prophylaxis
The patient was last seen in the pulmonary office by Sharon Lombardi NP/ Dr Martinez 01/30/2023 for COLE/CPAP compliance-told to follow-up in 1 year
Patient will be transferred to telemetry phase-call pulmonary if respiratory issues arise
Reviewed the patient's pertinent medical records including radiographs, microbiology, laboratory evaluations, and discussion with primary team, and critical care nursing.
Diagnostic data:
Chest x-ray 02/22/2024-mild CHF
CT chest 02/22/2024-no evidence for pulm embolism, mild interstitial alveolar edema, possible superimposed pneumonia in the upper lobes
Echocardiogram 02/23/2024-EF 65-70%, no valvular disease
Cardiac catheterization 02/25/2024-Significant multivessel CAD, elevated left ventricular end-diastolic pressure 20
Sleep study 2012-AHI 40-120, desaturation lisha 91%
Subjective Dataa
Subjective Data
Date of Service:
Date of Service: March 04, 2024
Chief Complaint: Die Turner Follow Up, Pulmonary Follow Up and Vent Management Follow Up
Subjective:
Out of bed, feels improved, less shortness of breath, pain controlled, no abdominal pain
Review of Systems
General: Other (Per HPI)
Objective Data
Data Reviewed
Vital Signs / I&O / Oxygen:
Vital Signs
Temp Pulse Resp BP Pulse Ox
98.5 F 75 20 108/58 94
03/04/24 04:00 03/04/24 07:00 03/04/24 05:00 03/04/24 07:00 03/04/24 06:11
Intake and Output
03/03/24 03/04/24 03/05/24
06:59 06:59 06:59
Intake Total 501.1 / 501.1 1227.3 / 1227.3
Output Total 1315 / 1315 900 / 900
Balance -813.9 / -813.9 327.3 / 327.3
SaO2 [CPAP/PSV] 97
SaO2 [SIMV] 96
SaO2 94
Nasal Cannula flow liters per 3
minute
Physical Exam
General: Respiratory Distress (n) and Comfortable
HEENT: Normocephalic, Anicteric and Moist Mucous Membranes
Cardiovascular: Regular Rhythm
Respiratory: Crackles (n), Rhonchi (n), Non-Labored Respirations, Accessory Resp Muscle Use (n) and Stridor
GI: Soft, Non Distended and Non Tender
Neurology: Awake, Alert and No Motor Deficits
Skin: Warm, Good Color, Cyanosis (n), Jaundice (n) and Rash (n)
Labs/Micro/Reports
Lab Data
03/04/24 03:21
03/04/24 03:21
[2024-03-04 07:38] LABS: Glucose - Point of Care 89 mg/dl (70-99)
[2024-03-04] MEDS: NOVOLOG FLEXPEN 4 UNITS SC (07:43)
[2024-03-04] MEDS: LOW STRENGTH ASPIRIN 81 MG PO (08:13)
[2024-03-04] MEDS: SENOKOT-S 1 TABLET PO ×2 (08:13→20:34)
[2024-03-04] MEDS: PLAVIX 75 MG PO (08:13)
[2024-03-04] MEDS: LYRICA 150 MG PO ×2 (08:13→20:34)
[2024-03-04] MEDS: LOPRESSOR 25 MG PO ×2 (08:13→20:34)
[2024-03-04] MEDS: PACERONE 200 MG PO ×3 (08:14→21:59)
[2024-03-04] MEDS: MAGNESIUM OXIDE 500 MG PO ×2 (08:14→20:34)
[2024-03-04] MEDS: PROTONIX 40 MG PO (08:14)
[2024-03-04] MEDS: BACTROBAN 2% OINTMENT 1 APPLIC NASAL ×2 (08:14→20:34)
--- NOTE | 2024-03-04 08:20 | PN.DE.MGMTRT ---
Insulin Management
- -
03/04/2024 Diabetes Management Consult Follow up
Patient admitted 02/21 sudden onset dyspnea, cardiac cath 02/24, OR 03/02 for CABG x 5. PMH SVT, HTN, HCL, diabetes. Patient did attend outpatient diabetes classes ~ 20 years ago. Prior to admission states he was taking 90 units of Toujeo in AM with
a sliding scale of insulin for meals (sliding scale starts at 70 to 99 = 14 units up to 399 = 29 units). A1C on admission 6.1% cr 1.2, eGFR > 60. Routinely sees Anjel Miller PA-C at [facility].
Since admission patient has received 64 units lantus in AM with novolog 4 units AC, with corrective insulin.
Patient is awake alert and oriented oob in chair, at bedside also. Able to discuss diabetes management. Patient states he did use DexCom but he felt it was too expensive now pricks his finger, not sure of name of meter. will research
insurance coverage to resume DexCom.
and patient request dietary consult to 'start Fresh', order placed 03/03.
POD 2 s/p CABG x 5. Currently on glycemic protocol requiring 1.3 to 9 units of insulin per hour. Will remain on glycemic protocol until after dinner. At 8pm will give 64 units lantus, insulin infusion off 2 hours later. Will start metformin 1000
mg BID this AM and Farxiga 10 mg daily first dose now. 03/05 to resume AC novolog at 5 units AC.
Diabetes History
- -
Type of Diabetes: 2 requiring insulin
Pre-Admission Diabetes Regimen
03/04/24
03:21
Creatinine 1.4 H
Lab Results
Hemoglobin A1c 6.1 % (4.0-5.6) H 02/23/24 03:59
Insulin Pump Settings
IP Diabetes Regimen
03/03/24 03/03/24 03/03/24
10:12 11:59 13:57
Glucose
POC Glucose 145 H 123 H 164 H
03/03/24 03/03/24 03/03/24
15:59 17:03 18:04
Glucose
POC Glucose 167 H 148 H 125 H
03/03/24 03/03/24 03/03/24
18:58 20:04 21:57
Glucose
POC Glucose 230 H 174 H 156 H
03/04/24 03/04/24 03/04/24
00:09 01:05 02:04
Glucose
POC Glucose 152 H 124 H 127 H
03/04/24 03/04/24 03/04/24
03:16 03:21 04:13
Glucose 93
POC Glucose 95 101 H
03/04/24 03/04/24
06:39 07:37
Glucose
POC Glucose 105 H 89
Meal type: Lunch
Meal type: Breakfast
Amount consumed: 90%
Amount consumed: 100%
Patient Education
--- NOTE | 2024-03-04 09:27 | PTCARENOTE ---
assumed care of pt from previous shift RN, sinus rhythm on tele, VSS, epicardial wires insulated, + peripheral pulses, no edema. Lungs diminished, pox 94% on 4L NC. Coughing and deep breathing encouraged. +bs, tolerating PO intake. Voids
spontaneously. Right IJ corids w KVO and insulin infusing, PIV flushes easily. CTs w minimal amount of drainage. Post op sites intact. Plan of care reviewed w the pt and questions encouraged.
[2024-03-04] MEDS: FARXIGA 10 MG PO (09:39)
[2024-03-04 09:45] LABS: Glucose - Point of Care 206 mg/dl (70-99)
[2024-03-04 10:39] LABS: Glucose - Point of Care 183 mg/dl (70-99)
--- NOTE | 2024-03-04 11:34 | CM ---
Chart reviewed. Patient is independent of ADLS, lives with his in a 1 SH, 1 SUSIE, 0 DME. Plan is for the patient to return home with CT Transitional RN. CM to follow
[2024-03-04 11:54] LABS: Glucose - Point of Care 225 mg/dl (70-99)
--- NOTE | 2024-03-04 11:56 | W.PN.CARDCBS ---
Addendum entered and electronically signed by Eloy Roldan MD 03/04/24 18:32:
Patient states he feels well postop day 2
PMH/PSH/SH/FH: Reviewed
No allergies
Current meds reviewed
ROS negative except as above
125/99, pulse 83, head neck exam unremarkable, lungs are clear, incision and endovascular vein harvest site intact, regular rate and rhythm, no murmurs no rub, abdomen benign, minimal edema, neuromusculoskeletal intact
chest x-ray chest tubes in place, limited inspiration, clip in place
Hemoglobin 10.6, white count 22.4, BUN/creatinine 48 and 1.4, creatinine had been 1.2
EKG yesterday: Likely pericarditis
Impression:
Multivessel CAD s/p CABG x 5, REEVES�LAD, KELY�ramus/OM, aorta- SVG - PVBR/PDA 03/02/24, POD 2 status post atrial clip
ACS
acute kidney injury-creatinine to 1.4 after IV diuresis (from baseline 1.0), 1.2 03/02/24, 1.4 03/04/24
Acute heart failure preserved EF
Hypertensive emergency
Shortness of breath
Hypoxia
Diabetes mellitus
obstructive sleep apnea on CPAP
h/o HTN
Hyperlipidemia
SVT s/p ablation
essential tremor
Plan:
Doing well postop day 2
Follow creatinine.
Appreciate efforts of CT surgery
Original Note:
Today's Communication / Plan
-
continue post op care
remains in NSR
watch creatinine
Impression / Plan
-
.
PCP:Alfie Cano
Previous jack frame tender: none
Impression:
Multivessel CAD s/p CABG x 5, REEVES�LAD, KELY�ramus/OM, aorta- SVG - PVBR/PDA 03/02/24, POD 2
acute postop blood loss anemia
NSTEMI, peak trop 0.108
acute kidney injury-creatinine to 1.4 after IV diuresis (from baseline 1.0), 1.2 03/02/24, 1.4 03/04/24
Acute heart failure preserved EF
Hypertensive emergency
Shortness of breath
Hypoxia
Diabetes mellitus
obstructive sleep apnea on CPAP
h/o HTN
Hyperlipidemia
SVT s/p ablation
essential tremor
EKG 03/03/2024, 0427: Normal sinus rhythm, nonspecific ST-T wave abnormality
Echo 04/30/2019: Normal LV size, EF 60 to 65%, no valvular heart disease
Echo 02/23/2024: Vigorous LV systolic function with mild cLVH, EF 65 to 70%, mild hypokinesis of apical septum, normal RV size and systolic function
Cardiac catheterization: 02/25/2024: Left main: Mild diffuse plaque; LAD: Proximal 60-70% IFR 0.08; circumflex: OM1 ostial 60-70%, 3 serial lesions in mid circumflex extending into proximal OM 2 up to 90%; RCA: 70% proximal, 80% mid
telemetry personally reviewed 03/04/24: NSR 70s
Plan:
-s/p CABG x 5, 03/02/24, POD 2
-off pressors
-cont I/S, wean supp O2
-increase activity
-hgb 10.6-trending down- on asa/plavix
-continue statin. goal LDL <70
-pre-admission patient was on lisinopril 10mg daily and propranolol 20mg BID-now on Metoprolol 25 mg bid. Hold on starting Lisinopril given creat 1.4. BPs controlled
-DM mgmt-continues on insulin gtt, had DM consult,started Farxiga.
Progress Note - Retail Stock Clerk
Subjective
Date of Service: March 04, 2024
POD 2 s/p CABG x 5
remains on oxygen
in NSR
pain controlled, some pain with deep breaths
Objective
Labs:
03/04/24 03:21
03/04/24 03:21
Labs
Hgb 10.6 g/dL (13.0-18.0) L 03/04/24 03:21
Hct 29.9 % (39.0-52.0) L 03/04/24 03:21
Plt Count 249 10^3/uL (130-400) 03/04/24 03:21
PT 17.3 Sec (11.4-14.6) H 03/02/24 13:25
INR 1.44 03/02/24 13:25
APTT 32.6 Sec (23.4-35.0) 03/02/24 13:25
Sodium 135 mmol/L (135-145) 03/04/24 03:21
Potassium 4.7 mmol/L (3.5-5.1) 03/04/24 03:21
BUN 48 mg/dl (9-20) H 03/04/24 03:21
Creatinine 1.4 mg/dL (0.7-1.3) H 03/04/24 03:21
Glucose 93 mg/dl (70-99) 03/04/24 03:21
Vital Signs and I&O:
Vital Signs
Temp Pulse Resp BP Pulse Ox
98.2 F 77 16 142/91 92
03/04/24 11:51 03/04/24 11:00 03/04/24 11:51 03/04/24 11:00 03/04/24 11:51
Vital Signs
Temp Pulse Resp BP Pulse Ox
98.2 F 77 16 142/91 92
03/04/24 11:51 03/04/24 11:00 03/04/24 11:51 03/04/24 11:00 03/04/24 11:51
Intake & Output
03/02/24 03/03/24 03/04/24 03/05/24
06:59 06:59 06:59 06:59
Intake Total 440 / 440 501.1 / 501.1 1227.3 / 1227.3 30.5 / 30.5
Output Total 1725 / 1725 1315 / 1315 900 / 900 40 / 40
Balance -1285 / -1285 -813.9 / -813.9 327.3 / 327.3 -9.5 / -9.5
Physical Exam
Physical Exam
GEN: No distress, awake, Ox3, sitting in chair, wearing O2
HEENT: supple, anicteric, mmm
LUNGS: CTA, decreased BS at bases B/L
CV: Reg, S1/S2, no murmur, no rub
ABD: soft, BS+, NT/ND
EXT: No edema
NEURO: Gross non-focal
SKIN: sternal incision well approximated C/D/I, one CT in place
--- NOTE | 2024-03-04 12:44 | PTCARENOTE ---
VSS, sinus rhythm on tele. pain well controlled.
[2024-03-04 12:58] LABS: Glucose - Point of Care 144 mg/dl (70-99)
[2024-03-04] MEDS: NSS 500 IV (13:05)
[2024-03-04] MEDS: NOVOLOG FLEXPEN 8 UNITS SC ×2 (13:05→17:33)
[2024-03-04 14:05] LABS: Glucose - Point of Care 120 mg/dl (70-99)
[2024-03-04] MEDS: ROXICODONE 5 MG PO ×2 (14:38→22:08)
--- NOTE | 2024-03-04 14:54 | PTCARENOTE ---
pleural CTs removed as ordered.
[2024-03-04 15:11] LABS: Glucose - Point of Care 108 mg/dl (70-99)
[2024-03-04 16:12] LABS: Glucose - Point of Care 93 mg/dl (70-99)
[2024-03-04 17:33] LABS: Glucose - Point of Care 103 mg/dl (70-99)
[2024-03-04] MEDS: GLUCOPHAGE 1000 MG PO (17:34)
[2024-03-04 19:43] LABS: Glucose - Point of Care 160 mg/dl (70-99)
--- NOTE | 2024-03-04 20:00 | PTCARENOTE ---
assumed care of pt from previous RN. pt A&Ox4, resting in chair at time of assessment. SR on tele-monitor. temp epicardial v-wires insulated. POX 90-91% on 2 L NC. abd s/n, +BS. pt confirmed passing flatus. voiding clear, yellow urine. all surgical
sites stable, CDI. R IJ cordis. PIV intact. see worklist for complete nursing assessment, interventions, VS, and I&Os.
[2024-03-04] MEDS: LANTUS 0.64 UNITS SC (20:36)
[2024-03-04 20:37] LABS: Glucose - Point of Care 116 mg/dl (70-99)
[2024-03-04] MEDS: CYMBALTA DELAYED RELEASE 60 MG PO (21:59)
[2024-03-04] MEDS: LIPITOR 40 MG PO (21:59)
[2024-03-04 22:03] LABS: Glucose - Point of Care 104 mg/dl (70-99)
[2024-03-05] VITALS (12 sets, daily range): BP systolic 82–146; BP diastolic 39–78; PULSE 70–82; O2SAT 93; BMI 31.6
--- NOTE | 2024-03-05 | PTCARENOTE ---
assessment remains unchanged. VSS. pt placed on CPAP w/ 4 L O2 by RT. POx 94-95%.
--- NOTE | 2024-03-05 04:00 | PTCARENOTE ---
assessment remains unchanged. VSS. SR on tele-monitor. CPAP w/ 4 L O2. AM labs collected and sent.
[2024-03-05 04:05] LABS: Hematocrit 29.8 % (39.0-52.0); Hemoglobin 10.5 g/dL (13.0-18.0); Mean Corp Hgb Conc. 35.2 g/dL (33.0-37.0); Mean Corpuscular Hgb 30.3 pg (27.0-31.0); Mean Corpuscular Volume 85.9 fL (80.0-94.0); Mean Platelet Volume 10.9 fL (7.4-10.4); Platelet Count 198 10^3/uL (130-400); Red Blood Cell Count 3.47 10^6/uL (4.70-6.10); Red Cell Dist. Width 13.2 % (11.5-14.5); White Blood Cell Count 20.4 10^3/uL (4.8-10.8)
[2024-03-05 04:28] LABS: Blood Urea Nitrogen 40 mg/dl (9-20); Calcium 8.4 mg/dl (8.4-10.2); Carbon Dioxide 25 mmol/L (22-30); Chloride 98 mmol/L (98-107); Estimated Creatinine Clearance 85 ml/min; Glucose 129 mg/dl (70-99); Magnesium 2.1 mg/dl (1.6-2.3); Sodium 134 mmol/L (135-145); eGFR > 60.00
[2024-03-05] MEDS: TYLENOL 1000 MG PO ×3 (06:39→20:07)
--- NOTE | 2024-03-05 07:27 | W.PN.CT ---
Addendum entered and electronically signed by Eitan Abraham MD 03/05/24 08:58:
I saw and examined the patient.
The PA's note was reviewed and I agree with the note.
Comment:
Postop day #3 status post coronary artery bypass grafting x 5
Doing well overall, remains on nasal cannula oxygen at 2 L nasal cannula, SpO2 92%
Chest x-ray with minor pulmonary edema and atelectasis without any significant effusions
Continue aspirin/Plavix, beta-martha, Amio, statin
Light diuresis today, wean O2 as tolerated
Out of bed, I-S, ambulate
Original Note:
Today's Communication / Plan
-
-pod #3
-doing well, no issues overnight
-wean off O2 as tolerated
-continue current meds
-encourage IS, OOB
Assessment / Plan
-
Assessment:
-S/P Cabg x 5 (pearce - lad, palomo- ramus/om,ao-svg- pvbr/pda)/revh/ jessi (#40 clip)/rsf, by Dr. Rodriguez, 03/02/24, pod#3
-Severe 3v CAD
-NSTEMI (peak trop 0.108)
-Exertional angina
-Acute diastolic CHF
-LVEF 65-70% per echo 02/23/24
-Preop NIRANJAN (cr 1.4 from 0.9)
-Hypertensive emergency
-Hyperlipidemia
-T2DM (A1C 6.1)
-Class 1 obesity (BMI 30.9)
-COLE (uses CPAP)
-Renal calculi
-Restless leg syndrome (on Lyrica)
-Anxiety/Depression
-SVT S/P ablation, 1995
-S/p B/L knee surgery
-S/p R shoulder surgery
-S/P R elbow arthroscopies
-S/P L carpal tunnel release
-S/P L Dupuytren's contracture release
-S/P cervical spine fusion
-S/P Ureteral stent
-S/P B/L carpal tunnel
-S/P Tonsillectomy
-S/P Cholecystectomy
-Acute postop blood loss/anemia (stable without transfusion)
-Acute postop atelectasis
-Acute postop hypovolemia with subsequent hypervolemia
Discussed patient care with: Nursing and Care Team
Subjective
Procedure
S/P Cabg x 5 (pearce - lad, palomo- ramus/om,ao-svg- pvbr/pda)/revh/ jessi (#40 clip)/rsf, by Dr. Rodriguez, 03/02/24
-
Date of Service: March 05, 2024
Objective Data
-
PT 17.3 Sec (11.4-14.6) H 03/02/24 13:25
INR 1.44 03/02/24 13:25
APTT 32.6 Sec (23.4-35.0) 03/02/24 13:25
Vital Signs
Vital Signs
Temp Pulse Resp BP Pulse Ox
99.2 F 80 16 123/63 94
03/05/24 00:00 03/05/24 00:00 03/05/24 00:00 03/05/24 00:00 03/05/24 00:00
CT Intake/Output/Weight
03/04/24 03/04/24 03/05/24
06:59 18:59 06:59
Intake Total 182.2 / 1227.3 30.5 / 104.5 74 / 104.5
Output Total 840 / 900 440 / 940 500 / 940
Balance -657.8 / 327.3 -409.5 / -835.5 -426 / -835.5
SaO2: 94
Physical Exam
-
General: Awake and AOx3
Cardiovascular: Regular rate & rhythm, No Murmurs and No Rub
Respiratory: Decreased Breath Sounds
Incision: Clean, Dry and Dressing Intact
Extremities: No Edema
Data Reviewed
-
Lab Results: Results Reviewed
Medications: Active Meds Reviewed
Chest X-Ray: Report Reviewed and Discussed w/ Radiology
CT Scan: Report Reviewed and Discussed w/ Radiology
ECG: Report Reviewed and Discussed w/ Cardiology
--- NOTE | 2024-03-05 07:35 | PN.DE.MGMTRT ---
Insulin Management
- -
03/05/2024 Diabetes Management F/U:
Patient admitted 02/21 sudden onset dyspnea, cardiac cath 02/24, OR 03/02 for CABG x 5.
PMH SVT, HTN, HCL, diabetes. Patient did attend outpatient diabetes classes ~ 20 years ago.
Prior to admission states he was taking 90 units of Toujeo in AM with a sliding scale of insulin for meals (sliding scale starts at 70 to 99 = 14 units up to 399 = 29 units). A1C on admission 6.1% cr 1.2, eGFR > 60. Routinely sees Anjel Miller
PAIraida at [facility]. Patient states he did use DexCom but he felt it was too expensive now pricks his finger, not sure of name of meter. will research insurance coverage to resume DexCom.
Since admission patient has received 64 units Lantus in AM with NovoLog 4 units AC, with corrective insulin.
Patient is awake, A/O x3, pleasant, able to discuss diabetes mgt. POD #3 s/p CABG x5. Doing well.
Transitioned off glycemic protocol 03/04@ 20:00 with Lantus 64 units.
Glucose has remained stable since transitioning off drip. HS glucose was 104 and 3AM venous glucose was 129, FBG 176 this AM
He is ordered Metformin 1000 mg BID this AM and Farxiga 10 mg daily and to resume AC NovoLog 5 units.
Will make no changes to current regimen; Lantus 64 units @ HS, NovoLog 5 units AC, Farxiga 10 mg, Metformin 1000mg BID and low SS insulin with meals.
Diabetes History
- -
Type of Diabetes: 2 requiring insulin
Pre-Admission Diabetes Regimen
03/05/24
03:46
Creatinine 1.2
Lab Results
Hemoglobin A1c 6.1 % (4.0-5.6) H 02/23/24 03:59
Insulin Pump Settings
IP Diabetes Regimen
03/04/24 03/04/24 03/04/24
07:37 09:42 10:37
Glucose
POC Glucose 89 206 H 183 H
03/04/24 03/04/24 03/04/24
11:50 12:56 14:04
Glucose
POC Glucose 225 H 144 H 120 H
03/04/24 03/04/24 03/04/24
15:10 16:11 17:32
Glucose
POC Glucose 108 H 93 103 H
03/04/24 03/04/24 03/04/24
19:42 20:36 22:02
Glucose
POC Glucose 160 H 116 H 104 H
03/05/24
03:46
Glucose 129 H
POC Glucose
Meal type: Breakfast
Patient Education
[2024-03-05] MEDS: NOVOLOG FLEXPEN-MODERATE RESISTANCE 1 UNITS SC ×3 (07:56→17:44)
[2024-03-05] MEDS: NOVOLOG FLEXPEN 5 UNITS SC ×3 (07:56→17:44)
[2024-03-05 07:59] LABS: Glucose - Point of Care 176 mg/dl (70-99)
[2024-03-05] MEDS: ROXICODONE 2.5 MG PO (08:10)
[2024-03-05] MEDS: FARXIGA 10 MG PO (08:11)
[2024-03-05] MEDS: PACERONE 200 MG PO ×3 (08:11→20:08)
[2024-03-05] MEDS: MAGNESIUM OXIDE 500 MG PO ×2 (08:11→20:08)
[2024-03-05] MEDS: GLUCOPHAGE 1000 MG PO ×2 (08:11→16:26)
[2024-03-05] MEDS: PROTONIX 40 MG PO (08:11)
[2024-03-05] MEDS: SENOKOT-S 1 TABLET PO ×2 (08:11→20:08)
[2024-03-05] MEDS: FLEXERIL 5 MG PO (08:11)
[2024-03-05] MEDS: LOPRESSOR 25 MG PO (08:12)
[2024-03-05] MEDS: PLAVIX 75 MG PO (08:12)
[2024-03-05] MEDS: LYRICA 150 MG PO ×2 (08:12→20:07)
[2024-03-05] MEDS: LOW STRENGTH ASPIRIN 81 MG PO (08:12)
[2024-03-05] MEDS: BACTROBAN 2% OINTMENT 1 APPLIC NASAL ×2 (08:13→20:08)
[2024-03-05] MEDS: LASIX 40 MG IV (08:16)
--- NOTE | 2024-03-05 08:48 | PTCARENOTE ---
Assumed care of patient from restaurant shift leader RN. AAO x 3 . C/o sternal pain. SR on monitor. 2 L NC 94%, Using Is to 750, needs encouragement. Lungs decreased and coarse in bilateral bases. abdomen soft and non tender. Passing flatus. Voiding in
urinal w/o issue. Surgical sites well approximated with surgical adhesive. Trace lower extremity edema appreciated. Pulses palpable. Plan for day discussed.
--- NOTE | 2024-03-05 10:27 | PTCARENOTE ---
While ambulating with cardiac rehab, pt became very weak, diaphoretic and needed a second person to assist back to chair. BP upon sitting 82 systolic. After sitting bp rechecked for 122/60. Dizziness subsided. Resting in chair. Discussed with
THOMAS YANEZ.
--- NOTE | 2024-03-05 11:54 | CM ---
Chart reviewed. Patient is independent of ADLS, lives with his in a 1 STH, 1 SUSIE, 0 DME. Plan is for the patient to return home with CT Transitional RN. CM to follow
--- NOTE | 2024-03-05 12:00 | PTCARENOTE ---
Resting in chair. Denies pain. VSS. Assessment unchanged from prior.
--- NOTE | 2024-03-05 12:28 | W.PN.CARDCBS ---
Addendum entered and electronically signed by Jessica Miranda DO 03/05/24 18:29:
I saw and examined the patient.
The Retail Zone Specialist's note was reviewed and I agree with the note.
Comment: Patient seen and examined sitting out of bed to chair. Feeling a little off with walking in the hallway although not lightheaded. Denies chest pain or pressure.
General: No acute distress, AAOX3
Heart: Regular, Negative S3 positive S1/S2, No murmur.
Lungs: CTA b/l, negative wheezes/rales/rhonchi
Abd: Positive BS, NT/ND, neg rebound/rigidity/guarding
Ext: Trace edema
Neuro: nonfocal
Plan:
Presented with acute heart failure with reserved ejection fraction found to have multivessel coronary artery disease by cardiac catheterization now s/p CABG x 5, 03/02/24, POD 3
-off pressors, CTs removed
-rec'd dose of Lasix 40 mg IV today for SOB, mild pulm edema on CXR
-remains in NSR
-cont I/S, wean supp O2
-increase activity as tolerated
-hgb 10.5-trending down- on asa/plavix
-continue statin. goal LDL <70
-pre-admission patient was on lisinopril 10mg daily and propranolol 20mg BID-now on Metoprolol which was decreased to 12.5 mg bid today. Hold on starting Lisinopril given lower BPs.
-DM mgmt-continues on insulin gtt, had DM consult,started Farxiga.
Original Note:
Today's Communication / Plan
-
gentle diuresis
increase ambulation
wean O2
Impression / Plan
-
.
PCP:Alfie Cano
Previous sourcing manager: none
Impression:
Multivessel CAD s/p CABG x 5, REEVES�LAD, KELY�ramus/OM, aorta- SVG - PVBR/PDA 03/02/24, POD 3
acute postop blood loss anemia
NSTEMI, peak trop 0.108
acute kidney injury-creatinine to 1.4 after IV diuresis (from baseline 1.0), 1.2 03/02/24, 1.4 03/04/24, 1.2 03/05/24
Acute heart failure preserved EF
Hypertensive emergency
Shortness of breath
Hypoxia
Diabetes mellitus
obstructive sleep apnea on CPAP
h/o HTN
Hyperlipidemia
SVT s/p ablation
essential tremor
EKG 03/03/2024, 0427: Normal sinus rhythm, nonspecific ST-T wave abnormality
Echo 04/30/2019: Normal LV size, EF 60 to 65%, no valvular heart disease
Echo 02/23/2024: Vigorous LV systolic function with mild cLVH, EF 65 to 70%, mild hypokinesis of apical septum, normal RV size and systolic function
Cardiac catheterization: 02/25/2024: Left main: Mild diffuse plaque; LAD: Proximal 60-70% IFR 0.08; circumflex: OM1 ostial 60-70%, 3 serial lesions in mid circumflex extending into proximal OM 2 up to 90%; RCA: 70% proximal, 80% mid
telemetry personally reviewed 03/05/24: NSR 60s-70s
Plan:
-s/p CABG x 5, 03/02/24, POD 3
-off pressors, CTs removed
-rec'd dose of Lasix 40 mg IV today for SOB, mild pulm edema on CXR
-remains in NSR
-cont I/S, wean supp O2
-increase activity as tolerated
-hgb 10.5-trending down- on asa/plavix
-continue statin. goal LDL <70
-pre-admission patient was on lisinopril 10mg daily and propranolol 20mg BID-now on Metoprolol which was decreased to 12.5 mg bid today. Hold on starting Lisinopril given lower BPs.
-DM mgmt-continues on insulin gtt, had DM consult,started Farxiga.
-creat 1.2
Progress Note - Veterinarian Helper
Subjective
Date of Service: March 05, 2024
felt a little off today after walking in hallway - not lightheaded - 'felt wobbly, just didn't feel myself' BP was 82/39, repeat 122/60
CTs removed
rec'd dose of Lasix 40 mg IV this morning 03/05/24
remains in NSR
Objective
Labs:
03/05/24 03:46
03/05/24 03:46
Labs
Hgb 10.5 g/dL (13.0-18.0) L 03/05/24 03:46
Hct 29.8 % (39.0-52.0) L 03/05/24 03:46
Plt Count 198 10^3/uL (130-400) D 03/05/24 03:46
PT 17.3 Sec (11.4-14.6) H 03/02/24 13:25
INR 1.44 03/02/24 13:25
APTT 32.6 Sec (23.4-35.0) 03/02/24 13:25
Sodium 134 mmol/L (135-145) L 03/05/24 03:46
Potassium 5.0 mmol/L (3.5-5.1) 03/05/24 03:46
BUN 40 mg/dl (9-20) H 03/05/24 03:46
Creatinine 1.2 mg/dL (0.7-1.3) 03/05/24 03:46
Glucose 129 mg/dl (70-99) H 03/05/24 03:46
Vital Signs and I&O:
Vital Signs
Temp Pulse Resp BP Pulse Ox
98.6 F 68 16 122/60 97
03/05/24 08:00 03/05/24 10:03 03/05/24 08:00 03/05/24 10:03 03/05/24 10:03
Vital Signs
Temp Pulse Resp BP Pulse Ox
98.6 F 68 16 122/60 97
03/05/24 08:00 03/05/24 10:03 03/05/24 08:00 03/05/24 10:03 03/05/24 10:03
Intake & Output
03/03/24 03/04/24 03/05/24 03/06/24
06:59 06:59 06:59 06:59
Intake Total 501.1 / 501.1 1227.3 / 1227.3 144.5 / 144.5 500 / 500
Output Total 1315 / 1315 900 / 900 1340 / 1340 950 / 950
Balance -813.9 / -813.9 327.3 / 327.3 -1195.5 / -1195.5 -450 / -450
Physical Exam
Physical Exam
GEN: No distress, awake, Ox3
HEENT: supple, anicteric, mmm
LUNGS:faint crackles bases
CV: Reg, S1/S2, no rub
ABD: soft, BS+, NT/ND
EXT: No edema
NEURO: Gross non-focal
SKIN: No rash
[2024-03-05 13:01] LABS: Glucose - Point of Care 152 mg/dl (70-99)
[2024-03-05] MEDS: NSS IV (14:06)
--- NOTE | 2024-03-05 15:42 | PTCARENOTE ---
Ambulated in hallway with RN. Approx 150 feet. Gait steady. Assisted to bed after. RT IJ cordis removed at this time. Pt tolerated w/o issue. Hemostasis achieved w/o issue. Assessment otherwise unchanged from prior.
[2024-03-05 17:46] LABS: Glucose - Point of Care 165 mg/dl (70-99)
[2024-03-05 20:07] LABS: Glucose - Point of Care 194 mg/dl (70-99)
[2024-03-05] MEDS: CYMBALTA DELAYED RELEASE 60 MG PO (20:07)
[2024-03-05] MEDS: LOPRESSOR 12.5 MG PO (20:07)
[2024-03-05] MEDS: LIPITOR 40 MG PO (20:08)
[2024-03-05] MEDS: LANTUS 0.64 UNITS SC (20:08)
--- NOTE | 2024-03-05 21:05 | PTCARENOTE ---
assumed care of patient @ 1900. received pt sitting in chair, Aox3. Assisted pt to walk down to waiting room, and back. Flat affect at times. VSS on RA. NSR in 80s, V wires insulated. Lungs clear, crackles present at bases. Pt with occasional cough
with thick clear secretions. Belly soft, obese, good appetite. Voiding adequate amounts in bathroom. Surgical incisions SENIOR BUSINESS DEVELOPMENT ANALYST CDI. PIV patent. assisted back to bed, resting comfortably with call bliss within reach .
[2024-03-06] VITALS (7 sets, daily range): BP systolic 112–140; BP diastolic 53–75; PULSE 93; O2SAT 92–97; BMI 31.3
--- NOTE | 2024-03-06 00:27 | PTCARENOTE ---
RT placed pt on CPAP with 2L at 2200. pt resting comfortably in bed with call bliss within reach, no change in assessment
--- NOTE | 2024-03-06 04:09 | W.PN.CT ---
Addendum entered and electronically signed by Eitan Abraham MD 03/06/24 08:29:
I saw and examined the patient.
The PA's note was reviewed and I agree with the note.
Comment:
Postop day #4 status post coronary artery bypass grafting x 5/bilateral DORA's
No major overnight events. Doing well. Hemodynamically stable on room air
Out of bed, I-S, ambulate
Check two-view chest x-ray
Aspirin/Plavix/beta-martha/Amio/statin
Discharge planning for hopefully later today
Original Note:
Today's Communication / Plan
-
-pod #4
-no issues overnight
-no further hypotension
-diuresed well with 40 iv Lasix 03/05 (uo 1550+)- continue
-labs pending
-weaned off O2 - pOx 94% on RA
-encourage IS, OOB, ambulate
-possible d/c soon
Assessment / Plan
-
Assessment:
-S/P Cabg x 5 (pearce - lad, palomo- ramus/om,ao-svg- pvbr/pda)/revh/ jessi (#40 clip)/rsf, by Dr. Rodriguez, 03/02/24, pod#4
-Severe 3v CAD
-NSTEMI (peak trop 0.108)
-Exertional angina
-Acute diastolic CHF
-LVEF 65-70% per echo 02/23/24
-Preop NIRANJAN (cr 1.4 from 0.9)
-Hypertensive emergency
-Hyperlipidemia
-T2DM (A1C 6.1)
-Class 1 obesity (BMI 30.9)
-COLE (uses CPAP)
-Renal calculi
-Restless leg syndrome (on Lyrica)
-Anxiety/Depression
-SVT S/P 1995
-S/p B/L knee surgery
-S/p R shoulder surgery
-S/P R elbow arthroscopies
-S/P L carpal tunnel release
-S/P L Dupuytren's contracture release
-S/P cervical spine fusion
-S/P Ureteral stent
-S/P B/L carpal tunnel
-S/P Tonsillectomy
-S/P Cholecystectomy
-Acute postop blood loss/anemia (stable without transfusion)
-Acute postop atelectasis
-Acute postop hypovolemia with subsequent hypervolemia
Discussed patient care with: Nursing and Care Team
Subjective
Procedure
S/P Cabg x 5 (pearce - lad, palomo- ramus/om,ao-svg- pvbr/pda)/revh/ jessi (#40 clip)/rsf, by Dr. Rodriguez, 03/02/24
-
Date of Service: March 06, 2024
Objective Data
-
PT 17.3 Sec (11.4-14.6) H 03/02/24 13:25
INR 1.44 03/02/24 13:25
APTT 32.6 Sec (23.4-35.0) 03/02/24 13:25
Vital Signs
Vital Signs
Temp Pulse Resp BP Pulse Ox
98.7 F 84 16 146/61 94
03/05/24 20:00 03/05/24 20:00 03/06/24 00:26 03/05/24 19:32 03/06/24 00:26
CT Intake/Output/Weight
03/05/24 03/05/24 03/06/24
06:59 18:59 06:59
Intake Total 114 / 144.5 1220 / 1700 480 / 1700
Output Total 900 / 1340 1550 / 1850 300 / 1850
Balance -786 / -1195.5 -330 / -150 180 / -150
SaO2: 94
Physical Exam
-
General: Awake and AOx3
Cardiovascular: Regular rate & rhythm, No Murmurs and No Rub
Respiratory: Rales and Decreased Breath Sounds
Sternum: Stable
Incision: Clean, Dry and Dressing Intact
Extremities: Other (trace edema b/l)
Data Reviewed
-
Lab Results: Results Reviewed
Medications: Active Meds Reviewed
Chest X-Ray: Report Reviewed and Image Reviewed
ECG: Report Reviewed and Image Reviewed
[2024-03-06] MEDS: TYLENOL 1000 MG PO (05:29)
[2024-03-06 05:43] LABS: Hematocrit 28.4 % (39.0-52.0); Hemoglobin 10.2 g/dL (13.0-18.0); Mean Corp Hgb Conc. 35.9 g/dL (33.0-37.0); Mean Corpuscular Hgb 30.4 pg (27.0-31.0); Mean Corpuscular Volume 84.8 fL (80.0-94.0); Mean Platelet Volume 10.8 fL (7.4-10.4); Platelet Count 241 10^3/uL (130-400); Red Blood Cell Count 3.35 10^6/uL (4.70-6.10); White Blood Cell Count 16.6 10^3/uL (4.8-10.8)
[2024-03-06 05:59] LABS: Blood Urea Nitrogen 38 mg/dl (9-20); Calcium 8.7 mg/dl (8.4-10.2); Carbon Dioxide 28 mmol/L (22-30); Chloride 97 mmol/L (98-107); Estimated Creatinine Clearance 92 ml/min; Glucose 112 mg/dl (70-99); Magnesium 2.1 mg/dl (1.6-2.3); Potassium 4.3 mmol/L (3.5-5.1); Sodium 135 mmol/L (135-145); eGFR > 60.00
--- NOTE | 2024-03-06 07:02 | PTCARENOTE ---
Pt received from outgoing RN, indy, in bed resting, vss, PIV, IS, ambulating, pending 2v xray today, potential dc home today waiting for am rounds.
[2024-03-06 09:00] LABS: Glucose - Point of Care 105 mg/dl (70-99)
[2024-03-06] MEDS: MAGNESIUM OXIDE 500 MG PO (09:00)
[2024-03-06] MEDS: LOW STRENGTH ASPIRIN 81 MG PO (09:00)
[2024-03-06] MEDS: FARXIGA 10 MG PO (09:00)
[2024-03-06] MEDS: GLUCOPHAGE 1000 MG PO (09:00)
[2024-03-06] MEDS: PLAVIX 75 MG PO (09:00)
[2024-03-06] MEDS: PACERONE 200 MG PO (09:00)
[2024-03-06] MEDS: LOPRESSOR 12.5 MG PO (09:00)
[2024-03-06] MEDS: SENOKOT-S 1 TABLET PO (09:01)
[2024-03-06] MEDS: PROTONIX 40 MG PO (09:01)
[2024-03-06] MEDS: NOVOLOG FLEXPEN 5 UNITS SC (09:01)
[2024-03-06] MEDS: LYRICA 150 MG PO (09:01)
[2024-03-06] MEDS: BACTROBAN 2% OINTMENT 1 APPLIC NASAL (09:02)
[2024-03-06] MEDS: NOVOLOG FLEXPEN-MODERATE RESISTANCE SC (09:02)
[2024-03-06] MEDS: MILK OF MAGNESIA 30 ML PO (10:07)
[2024-03-06] MEDS: NSS IV (10:13)
--- NOTE | 2024-03-06 11:06 | PTCARENOTE ---
Pt reassessment unchanged from previous, vss, ra, nsr, Vwire dced by Chilo YANEZ, pt assisted to the shower, all dressing removed. Pt will be dced this afternoon.
--- NOTE | 2024-03-06 11:38 | W.DCSUMMARY ---
Discharge Summary
Discharge Data
Date of Admission: 02/22/24
Date of Discharge: 03/06/24
-
Pending Results: No
Hospital Course
The patient was admitted on February 21 with dyspnea on exertion which was presumed to be an angina equivalent. Pulmonary embolus was ruled out by CTA of the chest. He ultimately underwent cardiac cath which confirmed the presence of multivessel
coronary artery disease. The patient did develop a mild acute kidney injury following cath for which surgery was delayed. He ultimately recovered from this issue and underwent coronary artery bypass grafting by Dr. Kaushal Rodriguez on February
. Please refer to his separately dictated operative report for complete details. Postoperatively the patient progressed well. He was extubated per usual protocol at 1600 on postoperative day 0. He was maintained on low-dose Levophed drip which
was weaned over the course of the night.
Postoperative day #1: Mediastinal chest tube was discontinued. Aspirin and Plavix were started. Low-dose beta-martha was initiated. The patient's invasive monitoring lines were discontinued. A single dose of Toradol was given for pain control.
Postoperative day #2: Diabetes educators were involved. Insulin drip was transitioned per the recommendations. Beta-martha again was titrated to effect. Remaining pleural chest tube was discontinued.
Postoperative day #3: Beta-martha was decreased due to dizziness. Narcotics and muscle relaxers were also decreased. Patient was given a single dose of IV Lasix. Again, diabetes educators titrated the patient's diabetic regimen as needed.
Central line was discontinued. Patient was weaned to room air. Patient continue to work with therapy and was able to meet expectations in terms of ambulation and activity. Postoperatively the patient's creatinine returned to his historic baseline.
Postoperative day #4: Patient appears well this morning and is ready for discharge home I reviewed his discharge instructions with him extensively and answered his questions to his satisfaction. He will be discharged to home on the diabetic
regimen that the diabetes nurse practitioner has recommended. He should follow-up with their office as well as his normal managing physicians for further titration of these medications.
Discharge Plan
-
Patient Disposition: Home (Routine Discharge)
Discharge Diagnosis/Procedures: -Status post coronary artery bypass grafting x 5 (left internal mammary artery-left anterior descending, right internal mammary artery- ramus/obtuse marginal, aorta-saphenous vein graft-posterolateral branch/posterior
descending artery)/right lower extremity endoscopic vein harvesting/left atrial appendage ligation (#40 clip), by Dr. Rodriguez, 03/02/24
-Multivessel coronary artery disease
-Non-ST elevated myocardial infarction (peak trop 0.108)
-Exertional angina
-Acute diastolic congestive heart failure
-Left ventricular ejection fraction 65-70% per echo 02/23/24
-Preoperative acute kidney injury (creatinine 1.4 from 0.9)
-Hypertensive emergency
-Hyperlipidemia
-Type 2 diabetes mellitus (A1C 6.1)
-Class 1 obesity (body mass index 30.9)
-Obstructive sleep apnea (uses continuous positive airway pressure)
-Renal calculi
-Restless leg syndrome (on Lyrica)
-Anxiety/Depression
-Supraventricular tachycardia status post , 1995
-Status post bilateral knee surgery
-Status post right shoulder surgery
-Status post right elbow arthroscopies
-Status post left carpal tunnel release
-Status post left Dupuytren's contracture release
-Status post cervical spine fusion
-Status post ureteral stent
-Status post bilateral carpal tunnel
-Status post tonsillectomy
-Status post cholecystectomy
-Acute postoperative blood loss/anemia (stable without transfusion)
-Acute postoperative atelectasis
-Acute postoperative hypovolemia with subsequent hypervolemia
Diet: Low Fat and Low Cholesterol
Activity: No strenuous activity
Driving Restrictions: Not until seen by your Dr
Bathing Restrictions: OK to Shower
Specialty Instructions: Weigh Daily- Call MD for wt gain/loss 3 lbs overnight/5 lbs in 1 week
Activity Restrictions/Additional Instructions:
ACTIVITY:
-No strenuous activity: no heavy lifting, pushing, pulling anything over 15 pounds for one month
-continue to use stairs as tolerated
DRIVING RESTRICTIONS:
-No driving for one month or until approved by your surgeon
WOUND CARE:
-Shower daily. Use soap & water.
-No lotions, creams or powders on incision area.
DIET:
-continue a low fat/low cholesterol diet.
-IF you are diabetic, continue carb controlled diet.
CARDIAC REHAB:
-Please make appointment to start in 5-6 weeks with your local hospital program. (See Cardiac Rehabilitation Discharge Booklet).
SPECIALTY INSTRUCTIONS:
-Weigh yourself daily. Call your physician for any weight gain/loss of 3 lbs overnight or 5 lbs in one week.
-REPORT any clicking noise or uneven appearance of your sternum to your surgeon immediately.
-If you smoke, you are instructed to quit. The [facility] smoking hotline phone number is [phone]
Instructions: *PCP/Other Healthcare Sales Representative Heart Failure Instructions
Referrals:
CT Transitional Care Nurse [Outside] (The Cardiothoracic Transitional Care Nurse will call you to set up a visit in 1-2 days.)
[facility]. Cardiac Rehab [Outside] - 04/02/24 8:30 am
(Cardiac Rehab Orientation appointment is on 04/02/24 at 8:30 AM
The Cardiac Rehab gym is located on the first floor of the [facility].)
Clau Molina PA-C [Specified Professional Personl] - 04/14/24 1:20 pm
Sharon Lombardi NP [Specified Professional Personl] - in four to six weeks
Scott Marlow MD [Family Provider] -
Kaushal Rodriguez MD [Active] - 03/29/24 9:30 am
Prescriptions:
New
dapagliflozin propanediol 10 mg Tablet
10 mg PO DAILY Qty: 30 2RF
metformin 1,000 mg Tablet
1,000 mg PO BID@0800,1700 Qty: 60 2RF
acetaminophen 325 mg Tablet
650 mg PO Q4HPRN PRN (Reason: mild pain,headache,temp >101F ) Qty: 60 0RF
clopidogrel 75 mg Tablet
75 mg PO DAILY 365 Days Qty: 30 2RF
oxycodone 5 mg Tablet
2.5 mg PO Q4HPRN PRN (Reason: mild pain) Qty: 30 0RF
metoprolol tartrate 25 mg Tablet
12.5 mg PO BID Qty: 60 2RF
pantoprazole 40 mg tablet,delayed release (DR/EC)
40 mg PO DAILY Qty: 30 2RF
Continued
eszopiclone [Lunesta] 3 MG tablet
3 mg PO HS
duloxetine 60 MG capsule,delayed release(DR/EC)
60 mg PO HS
pregabalin 75 MG capsule
150 mg PO BID
multivitamin with folic acid [Tab-A-Christian] 1 TABLET tablet
1 tab PO DAILY
aspirin 81 MG tablet,delayed release (DR/EC)
81 mg PO DAILY
insulin aspart U-100 [Novolog PenFill U-100 Insulin] 100 unit/mL Cartridge
4 sliding scale dose SC AC
atorvastatin [Lipitor] 40 mg Tablet
40 mg PO HS
Changed
insulin glargine U-300 conc [Toujeo SoloStar U-300 Insulin] 300 UNIT/ML insulin pen
64 unit SC DAILY Qty: 0 0RF
Discontinued
lisinopril 10 MG tablet
10 mg PO DAILY
diphenhydramine-acetaminophen [Tylenol PM Extra Strength] 1 EACH tablet
1 ea PO HS
propranolol 20 MG tablet
20 mg PO BID
metformin 500 MG tablet extended release 24 hr
1,000 mg PO BID
meloxicam 7.5 MG tablet
15 mg PO DAILY
omeprazole 20 mg Tablet,Delayed Release (Dr/Ec)
20 mg PO DAILY
Discharge Orders:
Discharge Patient (As Directed); Ordered 03/06/24
Ordered By: Papito Tierney
Care Plan Goals
Care Plan Goals:
Problem: Readiness for enhanced knowledge related to diagnosis and treatment plan
Goal: Understand your diagnosis and treatment plan needs, including medications if applicable.
Instructions: Know your diagnosis, underlying causes and treatment plan options, including medications if applicable. Consult with your health care team to learn about your diagnosis and treatment plan, including medications if applicable.
Discharge Date and Time
Print Language: PERSIAN
[2024-03-06 11:54] LABS: Glucose - Point of Care 154 mg/dl (70-99)
--- NOTE | 2024-03-06 12:36 | PTCARENOTE ---
Pt dced home, escorted by RN via wheelchair, dc instructions and medications reviewed with pt and pt spouse. All questions and concerns addressed prior to dc. IV and tele pack dced prior to going home.
--- NOTE | 2024-03-08 11:47 | W.HF.CON ---
Heart Failure
- LV Function
Left ventricular function study result: LV Ejection fraction >40%
Ejection Fraction Percentage: 60
- ARNI
Patient already on ARNI: No
Heart Failure ARNI Not Indicated: LV Ejection Fraction >/= 40%
- ACEI/ARB
Patient already on ACEI/ARB: No
Heart Failure ACEI/ARB Not Indicated: LV Ejection Fraction > 40%
- Beta Sejal
Patient already on Evidence Based Beta Sejal: No
Heart Failure Evidence Based Beta Sejal Not Indicated: LV Ejection Fraction > 40%
- Mineralocorticord Receptor Antagonist
Patient already on MRA: No
Heart Failure MRA Not Indicated: LV Ejection Fraction > 40%
- SGLT-2 Inhibitor
Patient already on SGLT-2 Inhibitor: Yes
- NYHA CHF Classification
NYHA CHF Classification Level: Class III - Symptoms w/ min exertion, interferes w/ nml daily activity
- ACC/AHA Stage
ACC/AHA Stage: Stage C: Symptomatic Heart Failure
== END 2024-03-06 12:38 | disposition home or self-care (01) | DRG 233 ==
LOC: CVICU 17:42
PROVIDERS: Anesthesiology; Internal Medicine; Internal Medicine Interventional Cardiology; Nurse Practitioner; Nurse Practitioner Gerontology; Physician Assistant; Physician Assistant Medical; ADMITTING PHYSICIAN Hospitalist; ATTENDING PHYSICIAN Thoracic Surgery (Cardiothoracic Vascular Surgery); CONSULT PHYSICIAN Internal Medicine Critical Care Medicine; EMERGENCY PHYSICIAN Emergency Medicine; FAMILY PHYSICIAN Internal Medicine; OTHER PHYSICIAN Internal Medicine Cardiovascular Disease
PROC: B2151ZZ Fluoroscopy of Left Heart using Low Osmolar Contrast (ICD-10-PCS; 2024-02-25)
PROC: 5A09357 Assistance with Respiratory Ventilation, Less than 24 Consecutive Hours, Continuous Positive Airway Pressure (ICD-10-PCS; 2024-02-25)
PROC: 4A023N7 Measurement of Cardiac Sampling and Pressure, Left Heart, Percutaneous Approach (ICD-10-PCS; 2024-02-25)
PROC: B2111ZZ Fluoroscopy of Multiple Coronary Arteries using Low Osmolar Contrast (ICD-10-PCS; 2024-02-25)
PROC: 4A033BC Measurement of Arterial Pressure, Coronary, Percutaneous Approach (ICD-10-PCS; 2024-02-25)
PROC: 02100Z9 Bypass Coronary Artery, One Artery from Left Internal Mammary, Open Approach (ICD-10-PCS; 2024-03-02)
PROC: 02L70CK Occlusion of Left Atrial Appendage with Extraluminal Device, Open Approach (ICD-10-PCS; 2024-03-02)
PROC: 02110Z8 Bypass Coronary Artery, Two Arteries from Right Internal Mammary, Open Approach (ICD-10-PCS; 2024-03-02)
PROC: 021109W Bypass Coronary Artery, Two Arteries from Aorta with Autologous Venous Tissue, Open Approach (ICD-10-PCS; 2024-03-02)
PROC: 06BP4ZZ Excision of Right Saphenous Vein, Percutaneous Endoscopic Approach (ICD-10-PCS; 2024-03-02)
PROC: B24BZZ4 Ultrasonography of Heart with Aorta, Transesophageal (ICD-10-PCS; 2024-03-02)
PROC: 5A1221Z Performance of Cardiac Output, Continuous (ICD-10-PCS; 2024-03-02)
DX: I21.4 Non-ST elevation (NSTEMI) myocardial infarction (principal); I50.31 Acute diastolic (congestive) heart failure; I16.1 Hypertensive emergency; N17.9 Acute kidney failure, unspecified; D62 Acute posthemorrhagic anemia; J98.11 Atelectasis; I25.10 Atherosclerotic heart disease of native coronary artery without angina pectoris; G47.33 Obstructive sleep apnea (adult) (pediatric); F32.A Depression, unspecified; F41.9 Anxiety disorder, unspecified; E86.1 Hypovolemia; I11.0 Hypertensive heart disease with heart failure; E78.00 Pure hypercholesterolemia, unspecified; G25.81 Restless legs syndrome; G25.0 Essential tremor; E66.01 Morbid (severe) obesity due to excess calories; E11.65 Type 2 diabetes mellitus with hyperglycemia; G47.00 Insomnia, unspecified; Z68.30 Body mass index [BMI] 30.0-30.9, adult; Z79.4 Long term (current) use of insulin; Z79.82 Long term (current) use of aspirin; Z79.899 Other long term (current) drug therapy; Z87.442 Personal history of urinary calculi; Z98.1 Arthrodesis status
CPT/HCPCS: 71045; 71046; 71275; 80048; 80053; 80061; 81003; 82330; 82565; 82805; 82947; 82962; 83036; 83735; 83880; 84132; 84145; 84302; 84484; 84520; 85014; 85018; 85025; 85027; 85049; 85347; 85379; 85610; 85730; 86706; 86803; 86850; 86900; 86901; 86920; 87340; 87389; 93005; 93306; 93312; 93320; 93325; 93458; 93799; 93880; 94002; 94660; 96374; 96375; 99152; 99153; 99291; C1769; C1894; P9047; Q9950; Q9967

== ENCOUNTER 2024-03-10 08:45 | Inpatient (IN) | payer OTHER, SELFPAY ==
[2024-03-08 21:54] VITALS: BP 140/63
[2024-03-08 22:13] LABS: % Basophils 1.1 % (0-2); % Eosinophils 7.6 % (0-6); % Immature Granulocytes 0.8 % (0-0.5); % Lymphocytes 15.9 % (20.5-51.1); % Monocytes 10.1 % (1.7-9.3); % Neutrophils 64.5 % (42.2-75.2); Absolute Basophils 0.2 10^3/uL (0-0.2); Absolute Eosinophils 1.3 10^3/uL (0-0.7); Absolute Immature Granulocytes 0.1 10^3/uL (0-0.05); Absolute Lymphocytes 2.6 10^3/uL (1.2-3.4); Absolute Monocytes 1.7 10^3/uL (0.1-0.6); Absolute Neutrophils 10.7 10^3/uL (1.4-6.5); Hematocrit 32.3 % (39.0-52.0); Hemoglobin 11.2 g/dL (13.0-18.0); Mean Corp Hgb Conc. 34.7 g/dL (33.0-37.0); Mean Corpuscular Hgb 29.9 pg (27.0-31.0); Mean Corpuscular Volume 86.4 fL (80.0-94.0); Mean Platelet Volume 9.7 fL (7.4-10.4); Nucleated Red Blood Cells % 0 % (-); Platelet Count 402 10^3/uL (130-400); Red Blood Cell Count 3.74 10^6/uL (4.70-6.10); Red Cell Dist. Width 13.2 % (11.5-14.5); White Blood Cell Count 16.6 10^3/uL (4.8-10.8)
[2024-03-08 22:26] VITALS: BMI 34.1
[2024-03-08 22:27] VITALS: BP 149/61
[2024-03-08 22:29] LABS: ALT (SGPT) 23 U/L (0-50); AST (SGOT) 30 U/L (17-59); Albumin 3.5 g/dl (3.5-5.0); Alkaline Phosphatase 104 U/L (38-126); Blood Urea Nitrogen 46 mg/dl (9-20); Carbon Dioxide 25 mmol/L (22-30); Chloride 98 mmol/L (98-107); Estimated Creatinine Clearance 66 ml/min; Glucose 147 mg/dl (70-99); Potassium 4.7 mmol/L (3.5-5.1); Sodium 135 mmol/L (135-145); Total Bilirubin 0.5 mg/dl (0.2-1.3); Total Protein 6.2 g/dl (6.3-8.2); eGFR 48.41
[2024-03-08 23:00] VITALS: BP 139/61
--- NOTE | 2024-03-08 23:04 | ED.GENMED ---
History of Present Illness
General
Chief Complaint: Fainting/Passed Out
Source: patient and spouse
Exam Limitations: none
Time Seen by Provider: 03/08/24 23:01
Nursing documentation reviewed up to this point in time: agreed with
History of Present Illness
History of Present Illness:
63-year-old male presents emergency department complaining of multiple syncope and near syncope episodes since Friday night. He is walking and then falls to the ground without warning. He fell onto a table. He recently had a CABGx5. He denies
chest pain. He states he has had yellow drainage from the wound site. They called Dr. Ruben kelsey and were referred to the emergency department.
Past History
Past History
ED Past Medical History: Arrthythmia (SVT), HTN, Hypercholesterolemia, NIDDM and Other (Kidney stone)
ED Past Surgical History: Cardiac (SVT ablation), Cholecystectomy, Orthopedic and Tonsilectomy
Social History
Tobacco: Non-smoker
Alcohol: Occasional
Personal:
Living: with family
Family History
Family History: Diabetes and Hypertension
Review of Systems
Review of Systems
Allergies reviewed?: Yes
All Other Systems: Not applicable
Constitutional: Reports no symptoms
EENT: Reports no symptoms
Respiratory: Reports no symptoms
Cardiac: Reports syncope; Denies chest pain
ABD/GI: Reports no symptoms
: Reports no symptoms
Musculoskeletal: Reports no symptoms
Skin: Reports no symptoms
Neurological: Reports no symptoms
Endocrine: Reports no symptoms
Hematologic/Lymphatic: Reports no symptoms
Psychiatric: Reports no symptoms
Phy Exam
Physical Exam
Physical Exam:
Physical Exam
General: no apparent distress, not acutely ill
Neck: supple. no meningeal signs. normal posterior pharynx
Heart: s1/s2 regular rate and rhythm, no murmur. equal radial
pulses. midline sternotomy scar healing
HEENT: Pupils equal round reactive to light, EOMI
Lungs: no acute respiratory distress. clear bilaterally
Abdomen: normal bowel sounds. not tender. no CVAT
Neuro: alert and oriented. no focal neurological deficits cranial nerves II through XII intact
Skin: no rash
Psychiatric: well kept. interactive and cooperative
Extremities: no edema. no calf tenderness. negative homans. good distal pulses
Course
Orders/Labs/Results
Orders:
Orders
03/08/24 21:53
Electrocardiogram (*1) Urgent
Reason for Study: Syncope
EKG- Treatment ONCE
03/08/24 22:08
CMP [Comprehensive Metabolic Panel] Urgent
Complete Blood Count/With Diff Urgent
03/08/24 23:17
CT Head W/o Iv Contrast Urgent
Comment:
Reason For Exam: fall, syncope
CR Chest - 2 Views Urgent
Comment:
Reason For Exam: fall, recent cabg
03/08/24 23:20
Troponin I Urgent
03/08/24 23:44
Orthostatic VS- Treatment ONCE
03/09/24 00:43
Admit/Transfer Patient As Directed
Co-Sign Provider:
Level of Care: Observation services
Assign to:: Telemetry
Physician / Group: Jey
Diagnosis: Fall / Ataxia
Reason for Telemetry: Arrhythmia
Date to Stop Telemetry: 03/12/24
Time to Stop Telemetry: 11:00
PRN Pain Medication Management As Directed
May give lesser potent ordered pain med per pt: Yes
preference::
Protocol:: Medication orders for pain may be administered in a
manner that supports deferring to patient preference
when the pt is:
- Requesting an ordered lesser potent pain medication.
Least to most potent pain medications are defined
as: acetaminophen < NSAID < tramadol < opioids
(morphine, oxycodone, hydromorphone).
- Requesting a lesser dose of the same medication IF
ORDERED.
- Requesting a less intrusive route of administration
if both routes are prescribed by the provider (PO <
IV).
03/09/24 00:46
Code Status As Directed
Resuscitation Status: Full Code
03/12/24 11:00
DC Protocol for Telemetry ONCE
Abnormal Lab Results
03/08/24 03/08/24
22:08 23:20
WBC 16.6 H 10^3/uL
(4.8-10.8)
RBC 3.74 L 10^6/uL
(4.70-6.10)
Hgb 11.2 L g/dL
(13.0-18.0)
Hct 32.3 L %
(39.0-52.0)
Plt Count 402 H D 10^3/uL
(130-400)
Abs Immat Gran (auto) 0.1 H 10^3/uL
(0-0.05)
Absolute Neuts (auto) 10.7 H 10^3/uL
(1.4-6.5)
Absolute Monos (auto) 1.7 H 10^3/uL
(0.1-0.6)
Absolute Eos (auto) 1.3 H 10^3/uL
(0-0.7)
Immature Gran % 0.8 H %
(0-0.5)
Lymphocytes % 15.9 L %
(20.5-51.1)
Monocytes % 10.1 H %
(1.7-9.3)
Eosinophils % 7.6 H %
(0-6)
BUN 46 H mg/dl
(9-20)
Creatinine 1.6 H mg/dL
(0.7-1.3)
Glucose 147 H mg/dl
(70-99)
Troponin I 0.545 H* ng/ml
Total Protein 6.2 L g/dl
(6.3-8.2)
03/08/24 22:08
03/08/24 22:08
Vital Signs
Initial and Last Documented VS:
Initial Vital Signs
Temp Pulse Resp BP Pulse Ox
98.3 F 68 18 140/63 95
03/08/24 21:54 03/08/24 21:54 03/08/24 21:54 03/08/24 21:54 03/08/24 21:54
Last Documented Vital Signs
Temp Pulse Resp BP Pulse Ox
98.3 F 75 16 148/94 95
03/08/24 21:54 03/09/24 01:45 03/09/24 02:01 03/09/24 01:40 03/09/24 01:30
MDM/Problems Addressed
Differential Diagnosis Includes:
Dysrhythmia, orthostatic hypotension
MDM/Problems Addressed:
63-year-old male with multiple syncope episodes, unclear etiology. Normal rhythm in ED. Troponin elevated, but likely due to recent CABG.
Chronic conditions affecting care: HTN and CAD
Acute Exacerbation and/or Progression of Chronic Illness: HTN and CAD
*Radiology
Radiology exam reviewed: radiology read reviewed (CT head no acute findings, chest x-ray no acute findings)
*Pulse Oximetry
Patient hypoxic: no
*EKG
Interpreted by ED Provider?: Yes
EKG Intrepretation Date: 03/08/24
EKG Intrepretation Time: 21:56
Interpretation: abnormal
Comparison EKG: no comparison EKG present
Heart Rate: 68
Rate: normal
Rhythm: sinus
[place]: normal axis
Interval: normal interval
QRS Pattern: normal QRS
Ischemia: non-specific ST changes
*Non Garment Sewing Machine Operator Interpretation
Rate: normal
Interpretation: normal
Heart Rate: 74
Rhythm: sinus
*Critical Care Note
Total Time (30-74mins, 75-104mins- exclusive of procedures): Not Applicable
Data Reviewed
Review of Other/Old Records Reveals: Operative Reports (CABG x [address] Kaushal Rodriguez on 03/02/2024)
Source: records
Patient Management
Social determinants of health affecting care: Living situation
Discussion with other providers: Hospitalist and Life Sciences Instructor (Dr. Costello, cardiology)
Escalation/DeEscalation of care consider admission/obs:
Admit indicated
ED Attending Note
-
Portions of this chart may have been created with voice recognition software.� Occasional wrong word or��sound alike� substitutions may have occurred due to the inherent limitations of voice recognition software.
Discharge Plan
Departure
Patient Disposition: Admit
Date of Disposition: 03/09/24
Time of Disposition: 00:20
Admit to: Telemetry
Presentation/result/management discussed w/ accepting MD/DO: Hospitalist
Condition: Good
Discharge Problem:
Syncope
Interventions
Interventions:
*Risk Screen - Suicide Last Done: 03/08/24 21:54
*General Assessment Last Done: 03/08/24 21:54
*Neglect/Abuse Screening Last Done: 03/08/24 21:54
ED- Fall Risk Assessment Last Done: 03/09/24 02:02
*Nursing Disposition Last Done: 03/09/24 02:02
ED- Cardiac Assessment Last Done: 03/08/24 22:28
ED- Neurological Assessment Last Done: 03/08/24 22:28
Discharge Date and Time
Discharge Date/Time: 03/09/24 02:09
[2024-03-08 23:55] LABS: Troponin I 0.545 ng/ml
[2024-03-09] VITALS (21 sets, daily range): BP systolic 119–160; BP diastolic 54–94; PULSE 72–81; O2SAT 92; BMI 31.1
--- NOTE | 2024-03-09 00:51 | HPS.HSE ---
Family Physician
-
Family Physician: Alfie Malrow
Chief Complaint
-
Falls
History of Present Illness
Patient is a 63y M with PMH significant for hypertension, DM-II and ASCVD s/p recent CABG who presents to ED complaining of repeated falls at home. Patient was recently admitted to for angina and underwent CABG on 03/02/24. He was discharged
to home on 03/06/24 and states that he was feeling fairly well at that time. He denies any interim complaints of dyspnea, fevers / chills, cough, etc.
On Friday AM, patient stood from his chair - he waited there a few moments as he has been advised and notes that he did not feel lightheaded, dizzy, etc. He began to walk and few steps later he fell - landing on his coffee table. He struck his
chest on the coffee table which was - of course - quite uncomfortable. Patient denies any prodrome of dizziness, lightheadedness, chest pain, dyspnea, palpitations, etc. He did not lose consciousness.
Patient notes an additional 5 falls (6 total) since that time. Each fall is similar in its absence of lightheadedness / prodrome / syncope / LOC. Patient states that he feels he is losing his balance and then 'rushes to catch up' which results in
him falling. He has had additional episodes wherein he loses his balance but does not fall as he is able to catch himself.
His most recent episode was this evening. He was in the kitchen and lost his balance and fell to the floor. He states that he struck the front of the cabinets as he fell. He denies any head injury - with any of his falls.
He states he did not lose consciousness; however, he also states that he was 'petting' a kitchen towel that he thought was his dog.
After this most recent episode, he presented to the ED for further evaluation.
In the ED, patient is resting comfortably. He denies any dyspnea or palpitations. He has expected chest discomfort s/p recent surgery (and subsequent injury / trauma on Friday AM).
There is some serous drainage from the sternotomy incision and patient notes that he has been changing this dressing daily.
Patient also notes that he has had numbness and weakness in the R hand since his surgery. He specifically cites numbness of the 3rd-5th digits. He states he has had difficulty using utensils due to these symptoms.
No asymmetric / apparent leg weakness or numbness.
Patient admits to a degree of balance issue even prior to his recent surgery. He states that it had never been to the point of falling before. He has an essential tremor as well which is also chronic.
Medical History
Past Medical History
Past Medical History: Reports Other
Additional Past Medical History:
ASCVD
DM-II with Peripheral Neuropathy
Hypertension
Nephrolithiasis
Restless Leg Syndrome
Lumbar Spinal Stenosis
Essential Tremor
Obesity
Past Surgical History: Reports Other
Additional Past Surgical History:
CABG x 5, Left Atrial Appendage Occlusion
Cholecystectomy
L4-5 Laminectomy
SVT Ablation
T&A
Multiple Orthopedic / Joint Surgeries
Social History
Tobacco: Non-smoker
Alcohol: None
Drug: None
Family History
Family History: Not pertinent
Allergies / Home Medications
Allergies reflects when Allergies were last updated in [facility].
Home Medications with original date entered in [facility]
Allergy/Medication List:
Allergies
Allergy/AdvReac Type Severity Reaction Status Date / Time
No Known Allergies Allergy Verified 04/13/23 11:27
Home Medications
duloxetine 60 mg capsule,delayed release 60 mg PO HS Depression 04/23/19
eszopiclone 3 mg tablet (Lunesta) 3 mg PO HS Sleep 04/23/19
multivitamin with folic acid 400 mcg tablet (Tab-A-Christian) 1 tab PO DAILY Supplement 04/23/19
pregabalin 75 mg capsule 150 mg PO BID Neurological Condition 04/23/19
aspirin 81 mg tablet,delayed release 81 mg PO DAILY Blood Clot Prevention/Tx 08/18/20
atorvastatin 40 mg tablet (Lipitor) 40 mg PO HS High Cholesterol 02/22/24
insulin aspart U-100 100 unit/mL subcutaneous cartridge (Novolog PenFill U-100 Insulin aspart) 4 sliding scale dose SC AC Diabetes 02/22/24
acetaminophen 325 mg tablet 650 mg (2 x 325 mg) PO Q4HPRN PRN mild pain,headache,temp >101F #60 tabs 03/06/24
clopidogrel 75 mg tablet 75 mg PO DAILY 365 days #30 tabs 03/06/24
dapagliflozin propanediol 10 mg tablet 10 mg PO DAILY #30 tabs 03/06/24
insulin glargine U-300 conc 300 unit/mL (1.5 mL) subcutaneous pen (Toujeo SoloStar U-300 Insulin) 64 unit (0.2133 mL) SC DAILY Diabetes #0 mL 03/06/24
metformin 1,000 mg tablet 1,000 mg PO BID@0800,1700 #60 tabs 03/06/24
metoprolol tartrate 25 mg tablet 12.5 mg (1/2 x 25 mg) PO BID #60 tabs 03/06/24
oxycodone 5 mg tablet 2.5 mg (1/2 x 5 mg) PO Q4HPRN PRN mild pain #30 tabs 03/06/24
pantoprazole 40 mg tablet,delayed release 40 mg PO DAILY #30 tabs 03/06/24
Review of Systems
-
History Source: Patient and Family
A 12 point ROS was completed and negative except as noted: Yes
Constitutional: Reports Fatigue; Denies Fever or Chills
EENT: Denies Sore Throat
Respiratory: Denies Cough or Trouble Breathing
Cardiac: Reports Diaphoresis; Denies Chest Pain, Palpitations or Syncope
Abdomen/GI: Denies Abdominal Pain, Nausea, Vomiting or Diarrhea
: Denies Dysuria, Frequency or Flank Pain
Musculoskeletal: Denies Joint Pain or Edema
Neurological: Reports Weakness and Numbness; Denies Dizzy or Headache
Psych: Denies Depression or Anxiety
Physical Exam
Vital Signs
Vital Signs
Temp Pulse Resp BP Pulse Ox
98.3 F 73 21 147/65 92
03/08/24 21:54 03/09/24 00:15 03/09/24 00:15 03/09/24 00:04 03/09/24 00:15
Physical Exam
General: Other (63y M in no acute distress.)
HEENT: Moist mucous membranes and PERRLA
Respiratory: Other (Few faint rales at L base. Otherwise clear.)
Cardiac: S1/S2, Regular Rhythm and Murmur (II/ HARDY)
GI: Soft, Non Tender, Non Distended and Normal Bowel Sounds
Musculoskeletal: No Clubbing, No Cyanosis, No Edema and Other (Incisions from RLE vein harvest healing well.)
Neuro: AO x 3 and Other (Mild tremor of the bilateral UEs with intent. No focal weakness. Normal [id number].)
Laboratory Results
-
03/08/24 22:08
03/08/24 22:08
Laboratory Results
Total Bilirubin 0.5 mg/dl (0.2-1.3) 03/08/24 22:08
AST 30 U/L (17-59) 03/08/24 22:08
ALT 23 U/L (0-50) 03/08/24 22:08
Alkaline Phosphatase 104 U/L (38-126) 03/08/24 22:08
Troponin I 0.545 ng/ml H* 03/08/24 23:20
Impression/Plan
-
A/P: Patient is a 63y M with PMH significant for ASCVD s/p recent CABG, HTN and DM-II who presents to ED c/p multiple falls since recent discharge.
Recurrent Falls at Home
Gait Dysfunction
- Observe overnight for further evaluation and treatment.
- Potential contributing factors including recent med changes (metoprolol added), deconditioning, hypoglycemia, neurologic event, etc.
- History does not sound c/w orthostatic symptoms. No syncope or near-syncope by patient description / report.
- Baseline ambulatory dysfunction noted and now s/p major surgery / hospitalization.
- Monitor on tele for any arrhythmia.
- Follow orthostatic signs (unimpressive in the ED).
- PT / OT evaluations.
- CT head as unremarkable in the ED. ? additional imaging if symptoms worsen or persist.
ASCVD
- Stable. s/p CABG x 5 on 03/02/24.
- No new / worsened chest pain, dyspnea, etc.
- Continue current CV med regimen - including newly added metoprolol.
- Monitor on tele as noted above. Follow for any significant bradycardia, hypotension, etc.
- Cardiology consulted.
- Continue local care to sternotomy site - some serous drainage appreciated.
- Troponin was elevated in the ED - likely expected s/p recent open heart surgery. Repeat in the AM to ensure improvement / stability.
NIRANJAN
- SCr = 1.6 compared to recent baseline of 1.1
- ? mild degree of hypovolemia - which may be contributing to gait issues / falls.
- Hold Farxiga acutely. Gentle IVFs overnight and follow for improvement in renal function.
Benign Hypertension
- Stable. Continue current med regimen with holding parameters.
DM-II
Peripheral Neuropathy secondary to the above
- Stable. Well-controlled on current med regimen.
- Continue basal : bolus insulin at somewhat decreased dose for now.
- Follow glucose and cover with SSI as needed.
- Chronic DM neuropathy likely contributes to / cause of pre-existing gait abnormality.
- PT / OT as noted above.
- Continue Lyrica.
Obesity due to excess calories
- Affects all aspects of care.
- Encourage healthy diet and increased activity as tolerated with goal of weight loss.
DVT Prophylaxis: SCDs
Code Status: Full
[2024-03-09 02:49] LABS: Glucose - Point of Care 104 mg/dl (70-99)
[2024-03-09] MEDS: NSS 1000 IV ×2 (03:10→17:37)
[2024-03-09] MEDS: TYLENOL 650 MG PO (03:12)
--- NOTE | 2024-03-09 05:05 | PTCARENOTE ---
Received pt from ED. Pt able to turn and pivot from stretcher to bed w/ x1 assist and using heart pillow from CVICU recent CABG admission. Pt c/o no dizziness/lightheadedness. Oriented pt to room. Pt w/ sternal incision site approx and draining
small amt serous drainage. Annette Meléndez made aware. Incision site redressed w/ 4x4 sterile gauze and tape. Pt c/o L lower back pain. Tylenol ordered as administered. Pt made aware to use call bliss to make needs known and not to get OOB w/o assistance.
Verbalizes understanding. Currently in bed; call bliss w/in reach.
[2024-03-09 05:19] LABS: Hematocrit 31.2 % (39.0-52.0); Mean Corp Hgb Conc. 35.3 g/dL (33.0-37.0); Mean Corpuscular Hgb 30.1 pg (27.0-31.0); Mean Corpuscular Volume 85.2 fL (80.0-94.0); Mean Platelet Volume 9.8 fL (7.4-10.4); Platelet Count 370 10^3/uL (130-400); Red Blood Cell Count 3.66 10^6/uL (4.70-6.10); Red Cell Dist. Width 13.1 % (11.5-14.5); White Blood Cell Count 17.1 10^3/uL (4.8-10.8)
[2024-03-09 05:30] LABS: Blood Urea Nitrogen 41 mg/dl (9-20); Calcium 8.7 mg/dl (8.4-10.2); Carbon Dioxide 20 mmol/L (22-30); Chloride 101 mmol/L (98-107); Estimated Creatinine Clearance 81 ml/min; Glucose 122 mg/dl (70-99); Potassium 4.2 mmol/L (3.5-5.1); Sodium 136 mmol/L (135-145); eGFR > 60.00
[2024-03-09 05:51] LABS: Troponin I 0.491 ng/ml
[2024-03-09] MEDS: ROXICODONE 2.5 MG PO ×3 (05:59→19:34)
--- NOTE | 2024-03-09 06:02 | PTCARENOTE ---
Pt c/o lower back pain 09/23. Cedric Mabry FIBER D[employer]ER OPERATOR notified and orders placed. 2.5 mg PO Roxicodone ordered and administered. See AUG.
[2024-03-09 07:10] LABS: Glucose - Point of Care 113 mg/dl (70-99)
[2024-03-09] MEDS: PLAVIX 75 MG PO (08:05)
[2024-03-09] MEDS: ASPIR LOW (ENTERIC COATED) 81 MG PO (08:05)
[2024-03-09] MEDS: LOPRESSOR 12.5 MG PO ×2 (08:05→19:34)
[2024-03-09] MEDS: LYRICA 150 MG PO ×2 (08:05→19:34)
[2024-03-09] MEDS: PROTONIX 40 MG PO (08:05)
[2024-03-09 08:06] LABS: Glucose - Point of Care 86 mg/dl (70-99)
[2024-03-09] MEDS: LANTUS 0.32 UNITS SC (08:06)
[2024-03-09] MEDS: NOVOLOG FLEXPEN-MODERATE RESISTANCE SC ×2 (08:10→12:21)
--- NOTE | 2024-03-09 09:00 | CON.CAR ---
Addendum entered and electronically signed by Conrad Jaeger MD 03/09/24 10:51:
I saw and examined the patient.
The COPYRIGHT EXPERT or PA's note was reviewed and I agree with the note.
Comment: General: Well developed, well nourished in NAD.
Neck: Supple, no JVD, HJR, carotids +2 B/L, no bruits bilaterally.
Heart: Non displaced PMI, RRR, no murmurs, No S3, S4, no rubs.
Lungs: Scattered rhonchi at the bases
Sternal dressings noted
Extremities: No clubbing, cyanosis or edema bilaterally.
Neuro: There is no dysmetria muscle strength is 4 out of 5 throughout
Michael has history of CAD status post 5 vessel CABG on 03/02/24, diabetes, chronic diastolic CHF, sleep apnea on CPAP, hypertension, hyperglycemia, SVT status post ablation, essential tremor. He was discharged on 03/06. He presents after 6 falls. He
does not recall being dizzy or chest pain or shortness of breath. He has hit his chest on the table as well. He is brought to the ER and admitted for further workup. He has had some drainage from his sternal wound as well.
Etiology of falls is unclear. Could be an element of volume depletion but does not give symptoms of dizziness. Need to consider possible neurologic cause even though CAT scan was negative.? Cerebellar infarct. He reportedly did well with
physical therapy however. Recommend neurologic examination. Will check orthostatics. Will hold Farxiga and give IV fluids. CT surgery evaluation regarding drainage and elevated white count. Discussed with primary care who will consult neurology
as well.
Original Note:
Consultation
Consultation Request
Date/Time Consultation Performed: 03/09/24
Requesting Provider: Dr. Khanna
Performing Provider: Iona Cason PA-C for Dr. Jaeger
Reason for Consultation: falls, recent CABG
Medical History
-
Chief Complaint: falls
History of Present Illness:
Patient is a 63 yo M with recent admission to 02/21-03/06/24. He reports then Friday evening he got up and walked to the door he had the feeling as though he was going to fall and did not want to fall on the floor, so states he 'sort of go back
to his chair'. He reports since that episode he has had 4-5 additional episodes of falls, 1 of which he reports going 'chest first into the coffee table'. He denies feelings of lightheadedness or dizziness associated with his falling episodes and
denies feeling as though he was going to pass out. He reports Farxiga and Lopressor are new medications for him. He was not discharged on standing Lasix dose. He also reports some drainage from his sternal wound. On arrival creatinine 1.6. Of
note he did have NIRANJAN in the setting of diuresis last admission with subsequent improvement. Head CT in ER negative for acute abnormality. Cardiology consulted for evaluation
PMH:
NSTEMI with Multivessel CAD s/p CABG x 5, REEVES�LAD, KELY�ramus/OM, aorta- SVG - PVBR/PDA 03/02/24
NIRANJAN and acute CHF during last admission
Diabetes mellitus
obstructive sleep apnea on CPAP
h/o HTN
Hyperlipidemia
SVT s/p ablation
essential tremor
Past Medical History
Past Medical History: Other (in HPI)
Social History
Tobacco: Non-Smoker
Alcohol: None
Personal:
Living: With Family
Employment: Employed
Family History
Family History: Reviewed & Not Pertinent
Allergies / Home Medications
Allergy/AdvReac Type Severity Reaction Status Date / Time
No Known Allergies Allergy Verified 04/13/23 11:27
�Medication �Instructions �Recorded �Confirmed �Type
duloxetine 60 mg capsule,delayed 60 mg PO HS Depression 04/23/19 03/09/24 History
release
eszopiclone 3 mg tablet (Lunesta) 3 mg PO HS Sleep 04/23/19 03/09/24 History
multivitamin with folic acid 400 1 tab PO DAILY Supplement 04/23/19 03/09/24 History
mcg tablet (Tab-A-Christian)
pregabalin 75 mg capsule 150 mg PO BID Neurological 04/23/19 03/09/24 History
Condition
aspirin 81 mg tablet,delayed 81 mg PO DAILY Blood Clot 08/18/20 03/09/24 History
release Prevention/Tx
atorvastatin 40 mg tablet (Lipitor) 40 mg PO HS High Cholesterol 02/22/24 03/09/24 History
insulin aspart U-100 100 unit/mL 4 sliding scale dose SC AC Diabetes 02/22/24 03/09/24 History
subcutaneous cartridge (Novolog
PenFill U-100 Insulin aspart)
acetaminophen 325 mg tablet 650 mg (2 x 325 mg) PO Q4HPRN PRN 03/06/24 03/09/24 Rx
mild pain,headache,temp >101F #60
tabs
clopidogrel 75 mg tablet 75 mg PO DAILY 365 days #30 tabs 03/06/24 03/09/24 Rx
dapagliflozin propanediol 10 mg 10 mg PO DAILY #30 tabs 03/06/24 03/09/24 Rx
tablet
insulin glargine U-300 conc 300 64 unit (0.2133 mL) SC DAILY 03/06/24 03/09/24 Rx
unit/mL (1.5 mL) subcutaneous pen Diabetes #0 mL
(Toujeo SoloStar U-300 Insulin)
metformin 1,000 mg tablet 1,000 mg PO BID@0800,1700 #60 tabs 03/06/24 03/09/24 Rx
metoprolol tartrate 25 mg tablet 12.5 mg (1/2 x 25 mg) PO BID #60 03/06/24 03/09/24 Rx
tabs
oxycodone 5 mg tablet 2.5 mg (1/2 x 5 mg) PO Q4HPRN PRN 03/06/24 03/09/24 Rx
mild pain #30 tabs
pantoprazole 40 mg tablet,delayed 40 mg PO DAILY #30 tabs 09/21/24 09/24/24 Rx
release
Review of Systems
-
History Source: Patient
All other systems: Negative unless noted
Physical Exam
Vital Signs
Temp Pulse Resp BP Pulse Ox
98.4 F 78 18 148/59 94
03/09/24 07:03 03/09/24 07:15 03/09/24 07:03 03/09/24 07:06 03/09/24 07:03
Lab Results
03/09/24 04:55
03/09/24 04:54
Troponin I 0.491 ng/ml H* 03/09/24 04:55
Physical Exam
General: No Apparent Distress and Comfortable
HEENT: Normocephalic, Anicteric and Moist Mucous Membranes
Respiratory: Crackles (at bases) and Non Labored Respirations
Cardiac: S1/S2 and Regular Rhythm
GI: Soft, Non Tender, Non Distended and Normal Bowel Sounds
Musculoskeletal: No Clubbing, No Cyanosis and No Edema
Skin: Warm, Dry and Other (Sternotomy moist appearing with serosanguinous drainage on dressing)
Neuro: AO x 3
Impression / Plan
-
PCP: Dr. Marlow
Primary Engineering And Operations Director: Dr. Miranda
Assessment:
Recurrent falls
Sternotomy drainage
Leukocytosis
NIRANJAN
Elevated troponin, suspected nonischemic myocardial injury secondary to recent CABG
Recent admission for HTN emergency, acute HFpEF, NIRANJAN, MV CAD/NSTEMI
NSTEMI with Multivessel CAD s/p CABG x 5, REEVES�LAD, KELY�ramus/OM, aorta- SVG - PVBR/PDA 03/02/24
Diabetes mellitus
obstructive sleep apnea on CPAP
HTN
Hyperlipidemia
SVT s/p ablation
essential tremor
Echo 04/30/2019: Normal LV size, EF 60 to 65%, no valvular heart disease
Echo 02/23/2024: Vigorous LV systolic function with mild cLVH, EF 65 to 70%, mild hypokinesis of apical septum, normal RV size and systolic function
Cardiac catheterization: 02/25/2024: Left main: Mild diffuse plaque; LAD: Proximal 60-70% IFR 0.08; circumflex: OM1 ostial 60-70%, 3 serial lesions in mid circumflex extending into proximal OM 2 up to 90%; RCA: 70% proximal, 80% mid
Plan:
-Patient presents after prolonged admission 02/21 - 03/06/2024 for hypertensive emergency, CHF, MV CAD/NSTEMI status post CABG x 5 with recurrent falls.
-He presents with NIRANJAN, creatinine of 1.6, improving status post IV fluid, however his story does not appear consistent with orthostasis/dehydration. States has been eating and drinking well. Denies lightheadedness, dizziness, presyncope or syncope
with episodes. No hypotension noted
-Check orthostatic vital signs
-Ordered follow up echo in setting of recent CABG
-EKG NSR. no pauses/bradycardia on my review of tele overnight
-Would consider neurology evaluation. head CT negative
-PT evaluation
-Hold Farxiga. IV fluid continues at this time.
-Follow volume status. weight up from discharge, however suspect inaccurate, follow. Chest x-ray with small bilateral pleural effusions. Patient without shortness of breath and is not requiring supplemental oxygen
-With leukocytosis and drainage from sternotomy, discussed with and consulted CT surgery. continue wound care.
-trop elevation felt to secondary to recent CABG, nonischemic myocardial injury
-hgb stable at 11. continue asa, plavix
-d/w hospitalist via TT
Data Reviewed
-
EKG: Tracing Personally Visualized and interpreted
Radiology: Report Reviewed by me
CT Scan: Report Reviewed by me
Medical Tests (Nuc Med, Echo etc): Report Reviewed by me
Labs: Labs Reviewed by me
Old Records: Reviewed
--- NOTE | 2024-03-09 09:36 | CONSULT.CT ---
Consultation
-
Date/Time Consultation Requested: 03/09/24
Date/Time Consultation Performed: 03/09/24
Performing Provider: Katerine Ramirez PA-C for Dr. Kaushal Rodriguez
Reason for Consultation: recent CABG; falls, sternal drainage
Patient History
Physicians
Family Physician: Alfie Gandhi
Outpatient Milieu Counselor: En
Inpatient Milieu Counselor: MARY
History of Present Illness
Patient is a 63-year-old male well-known to our service, recently discharged from the hospital 03/06/2024 after CABG x 5 with exclusion of left atrial appendage by Dr. Rodriguez on 03/02/2024. Postoperative course was uncomplicated, but patient did
experience an episode of diaphoresis and dizziness on postop day 3. At that time beta-martha was decreased from 25 twice daily to 12.5 twice daily. Symptoms had improved and he was discharged to home the following day.
Patient now reporting that since discharge he has had multiple falls at home, without preceding lightheadedness or dizziness. Orthostatic vital signs in the ED were unremarkable. Blood pressure has been on the high side ranging in 140s to 150s
systolic. currently being seen by physical therapy for full assessment. On admission patient was also noted to have some sternal wound drainage. Patient denies fevers at home, feels like he has been 'hit by a truck', but denies worsening chest
pain shortness of breath or palpitations.
Past Medical History
-Multivessel coronary artery disease
-Non-ST elevated myocardial infarction (peak trop 0.108)
-Acute diastolic congestive heart failure
-Preoperative acute kidney injury (creatinine 1.4 on 02/27/24 from 0.9)
-hx Hypertensive emergency
-Hyperlipidemia
-Type 2 diabetes mellitus (A1C 6.1)
-Class 1 obesity (body mass index 30.9)
-Obstructive sleep apnea (uses continuous positive airway pressure)
-Renal calculi
-Restless leg syndrome (on Lyrica)
-Anxiety/Depression
-Supraventricular tachycardia status post ablation, 1995
Past Surgical History
-Status post bilateral knee surgery
-Status post right shoulder surgery
-Status post right elbow arthroscopies
-Status post left carpal tunnel release
-Status post left Dupuytren's contracture release
-Status post cervical spine fusion
-Status post ureteral stent
-Status post bilateral carpal tunnel
-Status post tonsillectomy
-Status post cholecystectomy
Family History
Mother: N/A
Father: N/A
Social History
Alcohol: Occasional
Tobacco: Non-Smoker
Allergies
Allergy/AdvReac Type Severity Reaction Status Date / Time
No Known Allergies Allergy Verified 04/13/23 11:27
Home Medications
�Medication �Instructions �Recorded �Confirmed �Type
duloxetine 60 mg capsule,delayed 60 mg PO HS Depression 04/23/19 03/09/24 History
release
eszopiclone 3 mg tablet (Lunesta) 3 mg PO HS Sleep 04/23/19 03/09/24 History
multivitamin with folic acid 400 1 tab PO DAILY Supplement 04/23/19 03/09/24 History
mcg tablet (Tab-A-Christian)
pregabalin 75 mg capsule 150 mg PO BID Neurological 04/23/19 03/09/24 History
Condition
aspirin 81 mg tablet,delayed 81 mg PO DAILY Blood Clot 08/18/20 03/09/24 History
release Prevention/Tx
atorvastatin 40 mg tablet (Lipitor) 40 mg PO HS High Cholesterol 02/22/24 03/09/24 History
insulin aspart U-100 100 unit/mL 4 sliding scale dose SC AC Diabetes 02/22/24 03/09/24 History
subcutaneous cartridge (Novolog
PenFill U-100 Insulin aspart)
acetaminophen 325 mg tablet 650 mg (2 x 325 mg) PO Q4HPRN PRN 03/06/24 03/09/24 Rx
mild pain,headache,temp >101F #60
tabs
clopidogrel 75 mg tablet 75 mg PO DAILY 365 days #30 tabs 03/06/24 03/09/24 Rx
dapagliflozin propanediol 10 mg 10 mg PO DAILY #30 tabs 03/06/24 03/09/24 Rx
tablet
insulin glargine U-300 conc 300 64 unit (0.2133 mL) SC DAILY 03/06/24 03/09/24 Rx
unit/mL (1.5 mL) subcutaneous pen Diabetes #0 mL
(Toujeo SoloStar U-300 Insulin)
metformin 1,000 mg tablet 1,000 mg PO BID@0800,1700 #60 tabs 03/06/24 03/09/24 Rx
metoprolol tartrate 25 mg tablet 12.5 mg (1/2 x 25 mg) PO BID #60 03/06/24 03/09/24 Rx
tabs
oxycodone 5 mg tablet 2.5 mg (1/2 x 5 mg) PO Q4HPRN PRN 03/06/24 03/09/24 Rx
mild pain #30 tabs
pantoprazole 40 mg tablet,delayed 40 mg PO DAILY #30 tabs 03/06/24 03/09/24 Rx
release
Review of Systems
-
History Source: Patient
General: Denies Fever
HEENT: Denies Visual Changes or Dysphagia
Respiratory: Denies SOB, ARVIZU or Cough
Cardiac: Denies Chest Pain or Diaphoresis
Abdomen/GI: Denies Abdominal Pain
Musculoskeletal: Reports Myalgias (generalized muscle pains)
Neurological: Reports Syncope; Denies CVA or Weakness
Physical Exam
Vital Signs
Temp 98.4 F 03/09/24 07:03
Temp route: Oral 03/09/24 07:03
Pulse 78 03/09/24 07:15
Rhythm: Normal sinus rhythm 03/09/24 03:26
Resp Rate 18 03/09/24 07:03
Blood pressure 148/59 03/09/24 07:06
Blood pressure extremity used: Right upper arm 03/09/24 07:03
Position: Lying 03/09/24 07:03
MAP (cuff-Stephen Monitor) 83 03/09/24 07:06
SaO2 94 03/09/24 07:03
Oxygen Mode of Delivery Room air 03/09/24 07:03
Can the patient verbally communicate their pain? Yes 03/09/24 06:59
Pain scale ratin 03/09/24 06:59
Actual Weight 120.5 kg 03/08/24 22:26
Body Mass Index (BMI) 34.1 03/08/24 22:26
Supine- Blood Pressure 160/65 03/09/24 00:51
Supine- Pulse 76 03/09/24 00:51
Sitting- Blood Pressure 146/70 03/09/24 00:51
Sitting- Pulse 79 03/09/24 00:51
Standing- Blood Pressure 158/71 03/09/24 00:51
Standing- Pulse 81 03/09/24 00:51
Labs
03/09/24 04:55
03/09/24 04:54
Troponin I 0.491 ng/ml H* 03/09/24 04:55
Exam
General: Well Developed, Well Nourished and No Apparent Distress
HEENT: Normocephalic and Anicteric
Respiratory: Crackles (L base)
Cardiac: Regular Rhythm; Negative Murmur
Skin: Warm, Dry and Other (MSI with cloudy/yellowish drainage; moderate amount of discharge)
Neuro: Nonfocal/Grossly Intact
Assessment / Plan
-
Recent CABG x5 with ELAA by Dr. Rodriguez 03/02/24
Superficial sternal wound infection, WBC 17 this am
- will send blood cultures x2
- start IV ancef 2G H1U--mtj convert to PO keflex at time of discharge
- no plans for further imaging at this time, will follow clinically
- continue dry dressings change BID and PRN saturation
NIRANJAN with admission Cr 1.6, now 1.3 with some IV fluids
Falls at home-- unclear etiology, orthostatics OK, no prodromal symptoms or hypotension noted. PT/OT evaluating now, medicine/cards continuing workup-- OK For MRI
we will continue to follow.
Data Reviewed
-
Radiology: Image Personally Visualized and interpreted and Report Reviewed by me
--- NOTE | 2024-03-09 10:14 | CM ---
Reviewed chart. Met with Mr. Wu to review discharge plans. He states prior to admission he reside with his spouse and 34 year old daughter in a one story home with one step to enter. He states he has a full flight of steps to get to laundry
room. He states prior to admission he was independent with ambulation and adls. He states he has a glucometer and CPAP Machine. He states he has a prescription plan and and uses [facility]. He states his spouse works outside the home. Will
need to see his current functional level to see if he will have any skilled care needs. Medical work-up in progress. The discharge plan is to return home with his spouse and daughter when medically stable.
--- NOTE | 2024-03-09 10:47 | PTCARENOTE ---
Blood cultures times 2 collected. Ancef IV will be given after cultures and urine is obtained. Afebrile, denies chills. Sternal dressing changed at 0730 this morning, last changed at 0330. The dressing moist with moderate amount of yellow purulent
drainage.
--- NOTE | 2024-03-09 11:10 | CON.NEURO ---
Consultation
Order
Date of Consultation: 03/09/24
Requesting Provider: Justin Fernandes M.D.
Reason for Consult: Recurrent fall
Neurology consultation note
CC: falls
HPI: This is a 63-year-old RH man who presented to [facility] on March 08, 2024 with recurrent falls. According to the patient he has had recurrent falls due to imbalance was not associated head trauma or loss of consciousness
since 03/06/2024. No reports of headaches, change in vision, motor strength or new sensory deficits. Mr. Barksdale has a history of cervical myelopathy with associated right hand weakness and numbness in the R III-V digits. He feels that his
sensory symptoms have worsened since the new imbalance onset.
ER VS: 140/63, 68, afebrile
EKG-NSR, QTc Int : 435 ms
PDMP:Hydrocodone-Homatropine filled in 02/09/2024; Pregabalin 150 Mg�60 capsules filled in on 02/06/2024, 12/29/2023, 10/09/2023
Eszopiclone 3 Mg 30 tabs filled in on 02/23/2024, 01/21/2024, 12/23/2023, 11/20/2023, 10/19/2023
Labs: WBCs�16.6�17.1, hemoglobin�11.2, platelets 402, creatinine 1.6, glucose�147, unremarkable urinalysis
PMH: Essential Tremor, ASCVD, SVT (ablation 1995), HTN, DLP, DM, GERD, insomnia, neuropathy, fibromyalgia, COLE, BMI 34, MDD, nephrolithiasis
PSH:cervical laminectomy and L4-5 Laminectomy, R shoulder arthroplasty, R elbow repair, Watchman�procedure, CABG(03/02/24), strabismus surgery
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
FH: mother at 87 from stroke; father-hand tremor
All:NKDA
ROS:Constitutional: Negative. Negative for chills, fever and unexpected weight change.
HENT: Negative for ear pain, hearing loss, tinnitus and trouble swallowing.
Eyes: Negative. Negative for photophobia, pain and visual disturbance.
Respiratory: Negative for cough, choking and shortness of breath.
Cardiovascular: Negative for chest pain, palpitations and leg swelling.
Gastrointestinal: Negative for abdominal pain and vomiting.
Endocrine: Negative. Negative for cold intolerance.
Genitourinary: Positive intermittent urgency and urinary incontinence
Musculoskeletal: Negative for back pain, neck pain and neck stiffness.
Skin: Negative for rash.
Allergic/Immunologic: Negative. Negative for immunocompromised state.
Neurological: Positive for chronic hand tremor, numbness in R III-V digits, imbalance
Psychiatric/Behavioral: Positive for insomnia
General: Well developed. In no acute distress.
Cardio: Regular rate and rhythm without murmur. Extremities are without cyanosis or edema.
Neuro:
Mental Status: Alert, oriented to person, place, and date. Normal attention and recall. Good fund of knowledge. Follows complex requests across the midline. Comprehension, naming, and repetition intact. Immediate and delayed recall 3/3.
Cranial Nerves: . Pupils are equally round and reactive to light. EOMs full. Visual curiel full to confrontation. No ptosis. No nystagmus. V1-V3 intact to light touch and pinprick bilaterally, symmetric. Face symmetric. Normal hearing AU.
The palate elevated well. SCMs and traps 5/5. Tongue midline. No dysarthria. Mild hypophonia
Motor: Normal bulk and tone. No pronator or arm drift. Strength 5/5 throughout, except for R IO 4/5. No clonus.
Reflexes: 3+ in patellars
Sensory: Absent vibration at the toes ankles and reduced the knees
Coordination: right greater than left action hand tremor. Chin tremor no dysmetria
Gait: deferred
Assessment and Plan:
I. Frequent falls
II. Essential Tremor
III. Chronic cervical myelopathy with C7-Th1 radiculopathy
IV. Polyneuropathy
-Fall precautions
-Brain MRI without britany to rule out embolic infarcts
-Utilize weighted utensils
-Switch metoprolol to propranolol if no objections from cardiology perspective for hand tremor control
-Continue aspirin 81 mg once a day
-PT/OT
-DVT prophylaxis
I personally reviewed all radiology and labs along with past medical records pertinent to current medical problems. Total time spent in patient care is 60 minutes.
Thank you for allowing us to participate in the care of this patient. We will continue to follow. Please do not hesitate to contact us with any questions or concerns.
Subjective/Objective
Subjective Data
Date of Service: March 09, 2024
Objective Data
Vital Signs
Temp Pulse Resp BP Pulse Ox
36.9 C 78 18 148/59 94
03/09/24 07:03 03/09/24 07:15 03/09/24 07:03 03/09/24 07:06 03/09/24 07:03
Lab Results
03/09/24 04:55
03/09/24 04:54
Sodium 136 mmol/L (135-145) 03/09/24 04:54
Potassium 4.2 mmol/L (3.5-5.1) 03/09/24 04:54
BUN 41 mg/dl (9-20) H 03/09/24 04:54
Glucose 122 mg/dl (70-99) H 03/09/24 04:54
Calcium 8.7 mg/dl (8.4-10.2) 03/09/24 04:54
Patient Allergies
No Known Allergies Allergy (Verified 04/13/23 11:27)
Medications
-
Active Medications
Generic Name Dose Route Start Last Admin
Trade Name Freq PRN Reason Stop Dose Admin
Acetaminophen 650 mg 03/09/24 02:19 03/09/24 03:12
Acetaminophen 325 Mg Tablet PO 04/06/24 02:18 650 mg
Q4HPRN PRN Administration
mild pain,headache,temp >101F
Aspirin 81 mg 03/09/24 08:00 03/09/24 08:05
Aspirin 81 Mg (Enteric Coated) Tablet PO 04/06/24 07:59 81 mg
DAILY ZANDRA Administration
Atorvastatin Calcium 40 mg 03/09/24 22:00
Atorvastatin (Lipitor) 40 Mg Tablet PO 04/06/24 21:59
HS ZANDRA
Clopidogrel Bisulfate 75 mg 03/09/24 08:00 03/09/24 08:05
Clopidogrel 75 Mg Tablet PO 04/06/24 07:59 75 mg
DAILY ZANDRA Administration
Dextrose 12.5 grams 03/09/24 02:19
Dextrose 50% (0.5 Grams/Ml) 50 Ml Syringe IV 04/06/24 02:18
[id number] PRN
hypoglycemia
Protocol
Duloxetine HCl 60 mg 03/09/24 22:00
Duloxetine Delayed Release 60 Mg Capsule PO 04/06/24 21:59
HS ZANDRA
Glucagon 1 mg 03/09/24 02:19
Glucagon 1 Mg Vial IM 04/06/24 02:18
PRN PRN
hypoglycemia
Protocol
Sodium Chloride 1,000 mls @ 80 mls/hr 03/09/24 02:19 03/09/24 03:10
Nss IV 1,000 mls
[id number] ZANDRA Administration
Insulin Glargine 32 units/ 0.32 mls @ 0 mls/hr 03/09/24 08:00 03/09/24 08:06
Device SC 04/06/24 07:59 0.32 mls
DAILY ZANDRA Administration
As Directed
Cefazolin Sodium 2 grams in 10 mls @ 120 mls/hr 03/09/24 10:00
Ancef IV
Q8H ZANDRA
Insulin Aspart 0 units 03/09/24 07:30 03/09/24 08:10
Insulin Aspart Moderate Resistance 300 Units/3 Ml Pen.Injctr SC 04/06/24 07:29 Not Given
AC ZANDRA
Protocol
Metoprolol Tartrate 12.5 mg 03/09/24 08:00 03/09/24 08:05
Metoprolol 25 Mg Regular Release Tablet PO 04/06/24 07:59 12.5 mg
BID ZANDRA Administration
Oxycodone HCl 2.5 mg 03/09/24 05:10 03/09/24 05:59
Oxycodone 5 Mg Regular Release Tablet PO 03/23/24 05:09 2.5 mg
Q4HPRN PRN Administration
mod pain
Pantoprazole Sodium 40 mg 03/09/24 08:00 03/09/24 08:05
Pantoprazole 40 Mg Delayed Release Tablet PO 04/06/24 07:59 40 mg
DAILY ZANDRA Administration
Pregabalin 150 mg 03/09/24 08:00 03/09/24 08:05
Pregabalin 75 Mg Capsule PO 04/06/24 07:59 150 mg
BID ZANDRA Administration
Sodium Chloride 0 flush 03/09/24 04:00
Sodium Chloride 0.9% (Flush) Syringe IV 04/06/24 03:59
PER PROTOCOL ZANDRA
Home Medications
�Medication �Instructions �Recorded
duloxetine 60 mg capsule,delayed 60 mg PO HS Depression 04/23/19
release
eszopiclone 3 mg tablet (Lunesta) 3 mg PO HS Sleep 04/23/19
multivitamin with folic acid 400 1 tab PO DAILY Supplement 04/23/19
mcg tablet (Tab-A-Christian)
pregabalin 75 mg capsule 150 mg PO BID Neurological 04/23/19
Condition
aspirin 81 mg tablet,delayed 81 mg PO DAILY Blood Clot 08/18/20
release Prevention/Tx
atorvastatin 40 mg tablet (Lipitor) 40 mg PO HS High Cholesterol 02/22/24
insulin aspart U-100 100 unit/mL 4 sliding scale dose SC AC Diabetes 02/22/24
subcutaneous cartridge (Novolog
PenFill U-100 Insulin aspart)
acetaminophen 325 mg tablet 650 mg (2 x 325 mg) PO Q4HPRN PRN 03/06/24
mild pain,headache,temp >101F #60
tabs
clopidogrel 75 mg tablet 75 mg PO DAILY 365 days #30 tabs 03/06/24
dapagliflozin propanediol 10 mg 10 mg PO DAILY #30 tabs 03/06/24
tablet
insulin glargine U-300 conc 300 64 unit (0.2133 mL) SC DAILY 03/06/24
unit/mL (1.5 mL) subcutaneous pen Diabetes #0 mL
(Toujeo SoloStar U-300 Insulin)
metformin 1,000 mg tablet 1,000 mg PO BID@0800,1700 #60 tabs 03/06/24
metoprolol tartrate 25 mg tablet 12.5 mg (1/2 x 25 mg) PO BID #60 03/06/24
tabs
oxycodone 5 mg tablet 2.5 mg (1/2 x 5 mg) PO Q4HPRN PRN 03/06/24
mild pain #30 tabs
pantoprazole 40 mg tablet,delayed 40 mg PO DAILY #30 tabs 03/06/24
release
Vital Signs and Labs
-
Vital Signs and Labs:
Vital Signs
Temp Pulse Resp BP Pulse Ox
36.9 C 69 16 148/59 91
03/09/24 11:34 03/09/24 11:34 03/09/24 11:34 03/09/24 07:06 03/09/24 11:34
Lab Results
03/09/24 04:55
03/09/24 04:54
Sodium 136 mmol/L (135-145) 03/09/24 04:54
Potassium 4.2 mmol/L (3.5-5.1) 03/09/24 04:54
BUN 41 mg/dl (9-20) H 03/09/24 04:54
Glucose 122 mg/dl (70-99) H 03/09/24 04:54
Calcium 8.7 mg/dl (8.4-10.2) 03/09/24 04:54
Medications
-
Medications:
Generic Name Dose Route Start Last Admin
Trade Name Freq PRN Reason Stop Dose Admin
Acetaminophen 650 mg 03/09/24 02:19 03/09/24 03:12
Acetaminophen 325 Mg Tablet PO 04/06/24 02:18 650 mg
Q4HPRN PRN Administration
mild pain,headache,temp >101F
Aspirin 81 mg 03/09/24 08:00 03/09/24 08:05
Aspirin 81 Mg (Enteric Coated) Tablet PO 04/06/24 07:59 81 mg
DAILY ZANDRA Administration
Atorvastatin Calcium 40 mg 03/09/24 22:00
Atorvastatin (Lipitor) 40 Mg Tablet PO 04/06/24 21:59
HS ZANDRA
Clopidogrel Bisulfate 75 mg 03/09/24 08:00 03/09/24 08:05
Clopidogrel 75 Mg Tablet PO 04/06/24 07:59 75 mg
DAILY ZANDRA Administration
Dextrose 12.5 grams 03/09/24 02:19
Dextrose 50% (0.5 Grams/Ml) 50 Ml Syringe IV 04/06/24 02:18
[id number] PRN
hypoglycemia
Protocol
Duloxetine HCl 60 mg 03/09/24 22:00
Duloxetine Delayed Release 60 Mg Capsule PO 04/06/24 21:59
HS ZANDRA
Glucagon 1 mg 03/09/24 02:19
Glucagon 1 Mg Vial IM 04/06/24 02:18
PRN PRN
hypoglycemia
Protocol
Sodium Chloride 1,000 mls @ 80 mls/hr 03/09/24 02:19 03/09/24 03:10
Nss IV 1,000 mls
.[id number] ZANDRA Administration
Insulin Glargine 32 units/ 0.32 mls @ 0 mls/hr 03/09/24 08:00 03/09/24 08:06
Device SC 04/06/24 07:59 0.32 mls
DAILY ZANDRA Administration
As Directed
Cefazolin Sodium 2 grams in 10 mls @ 120 mls/hr 03/09/24 10:00 03/09/24 11:13
Ancef IV 10 mls
Q8H ZANDRA Administration
Insulin Aspart 0 units 03/09/24 07:30 03/09/24 12:21
Insulin Aspart Moderate Resistance 300 Units/3 Ml Pen.Injctr SC 04/06/24 07:29 Not Given
AC ZANDRA
Protocol
Metoprolol Tartrate 12.5 mg 03/09/24 08:00 03/09/24 08:05
Metoprolol 25 Mg Regular Release Tablet PO 04/06/24 07:59 12.5 mg
BID ZANDRA Administration
Oxycodone HCl 2.5 mg 03/09/24 05:10 03/09/24 11:17
Oxycodone 5 Mg Regular Release Tablet PO 03/23/24 05:09 2.5 mg
Q4HPRN PRN Administration
mod pain
Pantoprazole Sodium 40 mg 03/09/24 08:00 03/09/24 08:05
Pantoprazole 40 Mg Delayed Release Tablet PO 04/06/24 07:59 40 mg
DAILY ZANDRA Administration
Pregabalin 150 mg 03/09/24 08:00 03/09/24 08:05
Pregabalin 75 Mg Capsule PO 04/06/24 07:59 150 mg
BID ZANDRA Administration
Sodium Chloride 0 flush 03/09/24 04:00
Sodium Chloride 0.9% (Flush) Syringe IV 04/06/24 03:59
PER PROTOCOL ZANDRA
Home Medications
-
Home Medications
duloxetine 60 mg capsule,delayed release 60 mg PO HS Depression 04/23/19
eszopiclone 3 mg tablet (Lunesta) 3 mg PO HS Sleep 04/23/19
multivitamin with folic acid 400 mcg tablet (Tab-A-Christian) 1 tab PO DAILY Supplement 04/23/19
pregabalin 75 mg capsule 150 mg PO BID Neurological Condition 04/23/19
aspirin 81 mg tablet,delayed release 81 mg PO DAILY Blood Clot Prevention/Tx 08/18/20
atorvastatin 40 mg tablet (Lipitor) 40 mg PO HS High Cholesterol 02/22/24
insulin aspart U-100 100 unit/mL subcutaneous cartridge (Novolog PenFill U-100 Insulin aspart) 4 sliding scale dose SC AC Diabetes 02/22/24
acetaminophen 325 mg tablet 650 mg (2 x 325 mg) PO Q4HPRN PRN mild pain,headache,temp >101F #60 tabs 03/06/24
clopidogrel 75 mg tablet 75 mg PO DAILY 365 days #30 tabs 03/06/24
dapagliflozin propanediol 10 mg tablet 10 mg PO DAILY #30 tabs 03/06/24
insulin glargine U-300 conc 300 unit/mL (1.5 mL) subcutaneous pen (Toujeo SoloStar U-300 Insulin) 64 unit (0.2133 mL) SC DAILY Diabetes #0 mL 03/06/24
metformin 1,000 mg tablet 1,000 mg PO BID@0800,1700 #60 tabs 03/06/24
metoprolol tartrate 25 mg tablet 12.5 mg (1/2 x 25 mg) PO BID #60 tabs 03/06/24
oxycodone 5 mg tablet 2.5 mg (1/2 x 5 mg) PO Q4HPRN PRN mild pain #30 tabs 03/06/24
pantoprazole 40 mg tablet,delayed release 40 mg PO DAILY #30 tabs 03/06/24
[2024-03-09] MEDS: ANCEF 10 IV ×2 (11:13→17:37)
[2024-03-09 11:59] LABS: Urine Albumin Negative (Neg - Trace); Urine Bilirubin Negative (Negative); Urine Character Clear (Clear); Urine Color Yellow; Urine Glucose 2+ (Negative); Urine Ketone Negative (Negative); Urine Leukocyte Negative (Negative); Urine Nitrite Negative (Negative); Urine Occult Blood Negative (Negative); Urine Specific Gravity 1.015 (<1.030); Urine Urobilinogen Negative (Neg - 1+)
[2024-03-09 12:06] LABS: Glucose - Point of Care 141 mg/dl (70-99)
--- NOTE | 2024-03-09 12:48 | W.PN.HOSP.TC ---
Today's Communication/Plan
-
see outlined plan
Assessment / Plan
Assessment / Plan
Assessment:
Recurrent Falls at Home
Gait Dysfunction
- no obvious arrhythmia on tele, no orthostasis
- CT head negative. MRI ordered
- check Echo with recent CABG
- other potential contributing factors including recent med changes (metoprolol added), deconditioning, hypoglycemia, neurologic event, etc.
- consult Neurology
- PT/OT evaluations
ASCVD
- Stable. s/p CABG x 5 on 03/02/24.
- No new/worsened chest pain, dyspnea, etc.
- Continue current CV med regimen - including newly added metoprolol.
- Monitor on tele as noted above. Follow for any significant bradycardia, hypotension, etc.
- Cardiology following
Surgical site drainage
- CTS following; continue dressings. Started on IV Ancef, blood cultures ordered.
nonischemic myocardial injury post-CABG
- trop peaked at .545
NIRANJAN
- SCr = 1.6 on admission compared to recent baseline of 1.1, currently 1.3
- ? mild degree of hypovolemia - which may be contributing to gait issues / falls.
- Hold Farxiga acutely. continue gentle IVFs overnight and follow for improvement in renal function.
Benign Hypertension
- Stable. continue current med regimen with holding parameters.
DM-II
Peripheral Neuropathy secondary to the above
- Stable. Well-controlled on current med regimen.
- Continue basal:bolus insulin at somewhat decreased dose for now.
- Follow glucose and cover with SSI as needed.
- Chronic DM neuropathy likely contributes to/cause of pre-existing gait abnormality.
- PT/OT as noted above.
- Continue Lyrica.
Obesity due to excess calories
- Affects all aspects of care.
- Encourage healthy diet and increased activity as tolerated with goal of weight loss.
DVT Prophylaxis: SCDs
Code Status: Full
Non-billable note
Anticipated Discharge: 24 - 48 hours
Subjective/Interval History
-
Date of Service: March 09, 2024
no complaints presently
Objective Data
-
Labs:
Laboratory Results
03/09/24 03/09/24
04:54 04:55
WBC 17.1 H
Hgb 11.0 L
Hct 31.2 L
Plt Count 370
Sodium 136
Potassium 4.2
Chloride 101
Carbon Dioxide 20 L
BUN 41 H
Creatinine 1.3
Glucose 122 H
Calcium 8.7
Vital Signs:
Vital Signs
Temp Pulse Resp BP Pulse Ox
98.5 F 69 16 148/59 91
03/09/24 11:34 03/09/24 11:34 03/09/24 11:34 03/09/24 07:06 03/09/24 11:34
I&O
03/08/24 03/09/24 03/10/24
06:59 06:59 06:59
Output Total 750 / 750
Balance -750 / -750
Physical Exam
-
General: No Apparent Distress
HEENT: Normocephalic
Respiratory: Negative Wheezes
Cardiac: Regular Rhythm and S1/S2
GI: Soft
Genito-urinary: No Costovertebral Tender
Skin: Other (surgical site drainage, covered with gauze pads)
Neuro: AO x 3
Hematologic / Lymphatic: No Lymphadenopathy
Psych: Calm
Data Reviewed
-
Total Time Spent with Patient (in minutes): 44
Labs: Labs Reviewed by me
--- NOTE | 2024-03-09 14:28 | CARDSERVLU ---
Echocardiogram with Lumason completed after protocol screening completed. Allergies verified.
Patent IV site: __Right median antecubital 20 G PC site clear___
IV site flushed with 0.9% NaCl pre and post administration.
Diluted bolus method utilized to enhance visualization of ventricular purcell.
Total volume given: __4__ mL
Patient tolerated all procedures well without complications.
--- NOTE | 2024-03-09 16:20 | PTCARENOTE ---
sternal incision dressing changed, upper part of sternal incision draining rust color exudate
[2024-03-09 16:46] LABS: Folate 13.7 ng/ml (2.76-20); Vitamin B12 872 pg/ml (239-931)
[2024-03-09 17:53] LABS: Glucose - Point of Care 163 mg/dl (70-99)
[2024-03-09] MEDS: NOVOLOG FLEXPEN-MODERATE RESISTANCE 1 UNITS SC (18:34)
[2024-03-09 22:15] LABS: Glucose - Point of Care 245 mg/dl (70-99)
[2024-03-09] MEDS: CYMBALTA DELAYED RELEASE 60 MG PO (22:26)
[2024-03-09] MEDS: LIPITOR 40 MG PO (22:26)
--- NOTE | 2024-03-09 23:36 | PTCARENOTE ---
Received pt at handoff. AOx3 and pleasant. Tele- SR. HR 70-80s. Pt c/o L lower back pain. Oxycodone 2.5mg administered as ordered and pt states relief. Pt has no other complaints of lightheadedness/dizziness. Sternal dsg is c/d/i. Pt is currently in
bed; call bliss w/in reach.
[2024-03-10] VITALS (16 sets, daily range): BP systolic 103–178; BP diastolic 53–86; PULSE 69–83; O2SAT 94; BMI 30.8
--- NOTE | 2024-03-10 01:54 | W.PN.CT ---
Today's Communication / Plan
-
-on iv Ancef for superficial wound infection, afebrile, follow wbcs
-for head MRI today
-follow BPs, BG
-follow Cr
-Farxiga is held
Assessment / Plan
-
-admitted 03/08/24 after multiple falls at home - unclear etiology, negative orthostasis on 03/09/24, no prodromal symptoms or hypotension noted, no hypoglycemia noted (denies sweating, which is his sxs of hypoglycemia)
-Echo 03/09/24: small 1.2 cm pericardial effusion, nl EF 70-75%, no valve dz
-Head CT unremarkable
-Head MRI 03/10 pending
-evaluated by Neurology and Cardiology
-Superficial sternal wound infection, WBC 17.1 on 03/09 - started on iv Ancef 2g q8h
-s/p CABGx5 (pearce - lad, palomo- ramus/om,ao-svg- pvbr/pda)/revh/ jessi (#40 clip)/rsf, by Dr. Rodriguez on 03/02/24- discharged on 03/06/24
-NIRANJAN with admission Cr 1.6, improved to 1.3 with some IV fluids (Cr was 1.1 on 03/06/24)-follow Cr
-Severe 3v CAD
-NSTEMI (peak trop 0.108)
-Exertional angina
-Acute diastolic CHF
-LVEF 65-70% per echo 02/23/24
-Preop NIRANJAN (cr 1.4 from 0.9)
-Hypertensive emergency
-Hyperlipidemia
-T2DM (A1C 6.1)
-Class 1 obesity (BMI 30.9)
-COLE (uses CPAP)
-Renal calculi
-Restless leg syndrome (on Lyrica)
-Anxiety/Depression
-Insomnia - takes Lunesta
-SVT S/P , 1995
-S/p B/L knee surgery
-S/p R shoulder surgery
-S/P R elbow arthroscopies
-S/P L carpal tunnel release
-S/P L Dupuytren's contracture release
-S/P cervical spine fusion
-S/P Ureteral stent
-S/P B/L carpal tunnel
-S/P Tonsillectomy
-S/P Cholecystectomy
Echo 03/09/24:
Mild concentric left ventricular hypertrophy.
Left ventricular ejection fraction is 70-75% by visual assessment.
Normal right ventricular size and function.
No mitral regurgitation is seen.
No aortic regurgitation is seen.
No tricuspid regurgitation is seen.
Small (1.2cm) pericardial effusion along the left heart.
The IVC is of normal size and demonstrates normal respiratory variation.
Discussed patient care with: Nursing and Care Team
Subjective
-
Date of Service: March 09, 2024
Objective Data
-
Lab Results
03/09/24 04:55
03/09/24 04:54
Vital Signs
Vital Signs
Temp Pulse Resp BP Pulse Ox
98.4 F 83 20 133/78 95
03/09/24 22:54 03/09/24 21:30 03/09/24 22:54 03/09/24 18:59 03/09/24 22:54
CT Intake/Output/Weight
03/09/24 03/09/24 03/10/24
06:59 18:59 06:59
Intake Total 880 / 880
Output Total 2340 / 3140 800 / 3140
Balance -1460 / -2260 -800 / -2260
SaO2: 95
Physical Exam
-
General: Awake and AOx3
Cardiovascular: Regular rate & rhythm, No Murmurs and No Rub
Respiratory: Clear and Decreased Breath Sounds
Incision: Other (ABD dressing is on with some incisional discharge)
Extremities: No Edema (2+ DPs b/l)
Abdomen: soft, nontender, nondistended, + bowel sounds
Data Reviewed
-
Lab Results: Results Reviewed
Medications: Active Meds Reviewed
Chest X-Ray: Report Reviewed and Image Reviewed
CT Scan: Report Reviewed
ECG: Report Reviewed and Image Reviewed
[2024-03-10] MEDS: ANCEF 10 IV ×3 (02:06→17:22)
[2024-03-10] MEDS: ROXICODONE 2.5 MG PO ×3 (02:57→19:04)
[2024-03-10 03:07] LABS: % Basophils 1.1 % (0-2); % Lymphocytes 17.8 % (20.5-51.1); % Monocytes 9.3 % (1.7-9.3); % Neutrophils 62.8 % (42.2-75.2); Absolute Basophils 0.2 10^3/uL (0-0.2); Absolute Eosinophils 1.3 10^3/uL (0-0.7); Absolute Immature Granulocytes 0.2 10^3/uL (0-0.05); Absolute Monocytes 1.5 10^3/uL (0.1-0.6); Absolute Neutrophils 10.4 10^3/uL (1.4-6.5); Hematocrit 31.4 % (39.0-52.0); Hemoglobin 11.2 g/dL (13.0-18.0); Mean Corp Hgb Conc. 35.7 g/dL (33.0-37.0); Mean Corpuscular Volume 81.3 fL (80.0-94.0); Mean Platelet Volume 9.4 fL (7.4-10.4); Nucleated Red Blood Cells % 0 % (-); Platelet Count 420 10^3/uL (130-400); Red Blood Cell Count 3.86 10^6/uL (4.70-6.10); Red Cell Dist. Width 13.2 % (11.5-14.5); White Blood Cell Count 16.5 10^3/uL (4.8-10.8)
[2024-03-10 03:41] LABS: Blood Urea Nitrogen 28 mg/dl (9-20); Calcium 9.1 mg/dl (8.4-10.2); Carbon Dioxide 25 mmol/L (22-30); Chloride 102 mmol/L (98-107); Estimated Creatinine Clearance 84 ml/min; Glucose 128 mg/dl (70-99); Potassium 4.7 mmol/L (3.5-5.1); Sodium 138 mmol/L (135-145); eGFR > 60.00
[2024-03-10] MEDS: NSS 1000 IV (04:49)
[2024-03-10 07:57] LABS: Glucose - Point of Care 137 mg/dl (70-99)
[2024-03-10] MEDS: ASPIR LOW (ENTERIC COATED) 81 MG PO (08:08)
[2024-03-10] MEDS: LOPRESSOR 12.5 MG PO ×2 (08:09→19:27)
[2024-03-10] MEDS: LYRICA 150 MG PO ×2 (08:09→19:25)
[2024-03-10] MEDS: PLAVIX 75 MG PO (08:09)
[2024-03-10] MEDS: PROTONIX 40 MG PO (08:09)
[2024-03-10] MEDS: NOVOLOG FLEXPEN-MODERATE RESISTANCE SC ×2 (08:11→16:04)
[2024-03-10] MEDS: LANTUS 0.32 UNITS SC (08:40)
--- NOTE | 2024-03-10 10:32 | W.PN.CARDCBS ---
Addendum entered and electronically signed by Conrad Jaeger MD 03/10/24 12:05:
I saw and examined the patient.
The TAILING MACHINE OPERATOR or PA's note was reviewed and I agree with the note.
Comment: General: Well developed, well nourished in NAD.
Neck: Supple, no JVD, HJR, carotids +2 B/L, no bruits bilaterally.
Heart: Non displaced PMI, RRR, no murmurs, No S3, S4, no rubs.
Lungs: Scattered rhonchi
Extremities: No clubbing, cyanosis or edema bilaterally.
Neuro: Grossly nonfocal, awake, alert and oriented x3.
Await MRI of brain. There was mild orthostasis but unclear if that is related to symptoms. Okay to change Lopressor to propranolol for tremor. Discussed with CT surgery. Discussed with neurology
Original Note:
Today's Communication / Plan
-
brain MRI today
PT
follow orthos. continue compression stockings
neuro requesting to transition lopressor to propranolol
continue asa, plavix
Impression / Plan
-
PCP: Dr. Marlow
Primary Bss Solution Architect: Dr. Miranda
Assessment:
Recurrent falls
Sternotomy drainage
Leukocytosis
NIRANJAN
Elevated troponin, suspected nonischemic myocardial injury secondary to recent CABG
Recent admission for HTN emergency, acute HFpEF, NIRANJAN, MV CAD/NSTEMI
NSTEMI with Multivessel CAD s/p CABG x 5, REEVES�LAD, KELY�ramus/OM, aorta- SVG - PVBR/PDA 03/02/24
Diabetes mellitus
obstructive sleep apnea on CPAP
HTN
Hyperlipidemia
SVT s/p ablation
essential tremor
Echo 04/30/2019: Normal LV size, EF 60 to 65%, no valvular heart disease
Echo 02/23/2024: Vigorous LV systolic function with mild cLVH, EF 65 to 70%, mild hypokinesis of apical septum, normal RV size and systolic function
Cardiac catheterization: 02/25/2024: Left main: Mild diffuse plaque; LAD: Proximal 60-70% IFR 0.08; circumflex: OM1 ostial 60-70%, 3 serial lesions in mid circumflex extending into proximal OM 2 up to 90%; RCA: 70% proximal, 80% mid
ECHO 03/09/24: EF 70 to 75%, mild concentric LVH, no valvular disease, small pericardial effusion along left heart
Plan:
-presented with recurrent falls but denies preceding dizziness/lightheadedness or syncope
-Cr improving, 1.2 on 03/10. remains on IVF. farxiga on hold
-appreciate neurology input. for brain MRI today. patient reports some issues with depth/visual perception prior to CABG however never with falls prior.
-also with essential tremor, neurology discussing transition from lopressor to propranolol for this
-ortho VS overnight noted to be positive, follow. compression stockings ordered.
-continue PT
-echo with evidence of possible volume depletion, EF 70-75%.
-remains in SR without pauses/bradycardia on review of tele overnight
-started on ancef per CT surg for possible superficial sternotomy infection
-trop elevation felt to secondary to recent CABG, nonischemic myocardial injury
-hgb stable at 11. continue asa, plavix
Progress Note - Bss Solution Architect
Subjective
Date of Service: March 10, 2024
feeling ok at present. reports noting symptoms with prolonged standing or walking
Objective
Labs:
03/10/24 02:43
03/10/24 02:43
Labs
Hgb 11.2 g/dL (13.0-18.0) L 03/10/24 02:43
Hct 31.4 % (39.0-52.0) L 03/10/24 02:43
Plt Count 420 10^3/uL (130-400) H 03/10/24 02:43
Sodium 138 mmol/L (135-145) 03/10/24 02:43
Potassium 4.7 mmol/L (3.5-5.1) 03/10/24 02:43
BUN 28 mg/dl (9-20) H 03/10/24 02:43
Creatinine 1.2 mg/dL (0.7-1.3) 03/10/24 02:43
Glucose 128 mg/dl (70-99) H 03/10/24 02:43
Troponins
03/08/24 03/09/24
23:20 04:55
Troponin I 0.545 H* 0.491 H*
Vital Signs and I&O:
Vital Signs
Temp Pulse Resp BP Pulse Ox
98.3 F 76 18 103/62 95
03/10/24 07:17 03/10/24 02:45 03/10/24 07:17 03/10/24 02:28 03/10/24 07:17
Vital Signs
Temp Pulse Resp BP Pulse Ox
98.3 F 76 18 103/62 95
03/10/24 07:17 03/10/24 02:45 03/10/24 07:17 03/10/24 02:28 03/10/24 07:17
Intake & Output
03/08/24 03/09/24 03/10/24 03/11/24
07:59 07:59 07:59 07:59
Intake Total 2039
Output Total 750 / 750 3740 / 3740
Balance -750 / -750 -1700 / -1700
Physical Exam
Physical Exam
GEN: No distress, awake, alert, oriented x3
HEENT: supple, anicteric, mmm, eomi
LUNGS: CTA B/L, no wheezes/rales
CV: Reg, S1/S2, no murmur
ABD: soft, BS+, NT/ND
EXT: No cyanosis, clubbing, edema
NEURO: Gross non-focal
SKIN: Warm, pink, dry. No rash
--- NOTE | 2024-03-10 11:07 | CM ---
Reviewed chart. Met with Mr. Seals to review discharge plans. He states he is feeling a little better. He is going for more testing today. Prior to admission he resides with his spouse and daughter in a one story home with one step to enter.
He has a full flight of steps to get to laundry room in the basement. Prior to admission he was independent with ambulation and adls. He has a CPAP Machine and glucometer at home. He has a prescription plan and uses [facility]. His spouse works
outside the home. Will need to see his current functional level to see if he will have any skilled care needs. Medica work-up in progress. The discharge plan is to return home with his spouse and daughter with a home visit by the Cardiothoracic
Transitional Care Nurse when medically stable.
--- NOTE | 2024-03-10 11:35 | W.PN.HOSP.TC ---
Today's Communication/Plan
-
MRI brain
continue IV Ancef
Assessment / Plan
Assessment / Plan
Assessment:
Recurrent Falls at Home
Gait Dysfunction
- no obvious arrhythmia on tele, no orthostasis
- CT head negative. MRI brain pending
- Echo: Mild concentric left ventricular hypertrophy. Left ventricular ejection fraction is 70-75% by visual assessment. Normal right ventricular size and function.
No mitral regurgitation is seen. No aortic regurgitation is seen. No tricuspid regurgitation is seen. Small (1.2cm) pericardial effusion along the left heart. The IVC is of normal size and demonstrates normal respiratory variation.
- other potential contributing factors including recent med changes (metoprolol added), deconditioning, hypoglycemia, neurologic event, etc.
- Neurology following
- PT/OT evaluations - home/VN recommended
ASCVD
- Stable. s/p CABG x 5 on 03/02/24.
- No new/worsened chest pain, dyspnea, etc.
- Continue current CV med regimen - including newly added metoprolol.
- Monitor on tele as noted above. Follow for any significant bradycardia, hypotension, etc.
- Cardiology following
Surgical site drainage
- CTS following; continue dressings. Continue IV Ancef, day 2, blood cultures ordered.
nonischemic myocardial injury post-CABG
- trop peaked at .545
NIRANJAN
- SCr = 1.6 on admission compared to recent baseline of 1.1, currently 1.2
- ? mild degree of hypovolemia - which may be contributing to gait issues / falls.
- Hold Farxiga acutely
- cap IVF
Benign Hypertension
- Stable. continue current med regimen with holding parameters.
DM-II
Peripheral Neuropathy secondary to the above
- Stable. Well-controlled on current med regimen.
- Continue basal:bolus insulin at somewhat decreased dose for now.
- Follow glucose and cover with SSI as needed.
- Chronic DM neuropathy likely contributes to/cause of pre-existing gait abnormality.
- PT/OT as noted above.
- Continue Lyrica.
Obesity due to excess calories
- Affects all aspects of care.
- Encourage healthy diet and increased activity as tolerated with goal of weight loss.
DVT Prophylaxis: SCDs
Code Status: Full
Anticipated Discharge: 24 - 48 hours
Subjective/Interval History
-
Date of Service: March 10, 2024
denies any new complaints at present
Objective Data
-
Labs:
Laboratory Results
03/10/24
02:43
WBC 16.5 H
Hgb 11.2 L
Hct 31.4 L
Plt Count 420 H
Sodium 138
Potassium 4.7
Chloride 102
Carbon Dioxide 25
BUN 28 H
Creatinine 1.2
Glucose 128 H
Calcium 9.1
Vital Signs:
Vital Signs
Temp Pulse Resp BP Pulse Ox
98.3 F 76 18 103/62 95
03/10/24 07:17 03/10/24 02:45 03/10/24 07:17 03/10/24 02:28 03/10/24 07:17
I&O
03/09/24 03/10/24 03/11/24
06:59 06:59 06:59
Intake Total 2039
Output Total 4489 / 4489
Balance -2450 / -2450
Physical Exam
-
General: No Apparent Distress
HEENT: Normocephalic and Atraumatic
Respiratory: Negative Wheezes
Cardiac: Regular Rhythm and S1/S2
GI: Soft
Genito-urinary: No Costovertebral Tender
Neuro: AO x 3
Psych: Calm
Data Reviewed
-
Total Time Spent with Patient (in minutes): 42
Labs: Labs Reviewed by me
--- NOTE | 2024-03-10 11:53 | W.PN.NEURO.1 ---
Today's Communication / Plan
-
.
Subjective/Objective
Subjective Data
Date of Service: March 10, 2024
Neurology follow up note
Mr. Wu. Reports improvement of his balance since admission. No reports of headaches, change in vision, strength. Patient has been normotensive and afebrile.
Brain MRI is pending.
Vitamin B12�872, SPEP, vitamin B1�pending.
PMH: Essential Tremor, ASCVD, SVT (ablation 1995), HTN, DLP, DM, GERD, insomnia, neuropathy, fibromyalgia, COLE, BMI 34, MDD, nephrolithiasis
PSH:cervical laminectomy and L4-5 Laminectomy, R shoulder arthroplasty, R elbow repair, Watchman�procedure, CABG(03/02/24), strabismus surgery
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
FH: mother at 87 from stroke; father-hand tremor
All:NKDA
ROS:Constitutional: Negative. Negative for chills, fever and unexpected weight change.
HENT: Negative for ear pain, hearing loss, tinnitus and trouble swallowing.
Eyes: Negative. Negative for photophobia, pain and visual disturbance.
Respiratory: Negative for cough, choking and shortness of breath.
Cardiovascular: Negative for chest pain, palpitations and leg swelling.
Gastrointestinal: Negative for abdominal pain and vomiting.
Endocrine: Negative. Negative for cold intolerance.
Genitourinary: Positive intermittent urgency and urinary incontinence
Musculoskeletal: Negative for back pain, neck pain and neck stiffness.
Skin: Negative for rash.
Allergic/Immunologic: Negative. Negative for immunocompromised state.
Neurological: Positive for chronic hand tremor, numbness in R III-V digits
Psychiatric/Behavioral: Positive for insomnia
General: Well developed. In no acute distress.
Cardio: Regular rate and rhythm without murmur. Extremities are without cyanosis or edema.
Neuro:
Mental Status: Alert, oriented to person, place, and date. Normal attention and recall. Good fund of knowledge. Follows complex requests across the midline. Comprehension, naming, and repetition intact. Immediate and delayed recall 3/.
Cranial Nerves: . Pupils are equally round and reactive to light. EOMs full. Visual curiel full to confrontation. No ptosis. No nystagmus. V1-V3 intact to light touch and pinprick bilaterally, symmetric. Face symmetric. Normal hearing AU.
The palate elevated well. SCMs and traps 5/5. Tongue midline. No dysarthria. Mild hypophonia
Motor: Normal bulk and tone. No pronator or arm drift. Strength 5/5 throughout, except for R IO 4/5. No clonus.
Coordination: right greater than left action hand tremor. Chin tremor no dysmetria
Gait: deferred
Assessment and Plan:
I. Ambulatory dysfunction, improved
II. Essential Tremor
III. Chronic cervical myelopathy with C7-Th1 radiculopathy
IV. Polyneuropathy
-Fall precautions
-Brain MRI without britany to rule out embolic infarcts
-Utilize weighted utensils
-Switch metoprolol to propranolol if no objections from cardiology perspective for hand tremor control
-Continue aspirin 81 mg once a day
-PT/OT
-DVT prophylaxis
I personally reviewed all radiology and labs along with past medical records pertinent to current medical problems. Total time spent in patient care is 35 minutes.
Thank you for allowing us to participate in the care of this patient. We will continue to follow. Please do not hesitate to contact us with any questions or concerns.
Objective Data
Vital Signs
Temp Pulse Resp BP Pulse Ox
36.8 C 76 18 103/62 95
03/10/24 07:17 03/10/24 02:45 03/10/24 07:17 03/10/24 02:28 03/10/24 07:17
Lab Results
03/10/24 02:43
03/10/24 02:43
Sodium 138 mmol/L (135-145) 03/10/24 02:43
Potassium 4.7 mmol/L (3.5-5.1) 03/10/24 02:43
BUN 28 mg/dl (9-20) H 03/10/24 02:43
Glucose 128 mg/dl (70-99) H 03/10/24 02:43
Calcium 9.1 mg/dl (8.4-10.2) 03/10/24 02:43
Vitamin B12 872 pg/ml (835-334) 03/09/24 15:15
Patient Allergies
No Known Allergies Allergy (Verified 04/13/23 11:27)
Vital Signs and Labs
-
Vital Signs and Labs:
Vital Signs
Temp Pulse Resp BP Pulse Ox
36.8 C 76 18 103/62 95
03/10/24 07:17 03/10/24 02:45 03/10/24 07:17 03/10/24 02:28 03/10/24 07:17
Lab Results
03/10/24 02:43
03/10/24 02:43
Sodium 138 mmol/L (135-145) 03/10/24 02:43
Potassium 4.7 mmol/L (3.5-5.1) 03/10/24 02:43
BUN 28 mg/dl (9-20) H 03/10/24 02:43
Glucose 128 mg/dl (70-99) H 03/10/24 02:43
Calcium 9.1 mg/dl (8.4-10.2) 03/10/24 02:43
Vitamin B12 872 pg/ml (161-005) 03/09/24 15:15
Medications
-
Medications:
Generic Name Dose Route Start Last Admin
Trade Name Freq PRN Reason Stop Dose Admin
Acetaminophen 650 mg 03/09/24 02:19 03/09/24 03:12
Acetaminophen 325 Mg Tablet PO 04/06/24 02:18 650 mg
Q4HPRN PRN Administration
mild pain,headache,temp >101F
Aspirin 81 mg 03/09/24 08:00 03/10/24 08:08
Aspirin 81 Mg (Enteric Coated) Tablet PO 04/06/24 07:59 81 mg
DAILY ZANDRA Administration
Atorvastatin Calcium 40 mg 03/09/24 22:00 03/09/24 22:26
Atorvastatin (Lipitor) 40 Mg Tablet PO 04/06/24 21:59 40 mg
HS ZANDRA Administration
Clopidogrel Bisulfate 75 mg 03/09/24 08:00 03/10/24 08:09
Clopidogrel 75 Mg Tablet PO 04/06/24 07:59 75 mg
DAILY ZANDRA Administration
Dextrose 12.5 grams 03/09/24 02:19
Dextrose 50% (0.5 Grams/Ml) 50 Ml Syringe IV 04/06/24 02:18
[id number] PRN
hypoglycemia
Protocol
Duloxetine HCl 60 mg 03/09/24 22:00 03/09/24 22:26
Duloxetine Delayed Release 60 Mg Capsule PO 04/06/24 21:59 60 mg
HS ZANDRA Administration
Glucagon 1 mg 03/09/24 02:19
Glucagon 1 Mg Vial IM 04/06/24 02:18
PRN PRN
hypoglycemia
Protocol
Insulin Glargine 32 units/ 0.32 mls @ 0 mls/hr 03/09/24 08:00 03/10/24 08:40
Device SC 04/06/24 07:59 0.32 mls
DAILY ZANDRA Administration
As Directed
Cefazolin Sodium 2 grams in 10 mls @ 120 mls/hr 03/09/24 10:00 03/10/24 09:10
Ancef IV 10 mls
Q8H ZANDRA Administration
Insulin Aspart 0 units 03/09/24 07:30 03/10/24 08:11
Insulin Aspart Moderate Resistance 300 Units/3 Ml Pen.Injctr SC 04/06/24 07:29 Not Given
AC ZANDRA
Protocol
Metoprolol Tartrate 12.5 mg 03/09/24 08:00 03/10/24 08:09
Metoprolol 25 Mg Regular Release Tablet PO 04/06/24 07:59 12.5 mg
BID ZANDRA Administration
Oxycodone HCl 2.5 mg 03/09/24 05:10 03/10/24 09:08
Oxycodone 5 Mg Regular Release Tablet PO 03/23/24 05:09 2.5 mg
Q4HPRN PRN Administration
mod pain
Pantoprazole Sodium 40 mg 03/09/24 08:00 03/10/24 08:09
Pantoprazole 40 Mg Delayed Release Tablet PO 04/06/24 07:59 40 mg
DAILY ZANDRA Administration
Pregabalin 150 mg 03/09/24 08:00 03/10/24 08:09
Pregabalin 75 Mg Capsule PO 04/06/24 07:59 150 mg
BID ZANDRA Administration
Sodium Chloride 0 flush 03/09/24 04:00
Sodium Chloride 0.9% (Flush) Syringe IV 04/06/24 03:59
PER PROTOCOL ZANDRA
Home Medications
-
Home Medications
duloxetine 60 mg capsule,delayed release 60 mg PO HS Depression 04/23/19
eszopiclone 3 mg tablet (Lunesta) 3 mg PO HS Sleep 04/23/19
multivitamin with folic acid 400 mcg tablet (Tab-A-Christian) 1 tab PO DAILY Supplement 04/23/19
pregabalin 75 mg capsule 150 mg PO BID Neurological Condition 04/23/19
aspirin 81 mg tablet,delayed release 81 mg PO DAILY Blood Clot Prevention/Tx 08/18/20
atorvastatin 40 mg tablet (Lipitor) 40 mg PO HS High Cholesterol 02/22/24
insulin aspart U-100 100 unit/mL subcutaneous cartridge (Novolog PenFill U-100 Insulin aspart) 4 sliding scale dose SC AC Diabetes 02/22/24
acetaminophen 325 mg tablet 650 mg (2 x 325 mg) PO Q4HPRN PRN mild pain,headache,temp >101F #60 tabs 03/06/24
clopidogrel 75 mg tablet 75 mg PO DAILY 365 days #30 tabs 03/06/24
dapagliflozin propanediol 10 mg tablet 10 mg PO DAILY #30 tabs 03/06/24
insulin glargine U-300 conc 300 unit/mL (1.5 mL) subcutaneous pen (Toujeo SoloStar U-300 Insulin) 64 unit (0.2133 mL) SC DAILY Diabetes #0 mL 03/06/24
metformin 1,000 mg tablet 1,000 mg PO BID@0800,1700 #60 tabs 03/06/24
metoprolol tartrate 25 mg tablet 12.5 mg (1/2 x 25 mg) PO BID #60 tabs 03/06/24
oxycodone 5 mg tablet 2.5 mg (1/2 x 5 mg) PO Q4HPRN PRN mild pain #30 tabs 03/06/24
pantoprazole 40 mg tablet,delayed release 40 mg PO DAILY #30 tabs 03/06/24
[2024-03-10] MEDS: ATIVAN 1 MG IV (12:07)
[2024-03-10] MEDS: NSS (PRESERVATIVE FREE) 0.5 ML IV (12:08)
[2024-03-10] MEDS: TYLENOL 650 MG PO (12:12)
[2024-03-10 14:23] LABS: Glucose - Point of Care 124 mg/dl (70-99)
[2024-03-10] MEDS: FLUSH (NSS) 1 FLUSH IV (17:22)
[2024-03-10 18:28] LABS: Glucose - Point of Care 243 mg/dl (70-99)
[2024-03-10] MEDS: NOVOLOG FLEXPEN-MODERATE RESISTANCE 3 UNITS SC (18:28)
--- NOTE | 2024-03-10 18:30 | PTCARENOTE ---
Pt received this am alert and oriented. Denied headache or any visual changes. Pt assisted to the bathroom and to the chair. C/o of left lower back pain radiating to the left groin. Medicated with roxidocone with relief. Medicated later with tylenol
with partial relief. Pt states the pain is sharp with certain movements. Dr. Anderson notified and sent for xrays.
--- NOTE | 2024-03-10 18:30 | PTCARENOTE ---
Pt received this am with no c/o of chest pain or sob. Pt encouraged oob in the chair for meals. Pt tolerated oob for short intervals during the day. Pt self administered own insulin with nurse supervision. Blood sugar out of range high this evening.
Venous glucose 420. Medicated with sliding scale as ordered. Pt instructed on watching what he is eating that is being brought in by the family.
--- NOTE | 2024-03-10 18:30 | PTCARENOTE ---
Pt received this am with no c/o of chest pain or sob. Pt
[2024-03-10] MEDS: LIPITOR 40 MG PO (21:28)
[2024-03-10] MEDS: CYMBALTA DELAYED RELEASE 60 MG PO (21:28)
[2024-03-10 21:33] LABS: Glucose - Point of Care 214 mg/dl (70-99)
[2024-03-11] VITALS (13 sets, daily range): BP systolic 114–164; BP diastolic 58–82; PULSE 74–82; BMI 30.4
[2024-03-11] MEDS: ANCEF 10 IV ×3 (01:14→18:09)
[2024-03-11] MEDS: ROXICODONE 5 MG PO (01:14)
--- NOTE | 2024-03-11 01:23 | PTCARENOTE ---
Pt continues to c/o L lower back pain. Mike YANEZ notified and orders placed. Oxycodone 5mg ordered and administered. See AUG.
[2024-03-11 05:08] LABS: % Eosinophils 6.8 % (0-6); % Immature Granulocytes 0.8 % (0-0.5); % Lymphocytes 17.3 % (20.5-51.1); % Monocytes 7.7 % (1.7-9.3); % Neutrophils 66.4 % (42.2-75.2); Absolute Basophils 0.2 10^3/uL (0-0.2); Absolute Eosinophils 1.1 10^3/uL (0-0.7); Absolute Immature Granulocytes 0.1 10^3/uL (0-0.05); Absolute Lymphocytes 2.9 10^3/uL (1.2-3.4); Absolute Monocytes 1.3 10^3/uL (0.1-0.6); Absolute Neutrophils 10.9 10^3/uL (1.4-6.5); Mean Corp Hgb Conc. 34.3 g/dL (33.0-37.0); Mean Corpuscular Hgb 28.6 pg (27.0-31.0); Mean Corpuscular Volume 83.3 fL (80.0-94.0); Mean Platelet Volume 9.1 fL (7.4-10.4); Nucleated Red Blood Cells % 0 % (-); Platelet Count 428 10^3/uL (130-400); Red Cell Dist. Width 13.1 % (11.5-14.5); White Blood Cell Count 16.5 10^3/uL (4.8-10.8)
[2024-03-11] MEDS: ROXICODONE 2.5 MG PO (05:48)
[2024-03-11 06:02] LABS: Blood Urea Nitrogen 24 mg/dl (9-20); Calcium 9.3 mg/dl (8.4-10.2); Carbon Dioxide 26 mmol/L (22-30); Chloride 100 mmol/L (98-107); Estimated Creatinine Clearance 100 ml/min; Glucose 123 mg/dl (70-99); Potassium 4.9 mmol/L (3.5-5.1); Sodium 138 mmol/L (135-145); eGFR > 60.00
[2024-03-11 08:35] LABS: Glucose - Point of Care 151 mg/dl (70-99)
--- NOTE | 2024-03-11 08:49 | W.PN.UPDATE ---
Update Note
Progress Note Update
Pt seen and examined, Pt feeling overall ok, c/o more low back and hip pain today. No more episodes of syncope or falls since admission. sternal incision continues with drainage, but now appearing more serous than seropurulent. WBC remains elevated
at 16 today. Would continue IV ancef while inpatient, then transition to total of 7d of Keflex. Pt should follow up with Dr. Rodriguez for postop eval as scheduled on 03/29. He should call the office to be seen sooner if wound drainage becomes
purulent/yellow/green, has increasing pain or redness at surgical site.
Continue syncopal workup per medical teams. MRI brain negative for CVA. Pt states he has another MRI today.
[2024-03-11] MEDS: NOVOLOG FLEXPEN-MODERATE RESISTANCE 1 UNITS SC ×2 (09:36→15:56)
[2024-03-11] MEDS: INDERAL LA 60 MG PO (09:38)
[2024-03-11] MEDS: PROTONIX 40 MG PO (09:38)
[2024-03-11] MEDS: ASPIR LOW (ENTERIC COATED) 81 MG PO (09:38)
[2024-03-11] MEDS: LYRICA 150 MG PO ×2 (09:39→20:11)
[2024-03-11] MEDS: PLAVIX 75 MG PO (09:39)
[2024-03-11] MEDS: LANTUS 0.32 UNITS SC (09:42)
[2024-03-11] MEDS: NOVOLOG FLEXPEN-MODERATE RESISTANCE SC (11:39)
[2024-03-11 11:41] LABS: Glucose - Point of Care 197 mg/dl (70-99)
--- NOTE | 2024-03-11 12:36 | W.PN.NEURO.1 ---
Today's Communication / Plan
-
.
Subjective/Objective
Subjective Data
Date of Service: March 11, 2024
Neurology follow up note
Mr. Wu states that he was able to ambulate today with no difficulties. No reports of change in sphincter function.
The patient was switched from Metoprolol to Propranolol yesterday.
HR-has been normal.
Brain MRI showed no acute infarcts.
No reports of headaches, change in vision, strength. Patient has been normotensive and afebrile.
Brain MRI is pending.
Vitamin B12�872, SPEP, vitamin B1�pending.
PMH: Essential Tremor, ASCVD, SVT (ablation 1995), HTN, DLP, DM, GERD, insomnia, neuropathy, fibromyalgia, COLE, BMI 34, MDD, nephrolithiasis
PSH:cervical laminectomy and L4-5 Laminectomy, R shoulder arthroplasty, R elbow repair, Watchman�procedure, CABG(03/02/24), strabismus surgery
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
FH: mother at 87 from stroke; father-hand tremor
All:NKDA
ROS:Constitutional: Negative. Negative for chills, fever and unexpected weight change.
HENT: Negative for ear pain, hearing loss, tinnitus and trouble swallowing.
Eyes: Negative. Negative for photophobia, pain and visual disturbance.
Respiratory: Negative for cough, choking and shortness of breath.
Cardiovascular: Negative for chest pain, palpitations and leg swelling.
Gastrointestinal: Negative for abdominal pain and vomiting.
Endocrine: Negative. Negative for cold intolerance.
Genitourinary: Positive intermittent urgency and urinary incontinence
Musculoskeletal: Negative for back pain, neck pain and neck stiffness.
Skin: Negative for rash.
Allergic/Immunologic: Negative. Negative for immunocompromised state.
Neurological: Positive for chronic hand tremor, numbness in R III-V digits
Psychiatric/Behavioral: Positive for insomnia
General: Well developed. In no acute distress.
Cardio: Regular rate and rhythm without murmur. Extremities are without cyanosis or edema.
Neuro:
Mental Status: Alert, oriented to person, place, and date. Normal attention and recall. Good fund of knowledge. Follows complex requests across the midline. Comprehension, naming, and repetition intact. Immediate and delayed recall 3/3.
Cranial Nerves: . Pupils are equally round and reactive to light. EOMs full. Visual curiel full to confrontation. No ptosis. No nystagmus. V1-V3 intact to light touch and pinprick bilaterally, symmetric. Face symmetric. Normal hearing AU.
The palate elevated well. SCMs and traps 5/5. Tongue midline. No dysarthria. Mild hypophonia
Motor: Normal bulk and tone. No pronator or arm drift. Strength 5/5 throughout, except for R IO 4/5. No clonus.
Coordination: right greater than left action hand tremor. Chin tremor no dysmetria
Gait: deferred
Assessment and Plan:
I. Ambulatory dysfunction, improved
II. Essential Tremor
III. Chronic cervical myelopathy with C7-Th1 radiculopathy
IV. Polyneuropathy
-Fall precautions
-Utilize weighted utensils
-OP Cervical/thoracic MRIs
-Continue aspirin 81 mg once a day
-PT/OT
-DVT prophylaxis
-OP neurology follow up in 1-2 weeks
I personally reviewed all radiology and labs along with past medical records pertinent to current medical problems. Total time spent in patient care is 35 minutes.
Thank you for allowing us to participate in the care of this patient. Please do not hesitate to contact us with any questions or concerns.
Objective Data
Vital Signs
Temp Pulse Resp BP Pulse Ox
36.7 C 70 18 150/68 93
03/11/24 11:29 03/11/24 11:45 03/11/24 11:29 03/11/24 11:31 03/11/24 11:55
Lab Results
03/11/24 04:49
03/11/24 04:49
Sodium 138 mmol/L (135-145) 03/11/24 04:49
Potassium 4.9 mmol/L (3.5-5.1) 03/11/24 04:49
BUN 24 mg/dl (9-20) H 03/11/24 04:49
Glucose 123 mg/dl (70-99) H 03/11/24 04:49
Calcium 9.3 mg/dl (8.4-10.2) 03/11/24 04:49
Vitamin B12 872 pg/ml (568-124) 03/09/24 15:15
Patient Allergies
No Known Allergies Allergy (Verified 04/13/23 11:27)
Vital Signs and Labs
-
Vital Signs and Labs:
Vital Signs
Temp Pulse Resp BP Pulse Ox
36.7 C 70 18 150/68 93
03/11/24 11:29 03/11/24 11:45 03/11/24 11:29 03/11/24 11:31 03/11/24 11:55
Lab Results
03/11/24 04:49
03/11/24 04:49
Sodium 138 mmol/L (135-145) 03/11/24 04:49
Potassium 4.9 mmol/L (3.5-5.1) 03/11/24 04:49
BUN 24 mg/dl (9-20) H 03/11/24 04:49
Glucose 123 mg/dl (70-99) H 03/11/24 04:49
Calcium 9.3 mg/dl (8.4-10.2) 03/11/24 04:49
Vitamin B12 872 pg/ml (059-931) 03/09/24 15:15
Medications
-
Medications:
Generic Name Dose Route Start Last Admin
Trade Name Freq PRN Reason Stop Dose Admin
Acetaminophen 650 mg 03/09/24 02:19 03/10/24 12:12
Acetaminophen 325 Mg Tablet PO 04/06/24 02:18 650 mg
Q4HPRN PRN Administration
mild pain,headache,temp >101F
Aspirin 81 mg 03/09/24 08:00 03/11/24 09:38
Aspirin 81 Mg (Enteric Coated) Tablet PO 04/06/24 07:59 81 mg
DAILY ZANDRA Administration
Atorvastatin Calcium 40 mg 03/09/24 22:00 03/10/24 21:28
Atorvastatin (Lipitor) 40 Mg Tablet PO 04/06/24 21:59 40 mg
HS ZANDRA Administration
Clopidogrel Bisulfate 75 mg 03/09/24 08:00 03/11/24 09:39
Clopidogrel 75 Mg Tablet PO 04/06/24 07:59 75 mg
DAILY ZADNRA Administration
Dextrose 12.5 grams 03/09/24 02:19
Dextrose 50% (0.5 Grams/Ml) 50 Ml Syringe IV 04/06/24 02:18
[id number] PRN
hypoglycemia
Protocol
Duloxetine HCl 60 mg 03/09/24 22:00 03/10/24 21:28
Duloxetine Delayed Release 60 Mg Capsule PO 04/06/24 21:59 60 mg
HS ZANDRA Administration
Glucagon 1 mg 03/09/24 02:19
Glucagon 1 Mg Vial IM 04/06/24 02:18
PRN PRN
hypoglycemia
Protocol
Insulin Glargine 32 units/ 0.32 mls @ 0 mls/hr 03/09/24 08:00 03/11/24 09:42
Device SC 04/06/24 07:59 0.32 mls
DAILY ZANDRA Administration
As Directed
Cefazolin Sodium 2 grams in 10 mls @ 120 mls/hr 03/09/24 10:00 03/11/24 10:44
Ancef IV 10 mls
Q8H ZANDRA Administration
Insulin Aspart 0 units 03/09/24 07:30 03/11/24 09:36
Insulin Aspart Moderate Resistance 300 Units/3 Ml Pen.Injctr SC 04/06/24 07:29 1 units
AC ZANDRA Administration
Protocol
Oxycodone HCl 2.5 mg 03/09/24 05:10 03/11/24 05:48
Oxycodone 5 Mg Regular Release Tablet PO 03/23/24 05:09 2.5 mg
Q4HPRN PRN Administration
mod pain
Pantoprazole Sodium 40 mg 03/09/24 08:00 03/11/24 09:38
Pantoprazole 40 Mg Delayed Release Tablet PO 04/06/24 07:59 40 mg
DAILY ZANDRA Administration
Pregabalin 150 mg 03/09/24 08:00 03/11/24 09:39
Pregabalin 75 Mg Capsule PO 04/06/24 07:59 150 mg
BID ZANDRA Administration
Propranolol HCl 60 mg 03/11/24 08:00 03/11/24 09:38
Propranolol Extended Release 60 Mg Capsule (24hr) PO 04/08/24 07:59 60 mg
DAILY ZANDRA Administration
Sodium Chloride 0 flush 03/09/24 04:00 03/10/24 17:22
Sodium Chloride 0.9% (Flush) Syringe IV 04/06/24 03:59 1 flush
PER PROTOCOL ZANDRA Administration
Home Medications
-
Home Medications
duloxetine 60 mg capsule,delayed release 60 mg PO HS Depression 04/23/19
eszopiclone 3 mg tablet (Lunesta) 3 mg PO HS Sleep 04/23/19
multivitamin with folic acid 400 mcg tablet (Tab-A-Christian) 1 tab PO DAILY Supplement 04/23/19
pregabalin 75 mg capsule 150 mg PO BID Neurological Condition 04/23/19
aspirin 81 mg tablet,delayed release 81 mg PO DAILY Blood Clot Prevention/Tx 08/18/20
atorvastatin 40 mg tablet (Lipitor) 40 mg PO HS High Cholesterol 02/22/24
insulin aspart U-100 100 unit/mL subcutaneous cartridge (Novolog PenFill U-100 Insulin aspart) 4 sliding scale dose SC AC Diabetes 02/22/24
acetaminophen 325 mg tablet 650 mg (2 x 325 mg) PO Q4HPRN PRN mild pain,headache,temp >101F #60 tabs 03/06/24
clopidogrel 75 mg tablet 75 mg PO DAILY 365 days #30 tabs 03/06/24
dapagliflozin propanediol 10 mg tablet 10 mg PO DAILY #30 tabs 03/06/24
insulin glargine U-300 conc 300 unit/mL (1.5 mL) subcutaneous pen (Toujeo SoloStar U-300 Insulin) 64 unit (0.2133 mL) SC DAILY Diabetes #0 mL 03/06/24
metformin 1,000 mg tablet 1,000 mg PO BID@0800,1700 #60 tabs 03/06/24
metoprolol tartrate 25 mg tablet 12.5 mg (1/2 x 25 mg) PO BID #60 tabs 03/06/24
oxycodone 5 mg tablet 2.5 mg (1/2 x 5 mg) PO Q4HPRN PRN mild pain #30 tabs 03/06/24
pantoprazole 40 mg tablet,delayed release 40 mg PO DAILY #30 tabs 03/06/24
--- NOTE | 2024-03-11 12:43 | W.PN.HOSP.TC ---
Today's Communication/Plan
-
MRI L spine
Testicular US
continue PT/OT
continue IV Ancef
Assessment / Plan
Assessment / Plan
Assessment:
Recurrent Falls at Home
Gait Dysfunction
- no obvious arrhythmia on tele, no orthostasis
- CT head negative. MRI brain without CVA
- Echo: Mild concentric left ventricular hypertrophy. Left ventricular ejection fraction is 70-75% by visual assessment. Normal right ventricular size and function.
No mitral regurgitation is seen. No aortic regurgitation is seen. No tricuspid regurgitation is seen. Small (1.2cm) pericardial effusion along the left heart. The IVC is of normal size and demonstrates normal respiratory variation.
- other potential contributing factors including recent med changes (metoprolol added), deconditioning, hypoglycemia, neurologic event, etc.
- Neurology following
- PT/OT evaluations - home/VN recommended
ASCVD
- Stable. s/p CABG x 5 on 03/02/24.
- No new/worsened chest pain, dyspnea, etc.
- Continue current CV med regimen - including newly added metoprolol.
- Monitor on tele as noted above. Follow for any significant bradycardia, hypotension, etc.
- Cardiology following
Surgical site drainage
- CTS following; continue dressings. Continue IV Ancef, day 3, blood cultures NGTD
- at dc switch to Keflex to finish 7 day course per CTS
- outpatient CTS f/u 03/29
Low back pain
L groin pain
- X-rays negative for acute pathology
- MRI L spine pending
- Testicular US pending as pain near testicular area.
nonischemic myocardial injury post-CABG
- trop peaked at .545
NIRANJAN
- SCr = 1.6 on admission compared to recent baseline of 1.1, currently 1.0
- ? mild degree of hypovolemia - which may be contributing to gait issues / falls.
- Hold Farxiga acutely
- cap IVF
Benign Hypertension
- Stable. continue current med regimen with holding parameters.
DM-II
Peripheral Neuropathy secondary to the above
- Stable. Well-controlled on current med regimen.
- Continue basal:bolus insulin at somewhat decreased dose for now.
- Follow glucose and cover with SSI as needed.
- Chronic DM neuropathy likely contributes to/cause of pre-existing gait abnormality.
- PT/OT as noted above.
- Continue Lyrica.
Obesity due to excess calories
- Affects all aspects of care.
- Encourage healthy diet and increased activity as tolerated with goal of weight loss.
DVT Prophylaxis: SCDs
Code Status: Full
Anticipated Discharge: > 48 hours
Subjective/Interval History
-
Date of Service: March 11, 2024
reports L groin pain, no fractures on imaging, points towards testicles.
Objective Data
-
Labs:
Laboratory Results
03/11/24
04:49
WBC 16.5 H
Hgb 12.0 L
Hct 35.0 L
Plt Count 428 H
Sodium 138
Potassium 4.9
Chloride 100
Carbon Dioxide 26
BUN 24 H
Creatinine 1.0
Glucose 123 H
Calcium 9.3
Vital Signs:
Vital Signs
Temp Pulse Resp BP Pulse Ox
98.1 F 70 18 150/68 93
03/11/24 11:29 03/11/24 11:45 03/11/24 11:29 03/11/24 11:31 03/11/24 11:55
I&O
03/10/24 03/11/24 03/12/24
06:59 06:59 06:59
Intake Total 2039
Output Total 0 / 4490 2149 / 2149
Balance -2449 / -2449 -2149 / -2149
Physical Exam
-
General: No Apparent Distress
HEENT: Normocephalic and Atraumatic
Respiratory: Negative Wheezes
Cardiac: Regular Rhythm and S1/S2
GI: Soft and Nontender
Genito-urinary: Other (L groin tenderness on deep palpation. no rashes or edema. no lesions. )
Musculoskeletal: No Edema
Neuro: AO x 3
Hematologic / Lymphatic: No Lymphadenopathy
Psych: Calm
Data Reviewed
-
Total Time Spent with Patient (in minutes): 41
Labs: Labs Reviewed by me
[2024-03-11] MEDS: ATIVAN 1 MG IV (13:04)
[2024-03-11] MEDS: NSS (PRESERVATIVE FREE) 0.5 ML IV (13:05)
[2024-03-11 15:54] LABS: Glucose - Point of Care 178 mg/dl (70-99)
--- NOTE | 2024-03-11 16:00 | CHAP ---
Fr. Khari Hunter of [facility] in [place] prayed for and blessed Bryce. Time uncertain.
--- NOTE | 2024-03-11 16:56 | W.PN.CARDCBS ---
Addendum entered and electronically signed by Silverio Shanks MD 03/11/24 17:27:
I saw and examined the patient.
[facility] [employer]'s note was reviewed and I agree with the note.
Comment:
GEN: No distress, awake, Ox3
HEENT: supple, anicteric, mmm
LUNGS: CTA, no wheezes/rales
CV: Reg, S1/S2, 1/6 syst LSB, no gallop
ABD: soft, BS+, NT/ND
EXT: No edema
NEURO: Gross non-focal
SKIN: Sternotomy with mild drainage.
Plan:
No further episodes of syncope. Etiology remains unclear. MRI of the brain overall unremarkable.
If he did have orthostasis we will need to allow blood pressure to be slightly elevated.
Continue propranolol 60 mg daily.
Continue Ancef for surgical site sternotomy.
Continue aspirin, Plavix, and atorvastatin.
Original Note:
Today's Communication / Plan
-
follow ortho VS
permissive HTN. continue propranolol
PT/OT evals
Impression / Plan
-
PCP: Dr. Marlow
Primary Test Center Manager: Dr. Miranda
Assessment:
Recurrent falls
Sternotomy drainage
Leukocytosis
NIRANJAN
Elevated troponin, suspected nonischemic myocardial injury secondary to recent CABG
Recent admission for HTN emergency, acute HFpEF, NIRANJAN, MV CAD/NSTEMI
NSTEMI with Multivessel CAD s/p CABG x 5, REEVES�LAD, KELY�ramus/OM, aorta- SVG - PVBR/PDA 03/02/24
Diabetes mellitus
obstructive sleep apnea on CPAP
HTN
Hyperlipidemia
SVT s/p ablation
essential tremor
Echo 04/30/2019: Normal LV size, EF 60 to 65%, no valvular heart disease
Echo 02/23/2024: Vigorous LV systolic function with mild cLVH, EF 65 to 70%, mild hypokinesis of apical septum, normal RV size and systolic function
Cardiac catheterization: 02/25/2024: Left main: Mild diffuse plaque; LAD: Proximal 60-70% IFR 0.08; circumflex: OM1 ostial 60-70%, 3 serial lesions in mid circumflex extending into proximal OM 2 up to 90%; RCA: 70% proximal, 80% mid
ECHO 03/09/24: EF 70 to 75%, mild concentric LVH, no valvular disease, small pericardial effusion along left heart
Plan:
-presented with recurrent falls but denies preceding dizziness/lightheadedness or syncope
-Cr improving, 1.0 on 03/11. farxiga on hold since admission
-appreciate neurology input. brain MRI negative for CVA. patient reports some issues with depth/visual perception prior to CABG however never with falls prior.
-also with essential tremor, transitioned from lopressor to propranolol at neurology recommendation
-BPs stable. with slight drop in BP by orthos this AM. await repeat. may need to allow for degree of permissive hypertension for now. continue compression stockings
-PT/OT not able to see patient today as off floor, await their eval in AM. per nursing, no issues with ambulating around room as needed today
-remains in SR without pauses/bradycardia on review of tele overnight
-started on ancef per CT surg for possible superficial sternotomy infection
-trop elevation felt to secondary to recent CABG, nonischemic myocardial injury
-hgb stable at 12. continue asa, plavix
-lumbar MRI with concern for extruded disc fragment. treatment per primary service, unclear that this is etiology of falls
-d/w nursing
Progress Note - Test Center Manager
Subjective
Date of Service: March 11, 2024
no issues with ambulation around room and to stretcher for testing today
Objective
Labs:
03/11/24 04:49
03/11/24 04:49
Labs
Hgb 12.0 g/dL (13.0-18.0) L 03/11/24 04:49
Hct 35.0 % (39.0-52.0) L 03/11/24 04:49
Plt Count 428 10^3/uL (130-400) H 03/11/24 04:49
Sodium 138 mmol/L (135-145) 03/11/24 04:49
Potassium 4.9 mmol/L (3.5-5.1) 03/11/24 04:49
BUN 24 mg/dl (9-20) H 03/11/24 04:49
Creatinine 1.0 mg/dL (0.7-1.3) 03/11/24 04:49
Glucose 123 mg/dl (70-99) H 03/11/24 04:49
Troponins
03/08/24 03/09/24
23:20 04:55
Troponin I 0.545 H* 0.491 H*
Vital Signs and I&O:
Vital Signs
Temp Pulse Resp BP Pulse Ox
98.2 F 80 18 123/70 98
03/11/24 16:05 03/11/24 16:15 03/11/24 16:05 03/11/24 16:03 03/11/24 16:24
Vital Signs
Temp Pulse Resp BP Pulse Ox
98.2 F 80 18 123/70 98
03/11/24 16:05 03/11/24 16:15 03/11/24 16:05 03/11/24 16:03 03/11/24 16:24
Intake & Output
03/09/24 03/10/24 03/11/24 03/12/24
07:59 07:59 07:59 07:59
Intake Total 2039
Output Total 750 / 750 3740 / 3740 2150 / 2150 725 / 725
Balance -750 / -750 -1700 / -1700 -2150 / -2150 -725 / -725
--- NOTE | 2024-03-11 18:33 | W.PN.UPDATE ---
Update Note
Progress Note Update
Asked by medicine to eval patient given MRI findings
I have personally reviewed his MRI: there appears to be a left psoas hematoma, less likely a ventro lateral disc herniation which is quite rare
Rec to get a CT to rule in/out
this is not a neurosurgical issue at current, please notify if we are needed
--- NOTE | 2024-03-11 18:40 | PTCARENOTE ---
Pt resting in bed or up in chair today. Pt has not requested any pain medication or demonstrated any discomfort. Lumbar MRI and scrotum U/S done.
Telemetry shows sinus rhythm. Sternal wound dressing changed once. Pt on fall precautions and he is calling for assistance.
--- NOTE | 2024-03-11 19:30 | PTCARENOTE ---
Pt. sent for CT abd/pelvis via stretcher.
[2024-03-11] MEDS: CYMBALTA DELAYED RELEASE 60 MG PO (22:14)
[2024-03-11] MEDS: LIPITOR 40 MG PO (22:14)
[2024-03-11 22:23] LABS: Glucose - Point of Care 157 mg/dl (70-99)
[2024-03-12] VITALS (18 sets, daily range): BP systolic 116–160; BP diastolic 65–77; PULSE 74–89; O2SAT 92–98; BMI 29.9
--- NOTE | 2024-03-12 01:03 | PTCARENOTE ---
Pt. has had no complaints of pain/discomfort, NSR on the monitor. Report from CT scan done earlier still not in computer - CT scan department and hospitalist GETTER FILLER notified.
[2024-03-12] MEDS: ANCEF 10 IV ×3 (02:48→17:50)
[2024-03-12] MEDS: FLUSH (NSS) 2 FLUSH IV (02:48)
--- NOTE | 2024-03-12 03:10 | PTCARENOTE ---
CT report available and reviewed by hospitalist CLASSROOM COORDINATOR; no new orders. Sternal wound care provided. PT OOB with minimal assist, no complaints of pain.
[2024-03-12 03:13] LABS: % Basophils 1.3 % (0-2); % Immature Granulocytes 0.7 % (0-0.5); % Lymphocytes 15.6 % (20.5-51.1); % Monocytes 6.5 % (1.7-9.3); % Neutrophils 68.9 % (42.2-75.2); Absolute Basophils 0.2 10^3/uL (0-0.2); Absolute Eosinophils 1.3 10^3/uL (0-0.7); Absolute Immature Granulocytes 0.1 10^3/uL (0-0.05); Absolute Lymphocytes 2.9 10^3/uL (1.2-3.4); Absolute Monocytes 1.2 10^3/uL (0.1-0.6); Absolute Neutrophils 12.6 10^3/uL (1.4-6.5); Hematocrit 35.7 % (39.0-52.0); Hemoglobin 12.4 g/dL (13.0-18.0); Mean Corp Hgb Conc. 34.7 g/dL (33.0-37.0); Mean Corpuscular Hgb 29.6 pg (27.0-31.0); Mean Corpuscular Volume 85.2 fL (80.0-94.0); Mean Platelet Volume 9.2 fL (7.4-10.4); Nucleated Red Blood Cells % 0 % (-); Platelet Count 458 10^3/uL (130-400); Red Blood Cell Count 4.19 10^6/uL (4.70-6.10); White Blood Cell Count 18.3 10^3/uL (4.8-10.8)
[2024-03-12 03:36] LABS: Blood Urea Nitrogen 21 mg/dl (9-20); Calcium 9.3 mg/dl (8.4-10.2); Carbon Dioxide 25 mmol/L (22-30); Chloride 98 mmol/L (98-107); Estimated Creatinine Clearance 89 ml/min; Glucose 135 mg/dl (70-99); Potassium 4.4 mmol/L (3.5-5.1); Sodium 137 mmol/L (135-145); eGFR > 60.00
--- NOTE | 2024-03-12 07:46 | W.PN.CARDCBS ---
Today's Communication / Plan
-
Consider ID consult for increasing leukocytosis despite antibiotics
Follow orthostatics
PT evaluation
Impression / Plan
-
PCP: Dr. Marlow
Primary Pony Ride Attendant: Dr. Miranda
Assessment:
Recurrent falls
Sternotomy drainage
Leukocytosis
NIRANJAN
Elevated troponin, suspected nonischemic myocardial injury secondary to recent CABG
Recent admission for HTN emergency, acute HFpEF, NIRANJAN, MV CAD/NSTEMI
NSTEMI with Multivessel CAD s/p CABG x 5, REEVES�LAD, KELY�ramus/OM, aorta- SVG - PVBR/PDA 03/02/24
Diabetes mellitus
obstructive sleep apnea on CPAP
HTN
Hyperlipidemia
SVT s/p ablation
essential tremor
Echo 04/30/2019: Normal LV size, EF 60 to 65%, no valvular heart disease
Echo 02/23/2024: Vigorous LV systolic function with mild cLVH, EF 65 to 70%, mild hypokinesis of apical septum, normal RV size and systolic function
Cardiac catheterization: 02/25/2024: Left main: Mild diffuse plaque; LAD: Proximal 60-70% IFR 0.08; circumflex: OM1 ostial 60-70%, 3 serial lesions in mid circumflex extending into proximal OM 2 up to 90%; RCA: 70% proximal, 80% mid
ECHO 03/09/24: EF 70 to 75%, mild concentric LVH, no valvular disease, small pericardial effusion along left heart
Plan:
Medically complex status post recent non-STEMI and heart failure with preserved ejection fraction found to have multivessel coronary artery disease s/p CABG x 5, REEVES�LAD, KELY�ramus/OM, aorta- SVG - PVBR/PDA 03/02/24
-Repeat Echo: Mild concentric left ventricular hypertrophy. Left ventricular ejection fraction is 70-75% by visual assessment. Normal right ventricular size and function.
No mitral regurgitation is seen. No aortic regurgitation is seen. No tricuspid regurgitation is seen. Small (1.2cm) pericardial effusion along the left heart. The IVC is of normal size and demonstrates normal respiratory variation.
Presents back with recurrent falls of unclear etiology
-Appreciate neurology and internal medicine input.
-CT of the head and MRI without strokes.
-Telemetry without significant pauses/bradycardia/tachycardia
-Follow orthostatics
-Essential tremor, polyneuropathy and chronic cervical myelopathy with plans for PT and neurology follow-up
-Metoprolol changed to propranolol for essential tremor at request per neurology
Leukocytosis with possible superficial sternal infection
-Appreciate CT surgery input
-Patient is started on Ancef
-Afebrile but increasing leukocytosis of unclear etiology
-Blood cultures 03/09/2024 no growth to date.
-CT abdomen pelvis done yesterday to follow-up abnormal MRI suggesting left psoas hematoma noted paraspinal mass extending laterally to the left side of the left psoas muscle as well as diffuse wall thickening and segments of the colon and rectum
suggesting acute pancolitis.
-Appreciate neurosurgery input; 'no acute neurosurgical issue'
-Consider ID involvement
-FELECIA with improved Cr now 1
-farxiga on hold since admission
Progress Note - Pony Ride Attendant
Subjective
Date of Service: March 12, 2024
Seen and examined. Lying supine with CPAP. Offers no complaints of chest pain pressure, shortness of breath, palpitations, or dizziness. No abdominal pain. No dysuria.
Objective
Labs:
03/12/24 02:57
03/12/24 02:57
Labs
Hgb 12.4 g/dL (13.0-18.0) L 03/12/24 02:57
Hct 35.7 % (39.0-52.0) L 03/12/24 02:57
Plt Count 458 10^3/uL (130-400) H 03/12/24 02:57
Sodium 137 mmol/L (135-145) 03/12/24 02:57
Potassium 4.4 mmol/L (3.5-5.1) 03/12/24 02:57
BUN 21 mg/dl (9-20) H 03/12/24 02:57
Creatinine 1.0 mg/dL (0.7-1.3) 03/12/24 02:57
Glucose 135 mg/dl (70-99) H 03/12/24 02:57
Vital Signs and I&O:
Vital Signs
Temp Pulse Resp BP Pulse Ox
97.6 F 76 20 116/72 92
03/12/24 02:32 03/12/24 03:00 03/12/24 02:32 03/12/24 02:32 03/12/24 02:32
Vital Signs
Temp Pulse Resp BP Pulse Ox
97.6 F 76 20 116/72 92
03/12/24 02:32 03/12/24 03:00 03/12/24 02:32 03/12/24 02:32 03/12/24 02:32
Intake & Output
03/10/24 03/11/24 03/12/24 03/13/24
06:59 06:59 06:59 06:59
Intake Total 0 / 0 240 / 240
Output Total 4490 / 4490 2150 / 2150 1850 / 1850 400 / 400
Balance -2450 / -2450 -2150 / -2150 -1610 / -1610 -400 / -400
Physical Exam
Physical Exam
GEN: No distress, awake, alert, oriented x3
HEENT: mmm; on CPAP
LUNGS: CTA B/L, no wheezes/rales
CV: Reg, S1/S2, no murmur
ABD: soft, BS+, NT/ND
EXT: No edema
[2024-03-12 08:15] LABS: Glucose - Point of Care 145 mg/dl (70-99)
--- NOTE | 2024-03-12 08:32 | W.PN.UPDATE ---
Update Note
Progress Note Update
Patient seen and examined this morning. sternal incision appears to be improving with serous drainage. Case was discussed with Dr. Rodriguez. Vital signs (he remains afebrile) and labs were reviewed. At this time, he would recommend outpatient
monitoring of leukocytosis. Blood cultures remain negative. Since patient was a NSTEMI, would continue plavix x1yr.
--- NOTE | 2024-03-12 09:29 | W.PN.UPDATE ---
Update Note
Progress Note Update
I personally performed a history and physical exam of the patient and discussed management with the resident. I reviewed the resident's seperately documented note and agree with the documented findings and plan of care HPI/CC with the following
additions/corrections:
HPI:
Mr Wu is a 63 year old male with past medical history notable for cervical and lumbar laminectomy, DM2. Of note with recent admission for CABG 03/02/24 (10 days ago), course remarkable for episode of diaphoresis and dizziness post op day 3,
beta martha dose decreased and no further symptoms, discharged home where he was generally feeling well - no fevers, chills, but began to have repeated falls. Also complaining of marked fatigue. Six days ago (friday) he stood from his chair
waited a few moments had no dizziness, chest pain, palpitations and then began to walk and fell landing on his chest on the coffee table. There was no loss of consciousness. No shortness of breath. He had 5 more falls since then all without
prodrome of lightheadedness/syncope and no loss of consciousness. There have been times when he lost his balance but was able to stabilize himself. Does report some confusion - he was stroking a kitchen towel he thought was his dog.
patient reports a history of what sounds to have been lumbar spinal osteomyelitis/discitis and bacteremia without endocarditis complicating his treated last lumbar laminectomy with 8 weeks of continuous IV antibiotics in 2020 at [facility]; will
obtain records to further clarify, there would be a risk of relapse if this history is confirmed
In the ER and since he has remained afebrile, bp hypertensive to stable, on dc home post op wbc was 16.6 on arrival 03/08 wbc 16.6 today 18.3, hgb 12.4. Since arrival he has had new thrombocytosis with initial level 402 and now 458, there has been
no left shift but ongoing lymphocytopenia, AECs have been consistnetly around 1.3 - no angel eosinophilia, Na 135, cr on arrival 1.6 now 1.0, initial T bili 0.5, ast 30, alt 23, alk phos 104, ua no pyuria, CT a/p with IV contrast only: 2.7 cm
oval-shaped paraspinal mass extending laterally from the left side of the L1/L2 intervertebral disc into the left psoas muscle. Diagnostic possibilities are (1) a large acute lateral disc herniation or (2) paraspinal hematoma. MR Lumbar spine
without contrast: Hypointense curvilinear structure left lateral to the L1-L2 level with surrounding paravertebral soft tissue edema extending into the left iliopsoas muscle considered most suspicious for an extruded disc fragment. Patient c/o back
pain radiating into the groin. Scrotal US: essentially normal. Hip xray and lumbar spine xray no lesions 03/10 brain MRI no lesions. 03/09 TTE: valves visualized (pulmonic poorly) and no vegetations, 03/09/24 blood cultures x2 no growth at 48
hours, 03/09 MRSA screen negative, neurosurgery consulted L psoas hematoma noted, described as not a current neurosurgical issue. No history of bacteremia at this institution. He was seen by CT Surgery on arrival and noted to have sternal drainage
'MSI with cloudy/yellowish drainage; moderate amount of discharge' started on cefazolin 2 gm iv q8, blood cultures were obtained before antibiotics
Past Medical History:
ASCVD
DM-II with Peripheral Neuropathy
Hypertension
Nephrolithiasis
Restless Leg Syndrome
Lumbar Spinal Stenosis
Essential Tremor
Obesity
Past Surgical History:
CABG x 5, Left Atrial Appendage Occlusion
Cholecystectomy
L4-5 Laminectomy
SVT Ablation
T&A
Lazer Lithotripsy
bilateral knee surgery
right shoulder surgery
right elbow arthroscopies
left carpal tunnel release
left Dupuytren's contracture release
cervical spine fusion
Social History
Tobacco: Non-smoker
Alcohol: None
Drug: None
Family History: Not pertinent
Allergies: NKDA
Home medication reviewed
ROS: 12 point ROS reviewed and negative except as listed in the HPI
VSS - no documented fevers
Physical Exam
General: NAD
Respiratory: CTA bilaterally
Cardiac: S1/S2, Regular Rhythm, murmur noted
GI: Soft, Non Tender, Non Distended and Normal Bowel Sounds
TMSK: lumbar laminectomy site fully healed, no erythema, warmth dehsicence or drainage
Skin: sternal surgical site with moderate serous drainage, no dehiscene or erythema
A&P
Psoas hematoma vs abcess
Early Sternal Surgical Site infection
DM2 well controlled
NIRANJAN - resolving
- patient reports a history of what sounds to have been lumbar spinal osteomyelitis/discitis and bacteremia without endocarditis complicating his treated last lumbar laminectomy with 8 weeks of continuous IV antibiotics in 2020 at [facility];
will obtain records to further clarify, there would be a risk of relapse if this history is confirmed
- if patient febrile then send blood cultures x2 while febrile
- initial two sets of blood cultures no growth to date
- MRI lumbar spine with IV contrast ordered
- spoke with Dr Uriostegui IR, aspiration might be feasible with a smaller needle while on antiplatelet and ASA (which are necessary post CABG)- discussed at length with Dr Rodriguez and Dr Anderson - for the moment will obtain further information with
MRI, observe clinically and then consider next steps
- TTE: no valvular lesions
- no history of bacteremia documented here
- extensive surgical histories, no hardwear in the lumbar spine
- continue cefazolin for now - do not broaden as could interfear further with cultures
- follow clinically
[2024-03-12] MEDS: NOVOLOG FLEXPEN-MODERATE RESISTANCE SC (09:37)
[2024-03-12] MEDS: INDERAL LA 60 MG PO (09:37)
[2024-03-12] MEDS: ASPIR LOW (ENTERIC COATED) 81 MG PO (09:37)
[2024-03-12] MEDS: PROTONIX 40 MG PO (09:38)
[2024-03-12] MEDS: LYRICA 150 MG PO ×2 (09:38→21:21)
[2024-03-12] MEDS: LANTUS 0.32 UNITS SC (09:38)
--- NOTE | 2024-03-12 11:45 | CON.NS ---
Consultation
-
Date/Time Consultation Performed: 03/12/2024; 11:45 a
Performing Provider: Aracelis
Chief Complaint
History of Present Illness
This is a neurosurgical consultation on a 63-year-old gentleman with a past medical history significant for hypertension, diabetes, status post recent CABG, who presented with repeated falls at home. He denied any prodrome of dizziness,
lightheadedness, chest pain, shortness of breath. He did not lose any consciousness. He reports over half dozen falls at home since his initial fall. There was noted to be serous drainage from his sternotomy incision. Patient also reported that
he had numbness and weakness in the right hand since his surgery. He does report balance difficulties prior to his recent surgery. Ultimately, he was worked up, and also evaluated by neurology. He underwent MRI of the brain to rule out embolic
infarctions. It is documented in the chart, the patient has chronic cervical myelopathy as well as polyneuropathy. Patient's brain MRI was performed and was negative for acute stroke. He continues to be treated for a superficial surgical site
infection. He is on Ancef. It is documented that there was improvement of his balance since admission. However, patient started complaining of more low back pain, and hip pain on 03/11/2024. He continues with elevated white blood cell count.
Ultimately, given his left groin pain, an MRI of the lumbar spine was ordered. This demonstrated lesion adjacent to the L1-L2 disc space, extending into the left psoas muscle. Differential diagnosis includes left psoas hematoma, abscess, versus
much less likely lateral disc herniation. CT of the abdomen pelvis was obtained. Of note, the patient is on aspirin and Plavix for his cardiac history. Given his symptoms, and MRI of the lumbar spine findings, neurosurgery consulted.
Patient seen and examined. He denies any neck pain, reports paresthesias primarily in his last 3 digits. He reports that that started after his cardiac surgery, but it has not progressed. He denies any left upper extremity symptoms.
He reports pain that starts primarily in his left flank, then radiates into his left groin. He reports that his balance is definitely improved compared to prior to admission. He reports that his last fall was quite severe, and he believes that is
when his left groin and flank pain started. He reports that he collided either on the left side with his left cabinet, or to the ground.
Review of Systems
-
A 10 point review of systems was performed, which includes constitutional, ENT, cardiovascular, respiratory, GI, , neurologic, musculoskeletal, endocrinologic, hematology, which was all negative, except for as stated in HPI.
Medication and Allergies
Home Medications
Home Medications
�Medication �Instructions �Recorded
duloxetine 60 mg capsule,delayed 60 mg PO HS Depression 04/23/19
release
eszopiclone 3 mg tablet (Lunesta) 3 mg PO HS Sleep 04/23/19
multivitamin with folic acid 400 1 tab PO DAILY Supplement 04/23/19
mcg tablet (Tab-A-Christian)
pregabalin 75 mg capsule 150 mg PO BID Neurological 04/23/19
Condition
aspirin 81 mg tablet,delayed 81 mg PO DAILY Blood Clot 08/18/20
release Prevention/Tx
atorvastatin 40 mg tablet (Lipitor) 40 mg PO HS High Cholesterol 02/22/24
insulin aspart U-100 100 unit/mL 4 sliding scale dose SC AC Diabetes 02/22/24
subcutaneous cartridge (Novolog
PenFill U-100 Insulin aspart)
acetaminophen 325 mg tablet 650 mg (2 x 325 mg) PO Q4HPRN PRN 03/06/24
mild pain,headache,temp >101F #60
tabs
clopidogrel 75 mg tablet 75 mg PO DAILY 365 days #30 tabs 03/06/24
dapagliflozin propanediol 10 mg 10 mg PO DAILY #30 tabs 03/06/24
tablet
insulin glargine U-300 conc 300 64 unit (0.2133 mL) SC DAILY 03/06/24
unit/mL (1.5 mL) subcutaneous pen Diabetes #0 mL
(Toujeo SoloStar U-300 Insulin)
metformin 1,000 mg tablet 1,000 mg PO BID@0800,1700 #60 tabs 03/06/24
metoprolol tartrate 25 mg tablet 12.5 mg (1/2 x 25 mg) PO BID #60 03/06/24
tabs
oxycodone 5 mg tablet 2.5 mg (1/2 x 5 mg) PO Q4HPRN PRN 03/06/24
mild pain #30 tabs
pantoprazole 40 mg tablet,delayed 40 mg PO DAILY #30 tabs 03/06/24
release
Allergies
Allergies
Allergy/AdvReac Type Severity Reaction Status Date / Time
No Known Allergies Allergy Verified 04/13/23 11:27
Physical Exam
-
Exam:
Awake, alert, no apparent distress. Sitting in a chair.
Cranial nerves II through XII are grossly intact.
Motor: 5/5 strength in bilateral upper extremities, except 4/5 strength in right intrinsics, predominantly in right fourth and fifth digits.
Strength in bilateral lower extremities is 5/5.
Able to stand from sitting position.
Head is normocephalic atraumatic.
Neck is supple
Breathing nonlabored
Regular rhythm
Anterior sternal dressing is clean and dry
Abdomen is soft
Extremities are warm
MRI lumbar spine performed without contrast on 03/11/2024 was reviewed. There is evidence of a circumscribed lesion ventrolateral to the L1-L2 disc space
That has adjacent STIR signal hyperintensity which could be concerning for possible hematoma, abscess, and much less likely ventrolateral disc herniation. No obvious spinal canal, thecal sac or neural foraminal compromise is noted.
Problems
-
Problem Status Onset Code
Syncope R55
Assessment / Plan
-
This is a 61-year-old gentleman who presented with increased falls, with a background history of chronic cervical myelopathy. He was found to have superficial sternotomy infection and has been on IV Ancef for this. His gait has improved while in
the hospital, and after initiation of antibiotics. However, he did report a new onset of left groin pain. This prompted MRI lumbar spine, which demonstrates lesion between the ventrolateral aspect of the vertebrae, and extending into the left
psoas muscle, which appears to be suspicious for hematoma, abscess, and much less likely disc herniation.
No urgent neurosurgical intervention recommended at the present time.
Recommend pain control. If there is high clinical suspicion for possible infectious process, then suggest interventional radiology for aspiration/biopsy of this area.
If patient's right upper extremity symptoms progress, or if he continues to have persistent balance difficulties, then would suggest MRI of the cervical spine to ensure there is no infectious process/compressive process occurring in the cervical
spine.
[2024-03-12] MEDS: PLAVIX 75 MG PO (11:57)
--- NOTE | 2024-03-12 12:32 | CM ---
Reviewed chart. Met with Mr. Wu to review discharge plans. He states he feels about the same. He states he has been using a walker here for stability. Reviewed if he will need a walker to go home. He wants to review with his spouse before
committing to needing a walker for home. We also reviewed the Cardiothoracic Transitional Care Nurse home visit and/or VNA Services. Telephone call to [facility] to make the referral. [facility] states they go his area. Will
send referral. Prior to admission he resides with his spouse and daughter in a one story home with one step to enter. He has a full flight of steps to get to laundry room. Prior to admission he was independent with ambulation and adls. He has a
CPAP Machine and glucometer at home. He has a prescription plan and uses [facility]. Medical work-up in progress. The discharge plan is to return home with his spouse and daughter and a home visit by the Cardiothoracic Transitional Care Nurse
when medically stable.
[2024-03-12 12:51] LABS: Glucose - Point of Care 257 mg/dl (70-99)
[2024-03-12] MEDS: NOVOLOG FLEXPEN-MODERATE RESISTANCE 5 UNITS SC (13:11)
--- NOTE | 2024-03-12 14:12 | W.PN.HOSP.TC ---
Today's Communication/Plan
-
await reply back from IR about aspiration on Blood thinners
await ID recs
Assessment / Plan
Assessment / Plan
Assessment:
Recurrent Falls at Home
Gait Dysfunction
- no obvious arrhythmia on tele, no orthostasis
- CT head negative. MRI brain without CVA
- Echo: Mild concentric left ventricular hypertrophy. Left ventricular ejection fraction is 70-75% by visual assessment. Normal right ventricular size and function.
No mitral regurgitation is seen. No aortic regurgitation is seen. No tricuspid regurgitation is seen. Small (1.2cm) pericardial effusion along the left heart. The IVC is of normal size and demonstrates normal respiratory variation.
- other potential contributing factors including recent med changes (metoprolol added), deconditioning, hypoglycemia, neurologic event, etc.
- Neurology following
- PT/OT evaluations - home/VN recommended
ASCVD
- Stable. s/p CABG x 5 on 03/02/24.
- No new/worsened chest pain, dyspnea, etc.
- Continue ASA
- Continue Plavix x 1 year - not recommended to hold per CT surgery
- continue BB/Statin
- Monitor on tele as noted above. Follow for any significant bradycardia, hypotension, etc.
- Cardiology following
Surgical site drainage
- CTS following; continue dressings. Continue IV Ancef, day 4, blood cultures NGTD
- follow ID recs
- outpatient CTS f/u 03/29
Low back pain
L groin pain
- X-rays negative for acute pathology. Testicular US negative.
- MRI L Spine without contrast: Hypointense curvilinear structure left lateral to the L1-L2 level with surrounding paravertebral soft tissue edema extending into the left iliopsoas muscle considered most suspicious for an extruded disc fragment. The
appearance is considered less likely for a fractured endplate osteophyte.
- MRI L spine with contrast: pending
- CT A/P: 2.7 cm oval-shaped paraspinal mass extending laterally from the left side of the L1/L2 intervertebral disc into the left psoas muscle. Diagnostic possibilities are (1) a large acute lateral disc herniation or (2) paraspinal hematoma.
- Neuro-sx consulted; radiograph ddx includes hematoma vs abscess vs less likely disc herniation
- ID consulted
- IR asked to evaluate for aspiration of area. Asked also if possible to aspirate on aspirin/Plavix.
nonischemic myocardial injury post-CABG
- trop peaked at .545
NIRANJAN
- SCr = 1.6 on admission compared to recent baseline of 1.1, currently 1.0
- ? mild degree of hypovolemia - which may be contributing to gait issues/falls.
- Hold Farxiga acutely
- cap IVF
Benign Hypertension
- Stable. continue current med regimen with holding parameters.
DM-II
Peripheral Neuropathy secondary to the above
- Stable. Well-controlled on current med regimen.
- Continue basal:bolus insulin at somewhat decreased dose for now.
- Follow glucose and cover with SSI as needed.
- Chronic DM neuropathy likely contributes to/cause of pre-existing gait abnormality.
- PT/OT as noted above.
- Continue Lyrica.
Obesity due to excess calories
- Affects all aspects of care.
- Encourage healthy diet and increased activity as tolerated with goal of weight loss.
DVT Prophylaxis: SCDs
Code Status: Full
Anticipated Discharge: > 48 hours
Subjective/Interval History
-
Date of Service: March 12, 2024
no complaints presently
Objective Data
-
Labs:
Laboratory Results
03/12/24
02:57
WBC 18.3 H
Hgb 12.4 L
Hct 35.7 L
Plt Count 458 H
Sodium 137
Potassium 4.4
Chloride 98
Carbon Dioxide 25
BUN 21 H
Creatinine 1.0
Glucose 135 H
Calcium 9.3
Vital Signs:
Vital Signs
Temp Pulse Resp BP Pulse Ox
98.4 F 76 16 133/74 96
03/12/24 08:20 03/12/24 12:00 03/12/24 08:20 03/12/24 08:30 03/12/24 09:29
I&O
03/11/24 03/12/24 03/13/24
06:59 06:59 06:59
Intake Total 240 / 240
Output Total 2150 / 2150 1850 / 1850 400 / 400
Balance -2150 / -2150 -1610 / -1610 -400 / -400
Physical Exam
-
General: No Apparent Distress
HEENT: Normocephalic and Atraumatic
Respiratory: Negative Wheezes
Cardiac: Regular Rhythm and S1/S2
GI: Soft
Genito-urinary: No Costovertebral Tender
Neuro: AO x 3
Psych: Calm
Data Reviewed
-
Total Time Spent with Patient (in minutes): 42
Labs: Labs Reviewed by me
--- NOTE | 2024-03-12 15:31 | CON.ID ---
Consultation
-
Date/Time Consultation Requested: 03/12/2024, 8:24 AM
Date/Time Consultation Performed: 03/12/2024, 10:30 AM
Requesting Provider: Dom Anderson MD
Performing Provider: Roberta Robin MD for Myranda Smith MD
Reason for Consultation: Surgical site infection
Chief Complaint / Past History
Chief Complaint
Frequent falls-6 episodes x 2 days.
History of Present Illness
63-year-old male with recent CABG done on 03/02/2024 and was discharged home on 03/06/2024 presents to the [facility] for repeated falls in the last 2 days. Patient says that when he stands up from the chair he noted that he did not feel
lightheaded or dizzy or had vertigo and began to walk and few steps later he fell and struck his chest on the coffee table which was painful. During this episode he did not lose consciousness but had an urinary urgency and became incontinent upon
falling down. Over the next 2 days subsequently he had 5 falls. Each fall is not preceded by lightheadedness or prodrome or loss of consciousness or syncope. Fell down in the cabinets he struck the front of the cabinets but did not hit his head
to the cabinets. He states to be aware of entire episodes each time if he fell down. Only one of his episodes is associated with confusion where he found himself petting a kitchen table thinking to be his dog. He also states that he developed a
serous discharge from the surgical site on day 2 of his surgery. He had discharge even before he left home from the hospital.
His episodes are accompanied by night sweats, however he attributes his sweats to hypoglycemia. He was not on a continuous glucometer or did not check his blood sugar when he had this episodes.
He denies having fevers, chills, rigors, weakness or numbness of the limbs, abnormal sensations or movements in the body. However even before the surgery he had some level of ambulatory dysfunction and wobbliness on his legs, but he never had a
fall.
Patient was admitted to the hospital on 03/08/2024, was worked up for orthostatic vitals which were negative, neurology, neurosurgery was consulted and cardiac surgery was consulted as well to evaluate his surgical scar. 2 blood cultures were
obtained on the patient which were negative, WBC count-13.6 on 03/08/2024, left shift, 18.3 on 03/12/2024, normocytic anemia with Hb at 12.4, reactive thrombocytosis-platelet [id number] (03/12/2024), with normal electrolytes and serum creatinine at
1. 6 upon admission that eventually resolved. Patient was started on IV Ancef for his surgical wound site drainage, CT head and MRI head were obtained which were negative for any acute intracranial abnormalities. Patient received repeat
echocardiogram which showed about 1.2 cm of hemopericardium and patient also received a CT lumbar spine which showed a paraspinal hematoma.
Past History
Past Medical History: Other (CAD, type II DM with peripheral neuropathy, hypertension, nephrolithiasis, restless leg syndrome, lumbar spinal stenosis, essential tremor, obesity.)
Past Surgical History: Other (CABG x 5, left atrial appendage occlusion, cholecystectomy, L4-L5 laminectomy, SVT ablation, T&A, multiple orthopedic/joint surgeries.)
Additional Past Surgical History:
Tonsillectomy (1965)
Ureteroscopy (2011)
Right Elbow Surgery (1995)
Left Hand Surgery (2009)
Right Shoulder Surgery (1994)
SVT Ablation (1995)
Right Knee Surgery (1981
Left Knee Surgery (2005)
cholecystectomy
sinus surgery
right eye surgery
circumcision 2018
Allergy History:
No Known Allergies Allergy (Verified 04/13/23 11:27)
Social History
Tobacco: Non-Smoker
Alcohol: None
Drug: None
Personal:
Living: With Family
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
Family History
Family History: Not Pertinent
Review of Systems
Review of Systems
General: Negative Fever, Chills or Change in Appetite
Cardiovascular: Negative Chest Pain or Palpitations
Respiratory: Negative Dyspnea, Cough or Sputum Production
Genital / Urological: Negative Dysuria
Musculoskeletal: Negative Arthralgias or Myalgias
Neurological: Negative Headache
Vital Signs
Temp Pulse Resp BP Pulse Ox
98.8 F 78 16 123/65 94
03/12/24 14:40 03/12/24 14:39 03/12/24 14:40 03/12/24 14:39 03/12/24 14:40
Physical Exam
Physical Exam
Constitutional: Comfortable
Cardiovascular: Regular Rate and S1/S2; Negative Murmur, Rub or Gallop
Pulmonary: Clear; Negative Wheezes, Rales or Rhonchi
Gastrointestinal: Soft, Non Tender, Non Distended and Normal Bowel Sounds
Extremities: Negative Edema
Skin: Warm and Other (Mildly erythematous statin ostomy incision under the dressing noted. No oozing noted on expression.)
Neurological: Awake and Alert
Psychological: Calm
Lab / Diagnostic Study Results
03/12/24 02:57
03/12/24 02:57
Abs Immat Gran (auto) 0.1 10^3/uL (0-0.05) H 03/12/24 02:57
Absolute Neuts (auto) 12.6 10^3/uL (1.4-6.5) H 03/12/24 02:57
Absolute Lymphs (auto) 2.9 10^3/uL (1.2-3.4) 03/12/24 02:57
Absolute Monos (auto) 1.2 10^3/uL (0.1-0.6) H 03/12/24 02:57
Absolute Basos (auto) 0.2 10^3/uL (0-0.2) 03/12/24 02:57
Immature Gran % 0.7 % (0-0.5) H 03/12/24 02:57
Neutrophils % 68.9 % (42.2-75.2) 03/12/24 02:57
Lymphocytes % 15.6 % (20.5-51.1) L 03/12/24 02:57
Monocytes % 6.5 % (1.7-9.3) 03/12/24 02:57
Eosinophils % 7.0 % (0-6) H 03/12/24 02:57
Basophils % 1.3 % (0-2) 03/12/24 02:57
Microbiology Results
Micro:
03/09/24 10:30 Blood Culture - Preliminary
Blood/Venous No Growth in 72 hours- Final report to follow
03/09/24 10:30 Blood Culture - Preliminary
Blood/Venous No Growth in 72 hours- Final report to follow
03/09/24 04:55 MRSA Screen - Final
Nose No Methicillin Resistant Staphylococcus aureus isolated.
03/11/2024-CT abdomen/pelvis-
Impression
1. 2.7 cm oval-shaped paraspinal mass extending laterally from the left side of the L1/L2 intervertebral disc into the left psoas muscle. Diagnostic possibilities are (1) a large acute lateral disc herniation or (2) paraspinal hematoma.
2. Mild multilevel discogenic degenerative disease in the lumbar spine.
3. Mild circumferential wall thickening throughout segments of the colon and mild to moderate wall thickening in the rectum suggesting a mild acute pancolitis (either infectious or inflammatory in etiology).
4. Mild diverticulosis in the descending and sigmoid colon.
5. Severe calcific atherosclerotic plaque in the abdominal aorta and common iliac arteries.
6. Previous cholecystectomy.
7. Mild splenomegaly.
8. Small hemopericardium.
9. Small to moderate-sized left and small right pleural effusions.
10. Recent CABG surgery and left atrial appendage exclusion.
Scrotum ultrasound-03/11/2024-
Impression
Microcalcifications in both testicles
Lumbar spine MRI-03/11/2024-
Impression
Hypointense curvilinear structure left lateral to the L1-L2 level with surrounding paravertebral soft tissue edema extending into the left iliopsoas muscle considered most suspicious for an extruded disc fragment. The appearance is considered less
likely for a fractured endplate osteophyte.
Patient had hip x-ray-03/10/2024-mild osteoarthritis of the left hip
Lumbar spine x-ray-03/10/2024-
Mild to moderate multilevel lumbar discogenic degenerative disease. Severe calcific atherosclerotic plaque in the abdominal aorta and common iliac arteries.
Brain MRI-03/10/2024-no acute intracranial abnormalities, head CT-03/10/2024-no acute intracranial abnormalities.
Assessment / Plan
Assessment-
Subjective-patient still feels wobbly on her feet, no night sweats.
Objective-leukocytosis with left shift, WBC count at 18.3, reactive thrombocytosis-platelet count at 402, normocytic anemia-hemoglobin at 12.4, eosinophil count-1.3, resolved NIRANJAN, electrolytes within normal limits.
CT lumbar spine positive for hyperintense curvilinear structure left L to L1-L2 level with soft tissue edema extending into the left iliopsoas muscle suspicious for an e extruded disc fragment.
CT abdomen and pelvis-2.7 cm oval-shaped paraspinal mass extending laterally from the left side of L1/L2.
Plan-
Questionable parasternal and iliopsoas hematoma.
Per neurology ventral hernia with ventral lateral disc herniation is quite rare. Repeat lumbar MRI to reassess for iliopsoas hematoma. Potential drain of the iliopsoas hematoma by IR if possible and wound cultures.
Currently the patient is on cefazolin 2 g.
It is possible that iliopsoas hematoma could be abscess.
Currently no evidence of septicemia or SIRS criteria. Will hold off on repeat blood cultures for now.
Will continue to follow closely.
[2024-03-12 17:29] LABS: Glucose - Point of Care 231 mg/dl (70-99)
[2024-03-12] MEDS: NOVOLOG FLEXPEN-MODERATE RESISTANCE 3 UNITS SC (17:49)
--- NOTE | 2024-03-12 19:20 | PTCARENOTE ---
Pt reported 2/10 left groin discomfort today, he declined pain medication and was able to walk in halls with PT using a walker. Orthostatic BP's with changes but no low BP's and pt was asymptomatic. Telemetry shows sinus rhythm. Sternal dressing
changed once, 3 4X4's saturated with serous drainage, max temp today 99.1, WBC 18.3. Plan for lumbar MRI with contrast tonight.
[2024-03-12] MEDS: ATIVAN 1 MG IV (19:48)
[2024-03-12] MEDS: NSS (PRESERVATIVE FREE) 0.5 ML IV (19:49)
--- NOTE | 2024-03-12 20:00 | PTCARENOTE ---
pt to mri via stretcher. iv ativan given for mri as ordered.
[2024-03-12] MEDS: CYMBALTA DELAYED RELEASE 60 MG PO (21:20)
[2024-03-12] MEDS: LIPITOR 40 MG PO (21:21)
--- NOTE | 2024-03-12 21:30 | PTCARENOTE ---
pt returned from mri. pt incontinent of urine. pm care given and pt back to bed with assist of 1 and walker.pt denies dizziness or discomfort.dressing dry and intact mid sternum.will observe.
[2024-03-12 21:31] LABS: Glucose - Point of Care 196 mg/dl (70-99)
[2024-03-13] VITALS (11 sets, daily range): BP systolic 117–169; BP diastolic 58–75; PULSE 70–78; BMI 29.8
[2024-03-13] MEDS: ANCEF 10 IV ×3 (03:20→17:15)
[2024-03-13 03:41] LABS: % Basophils 1.3 % (0-2); % Eosinophils 6.5 % (0-6); % Immature Granulocytes 0.7 % (0-0.5); % Lymphocytes 16.9 % (20.5-51.1); % Monocytes 7.5 % (1.7-9.3); % Neutrophils 67.1 % (42.2-75.2); Absolute Basophils 0.2 10^3/uL (0-0.2); Absolute Eosinophils 1.2 10^3/uL (0-0.7); Absolute Immature Granulocytes 0.1 10^3/uL (0-0.05); Absolute Monocytes 1.3 10^3/uL (0.1-0.6); Hematocrit 36.3 % (39.0-52.0); Hemoglobin 12.7 g/dL (13.0-18.0); Mean Corpuscular Hgb 28.9 pg (27.0-31.0); Mean Corpuscular Volume 82.7 fL (80.0-94.0); Mean Platelet Volume 9.1 fL (7.4-10.4); Nucleated Red Blood Cells % 0 % (-); Platelet Count 475 10^3/uL (130-400); Red Blood Cell Count 4.39 10^6/uL (4.70-6.10); Red Cell Dist. Width 13.2 % (11.5-14.5); White Blood Cell Count 17.9 10^3/uL (4.8-10.8)
[2024-03-13 03:55] LABS: Erythrocyte Sed Rate 44 mm/hour (0-20)
--- NOTE | 2024-03-13 03:57 | PTCARENOTE ---
mid sternal dressing changed. scant amount serous drainage on 4x4. pt denies pain or discomfort.
[2024-03-13 04:09] LABS: Blood Urea Nitrogen 22 mg/dl (9-20); Calcium 9.4 mg/dl (8.4-10.2); Carbon Dioxide 32 mmol/L (22-30); Chloride 96 mmol/L (98-107); Estimated Creatinine Clearance 81 ml/min; Glucose 131 mg/dl (70-99); Potassium 4.6 mmol/L (3.5-5.1); Sodium 137 mmol/L (135-145); eGFR > 60.00
[2024-03-13 07:54] LABS: Glucose - Point of Care 112 mg/dl (70-99)
[2024-03-13] MEDS: NOVOLOG FLEXPEN-MODERATE RESISTANCE SC (08:05)
[2024-03-13] MEDS: ASPIR LOW (ENTERIC COATED) 81 MG PO (08:11)
[2024-03-13] MEDS: LYRICA 150 MG PO ×2 (08:11→20:56)
[2024-03-13] MEDS: INDERAL LA 60 MG PO (08:11)
[2024-03-13] MEDS: PROTONIX 40 MG PO (08:12)
[2024-03-13] MEDS: LANTUS 0.32 UNITS SC (08:12)
[2024-03-13] MEDS: PLAVIX 75 MG PO (08:12)
--- NOTE | 2024-03-13 08:30 | PTCARENOTE ---
Assumed care of pt at 0645 from night cleaner RN. Pt AAOx3. NSR on cardiac tech. VSS. Assessment documented. Mid sternal dressing CDI. Plan to continue IV abx. Daily orthos. Pt OOB in chair, call bliss within reach.
--- NOTE | 2024-03-13 09:43 | W.PN.CARDCBS ---
Today's Communication / Plan
-
Syncope and orthostasis have resolved. Continue propranolol.
Continue aspirin, Plavix and atorvastatin.
ID, interventional radiology, and CT surgery debating options for left psoas mass.
Continue antibiotics for sternum.
Will follow peripherally.
Impression / Plan
-
PCP: Dr. Marlow
Primary Washing Machine Operator: Dr. Miranda
Assessment:
Recurrent falls
Sternotomy drainage
Leukocytosis
NIRANJAN
Elevated troponin, suspected nonischemic myocardial injury secondary to recent CABG
Recent admission for HTN emergency, acute HFpEF, NIRANJAN, MV CAD/NSTEMI
NSTEMI with Multivessel CAD s/p CABG x 5, REEVES�LAD, KELY�ramus/OM, aorta- SVG - PVBR/PDA 03/02/24
Diabetes mellitus
obstructive sleep apnea on CPAP
HTN
Hyperlipidemia
SVT s/p ablation
essential tremor
Echo 04/30/2019: Normal LV size, EF 60 to 65%, no valvular heart disease
Echo 02/23/2024: Vigorous LV systolic function with mild cLVH, EF 65 to 70%, mild hypokinesis of apical septum, normal RV size and systolic function
Cardiac catheterization: 02/25/2024: Left main: Mild diffuse plaque; LAD: Proximal 60-70% IFR 0.08; circumflex: OM1 ostial 60-70%, 3 serial lesions in mid circumflex extending into proximal OM 2 up to 90%; RCA: 70% proximal, 80% mid
ECHO 03/09/24: EF 70 to 75%, mild concentric LVH, no valvular disease, small pericardial effusion along left heart
Plan:
Medically complex status post recent non-STEMI and heart failure with preserved ejection fraction found to have multivessel coronary artery disease s/p CABG x 5, REEVES�LAD, KELY�ramus/OM, aorta- SVG - PVBR/PDA 03/02/24
-Repeat Echo: Mild concentric left ventricular hypertrophy. Left ventricular ejection fraction is 70-75% by visual assessment. Normal right ventricular size and function.
No mitral regurgitation is seen. No aortic regurgitation is seen. No tricuspid regurgitation is seen. Small (1.2cm) pericardial effusion along the left heart. The IVC is of normal size and demonstrates normal respiratory variation.
Presents back with recurrent falls of unclear etiology
-Appreciate neurology and internal medicine input.
-CT of the head and MRI without strokes.
-Telemetry without significant pauses/bradycardia/tachycardia
-Orthostatic vital signs have been stable.
-Essential tremor, polyneuropathy and chronic cervical myelopathy with plans for PT and neurology follow-up
-Metoprolol changed to propranolol for essential tremor at request per neurology
Leukocytosis with possible superficial sternal infection
-Appreciate CT surgery input
-Patient is started on Ancef
-Afebrile but increasing leukocytosis of unclear etiology
-Left paraspinal psoas 2.5 cm density was found on MRI of unclear etiology. ID debating plan
-FELECIA with improved Cr now 1
-farxiga on hold since admission
Progress Note - Washing Machine Operator
Subjective
Date of Service: March 13, 2024
He denies any further lightheadedness or dizziness.
Objective
Labs:
03/13/24 03:19
03/13/24 03:19
Labs
Hgb 12.7 g/dL (13.0-18.0) L 03/13/24 03:19
Hct 36.3 % (39.0-52.0) L 03/13/24 03:19
Plt Count 475 10^3/uL (130-400) H 03/13/24 03:19
Sodium 137 mmol/L (135-145) 03/13/24 03:19
Potassium 4.6 mmol/L (3.5-5.1) 03/13/24 03:19
BUN 22 mg/dl (9-20) H 03/13/24 03:19
Creatinine 1.1 mg/dL (0.7-1.3) 03/13/24 03:19
Glucose 131 mg/dl (70-99) H 03/13/24 03:19
Vital Signs and I&O:
Vital Signs
Temp Pulse Resp BP Pulse Ox
97.8 F 80 18 125/58 94
03/13/24 08:03 03/13/24 08:11 03/13/24 08:03 03/13/24 08:11 03/13/24 08:03
Vital Signs
Temp Pulse Resp BP Pulse Ox
97.8 F 80 18 125/58 94
03/13/24 08:03 03/13/24 08:11 03/13/24 08:03 03/13/24 08:11 03/13/24 08:03
Intake & Output
03/11/24 03/12/24 03/13/24 03/14/24
06:59 06:59 06:59 06:59
Intake Total 240 / 240 240 / 240
Output Total 2150 / 2150 1850 / 1850 1100 / 1100 800 / 800
Balance -2150 / -2150 -1610 / -1610 -860 / -860 -800 / -800
Physical Exam
Physical Exam
GEN: No distress, awake, Ox3
HEENT: supple, anicteric, mmm
LUNGS: CTA, no wheezes/rales
CV: Reg, S1/S2, no murmur
ABD: soft, BS+, NT/ND
EXT: No edema
NEURO: Gross non-focal
SKIN: Sternotomy
--- NOTE | 2024-03-13 11:45 | W.PN.ID1 ---
Date of Service
Date of Service: March 13, 2024
Today's Communication
awaiting records
MRI inconclusive
continue cefazlin for now
Assessment / Plan
Psoas hematoma vs abcess
Early Sternal Surgical Site infection
DM2 well controlled
NIRANJAN - resolving
- patient reports a history of what sounds to have been lumbar spinal osteomyelitis/discitis and bacteremia without endocarditis complicating his treated last lumbar laminectomy with 8 weeks of continuous IV antibiotics in 2020 at [facility];
will obtain records to further clarify, there would be a risk of relapse if this history is confirmed
- awaiting records - I see fax receipt confirming that request was sent urgent
- if patient febrile then send blood cultures x2 while febrile
- initial two sets of blood cultures no growth to date
- MRI lumbar spine with IV contrast ordered
- spoke with Dr Uriostegui IR, aspiration might be feasible with a smaller needle while on antiplatelet and ASA (which are necessary post CABG)- discussed at length with Dr Rodriguez and Dr Anderson - for the moment will obtain further information with
MRI, observe clinically and then consider next steps
- TTE: no valvular lesions
- no history of bacteremia documented here
- extensive surgical histories, no hardwear in the lumbar spine
- continue cefazolin for now - do not broaden as could interfear further with cultures
- follow clinically
Chief Complaint
-: Other
Subjective / Review of Systems
afebrile
bp stable
no further dizzy spells, went for a long walk with PT per patient
he asks me not to take down sternal dressing today
awaiting records
Vital Signs / Physical Exam
Vital Signs
Vital Signs
Temp Pulse Resp BP Pulse Ox
97.8 F 80 18 125/58 94
03/13/24 08:03 03/13/24 08:11 03/13/24 08:03 03/13/24 08:11 03/13/24 08:03
Physical Exam
Constitutional: No Acute Distress
Cardiovascular: Regular Rate and S1/S2; Negative Murmur or Rub
Pulmonary: Clear and Symmetric; Negative Wheezes or Rales
Gastrointestinal: Soft, Non Tender, Non Distended and Normal Bowel Sounds
Skin: Warm and Dry; Negative Rash or Jaundice
Wound: Other (sternal dressing clean, dry, intact, not saturated, did not take down at patient request)
Objective Data
Lab Data
Lab Results
03/13/24 03:19
03/13/24 03:19
ESR 44 mm/hour (0-20) H 03/13/24 03:19
Estimated Creat Clear 81 ml/min 03/13/24 03:19
Total Bilirubin 0.5 mg/dl (0.2-1.3) 03/08/24 22:08
AST 30 U/L (17-59) 03/08/24 22:08
ALT 23 U/L (0-50) 03/08/24 22:08
Alkaline Phosphatase 104 U/L (38-126) 03/08/24 22:08
C-Reactive Protein 45.60 mg/L (0.0-10.00) H 03/13/24 03:19
Most recent labs reviewed.
Micro Results:
03/09/24 10:30 Blood Culture - Preliminary
Blood/Venous No Growth in 4 days- Final report to follow
03/09/24 10:30 Blood Culture - Preliminary
Blood/Venous No Growth in 4 days- Final report to follow
03/09/24 04:55 MRSA Screen - Final
Nose No Methicillin Resistant Staphylococcus aureus isolated.
03/11/2024-CT abdomen/pelvis-
Impression
1. 2.7 cm oval-shaped paraspinal mass extending laterally from the left side of the L1/L2 intervertebral disc into the left psoas muscle. Diagnostic possibilities are (1) a large acute lateral disc herniation or (2) paraspinal hematoma.
2. Mild multilevel discogenic degenerative disease in the lumbar spine.
3. Mild circumferential wall thickening throughout segments of the colon and mild to moderate wall thickening in the rectum suggesting a mild acute pancolitis (either infectious or inflammatory in etiology).
4. Mild diverticulosis in the descending and sigmoid colon.
5. Severe calcific atherosclerotic plaque in the abdominal aorta and common iliac arteries.
6. Previous cholecystectomy.
7. Mild splenomegaly.
8. Small hemopericardium.
9. Small to moderate-sized left and small right pleural effusions.
10. Recent CABG surgery and left atrial appendage exclusion.
Scrotum ultrasound-03/11/2024-
Impression
Microcalcifications in both testicles
Lumbar spine MRI-03/11/2024-
Impression
Hypointense curvilinear structure left lateral to the L1-L2 level with surrounding paravertebral soft tissue edema extending into the left iliopsoas muscle considered most suspicious for an extruded disc fragment. The appearance is considered less
likely for a fractured endplate osteophyte.
Patient had hip x-ray-03/10/2024-mild osteoarthritis of the left hip
Lumbar spine x-ray-03/10/2024-
Mild to moderate multilevel lumbar discogenic degenerative disease. Severe calcific atherosclerotic plaque in the abdominal aorta and common iliac arteries.
Brain MRI-03/10/2024-no acute intracranial abnormalities, head CT-03/10/2024-no acute intracranial abnormalities.
Care Review
Plan reviewed with: Physician (Dr Martinez and Dr Anderson - plans)
[2024-03-13 12:44] LABS: Glucose - Point of Care 290 mg/dl (70-99)
[2024-03-13] MEDS: NOVOLOG FLEXPEN-MODERATE RESISTANCE 5 UNITS SC ×2 (13:02→17:31)
--- NOTE | 2024-03-13 13:58 | W.PN.HOSP.TC ---
Today's Communication/Plan
-
await records from [facility]; continue Ancef for now per ID
continue current plan otherwise
Assessment / Plan
Assessment / Plan
Assessment:
Recurrent Falls at Home
Gait Dysfunction
- no obvious arrhythmia on tele, no orthostasis
- CT head negative. MRI brain without CVA
- Echo: Mild concentric left ventricular hypertrophy. Left ventricular ejection fraction is 70-75% by visual assessment. Normal right ventricular size and function.
No mitral regurgitation is seen. No aortic regurgitation is seen. No tricuspid regurgitation is seen. Small (1.2cm) pericardial effusion along the left heart. The IVC is of normal size and demonstrates normal respiratory variation.
- other potential contributing factors including recent med changes (metoprolol added), deconditioning, hypoglycemia, neurologic event, etc.
- Neurology following
- PT/OT evaluations - home/VN recommended
ASCVD
- Stable. s/p CABG x 5 on 03/02/24.
- No new/worsened chest pain, dyspnea, etc.
- Continue ASA
- Continue Plavix x 1 year - not recommended to hold at this time per CT surgery
- continue BB/Statin
- Monitor on tele as noted above. Follow for any significant bradycardia, hypotension, etc.
- Cardiology following
Surgical site drainage
- CTS following; continue dressings. Continue IV Ancef, day 5, blood cultures NGTD
- follow ID recs
- outpatient CTS f/u 03/29
Low back pain
L groin pain
- X-rays negative for acute pathology. Testicular US negative.
- MRI L Spine without contrast: Hypointense curvilinear structure left lateral to the L1-L2 level with surrounding paravertebral soft tissue edema extending into the left iliopsoas muscle considered most suspicious for an extruded disc fragment. The
appearance is considered less likely for a fractured endplate osteophyte.
- MRI L spine with contrast: There is edema in the left psoas musculature associated with a 2.5 cm in length curvilinear soft tissue density extending into the left psoas at the level of the L1-2 interspace and extending caudally within the psoas
from this level. This soft tissue density is higher in density than the psoas on the 03/11/2024 CT examination, decreased signal on T2-weighted imaging and isointense with the psoas on T1-weighted imaging. Diagnostic possibilities include paraspinal
hematoma and lateral disc herniation.
- CT A/P: 2.7 cm oval-shaped paraspinal mass extending laterally from the left side of the L1/L2 intervertebral disc into the left psoas muscle. Diagnostic possibilities are (1) a large acute lateral disc herniation or (2) paraspinal hematoma.
- Neuro-sx consulted; radiograph ddx includes hematoma vs abscess vs less likely disc herniation
- ID consulted; awaiting records. Patient with prior hx of lumbar OM/discitis treated 2 years ago at [facility].
- IR asked to evaluate for aspiration of area. Asked also if possible to aspirate on aspirin/Plavix. Awaiting further ID plans first.
nonischemic myocardial injury post-CABG
- trop peaked at .545
NIRANJAN
- SCr = 1.6 on admission compared to recent baseline of 1.1, currently 1.0
- ? mild degree of hypovolemia - which may be contributing to gait issues/falls.
- Hold Farxiga acutely
- cap IVF
Benign Hypertension
- Stable. continue current med regimen with holding parameters.
DM-II
Peripheral Neuropathy secondary to the above
- Stable. Well-controlled on current med regimen.
- Continue basal:bolus insulin at somewhat decreased dose for now.
- Follow glucose and cover with SSI as needed.
- Chronic DM neuropathy likely contributes to/cause of pre-existing gait abnormality.
- PT/OT as noted above.
- Continue Lyrica.
Obesity due to excess calories
- Affects all aspects of care.
- Encourage healthy diet and increased activity as tolerated with goal of weight loss.
DVT Prophylaxis: SCDs
Code Status: Full
Anticipated Discharge: > 48 hours
Subjective/Interval History
-
Date of Service: March 13, 2024
no new complaints
Objective Data
-
Labs:
Laboratory Results
03/13/24
03:19
WBC 17.9 H
Hgb 12.7 L
Hct 36.3 L
Plt Count 475 H
Sodium 137
Potassium 4.6
Chloride 96 L
Carbon Dioxide 32 H
BUN 22 H
Creatinine 1.1
Glucose 131 H
Calcium 9.4
Vital Signs:
Vital Signs
Temp Pulse Resp BP Pulse Ox
98 F 71 18 124/67 98
03/13/24 13:04 03/13/24 12:39 03/13/24 13:04 03/13/24 12:39 03/13/24 13:04
I&O
03/12/24 03/13/24 03/14/24
06:59 06:59 06:59
Intake Total 240 / 240 240 / 240
Output Total 1850 / 1850 1100 / 1100 800 / 800
Balance -1610 / -1610 -860 / -860 -800 / -800
Physical Exam
-
General: No Apparent Distress
HEENT: Normocephalic and Atraumatic
Respiratory: Negative Wheezes
Cardiac: Regular Rhythm
GI: Soft
Musculoskeletal: No Edema
Neuro: AO x 3
Hematologic / Lymphatic: No Lymphadenopathy
Psych: Calm
Data Reviewed
-
Total Time Spent with Patient (in minutes): 41
Labs: Labs Reviewed by me
[2024-03-13 17:12] LABS: Glucose - Point of Care 285 mg/dl (70-99)
[2024-03-13] MEDS: TYLENOL 650 MG PO (17:15)
[2024-03-13] MEDS: LIPITOR 40 MG PO (20:56)
[2024-03-13] MEDS: CYMBALTA DELAYED RELEASE 60 MG PO (20:56)
[2024-03-13 21:12] LABS: Glucose - Point of Care 242 mg/dl (70-99)
[2024-03-13 23:26] LABS: Albumin 3.09 g/dL (3.75-5.01); Alpha 1 Globulin 0.49 g/dL (0.19-0.46); Alpha 2 Globulin 1.04 g/dL (0.48-1.05); SPEP IFE Reflex Not Done; Total Protein-Electrophoresis 6.2 g/dL (6.3-8.2)
[2024-03-14] VITALS (7 sets, daily range): BP systolic 120–153; BP diastolic 65–72; BMI 29.4
[2024-03-14] MEDS: ANCEF 10 IV ×3 (02:57→17:22)
[2024-03-14 03:52] LABS: % Basophils 1.6 % (0-2); % Eosinophils 7.6 % (0-6); % Immature Granulocytes 0.8 % (0-0.5); % Lymphocytes 17.6 % (20.5-51.1); % Neutrophils 65.4 % (42.2-75.2); Absolute Basophils 0.3 10^3/uL (0-0.2); Absolute Eosinophils 1.3 10^3/uL (0-0.7); Absolute Immature Granulocytes 0.1 10^3/uL (0-0.05); Absolute Lymphocytes 2.9 10^3/uL (1.2-3.4); Absolute Monocytes 1.2 10^3/uL (0.1-0.6); Absolute Neutrophils 10.8 10^3/uL (1.4-6.5); Hemoglobin 12.2 g/dL (13.0-18.0); Mean Corp Hgb Conc. 34.9 g/dL (33.0-37.0); Mean Corpuscular Hgb 29.8 pg (27.0-31.0); Mean Corpuscular Volume 85.6 fL (80.0-94.0); Mean Platelet Volume 9.2 fL (7.4-10.4); Nucleated Red Blood Cells % 0 % (-); Platelet Count 437 10^3/uL (130-400); Red Blood Cell Count 4.09 10^6/uL (4.70-6.10); White Blood Cell Count 16.5 10^3/uL (4.8-10.8)
[2024-03-14 04:16] LABS: Blood Urea Nitrogen 23 mg/dl (9-20); Calcium 9.2 mg/dl (8.4-10.2); Carbon Dioxide 28 mmol/L (22-30); Chloride 98 mmol/L (98-107); Estimated Creatinine Clearance 89 ml/min; Glucose 186 mg/dl (70-99); Potassium 4.4 mmol/L (3.5-5.1); Sodium 138 mmol/L (135-145); eGFR > 60.00
[2024-03-14 07:38] LABS: Glucose - Point of Care 162 mg/dl (70-99)
[2024-03-14] MEDS: LANTUS 0.32 UNITS SC (08:02)
[2024-03-14] MEDS: INDERAL LA 60 MG PO (08:03)
[2024-03-14] MEDS: ASPIR LOW (ENTERIC COATED) 81 MG PO (08:03)
[2024-03-14] MEDS: PROTONIX 40 MG PO (08:03)
[2024-03-14] MEDS: PLAVIX 75 MG PO (08:03)
[2024-03-14] MEDS: LYRICA 150 MG PO ×2 (08:03→21:10)
[2024-03-14] MEDS: NOVOLOG FLEXPEN-MODERATE RESISTANCE 1 UNITS SC (08:04)
[2024-03-14 08:43] LABS: Vitamin B1, Whole Blood 180 nmol/L (70-180)
--- NOTE | 2024-03-14 11:21 | W.PN.ID1 ---
Date of Service
Date of Service: March 14, 2024
Today's Communication
awaiting records, likely dispo tomorrow
Assessment / Plan
Psoas hematoma vs abcess
Early Sternal Surgical Site infection
DM2 well controlled
NIRANJAN - resolving
- patient reports a history of what sounds to have been lumbar spinal osteomyelitis/discitis and bacteremia without endocarditis complicating his treated last lumbar laminectomy with 8 weeks of continuous IV antibiotics in [address] [facility];
will obtain records to further clarify, there would be a risk of relapse if this history is confirmed
- awaiting records - I see fax receipt confirming that request was sent urgent
- if patient febrile then send blood cultures x2 while febrile
- initial two sets of blood cultures no growth to date
- MRI lumbar spine with IV contrast ordered
- spoke with Dr Uriostegui IR, aspiration might be feasible with a smaller needle while on antiplatelet and ASA (which are necessary post CABG)- discussed at length with Dr Rodriguez and Dr Anderson - for the moment will obtain further information with
MRI, observe clinically and then consider next steps
- TTE: no valvular lesions
- no history of bacteremia documented here
- extensive surgical histories, no hardwear in the lumbar spine
- continue cefazolin for now - do not broaden as could interfear further with cultures
- follow clinically
Chief Complaint
-: Other
Subjective / Review of Systems
afebrile
spinal pain improving
records not yet available
Vital Signs / Physical Exam
Vital Signs
Vital Signs
Temp Pulse Resp BP Pulse Ox
97.3 F 70 20 132/69 95
03/14/24 07:33 03/14/24 09:00 03/14/24 07:33 03/14/24 08:03 03/14/24 09:22
Physical Exam
Constitutional: No Acute Distress
Cardiovascular: Regular Rate and S1/S2; Negative Murmur or Rub
Pulmonary: Clear and Symmetric; Negative Wheezes or Rales
Gastrointestinal: Soft, Non Tender, Non Distended and Normal Bowel Sounds
Skin: Warm and Dry; Negative Rash or Jaundice
Wound: Other (surgical site no erythema, warmth, swelling or dehiscence of the sternum; lumbar spinal site no erythema or dehiscence)
Objective Data
Lab Data
Lab Results
03/14/24 03:15
03/14/24 03:15
ESR 44 mm/hour (0-20) H 03/13/24 03:19
Estimated Creat Clear 89 ml/min 03/14/24 03:15
Total Bilirubin 0.5 mg/dl (0.2-1.3) 03/08/24 22:08
AST 30 U/L (17-59) 03/08/24 22:08
ALT 23 U/L (0-50) 03/08/24 22:08
Alkaline Phosphatase 104 U/L (38-126) 03/08/24 22:08
C-Reactive Protein 45.60 mg/L (0.0-10.00) H 03/13/24 03:19
Most recent labs reviewed.
Micro Results:
03/09/24 10:30 Blood Culture - Final
Blood/Venous No Growth - Final Report
03/09/24 10:30 Blood Culture - Final
Blood/Venous No Growth - Final Report
03/09/24 04:55 MRSA Screen - Final
Nose No Methicillin Resistant Staphylococcus aureus isolated.
03/11/2024-CT abdomen/pelvis-
Impression
1. 2.7 cm oval-shaped paraspinal mass extending laterally from the left side of the L1/L2 intervertebral disc into the left psoas muscle. Diagnostic possibilities are (1) a large acute lateral disc herniation or (2) paraspinal hematoma.
2. Mild multilevel discogenic degenerative disease in the lumbar spine.
3. Mild circumferential wall thickening throughout segments of the colon and mild to moderate wall thickening in the rectum suggesting a mild acute pancolitis (either infectious or inflammatory in etiology).
4. Mild diverticulosis in the descending and sigmoid colon.
5. Severe calcific atherosclerotic plaque in the abdominal aorta and common iliac arteries.
6. Previous cholecystectomy.
7. Mild splenomegaly.
8. Small hemopericardium.
9. Small to moderate-sized left and small right pleural effusions.
10. Recent CABG surgery and left atrial appendage exclusion.
Scrotum ultrasound-03/11/2024-
Impression
Microcalcifications in both testicles
Lumbar spine MRI-03/11/2024-
Impression
Hypointense curvilinear structure left lateral to the L1-L2 level with surrounding paravertebral soft tissue edema extending into the left iliopsoas muscle considered most suspicious for an extruded disc fragment. The appearance is considered less
likely for a fractured endplate osteophyte.
Patient had hip x-ray-03/10/2024-mild osteoarthritis of the left hip
Lumbar spine x-ray-03/10/2024-
Mild to moderate multilevel lumbar discogenic degenerative disease. Severe calcific atherosclerotic plaque in the abdominal aorta and common iliac arteries.
Brain MRI-03/10/2024-no acute intracranial abnormalities, head CT-03/10/2024-no acute intracranial abnormalities.
[2024-03-14 13:03] LABS: Glucose - Point of Care 243 mg/dl (70-99)
[2024-03-14] MEDS: NOVOLOG FLEXPEN-MODERATE RESISTANCE 3 UNITS SC ×2 (13:04→17:27)
--- NOTE | 2024-03-14 13:14 | PTCARENOTE ---
Rec'd pt at change of shift. Pt in NSR, with VSS, and AAO*3. Pt denied any pain and ambulating with walker and assistance of one in room. Stereum dressing CDI and patient. Pt sitting in chair with call bliss in reach.
--- NOTE | 2024-03-14 13:36 | W.PN.UPDATE ---
Update Note
Progress Note Update
Patient seen at bedside.
VSS, patient afebrile. Overall WBC count is on the downward trend 16.5 today (17.9, 18.3, 16.5)
Dr. Martinez discussed case in detail with ID, and plan communicated to Medicine.
Continue ABX per ID.
Patient's incision looks to be healing well.
Dressing removed, scant serous drainage on gauze. Continue wound care management.
Follow up outpatient with Cardiothoracic Surgery (I believe his appointment is 03/29/[address] Rodriguez).
He should call the office to be seen sooner if wound drainage becomes purulent/yellow/green, or has increasing pain or redness at surgical site.
--- NOTE | 2024-03-14 14:39 | W.PN.HOSP.TC ---
Today's Communication/Plan
-
possible dispo tomorrow per ID pending records/final plan
Assessment / Plan
Assessment / Plan
Assessment:
Recurrent Falls at Home
Gait Dysfunction
- no obvious arrhythmia on tele, no orthostasis
- CT head negative. MRI brain without CVA
- Echo: Mild concentric left ventricular hypertrophy. Left ventricular ejection fraction is 70-75% by visual assessment. Normal right ventricular size and function.
No mitral regurgitation is seen. No aortic regurgitation is seen. No tricuspid regurgitation is seen. Small (1.2cm) pericardial effusion along the left heart. The IVC is of normal size and demonstrates normal respiratory variation.
- other potential contributing factors including recent med changes (metoprolol added), deconditioning, hypoglycemia, neurologic event, etc.
- Neurology following
- PT/OT evaluations - home/VN recommended
ASCVD
- Stable. s/p CABG x 5 on 03/02/24.
- No new/worsened chest pain, dyspnea, etc.
- Continue ASA
- Continue Plavix x 1 year - not recommended to hold at this time per CT surgery
- continue BB/Statin
- Monitor on tele as noted above. Follow for any significant bradycardia, hypotension, etc.
- Cardiology following
Surgical site drainage
- CTS following; continue dressings. Continue IV Ancef, day 6, blood cultures NGTD
- follow ID recs
- outpatient CTS f/u 03/29
Low back pain
L groin pain
- X-rays negative for acute pathology. Testicular US negative.
- MRI L Spine without contrast: Hypointense curvilinear structure left lateral to the L1-L2 level with surrounding paravertebral soft tissue edema extending into the left iliopsoas muscle considered most suspicious for an extruded disc fragment. The
appearance is considered less likely for a fractured endplate osteophyte.
- MRI L spine with contrast: There is edema in the left psoas musculature associated with a 2.5 cm in length curvilinear soft tissue density extending into the left psoas at the level of the L1-2 interspace and extending caudally within the psoas
from this level. This soft tissue density is higher in density than the psoas on the 03/11/2024 CT examination, decreased signal on T2-weighted imaging and isointense with the psoas on T1-weighted imaging. Diagnostic possibilities include paraspinal
hematoma and lateral disc herniation.
- CT A/P: 2.7 cm oval-shaped paraspinal mass extending laterally from the left side of the L1/L2 intervertebral disc into the left psoas muscle. Diagnostic possibilities are (1) a large acute lateral disc herniation or (2) paraspinal hematoma.
- Neuro-sx consulted; radiograph ddx includes hematoma vs abscess vs less likely disc herniation
- ID consulting; awaiting records. Patient with prior hx of lumbar OM/discitis treated 2 years ago at [facility].
- IR asked to evaluate for aspiration of area. Asked also if possible to aspirate on aspirin/Plavix. Awaiting further ID plans first.
nonischemic myocardial injury post-CABG
- trop peaked at .545
NIRANJAN
- SCr = 1.6 on admission compared to recent baseline of 1.1, currently 1.0
- ? mild degree of hypovolemia - which may be contributing to gait issues/falls.
- Hold Farxiga
- cap IVF
Benign Hypertension
- Stable. continue current med regimen with holding parameters.
DM-II
Peripheral Neuropathy secondary to the above
- Stable. Well-controlled on current med regimen.
- Continue basal:bolus insulin at somewhat decreased dose for now.
- Follow glucose and cover with SSI as needed.
- Chronic DM neuropathy likely contributes to/cause of pre-existing gait abnormality.
- PT/OT as noted above.
- Continue Lyrica.
Obesity due to excess calories
- Affects all aspects of care.
- Encourage healthy diet and increased activity as tolerated with goal of weight loss.
DVT Prophylaxis: SCDs
Code Status: Full
Anticipated Discharge: Within 24 hours
Subjective/Interval History
-
Date of Service: March 14, 2024
no new complaints
Objective Data
-
Labs:
Laboratory Results
03/14/24
03:15
WBC 16.5 H
Hgb 12.2 L
Hct 35.0 L
Plt Count 437 H
Sodium 138
Potassium 4.4
Chloride 98
Carbon Dioxide 28
BUN 23 H
Creatinine 1.0
Glucose 186 H
Calcium 9.2
Vital Signs:
Vital Signs
Temp Pulse Resp BP Pulse Ox
98.8 F 73 16 120/69 75
03/14/24 11:00 03/14/24 11:00 03/14/24 11:00 03/14/24 11:00 03/14/24 11:00
I&O
03/13/24 03/14/24 03/15/24
06:59 06:59 06:59
Intake Total 240 / 240 480 / 480 240 / 240
Output Total 1100 / 1100 2575 / 2575 300 / 300
Balance -860 / -860 -2095 / -2095 -60 / -60
Physical Exam
-
General: No Apparent Distress
HEENT: Normocephalic and Atraumatic
Respiratory: Negative Wheezes
Cardiac: Regular Rhythm and S1/S2
GI: Soft
Genito-urinary: No Costovertebral Tender
Neuro: AO x 3
Hematologic / Lymphatic: No Lymphadenopathy
Psych: Calm
Data Reviewed
-
Total Time Spent with Patient (in minutes): 41
Labs: Labs Reviewed by me
[2024-03-14 17:28] LABS: Glucose - Point of Care 204 mg/dl (70-99)
[2024-03-14 21:06] LABS: Glucose - Point of Care 296 mg/dl (70-99)
[2024-03-14] MEDS: LIPITOR 40 MG PO (21:10)
[2024-03-14] MEDS: CYMBALTA DELAYED RELEASE 60 MG PO (21:10)
[2024-03-15] VITALS (13 sets, daily range): BP systolic 117–164; BP diastolic 60–79; PULSE 68–73; O2SAT 99; BMI 29.7
[2024-03-15] MEDS: ANCEF 10 IV ×2 (02:52→10:32)
--- NOTE | 2024-03-15 03:18 | PTCARENOTE ---
Sternal dressing changed; very small amount serous drainage at bottom of incision, wound approximated with some scabbing. NSR on the monitor, VSS, pt. has no complaints of pain. Sits OOB in chair most of the evening. Ambulates with assist x 1 &
RW with steady gait.
[2024-03-15 03:20] LABS: % Basophils 1.6 % (0-2); % Eosinophils 7.1 % (0-6); % Immature Granulocytes 0.6 % (0-0.5); % Lymphocytes 18.6 % (20.5-51.1); % Monocytes 6.7 % (1.7-9.3); % Neutrophils 65.4 % (42.2-75.2); Absolute Basophils 0.3 10^3/uL (0-0.2); Absolute Eosinophils 1.2 10^3/uL (0-0.7); Absolute Immature Granulocytes 0.1 10^3/uL (0-0.05); Absolute Lymphocytes 3.1 10^3/uL (1.2-3.4); Absolute Monocytes 1.1 10^3/uL (0.1-0.6); Absolute Neutrophils 10.9 10^3/uL (1.4-6.5); Hemoglobin 11.4 g/dL (13.0-18.0); Mean Corp Hgb Conc. 35.6 g/dL (33.0-37.0); Mean Corpuscular Hgb 28.9 pg (27.0-31.0); Mean Platelet Volume 9.2 fL (7.4-10.4); Nucleated Red Blood Cells % 0 % (-); Platelet Count 420 10^3/uL (130-400); Red Blood Cell Count 3.95 10^6/uL (4.70-6.10); Red Cell Dist. Width 13.1 % (11.5-14.5); White Blood Cell Count 16.7 10^3/uL (4.8-10.8)
[2024-03-15 03:35] LABS: Blood Urea Nitrogen 26 mg/dl (9-20); Calcium 8.9 mg/dl (8.4-10.2); Carbon Dioxide 26 mmol/L (22-30); Chloride 98 mmol/L (98-107); Estimated Creatinine Clearance 89 ml/min; Glucose 230 mg/dl (70-99); Potassium 4.3 mmol/L (3.5-5.1); Sodium 135 mmol/L (135-145); eGFR > 60.00
[2024-03-15 07:21] LABS: Glucose - Point of Care 161 mg/dl (70-99)
[2024-03-15] MEDS: PLAVIX 75 MG PO (07:37)
[2024-03-15] MEDS: INDERAL LA 60 MG PO (07:37)
[2024-03-15] MEDS: ASPIR LOW (ENTERIC COATED) 81 MG PO (07:37)
[2024-03-15] MEDS: LYRICA 150 MG PO ×2 (07:37→20:33)
[2024-03-15] MEDS: PROTONIX 40 MG PO (07:37)
[2024-03-15] MEDS: NOVOLOG FLEXPEN-MODERATE RESISTANCE 1 UNITS SC ×2 (07:38→17:26)
[2024-03-15] MEDS: LANTUS 0.32 UNITS SC (07:38)
--- NOTE | 2024-03-15 09:14 | PTCARENOTE ---
Rec'd pt at change of shift. Pt on TELE monitor in NSR with VSS and AAO*3. Pt denied any pain or discomfort. Sternal dressing with minimal drainage and wound care completed (see flowchart). Pt oob to chair for meals and ambulating on unit with
roller walker with no complaints of weakness or lightheadedness.
[2024-03-15 11:18] LABS: Glucose - Point of Care 245 mg/dl (70-99)
[2024-03-15] MEDS: NOVOLOG FLEXPEN-MODERATE RESISTANCE 3 UNITS SC (11:19)
--- NOTE | 2024-03-15 11:21 | CM ---
Reviewed chart. Met with Mr. Wu to review discharge plans. He states he is feeling better and maybe able to go home soon. He states has been ambulating in the room with a walker. He states he will need a walker. TT to attending physician
requesting script to rolling walker. Prior to admission he resides with his spouse and daughter in a one story home with one step to enter. Prior to admission he was independent with ambulation and aldls. Currently using a rolling walker. He has
a CPAP Machine and glucometer at home. We reviewed a home visit by the Cardiothoracic Transitional Care Nurse. He is agreeable to a home visit. Medical work-up in progress. The discharge plan is to return home with his spouse and daughter and a home
visit by the Cardiothoracic Transitional Care Nurse when medically stable.
--- NOTE | 2024-03-15 11:46 | W.PN.ID1 ---
Date of Service
Date of Service: March 15, 2024
Today's Communication
see plan
Assessment / Plan
Psoas hematoma vs abcess
Early Sternal Surgical Site infection
DM2 well controlled
NIRANJAN - resolving
- patient reports a history of what sounds to have been lumbar spinal osteomyelitis/discitis and bacteremia without endocarditis complicating his treated last lumbar laminectomy with 8 weeks of continuous IV antibiotics in 2021 at [facility];
will obtain records to further clarify, there would be a risk of relapse if this history is confirmed
- awaiting records - re requested
- re-requested records
- switch to empiric linezolid for the paraspinal collecting, this will also cover most typical skin payal, note significant improvement in drainage from the sternum
- plan 6 week course of linezolid - note that pending records plan could change
- baseline esr 44, crp 45
- reevaluate in my clinic in about 4 weeks with repeat MRI lumbar spine with IV contrast at that time, cbc, cmp, esr and crp
- low risk for serotonin syndrome, discussed at length with patient and provied handout of patient education from [employer] 'serotonin syndrome the basics' he will notify me if he develops symptoms and knows he would need to stop linezolid and hold
his cymbalta
- there is also a risk of discontinuation syndrome if cymbalata was abruptly stopped
- could consider dc late this afternoon
Chief Complaint
-: Other
Subjective / Review of Systems
afebrile
records not yet on chart, greatly appreciate nursing unit coordinator assistance with re-requesting records
no back pain
surgical site unchanged
Vital Signs / Physical Exam
Vital Signs
Vital Signs
Temp Pulse Resp BP Pulse Ox
98.8 F 66 16 117/60 99
03/15/24 10:35 03/15/24 10:35 03/15/24 10:35 03/15/24 10:35 03/15/24 10:35
Physical Exam
Constitutional: No Acute Distress
Cardiovascular: Regular Rate and S1/S2; Negative Murmur or Rub
Pulmonary: Clear and Symmetric; Negative Wheezes or Rales
Gastrointestinal: Soft, Non Tender, Non Distended and Normal Bowel Sounds
Skin: Warm and Dry; Negative Rash or Jaundice
Objective Data
Lab Data
Lab Results
03/15/24 03:11
03/15/24 03:11
ESR 44 mm/hour (0-20) H 03/13/24 03:19
Estimated Creat Clear 89 ml/min 03/15/24 03:11
Total Bilirubin 0.5 mg/dl (0.2-1.3) 03/08/24 22:08
AST 30 U/L (17-59) 03/08/24 22:08
ALT 23 U/L (0-50) 03/08/24 22:08
Alkaline Phosphatase 104 U/L (38-126) 03/08/24 22:08
C-Reactive Protein 45.60 mg/L (0.0-10.00) H 03/13/24 03:19
Most recent labs reviewed.
Micro Results:
03/09/24 10:30 Blood Culture - Final
Blood/Venous No Growth - Final Report
03/09/24 10:30 Blood Culture - Final
Blood/Venous No Growth - Final Report
03/09/24 04:55 MRSA Screen - Final
Nose No Methicillin Resistant Staphylococcus aureus isolated.
03/11/2024-CT abdomen/pelvis-
Impression
1. 2.7 cm oval-shaped paraspinal mass extending laterally from the left side of the L1/L2 intervertebral disc into the left psoas muscle. Diagnostic possibilities are (1) a large acute lateral disc herniation or (2) paraspinal hematoma.
2. Mild multilevel discogenic degenerative disease in the lumbar spine.
3. Mild circumferential wall thickening throughout segments of the colon and mild to moderate wall thickening in the rectum suggesting a mild acute pancolitis (either infectious or inflammatory in etiology).
4. Mild diverticulosis in the descending and sigmoid colon.
5. Severe calcific atherosclerotic plaque in the abdominal aorta and common iliac arteries.
6. Previous cholecystectomy.
7. Mild splenomegaly.
8. Small hemopericardium.
9. Small to moderate-sized left and small right pleural effusions.
10. Recent CABG surgery and left atrial appendage exclusion.
Scrotum ultrasound-03/11/2024-
Impression
Microcalcifications in both testicles
Lumbar spine MRI-03/11/2024-
Impression
Hypointense curvilinear structure left lateral to the L1-L2 level with surrounding paravertebral soft tissue edema extending into the left iliopsoas muscle considered most suspicious for an extruded disc fragment. The appearance is considered less
likely for a fractured endplate osteophyte.
Patient had hip x-ray-03/10/2024-mild osteoarthritis of the left hip
Lumbar spine x-ray-03/10/2024-
Mild to moderate multilevel lumbar discogenic degenerative disease. Severe calcific atherosclerotic plaque in the abdominal aorta and common iliac arteries.
Brain MRI-03/10/2024-no acute intracranial abnormalities, head CT-03/10/2024-no acute intracranial abnormalities.
Care Review
Plan reviewed with: Physician (Dr Villarreal - plan)
--- NOTE | 2024-03-15 12:24 | W.PN.HOSP.TC ---
Today's Communication/Plan
-
Zyvox
monitor labs
Sent wound Cx from sternum
Assessment / Plan
Assessment / Plan
63yo M with PMHx of chronic gait dysfunction, SVT s/p ablasion @1998, HLD, insomnia, DM, HTN, GERD, CAD s/p CABG on 03/02/24 came with falls from home. He has hit his back duering one of the falls. No LOC reported. Later concern brought up for
sternal postOP wound infection 2/2 ongoing discharge from the surgical site and lumbar MRI showed edema in the L psoas muscle that concerned for hematoma/abscess
A/P:
#L psoas muscle hematoma vs abscess
ID follows: was working with [facility] if fine needle aspiration possible, since as per patient - he was treated with IV Abx in [facility] for spinal OM/diskiitis.
Bcx neg to date
Zyvox started on 03/15/24 - ID discussed with patient about watching for serotonin syndrome. Low likelihood with Cymbalta. Monitor
#Ambulatory dysfunction
possibly deconditioning
Stability improved with walker
#Mild acute pancolitis
no diarrhea reported
#Leukocytosis
#Thrombocytosis
reactive
follow
#R hand occasional numbness
MRI brain neg for acute findings
#CAD s/p CABG with surgical site drainage
CTS followed - not concerned for infection
Wound Cx
cont home meds: DAPT
#NIRANJAN on admission
resolved
#Anxiety
#Essential HTN
#HLD
#Obesity due to excess calories
advise weightloss
cont home meds
#DM type 2 with neuropathy
COnt basal/bolus, DM diet
Insulin SS based on accuchecks
COnt Lyrica
#Groin pain
scrotal US unremarkable
DVT ppx SCDs
Full code
I have spent at least 37min reviewing chart, test results, communication with consultants and direct patient care
Anticipated Discharge: > 48 hours
Subjective/Interval History
-
Date of Service: March 15, 2024
Objective Data
-
Labs:
Laboratory Results
03/15/24
03:11
WBC 16.7 H
Hgb 11.4 L
Hct 32.0 L
Plt Count 420 H
Sodium 135
Potassium 4.3
Chloride 98
Carbon Dioxide 26
BUN 26 H
Creatinine 1.0
Glucose 230 H
Calcium 8.9
Vital Signs:
Vital Signs
Temp Pulse Resp BP Pulse Ox
98.8 F 66 16 117/60 99
03/15/24 10:35 03/15/24 10:35 03/15/24 10:35 03/15/24 10:35 03/15/24 10:35
I&O
03/14/24 03/15/24 03/16/24
06:59 06:59 06:59
Intake Total 480 / 480 480 / 480
Output Total 2575 / 2575 1050 / 1050
Balance -2095 / -2095 -570 / -570
Review of Systems
-
History Source: Patient
All other systems: Reviewed and negative
Physical Exam
-
General: No Apparent Distress
HEENT: Normocephalic
Respiratory: Clear to Auscultation
Cardiac: Other (mild yellowish drainage on dressing)
GI: Soft
Genito-urinary: No Costovertebral Tender
Musculoskeletal: No Clubbing, No Cyanosis and No Edema
Neuro: Awake
Psych: Calm
[2024-03-15] MEDS: ZYVOX 600 MG PO ×2 (12:58→20:33)
--- NOTE | 2024-03-15 13:40 | PTCARENOTE ---
Specimen collected for wound swab, awaiting results. Dressing changed with patient reporting no pain or discomfort during change. Pt sitting at bedside with call bliss in reach.
[2024-03-15 17:25] LABS: Glucose - Point of Care 179 mg/dl (70-99)
[2024-03-15 22:07] LABS: Glucose - Point of Care 188 mg/dl (70-99)
[2024-03-15] MEDS: LIPITOR 40 MG PO (23:08)
[2024-03-15] MEDS: CYMBALTA DELAYED RELEASE 60 MG PO (23:08)
--- NOTE | 2024-03-15 23:59 | PTCARENOTE ---
Received patient at change of shift. Patient OOB in chair, awake, alert, and oriented. Right radial site from previous cath clean, dry, and open to air. Right knee incision from graft clean, dry, and open to air. Sternal incision covered with 4x4
gauze, ABD dressing and paper tape. Incision checked-- no drainage. BP 123/64, NSR 60s-70s, 97% on room air. No complaints of pain. Call bliss within reach.
[2024-03-16 03:37] VITALS: BP 121/63
[2024-03-16 04:05] LABS: % Basophils 1.6 % (0-2); % Eosinophils 6.8 % (0-6); % Immature Granulocytes 0.6 % (0-0.5); % Lymphocytes 18.8 % (20.5-51.1); % Monocytes 6.9 % (1.7-9.3); % Neutrophils 65.3 % (42.2-75.2); Absolute Basophils 0.3 10^3/uL (0-0.2); Absolute Eosinophils 1.1 10^3/uL (0-0.7); Absolute Immature Granulocytes 0.1 10^3/uL (0-0.05); Absolute Lymphocytes 3.1 10^3/uL (1.2-3.4); Absolute Monocytes 1.1 10^3/uL (0.1-0.6); Absolute Neutrophils 10.6 10^3/uL (1.4-6.5); Hematocrit 34.5 % (39.0-52.0); Hemoglobin 11.6 g/dL (13.0-18.0); Mean Corp Hgb Conc. 33.6 g/dL (33.0-37.0); Mean Corpuscular Hgb 28.2 pg (27.0-31.0); Mean Corpuscular Volume 83.7 fL (80.0-94.0); Mean Platelet Volume 9.2 fL (7.4-10.4); Nucleated Red Blood Cells % 0 % (-); Platelet Count 421 10^3/uL (130-400); Red Blood Cell Count 4.12 10^6/uL (4.70-6.10); Red Cell Dist. Width 13.1 % (11.5-14.5); White Blood Cell Count 16.2 10^3/uL (4.8-10.8)
[2024-03-16 04:19] LABS: ALT (SGPT) 19 U/L (0-50); AST (SGOT) 32 U/L (17-59); Albumin 3.7 g/dl (3.5-5.0); Alkaline Phosphatase 113 U/L (38-126); Blood Urea Nitrogen 24 mg/dl (9-20); Calcium 9.3 mg/dl (8.4-10.2); Carbon Dioxide 30 mmol/L (22-30); Chloride 98 mmol/L (98-107); Estimated Creatinine Clearance 81 ml/min; Glucose 137 mg/dl (70-99); Potassium 4.5 mmol/L (3.5-5.1); Sodium 138 mmol/L (135-145); Total Bilirubin 0.6 mg/dl (0.2-1.3); Total Protein 6.3 g/dl (6.3-8.2); eGFR > 60.00
[2024-03-16 07:36] VITALS: BP 129/69
[2024-03-16 07:39] LABS: Glucose - Point of Care 132 mg/dl (70-99)
[2024-03-16 07:44] VITALS: BMI 29.7
[2024-03-16] MEDS: NOVOLOG FLEXPEN-MODERATE RESISTANCE SC (08:04)
[2024-03-16] MEDS: LANTUS 0.32 UNITS SC (08:08)
[2024-03-16] MEDS: INDERAL LA 60 MG PO (08:09)
[2024-03-16] MEDS: ZYVOX 600 MG PO (08:09)
[2024-03-16] MEDS: ASPIR LOW (ENTERIC COATED) 81 MG PO (08:10)
[2024-03-16] MEDS: PROTONIX 40 MG PO (08:10)
[2024-03-16] MEDS: LYRICA 150 MG PO (08:10)
[2024-03-16] MEDS: PLAVIX 75 MG PO (08:10)
--- NOTE | 2024-03-16 09:11 | W.PN.ID1 ---
Addendum entered and electronically signed by Myranda Smith MD 03/16/24 16:34:
I saw and evaluated the patient. I reviewed the resident�s note and agree with findings and plan as documented in the resident�s note with the following additions
reviewed records from [facility]
mssa spinal osteomyelitis
sensitive to doxycycline, bactrim, quinolones, linezolid
s/p 8 weeks of nafcillin
no hardwear in the lumbar spine
plan 2 weeks of keflex
6 weeks of doxycycline
follow up in my clinic with repeat mri and labs before
Original Note:
Date of Service
Date of Service: March 16, 2024
Today's Communication
Plan for discharge on keflex and doxycycline.
Assessment / Plan
Assessment-
Subjective-no symptoms. History of lumbar spinal osteomyelitis and bacteremia without endocarditis s/p lumbar laminectomy with 8 weeks of nafcillin infusions in 2021 as reviewed from his previous records. Patient was on griseofulvin in 2021,
unclear why on records. Patient could not recall reasons.
Objective-afebrile, vital signs stable
WBC-leukocytosis with left shift, 17.1 on 03/09, 16.2 on 03/16, left shift about the same. Elevated absolute eosinophil count.
WBC-elevated CRP-45.6, ESR-44. Serum creatinine on admission-1.6, on 03/16-it is at 1.1.
Imaging results as discussed above under objective data.
Microbiology results-wound culture from chest-preliminary in 24 hours no growth.
Blood cultures x 2-no growth. Nasal MRSA screen negative.
Psoas abscess versus hematoma. Early sternal surgical site infection.
Plan-
Patient is currently on doxycycline twice a day at 100 mg daily and keflex.
Can be discharged home on doxycyline and keflex.
Follow-up in outpatient office with Dr. Smith in 4 weeks with repeat MRI lumbar spine with IV contrast, CBC, CMP, ESR and CRP.
Stable for discharge from ID perspective.
Chief Complaint
-: Other
Subjective / Review of Systems
Review of Systems: No Fever, No Chills, No Stiff Neck, No Cough, No Sputum Production, No Chest Pain, No Palpitations, No Nausea, No Dysuria, No Joint Pain and No Skin Rash
Vital Signs / Physical Exam
Vital Signs
Vital Signs
Temp Pulse Resp BP Pulse Ox
97.6 F 64 18 129/69 96
03/16/24 07:44 03/16/24 09:00 03/16/24 07:44 03/16/24 08:09 03/16/24 09:06
Physical Exam
Constitutional: Comfortable
Cardiovascular: Regular Rate, S1/S2 and Other (sternal ncision - resolved erythema, no discharge noted.); Negative Murmur, Rub or Gallop
Pulmonary: Clear; Negative Wheezes, Rales or Rhonchi
Gastrointestinal: Soft, Non Tender, Non Distended and Normal Bowel Sounds
Extremities: Negative Edema or Erythema
Skin: Warm
Psychological: Calm
Objective Data
Lab Data
Lab Results
03/16/24 03:43
03/16/24 03:43
ESR 44 mm/hour (0-20) H 03/13/24 03:19
Estimated Creat Clear 81 ml/min 03/16/24 03:43
Total Bilirubin 0.6 mg/dl (0.2-1.3) 03/16/24 03:43
AST 32 U/L (17-59) 03/16/24 03:43
ALT 19 U/L (0-50) 03/16/24 03:43
Alkaline Phosphatase 113 U/L (38-126) 03/16/24 03:43
C-Reactive Protein 45.60 mg/L (0.0-10.00) H 03/13/24 03:19
Most recent labs reviewed.
CT Scan: Image Reviewed and Report Reviewed
MRI: Image Reviewed and Report Reviewed
Microbiology: Report Reviewed
Micro Results:
03/15/24 12:59 Wound Culture - Pending
Chest - Unspecified Gram Stain - Preliminary
03/09/24 10:30 Blood Culture - Final
Blood/Venous No Growth - Final Report
03/09/24 10:30 Blood Culture - Final
Blood/Venous No Growth - Final Report
03/09/24 04:55 MRSA Screen - Final
Nose No Methicillin Resistant Staphylococcus aureus isolated.
Lumbar spine MRI-03/12/2024-
Impression
1).There is edema in the left psoas musculature associated with a 2.5 cm in length curvilinear soft tissue density extending into the left psoas at the level of the L1-2 interspace and extending caudally within the psoas from this level.
This soft tissue density is higher in density than the psoas on the 03/11/2024 CT examination, decreased signal on T2-weighted imaging and isointense with the psoas on T1-weighted imaging. Diagnostic possibilities include paraspinal hematoma and
lateral disc herniation.
2). Multilevel lumbar degenerative disc disease as outlined above.
03/11/2024-CT abdomen/pelvis-
Impression
1. 2.7 cm oval-shaped paraspinal mass extending laterally from the left side of the L1/L2 intervertebral disc into the left psoas muscle. Diagnostic possibilities are (1) a large acute lateral disc herniation or (2) paraspinal hematoma.
2. Mild multilevel discogenic degenerative disease in the lumbar spine.
3. Mild circumferential wall thickening throughout segments of the colon and mild to moderate wall thickening in the rectum suggesting a mild acute pancolitis (either infectious or inflammatory in etiology).
4. Mild diverticulosis in the descending and sigmoid colon.
5. Severe calcific atherosclerotic plaque in the abdominal aorta and common iliac arteries.
6. Previous cholecystectomy.
7. Mild splenomegaly.
8. Small hemopericardium.
9. Small to moderate-sized left and small right pleural effusions.
10. Recent CABG surgery and left atrial appendage exclusion.
Scrotum ultrasound-03/11/2024-
Impression
Microcalcifications in both testicles
Lumbar spine MRI-03/11/2024-
Impression
Hypointense curvilinear structure left lateral to the L1-L2 level with surrounding paravertebral soft tissue edema extending into the left iliopsoas muscle considered most suspicious for an extruded disc fragment. The appearance is considered less
likely for a fractured endplate osteophyte.
Patient had hip x-ray-03/10/2024-mild osteoarthritis of the left hip
Lumbar spine x-ray-03/10/2024-
Mild to moderate multilevel lumbar discogenic degenerative disease. Severe calcific atherosclerotic plaque in the abdominal aorta and common iliac arteries.
Brain MRI-03/10/2024-no acute intracranial abnormalities, head CT-03/10/2024-no acute intracranial abnormalities.
Other: Image Reviewed
--- NOTE | 2024-03-16 09:52 | PTCARENOTE ---
Rec'd pt at change of shift on TELE monitor in NS[facility] with VSS and AAO*3. Pt denied any pain or discomfort and verbalized understanding of care plan. Pt resting at bedside with call bliss in reach.
--- NOTE | 2024-03-16 09:54 | W.PN.HOSP.TC ---
Today's Communication/Plan
-
D/C
Assessment / Plan
Assessment / Plan
63yo M with PMHx of chronic gait dysfunction, SVT s/p ablasion @1998, HLD, insomnia, DM, HTN, GERD, CAD s/p CABG on 03/02/24 came with falls from home. He has hit his back during one of the falls. No LOC reported. Later concern brought up for sternal
postOP wound infection 2/2 ongoing discharge from the surgical site and lumbar MRI showed edema in the L psoas muscle that concerned for hematoma/abscess. ID reviewed records from previous admission to [facility] in 2021 where patient had
paraspinal postOP infection with MSSA. Upon d/c patient to continue 7 days of Keflex QID and 5 weeks of Doxy BID as per ID. Wound swab from sternal surgical site showed preliminary no organism and no WBC, will follow up with CTS upon d/c in 2 weeks.
. Patient to follow with ID upon D?C for further imaging and Abx mgmt. Neurology for chronic cervical myelopathy, that is unchanges over the course of admission. Medically stable for D/C
A/P:
#L psoas muscle hematoma vs abscess
ID follows: was working with [facility] if fine needle aspiration possible, since as per patient - he was treated with IV Abx in [facility] for spinal OM/diskiitis.
Bcx neg to date
Upon d/c patient to continue 7 days of Keflex QID and 5 weeks of Doxy BID as per ID
#Ambulatory dysfunction
possibly deconditioning
Stability improved with walker - Rx provided
#Mild acute pancolitis
no diarrhea reported
no abdominal pain
#Leukocytosis
#Thrombocytosis
reactive
follow
#CAD s/p CABG with surgical site drainage
CTS followed - not concerned for infection
Wound Cx
cont home meds: DAPT
#NIRANJAN on admission
resolved
#Anxiety
#Essential HTN
#HLD
#Obesity due to excess calories
advise weightloss
cont home meds
#DM type 2 with neuropathy
COnt basal/bolus, DM diet
Insulin SS based on accuchecks
COnt Lyrica
#Chronic C7-T1 myelopathy with R hand occasional numbness
Neurology: Outpatient MRI cervical-thoracic
MRI brain without acute findings
#Groin pain
scrotal US unremarkable
DVT ppx SCDs
Full code
I have spent at least 37min reviewing chart, test results, communication with consultants and direct patient care
Anticipated Discharge: Today
Subjective/Interval History
-
Date of Service: March 16, 2024
Objective Data
-
Labs:
Laboratory Results
03/16/24
03:43
WBC 16.2 H
Hgb 11.6 L
Hct 34.5 L
Plt Count 421 H
Sodium 138
Potassium 4.5
Chloride 98
Carbon Dioxide 30
BUN 24 H
Creatinine 1.1
Glucose 137 H
Calcium 9.3
Total Bilirubin 0.6
AST 32
ALT 19
Alkaline Phosphatase 113
Vital Signs:
Vital Signs
Temp Pulse Resp BP Pulse Ox
97.6 F 64 18 129/69 96
03/16/24 07:44 03/16/24 09:00 03/16/24 07:44 03/16/24 08:09 03/16/24 09:06
I&O
03/15/24 03/16/24 03/17/24
06:59 06:59 06:59
Intake Total 480 / 480 240 / 240
Output Total 1050 / 1050 775 / 775 300 / 300
Balance -570 / -570 -775 / -775 -60 / -60
Review of Systems
-
History Source: Patient
All other systems: Reviewed and negative
Physical Exam
-
General: Well Developed, Well Nourished and No Apparent Distress
HEENT: Normocephalic, Atraumatic and Moist Mucous Membranes
Respiratory: Clear to Auscultation
Cardiac: Regular Rhythm
GI: Soft, Nontender and Nondistended
Genito-urinary: No Costovertebral Tender
Musculoskeletal: No Clubbing, No Cyanosis and No Edema
Skin: Other (minimal discharge on dressing on sternal site of infection)
Neuro: Awake, Alert, Oriented and AO x 3
Psych: Calm
--- NOTE | 2024-03-16 10:03 | W.DCSUMMARY ---
Discharge Summary
Discharge Data
Date of Admission: 03/10/24
Date of Discharge: 03/16/24
-
Pending Results: No
Hospital Course
63yo M with PMHx of chronic gait dysfunction, SVT s/p ablasion @1999, HLD, insomnia, DM, HTN, GERD, CAD s/p CABG on 03/02/24 came with falls from home. He has hit his back during one of the falls. No LOC reported. Later concern brought up for sternal
postOP wound infection 2/2 ongoing discharge from the surgical site and lumbar MRI showed edema in the L psoas muscle that concerned for hematoma/abscess. ID reviewed records from previous admission to [facility] in 2021 where patient had
paraspinal postOP infection with MSSA. Upon d/c patient to continue 7 days of Keflex QID and 5 weeks of Doxy BID as per ID. Wound swab from sternal surgical site showed preliminary no organism and no WBC, will follow up with CTS upon d/c in 2 weeks.
. Patient to follow with ID upon D?C for further imaging and Abx mgmt. Neurology for chronic cervical myelopathy, that is unchanges over the course of admission. Medically stable for D/C
I concepción spent at least 38min preparing d/c
A/P:
#L psoas muscle hematoma vs abscess
#Ambulatory dysfunction
#Mild acute pancolitis
#Leukocytosis
#Thrombocytosis
#CAD s/p CABG with surgical site drainage
#NIRANJAN on admission
#Anxiety
#Essential HTN
#HLD
#Obesity due to excess calories
#DM type 2 with neuropathy
#Chronic C7-T1 myelopathy with R hand occasional numbness
#Groin pain
Discharge Plan
-
Patient Disposition: Home (Routine Discharge)
Discharge Diagnosis/Procedures: Sternal site drainage, psoas hematoma
Diet: Diabetic, Carb Controlled
Activity: No restrictions
Driving Restrictions: As prior to admission
Referrals:
CT Transitional Care Nurse [Outside] - in one to two days
(
The Cardiothoracic Transitional Care Nurse will call you to set up a visit in 1-2 days.)
Clau Molina PA-C [Specified Professional Personl] - 04/14/24 1:20 pm (You have a cardiology follow up appointment at the [place] office with Dr. Miranda's physician assistant chief of police, Clau. Please call with questions. )
Munir Silva MD [Active] - in two to three weeks (For outpatient MRI cervical and thoracic spine)
Scott Marlow MD [Family Provider] -
Kaushal Rodriguez MD [Active] - 03/29/24 (Post-surgical follow up)
Myranda Smith MD [Active] - (As scheduled)
Prescriptions:
New
propranolol 60 mg Capsule,Extended Release 24 Hr
60 mg PO DAILY Qty: 30 0RF
doxycycline hyclate 100 mg Capsule
100 mg PO Q12 35 Days Qty: 70 0RF
cephalexin 500 mg Capsule
500 mg PO QID Qty: 28 0RF
Continued
eszopiclone [Lunesta] 3 MG tablet
3 mg PO HS
duloxetine 60 MG capsule,delayed release(DR/EC)
60 mg PO HS
pregabalin 75 MG capsule
150 mg PO BID
multivitamin with folic acid [Tab-A-Christian] 1 TABLET tablet
1 tab PO DAILY
aspirin 81 MG tablet,delayed release (DR/EC)
81 mg PO DAILY
insulin aspart U-100 [Novolog PenFill U-100 Insulin] 100 unit/mL Cartridge
4 sliding scale dose SC AC
atorvastatin [Lipitor] 40 mg Tablet
40 mg PO HS
dapagliflozin propanediol 10 mg Tablet
10 mg PO DAILY Qty: 30 2RF
metformin 1,000 mg Tablet
1,000 mg PO BID@0800,1700 Qty: 60 2RF
acetaminophen 325 mg Tablet
650 mg PO Q4HPRN PRN (Reason: mild pain,headache,temp >101F ) Qty: 60 0RF
clopidogrel 75 mg Tablet
75 mg PO DAILY 365 Days Qty: 30 2RF
metoprolol tartrate 25 mg Tablet
12.5 mg PO BID Qty: 60 2RF
pantoprazole 40 mg tablet,delayed release (DR/EC)
40 mg PO DAILY Qty: 30 2RF
Changed
insulin glargine U-300 conc [Toujeo SoloStar U-300 Insulin] 300 UNIT/ML insulin pen
32 unit SC DAILY Qty: 0 0RF
Discontinued
oxycodone 5 mg Tablet
2.5 mg PO Q4HPRN PRN (Reason: mild pain) Qty: 30 0RF
Discharge Orders:
Discharge Patient (As Directed); Ordered 03/16/24
Ordered By: Elmer Villarreal
Discharge Date and Time
Print Language: ESTONIAN
[2024-03-16] MEDS: AFLURIA (36 mos+) 2024-2025 FORMULA 0.5 ML IM (10:31)
[2024-03-16 11:30] VITALS: BP 118/78
--- NOTE | 2024-03-16 12:09 | PTCARENOTE ---
Rec'd order for discharge. RN removed right AC INT and TELE monitor. Pt given discharge instruction with medication lists, would dressing care, and follow up appointments needed. Pt verbalized understanding and understood signs and symptoms to
report to provider. Vital signs and sternal wound dressing changed before leaving room. Pt left with educational packets, rolling walker, discharge instructions, and personal belongings. Pt escorted off unit by staff via wheelchair and safely
ambulated into car with daughter driving patient home.
== END 2024-03-16 11:59 | disposition home or self-care (01) | DRG 92 ==
LOC: IVU 08:45
PROVIDERS: Emergency Medicine; Internal Medicine; Student in an Organized Health Care Education/Training Program; ADMITTING PHYSICIAN Hospitalist; ATTENDING PHYSICIAN Internal Medicine; CONSULT PHYSICIAN Neurological Surgery; CONSULT PHYSICIAN Psychiatry & Neurology Neurology; CONSULT PHYSICIAN Student in an Organized Health Care Education/Training Program; EMERGENCY PHYSICIAN Emergency Medicine; FAMILY PHYSICIAN Internal Medicine; OTHER PHYSICIAN Internal Medicine Cardiovascular Disease; OTHER PHYSICIAN Thoracic Surgery (Cardiothoracic Vascular Surgery)
DX: G95.9 Disease of spinal cord, unspecified (principal); I50.32 Chronic diastolic (congestive) heart failure; I5A Non-ischemic myocardial injury (non-traumatic); N17.9 Acute kidney failure, unspecified; E66.09 Other obesity due to excess calories; F41.9 Anxiety disorder, unspecified; T14.8XXA Other injury of unspecified body region, initial encounter; I11.0 Hypertensive heart disease with heart failure; Y83.8 Other surgical procedures as the cause of abnormal reaction of the patient, or of later complication, without mention of misadventure at the time of the procedure
CPT/HCPCS: 93308; 70450; 70553; 71046; 72110; 72148; 72149; 73502; 74177; 76870; 80048; 80053; 81003; 82607; 82746; 82962; 84155; 84165; 84425; 84484; 85025; 85027; 85652; 86140; 87040; 87070; 87205; 90686; 93005; 93976; 94660; 97116; 97163; 97167; 97530; 97535; 99285; A9575; G0008; Q9950; Q9967

== ENCOUNTER 2024-04-14 08:48 | Outpatient (RCR) | payer OTHER, SELFPAY ==
[2024-04-02 10:07] LABS: Glucose - Point of Care 179 mg/dl (70-99)
[2024-04-02 10:56] LABS: Glucose - Point of Care 149 mg/dl (70-99)
[2024-04-05 06:29] LABS: Glucose - Point of Care 149 mg/dl (70-99)
[2024-04-05 07:23] LABS: Glucose - Point of Care 106 mg/dl (70-99)
[2024-04-07 06:38] LABS: Glucose - Point of Care 151 mg/dl (70-99)
[2024-04-07 07:29] LABS: Glucose - Point of Care 118 mg/dl (70-99)
[2024-04-12 06:36] LABS: Glucose - Point of Care 255 mg/dl (70-99)
[2024-04-12 07:26] LABS: Glucose - Point of Care 222 mg/dl (70-99)
[2024-04-14 06:47] LABS: Glucose - Point of Care 150 mg/dl (70-99)
[2024-04-14 07:37] LABS: Glucose - Point of Care 91 mg/dl (70-99)
[2024-04-14 07:58] LABS: Glucose - Point of Care 121 mg/dl (70-99)
== END 2024-04-14 23:59 | disposition home or self-care (01) ==
LOC: CRHB 08:48
PROVIDERS: ATTENDING PHYSICIAN Internal Medicine Cardiovascular Disease
DX: I25.10 Atherosclerotic heart disease of native coronary artery without angina pectoris (principal); Z95.1 Presence of aortocoronary bypass graft
CPT/HCPCS: 82962; 93797; 93798

== ENCOUNTER 2024-05-12 08:37 | Outpatient (RCR) | payer OTHER, SELFPAY ==
[2024-04-16 06:39] LABS: Glucose - Point of Care 175 mg/dl (70-99)
[2024-04-16 07:36] LABS: Glucose - Point of Care 97 mg/dl (70-99)
[2024-04-16 08:08] LABS: Glucose - Point of Care 151 mg/dl (70-99)
[2024-04-19 06:36] LABS: Glucose - Point of Care 141 mg/dl (70-99)
[2024-04-19 07:29] LABS: Glucose - Point of Care 180 mg/dl (70-99)
[2024-04-21 06:29] LABS: Glucose - Point of Care 241 mg/dl (70-99)
[2024-04-21 07:19] LABS: Glucose - Point of Care 211 mg/dl (70-99)
[2024-04-23 06:30] LABS: Glucose - Point of Care 155 mg/dl (70-99)
[2024-04-23 07:16] LABS: Glucose - Point of Care 146 mg/dl (70-99)
[2024-04-26 06:28] LABS: Glucose - Point of Care 150 mg/dl (70-99)
[2024-04-26 07:25] LABS: Glucose - Point of Care 176 mg/dl (70-99)
[2024-04-28 06:29] LABS: Glucose - Point of Care 154 mg/dl (70-99)
[2024-04-28 07:24] LABS: Glucose - Point of Care 178 mg/dl (70-99)
[2024-04-30 06:29] LABS: Glucose - Point of Care 228 mg/dl (70-99)
[2024-04-30 07:27] LABS: Glucose - Point of Care 123 mg/dl (70-99)
== END 2024-05-12 23:59 | disposition home or self-care (01) ==
LOC: CRHB 08:37
PROVIDERS: ATTENDING PHYSICIAN Internal Medicine Cardiovascular Disease
DX: Z95.1 Presence of aortocoronary bypass graft (principal)
CPT/HCPCS: 82962; 93797; 93798; G0422; G0423

== ENCOUNTER 2024-05-17 06:22 | Outpatient (RCR) | payer OTHER, SELFPAY | END 2024-05-17 23:59 | disposition home or self-care (01) | LOC: CRHB 06:22 | PROVIDERS: ATTENDING PHYSICIAN Internal Medicine Cardiovascular Disease | DX: I25.10 Atherosclerotic heart disease of native coronary artery without angina pectoris (principal); Z95.1 Presence of aortocoronary bypass graft | CPT/HCPCS: 93797; 93798 ==

== ENCOUNTER → 2024-09-17 12:59 | Outpatient (REF) | payer OTHER, SELFPAY | LOC: HWRAD 12:59 | PROVIDERS: ATTENDING PHYSICIAN Internal Medicine | DX: R09.89 Other specified symptoms and signs involving the circulatory and respiratory systems (principal) | CPT/HCPCS: 93880 ==